=== PATIENT | female | born 1935 | race Caucasian/White ===

== ENCOUNTER 2017-01-20 21:35 | Inpatient (IN) | payer OTHER ==
[~2017-01-20] VITALS: Ht 157.5 cm; Wt 65.9 kg
--- NOTE | 2017-01-20 21:53 | EMERGENCY ROOM VISIT NOTE ---
History Report prepared by Tyra: Dilcia Miranda Under the Supervision of: Dr. Markel Lemus M.D. First contact with patient: 21:42 Stated Complaint: NSTEMI History of Present Illness The patient is a 81 year old female who presents to the Emergency Room with complaints of intermittent central chest pain starting last night. She had a episode of shooting chest pain this morning that radiated to her back. The patient denies having any nausea. She notes that she was dizzy and sweating during her episode this morning. The patient denies having any chest pain presently. She was transferred from [facility] and was given an Aspirin while there. The patient is not on any blood thinners. She has a history of osteoporosis anxiety, and GERD. Source of History: patient, transfer records, treating provider Onset: last night Position: chest Timing: intermittent Associated Symptoms: No nausea Note: Pt. notes being sweaty and dizzy. Review of Systems As above. All other systems reviewed were negative unless otherwise stated in history. At least 10 were reviewed Past Medical & Surgical Medical Problems: (1) Anxiety (2) Chest pain (3) GERD (gastroesophageal reflux disease) (4) Osteoporosis Old medical records were reviewed. Nurse's notes were reviewed and I agree with. Social History Marital Status: Housing Status: lives with significant other Current/Historical Medications Scheduled Bisacodyl (Dulcolax), 1 TAB PO UD Calcium Carbonate-Vitamin D W/ (Caltrate 600 Plus), 1 TAB PO BID Ibandronate Sodium (Boniva), 150 MG PO MONTHLY Levothyroxine Sodium (Levothyroxine Sodium), 1 TAB PO DAILY Methylcellulose (Laxative) (Fiber Therapy), 2 TABS PO PRN Multivitamins/Minerals (Mvi With Minerals), 1 TAB PO DAILY Omeprazole (Prilosec), 20 MG PO DAILY Oxybutynin Chloride (Oxybutynin Chloride Er), 1 TAB PO DAILY Ranitidine (Zantac), 150 MG PO DAILY Sertraline (Zoloft), 100 MG PO DAILY Sertraline (Zoloft), 25 MG PO DAILY Vitamin E (E-400), 400 UNITS PO DAILY Scheduled PRN Acetaminophen (Tylenol), 650 MG PO Q6 PRN for Headache or Pain Allergies Coded Allergies: Bacitracin (Verified Allergy, Intermediate, RED RASH, SWOLLEN AT SITE, 01/20) Neomycin (Verified Allergy, Intermediate, RED RASH, SWOLLEN AT SITE, ) Polymyxin B (Verified Allergy, Intermediate, RED RASH, SWOLLEN AT SITE, 01/20/17) Physical Exam Vital Signs Date Time Temp Pulse Resp B/P (MAP) Pulse Ox O2 Delivery O2 Flow Rate FiO2 01/20/17 23:37 53 18 99/59 98 Room Air 01/20/17 23:35 52 20 01/20/17 21:48 55 01/20/17 21:43 36.5 55 20 160/62 95 Room Air 01/20/17 21:43 98 Room Air 01/20/17 21:43 98 Room Air 01/20/17 21:43 98 Room Air 01/20/17 21:38 160/62 Physical Exam General: Well appearing older female in no acute distress, breathing comfortably on room air. Normal speech HEENT: Normal cephalic atraumatic. Pupils are equal round and reactive to light. Extraocular movements are intact. Oropharynx is pink with moist mucous membranes. No swelling of the mouth lips or tongue. Neck: Supple with a midline trachea. No meningeal signs or stiffness, no JVD or bruits. No Stridor. Chest: Clear to auscultation bilaterally. No wheezes or rhonchi. No increased work of breathing. Heart: regular rate and rhythm. Abdomen: Soft nontender, nondistended without rebound guarding or rigidity. Extremities: No cyanosis clubbing or edema. No calf tenderness or assymetry Spine/Back. Non tender to palpation. No CVA tenderness Skin: Good turgor without rashes. Neurologic exam: Cranial nerves two through 12 are intact. Motor and sensation are intact and symmetrical throughout. Medical Decision & Procedures ER Provider Diagnostic Interpretation: Radiology results as stated below per my review and radiologist interpretation: CHEST ONE VIEW PORTABLE FINDINGS: Lung volumes are normal. No pneumothorax or pleural effusion is present. No consolidation is identified. Mild cardiomegaly is noted. There is no evidence of pulmonary edema. IMPRESSION: No acute cardiopulmonary findings. Electronically signed by: Steven Coelho M.D. Laboratory Results 01/20/17 22:10 Red Blood Count 4.05, Mean Corpuscular Volume 92.6, Mean Corpuscular Hemoglobin 32.1, Mean Corpuscular Hemoglobin Concent 34.7, Mean Platelet Volume 9.6, Neutrophils (%) (Auto) 60.0, Lymphocytes (%) (Auto) 32.1, Monocytes (%) (Auto) 7.1, Eosinophils (%) (Auto) 0.0, Basophils (%) (Auto) 0.4, Neutrophils # (Auto) 5.06, Lymphocytes # (Auto) 2.71, Monocytes # (Auto) 0.60, Eosinophils # (Auto) 0.00, Basophils # (Auto) 0.03 01/20/17 22:10 Test 01/20/17 22:10 01/20/17 23:53 White Blood Count 8.43 K/uL (4.8-10.8) Red Blood Count 4.05 M/uL (4.2-5.4) Hemoglobin 13.0 g/dL (12.0-16.0) Hematocrit 37.5 % (37-47) Mean Corpuscular Volume 92.6 fL (80-100) Mean Corpuscular Hemoglobin 32.1 pg (25-34) Mean Corpuscular Hemoglobin Concent 34.7 g/dl (32-36) Platelet Count 235 K/uL (130-400) Mean Platelet Volume 9.6 fL (7.4-10.4) Neutrophils (%) (Auto) 60.0 % Lymphocytes (%) (Auto) 32.1 % Monocytes (%) (Auto) 7.1 % Eosinophils (%) (Auto) 0.0 % Basophils (%) (Auto) 0.4 % Neutrophils # (Auto) 5.06 K/uL (1.4-6.5) Lymphocytes # (Auto) 2.71 K/uL (1.2-3.4) Monocytes # (Auto) 0.60 K/uL (0.11-0.59) Eosinophils # (Auto) 0.00 K/uL (0-0.5) Basophils # (Auto) 0.03 K/uL (0-0.2) RDW Standard Deviation 45.2 fL (36.4-46.3) RDW Coefficient of Variation 13.3 % (11.5-14.5) Immature Granulocyte % (Auto) 0.4 % Immature Granulocyte # (Auto) 0.03 K/uL (0.00-0.02) Anion Gap 8.0 mmol/L (3-11) Est Creatinine Clear Calc Drug Dose 71.1 ml/min Estimated GFR () 101.0 Estimated GFR (Non- 87.2 BUN/Creatinine Ratio 29.2 (10-20) Calcium Level 7.1 mg/dl (8.5-10.1) Total Bilirubin 0.6 mg/dl (0.2-1) Direct Bilirubin mg/dl (0-0.2) Aspartate Amino Transf (AST/SGOT) 22 U/L (15-37) Alanine Aminotransferase (ALT/SGPT) 19 U/L (12-78) Alkaline Phosphatase 43 U/L (45-117) Total Protein 5.4 gm/dl (6.4-8.2) Albumin 2.9 gm/dl (3.4-5.0) Lipase 84 U/L (73-393) Chemistry Specimen Hemolysis Creatine Kinase MB Ratio (0-3.0) Laboratory studies as stated above per my review. ECG Indication: chest pain Rate (beats per minute): 52 Rhythm: sinus bradycardia Findings: T-wave inversion (Anterior), other (No ST segment elevation) Comparison ECG Date: 09/08/2002 Change: Normal sinus replaces SVT. T-wave inversion now present. ED Course 2142: Past medical records reviewed. The patient was evaluated in room B10, and a complete history and physical examination were performed. 0: The patient is resting comfortably and is asymptomatic. 2257: Discussed the patient's case with Dr. Prasad. The patient will be evaluated for further management. 2301: Upon reevaluation, the patient is resting. I discussed the results and treatment plan with the patient. She verbalized agreement of the treatment plan. The patient will be evaluated for further management. Medical Decision Differential diagnosis includes but is not limited to: acute coronary syndrome, [place], PE, and electrolyte metabolic abnormality. This patient comes in as described above. She was placed in room B 10. She was seen initially at [place] but transferred here for further cardiac workup and evaluation. She had 2 episodes of chest pain, one last night and one this morning. She has been asymptomatic since then she has no complaints. Her troponin is elevated at 1. Her EKG does show anterior T-wave inversions concerning for an LAD lesion potentially. She has no evidence suggest acute CHF. she had a CAT scan of her chest at the outside hospital showed no PE. Her potassium is mildly low but no other significant electrolyte or metabolic abnormalities. I do think she needs to be admitted for further cardiac treatment and evaluation. I have consulted , who saw her in the ER, and will admit her for these measures. The patient did receive aspirin prior to arrival. Medication Reconcilliation Current Medication List: was personally reviewed by me Blood Pressure Screening Patient's blood pressure: Elevated blood pressure The patient was admitted. Consults Time Called: [phone] Consulting Physician: Dr. Matias-[facility] [place] [facility] Returned Call: [phone] Discussed the patient's case. The patient will be evaluated for further management. Impression Primary Impression: Non-STEMI (non-ST elevated myocardial infarction) Additional Impressions: Elevated troponin level Chest pain, precordial Scribe Attestation The scribe's documentation has been prepared under my direction and personally reviewed by me in its entirety. I confirm that the note above accurately reflects all work, treatment, procedures, and medical decision making performed by me. Departure Information Dispostion Being Evaluated By Hospitalist Referrals No Doctor, Assigned (PCP) Problem Qualifiers
--- NOTE | 2017-01-20 22:04 | DIAGNOSTIC IMAGING REPORT ---
CHEST ONE VIEW PORTABLE CLINICAL HISTORY: Chest pain. COMPARISON STUDY: No previous studies for comparison. FINDINGS: Lung volumes are normal. No pneumothorax or pleural effusion is present. No consolidation is identified. Mild cardiomegaly is noted. There is no evidence of pulmonary edema. IMPRESSION: No acute cardiopulmonary findings. Electronically signed by: Steven Coelho M.D. 01/20/2017 10:03 PM Dictated Date/Time: 01/20/2017 10:02 PM
[2017-01-20 22:30] LABS: BASO % 0.4 %; BASO ABS # 0.03 K/uL (0-0.2); COMPLETE YES; HEMATOCRIT 37.5 % (37-47); IG% 0.4 %; LYMPH % 32.1 %; LYMPH ABS # 2.71 K/uL (1.2-3.4); MEAN CELL VOLUME 92.6 fL (80-100); MEAN CORPUSCULAR HEMOGLOBIN 32.1 pg (25-34); MEAN CORPUSCULAR HGB CONC 34.7 g/dl (32-36); MEAN PLATELET VOLUME 9.6 fL (7.4-10.4); MONO % 7.1 %; PLATELET COUNT 235 K/uL (130-400); RED BLOOD COUNT 4.05 M/uL (4.2-5.4); WHITE BLOOD COUNT 8.43 K/uL (4.8-10.8)
[2017-01-20] MEDS ORDERED: BISA-16 PO (22:31)
[2017-01-20] MEDS ORDERED: PRLSR20 PO (22:31)
[2017-01-20] MEDS ORDERED: VITACAP37 PO (22:31)
[2017-01-20] MEDS ORDERED: SERT25TA PO (22:31)
[2017-01-20] MEDS ORDERED: ZNTT/150 PO (22:31)
[2017-01-20] MEDS ORDERED: LEVO50TA6 PO (22:31)
[2017-01-20] MEDS ORDERED: MULT-513 PO (22:31)
[2017-01-20] MEDS ORDERED: OXYB5TAB PO (22:31)
[2017-01-20] MEDS ORDERED: METH1TAB66 PO (22:31)
[2017-01-20] MEDS ORDERED: ACET-1311 PO (22:31)
[2017-01-20] MEDS ORDERED: SERT-234 PO (22:31)
[2017-01-20] MEDS ORDERED: CALCTAB7 PO (22:31)
[2017-01-20] MEDS ORDERED: IBAN150T PO (22:31)
[2017-01-20 23:09] LABS: ALKALINE PHOSPHATASE 43 U/L (45-117); ALT/SGPT 19 U/L (12-78); AST/SGOT 22 U/L (15-37); BLOOD UREA NITROGEN 17 mg/dl (7-18); BUN/CREATININE RATIO 29.2 (10-20); CALCIUM 7.1 mg/dl (8.5-10.1); CARBON DIOXIDE 21 mmol/L (21-32); CHLORIDE 113 mmol/L (98-107); CREATININE 0.59 mg/dl (0.60-1.20); GLUCOSE 76 mg/dl (70-99); POTASSIUM 3.1 mmol/L (3.5-5.1); SODIUM 142 mmol/L (136-145)
[2017-01-21] VITALS (14 sets, daily range): BP systolic 119–167; BP diastolic 61–78; PULSE 50–62; TEMP 36.4–36.7; O2SAT 93–97; Ht 157.5 cm; Wt 65.9 kg
[2017-01-21] MEDS ORDERED: D5NSS + 20MEQ KCL 1,000 ML IV SCH
[2017-01-21] MEDS ORDERED: NITROGLYCERIN 0.4 MG SL PER TAB CHARGE SL PRN
[2017-01-21] MEDS ORDERED: POTASSIUM CHLORIDE 10 MEQ TABCR PO STA (00:42)
[2017-01-21 01:24] LABS: CKMB/CK RATIO 5.7 (0-3.0)
--- NOTE | 2017-01-21 02:06 | History and Physical ---
History & Physical Date & Time of Service: Jan 21, 2017 at 01:50 Chief Complaint: Nstemi Primary Care Physician: Elda Kaye D.O. History of Present Illness Source: patient, clinic records 81 year old female with history of hypothyroidism, and other medical problems noted below presenting with chest pain that started 1 day prior to admission. Follows with Dr. Pedraza for Primary Care. 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 She was doing fine until last night, while laying bed trying to fall asleep, when patient started to have substernal chest pain, "pressure", mild. She stood up, felt somewhat dizzy and took Zantac, which apparently relieved her symptoms. Today, patient woke up with no chest pain but around noon time, experienced dizziness followed by left sided chest discomfort and sweats. She then called 911, and was given 4 baby Aspirins.Patient does not remember being given Nitro. She was brought the [facility], found to have T wave inversions in V1- V6, inferior leads and Troponin was 1.05. D dimer was >[address] Angio was negative for PE. She was already chest pain free upon arriving to [facility]. Patient was transferred to [facility] per family's request. At [facility] ER, patient's BP was mildly elevated but still denied chest pain. EKG showed T wave inversions in V1-V6, leads 2 and 3. Troponin was elevated at 1.5 , as well as CKMB at 7.8. On my exam, patient was seen resting in bed, comfortable. She states chest pain has resolved, denies active dyspnea, dizziness, nausea. No other symptoms. Past Medical/Surgical History Medical Problems: (1) Anxiety Status: Chronic (2) GERD (gastroesophageal reflux disease) Status: Chronic (3) Osteoporosis Status: Chronic Family History denies family history of CAD Social History Smoking Status: Unknown if Ever Smoked Smokeless Tobacco Use: No Alcohol Use: none Drug Use: none Marital Status: Housing status: lives with significant other Multi-Drug Resistant Organisms History of MDRO: No Allergies Coded Allergies: Bacitracin (Verified Allergy, Intermediate, RED RASH, SWOLLEN AT SITE, 01/20) Neomycin (Verified Allergy, Intermediate, RED RASH, SWOLLEN AT SITE, ) Polymyxin B (Verified Allergy, Intermediate, RED RASH, SWOLLEN AT SITE, 01/20/17) Home Medications Scheduled Bisacodyl (Dulcolax), 1 TAB PO UD Calcium Carbonate-Vitamin D W/ (Caltrate 600 Plus), 1 TAB PO BID Ibandronate Sodium (Boniva), 150 MG PO MONTHLY Levothyroxine Sodium (Levothyroxine Sodium), 1 TAB PO DAILY Methylcellulose (Laxative) (Fiber Therapy), 2 TABS PO PRN Multivitamins/Minerals (Mvi With Minerals), 1 TAB PO DAILY Omeprazole (Prilosec), 20 MG PO DAILY Oxybutynin Chloride (Oxybutynin Chloride Er), 1 TAB PO DAILY Ranitidine (Zantac), 150 MG PO DAILY Sertraline (Zoloft), 100 MG PO DAILY Sertraline (Zoloft), 25 MG PO DAILY Vitamin E (E-400), 400 UNITS PO DAILY Scheduled PRN Acetaminophen (Tylenol), 650 MG PO Q6 PRN for Headache or Pain Review of Systems Constitutional- no fever; no weight loss Eyes- no acute visual changes ENT- no sinus drainage; no pharyngitis Pulmonary- no cough, no wheezing, no shortness of breath Cardiac-(+) as noted above GI- no nausea, no vomiting, no diarrhea, no melena, no hematochezia - no dysuria, no hematuria Musculoskeletal- no arthralgias, no myalgias Derm- no rashes, no new skin lesions, no changing skin lesions Hematologic- no unusual bruising, no unusual bleeding Lymphatics- no adenopathy Endocrine- no polyuria or polydipsia; no heat or cold intolerance Neuro- no headaches, no focal neurologic symptoms Psych- no anxiety, no depression Physical Exam Vital Signs Date Time Temp Pulse Resp B/P (MAP) Pulse Ox O2 Delivery O2 Flow Rate FiO2 01/21/17 00:36 54 18 104/52 96 Room Air 01/20/17 23:37 53 18 99/59 98 Room Air 01/20/17 23:35 52 20 01/20/17 21:48 55 01/20/17 21:43 36.5 55 20 160/62 95 Room Air 01/20/17 21:43 98 Room Air 01/20/17 21:43 98 Room Air 01/20/17 21:43 98 Room Air 01/20/17 21:38 160/62 General Appearance: WD/WN, no apparent distress Head: normocephalic, atraumatic Eyes: normal inspection, EOMI, sclerae normal ENT: normal ENT inspection, hearing grossly normal, pharynx normal Neck: supple, no adenopathy, thyroid normal, no JVD, trachea midline Respiratory/Chest: chest non-tender, lungs clear, normal breath sounds, no respiratory distress, no accessory muscle use Cardiovascular: regular rate, rhythm, no edema, no JVD, no murmur, normal peripheral pulses Abdomen/GI: normal bowel sounds, non tender, soft, no organomegaly Back: normal inspection, no CVA tenderness Extremities/Musculoskelatal: normal inspection, no calf tenderness, no pedal edema, normal range of motion, non-tender 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: 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, no motor/sensory deficits, alert, normal mood/affect, oriented x 3 Skin: normal color, warm/dry, no rash Lymphatic: no adenopathy Diagnostics Laboratory Results Results Past 24 Hours Test 01/20/17 22:10 01/20/17 23:53 Range/Units White Blood Count 8.43 4.8-10.8 K/uL Red Blood Count 4.05 4.2-5.4 M/uL Hemoglobin 13.0 12.0-16.0 g/dL Hematocrit 37.5 37-47 % Mean Corpuscular Volume 92.6 80-100 fL Mean Corpuscular Hemoglobin 32.1 25-34 pg Mean Corpuscular Hemoglobin Concent 34.7 32-36 g/dl Platelet Count 235 130-400 K/uL Mean Platelet Volume 9.6 7.4-10.4 fL Neutrophils (%) (Auto) 60.0 % Lymphocytes (%) (Auto) 32.1 % Monocytes (%) (Auto) 7.1 % Eosinophils (%) (Auto) 0.0 % Basophils (%) (Auto) 0.4 % Neutrophils # (Auto) 5.06 1.4-6.5 K/uL Lymphocytes # (Auto) 2.71 1.2-3.4 K/uL Monocytes # (Auto) 0.60 0.11-0.59 K/uL Eosinophils # (Auto) 0.00 0-0.5 K/uL Basophils # (Auto) 0.03 0-0.2 K/uL RDW Standard Deviation 45.2 36.4-46.3 fL RDW Coefficient of Variation 13.3 11.5-14.5 % Immature Granulocyte % (Auto) 0.4 % Immature Granulocyte # (Auto) 0.03 0.00-0.02 K/uL Sodium Level 142 136-145 mmol/L Potassium Level 3.1 3.5-5.1 mmol/L Chloride Level 113 98-107 mmol/L Carbon Dioxide Level 21 21-32 mmol/L Anion Gap 8.0 3-11 mmol/L Blood Urea Nitrogen 17 7-18 mg/dl Creatinine 0.59 0.60-1.20 mg/dl Est Creatinine Clear Calc Drug Dose 71.1 ml/min Estimated GFR () 101.0 Estimated GFR (Non- 87.2 BUN/Creatinine Ratio 29.2 10-20 Random Glucose 76 70-99 mg/dl Calcium Level 7.1 8.5-10.1 mg/dl Total Bilirubin 0.6 0.2-1 mg/dl Direct Bilirubin 0-0.2 mg/dl Aspartate Amino Transf (AST/SGOT) 22 15-37 U/L Alanine Aminotransferase (ALT/SGPT) 19 12-78 U/L Alkaline Phosphatase 43 45-117 U/L Total Creatine Kinase 136 26-192 U/L Creatine Kinase MB 7.8 0.5-3.6 ng/ml Creatine Kinase MB Ratio 5.7 0-3.0 Troponin I 1.510 0-0.045 ng/ml Total Protein 5.4 6.4-8.2 gm/dl Albumin 2.9 3.4-5.0 gm/dl Lipase 84 73-393 U/L Chemistry Specimen Hemolysis Diagnostic Radiology CHEST ONE VIEW PORTABLE CLINICAL HISTORY: Chest pain. COMPARISON STUDY: No previous studies for comparison. FINDINGS: Lung volumes are normal. No pneumothorax or pleural effusion is present. No consolidation is identified. Mild cardiomegaly is noted. There is no evidence of pulmonary edema. IMPRESSION: No acute cardiopulmonary findings. EKG per H&P Impression Assessment and Plan 81 year old female with history of hypothyroidism, and other medical problems noted below presenting with chest pain that started 1 day prior to admission. POSSIBLE NSTEMI - now chest pain free - follow cardiac markers echo - already received four Aspirin 81mg po earlier today c/o EMS - discussed with Dr. Basilio will start Heparin IV drip Lipitor 40mg po daily - hold off on Betablocker due to HR in the high 50s hold off Lisinopril and Nitrates in light of borderline BP - NPO post midnight for possible Cardiac Cath in AM HYPOKALEMIA - PO K ordered - monitor ELEVATED D DIMER - >1000 drawn at [facility] - CT angio at [place]: no PE - check Doppler US of the Lower Ext to r/o DVT - likely from ongoing NSTEMI GERD - continue Zantac HYPOTHYROIDISM - continue Levothyroxine DVT prophylaxis - heparin IV drip FULL CODE PER PATIENT DISPOSITION anticipate d/c home when medically stable independent, takes care of with dementia follows with Dr. Pedraza for PCP VTE Prophylaxis VTE Risk Assessment Done? Y/N: Yes Risk Level: Moderate Given or contraindicated: Unfractionated heparin SQ
[2017-01-21] MEDS ORDERED: HEPARIN 25,000 UNIT/500ML D5W 500 ML IV PRN (02:45)
[2017-01-21 03:31] LABS: BASO % 0.4 %; BASO ABS # 0.03 K/uL (0-0.2); COMPLETE YES; HEMATOCRIT 38.6 % (37-47); IG% 0.3 %; LYMPH % 34.6 %; LYMPH ABS # 2.62 K/uL (1.2-3.4); MEAN CELL VOLUME 93.5 fL (80-100); MEAN CORPUSCULAR HEMOGLOBIN 30.3 pg (25-34); MEAN CORPUSCULAR HGB CONC 32.4 g/dl (32-36); MEAN PLATELET VOLUME 9.3 fL (7.4-10.4); MONO % 9.5 %; NEUT % 55.2 %; PLATELET COUNT 220 K/uL (130-400); RED BLOOD COUNT 4.13 M/uL (4.2-5.4); WHITE BLOOD COUNT 7.57 K/uL (4.8-10.8)
[2017-01-21 03:47] LABS: PARTIAL THROMBOPLASTIN RATIO 1.1
[2017-01-21] MEDS: D5NSS + 20MEQ KCL 1,000 ML IV SCH ×2 (03:52→12:59)
[2017-01-21 04:11] LABS: CKMB/CK RATIO 5.2 (0-3.0); CREATININE 0.85 mg/dl (0.60-1.20); MAGNESIUM 2.5 mg/dl (1.8-2.4); POTASSIUM 3.8 mmol/L (3.5-5.1)
[2017-01-21 04:12] LABS: CALCIUM 8.5 mg/dl (8.5-10.1)
[2017-01-21] MEDS ORDERED: LEVOTHYROXINE 50 MCG TAB PO SCH (06:00)
[2017-01-21] MEDS: LEVOTHYROXINE 50 MCG TAB PO SCH (06:16)
[2017-01-21] MEDS: PANTOprazole SOD 40 MG TAB PO SCH (06:16)
--- NOTE | 2017-01-21 06:26 | DIAGNOSTIC IMAGING REPORT ---
VENOUS DOPPLER LW EXT BILAT HISTORY: Pain. Edema. r/o dv COMPARISON STUDY: None. FINDINGS: There is normal compressibility, flow, and augmentation within the bilateral lower extremity deep venous systems. IMPRESSION: No DVT within the right or left lower extremity. The above report was generated using voice recognition software. It may contain grammatical, syntax or spelling errors. Electronically signed by: Saeed Casper M.D. 01/21/2017 6:24 AM Dictated Date/Time: 01/21/2017 6:24 AM
[2017-01-21] MEDS: OXYBUTYNIN CHLORIDE 5 MG TABCR PO SCH (07:39)
[2017-01-21] MEDS: SERTRALINE HCL 50 MG TAB PO SCH (07:40)
[2017-01-21] MEDS: SERTRALINE HCL 100 MG TAB PO SCH (07:40)
[2017-01-21] MEDS: RANITIDINE HCL 150 MG TAB PO SCH (07:40)
[2017-01-21] MEDS: ATORVASTATIN 40 MG TAB PO SCH (07:41)
[2017-01-21] MEDS ORDERED: ATORVASTATIN 40 MG TAB PO SCH (09:00)
--- NOTE | 2017-01-21 10:26 | CARDIOLOGY CONSULTATION ---
DATE OF CONSULTATION: 01/21/2017 DATE OF CONSULTATION: 01/21/2017 CONSULTATION FOR: Brien langley. REASON FOR CONSULTATION: Non-STEMI. HISTORY OF PRESENT ILLNESS: The patient is a 81-year-old with no prior history of heart disease. She does have a history of GERD and anxiety. 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 Last evening while she was trying to fall asleep she developed substernal chest pressure and discomfort. She took a Zantac which apparently relieved her symptoms. She awoke again on the day of admission with feeling well but later on developed some dizziness along with left-sided chest discomfort and diaphoresis. She called 911 and was taken to [facility]. There she was noted to have a abnormal EKG and borderline elevation in troponins. A CT of the chest was negative for pulmonary emboli. By the time she reached [facility] she was chest pain free and has remained so since admission. Per the family's request, she was transferred to [facility] for further care. After admission to [facility] her troponins have remained elevated but not increased since admission here at 1.5. Her EKG shows a sinus rhythm but is concerning because there are deep symmetrical T-wave inversions across the anterior precordial leads suggesting ischemia. ALLERGIES: BACITRACIN, NEOMYCIN, AND POLYMYXIN. PAST MEDICAL HISTORY: She has no prior history of diabetes, strokes, hypertension or kidney disease. She has been treated for GERD and anxiety. She has no prior history of ischemic heart disease. FAMILY MEDICAL HISTORY: Noncontributory. SOCIAL HISTORY: She has never smoked. She is and lives with her who has advanced dementia. REVIEW OF SYSTEMS: A 10-point review of systems is negative except for the history of chief complaint. PHYSICAL EXAMINATION: GENERAL: She is alert and oriented in no acute distress. HEAD, EYES, EARS, NOSE, AND THROAT: She is normocephalic. Pupils are equal and reactive to light. Extraocular muscles are intact bilaterally. NECK: The neck veins are flat. Carotids have good upstrokes bilaterally without bruits. Thyroid is nonpalpable. RESPIRATORY: Breath sounds equal bilaterally and clear to auscultation. CARDIOVASCULAR: Heart has a regular rhythm. Normal S1, S2. No S3, S4. No cardiac rubs or murmurs. GASTROINTESTINAL: Abdomen is soft, nontender without organomegaly. EXTREMITIES: Free of edema, digit clubbing, or cyanosis. NEUROLOGIC: Grossly intact. SKIN: Warm to touch. LYMPH NODES: Negative to palpation. LABORATORY DATA: Hemoglobin is 13.0, troponin is 1.5, creatinine is 0.59. EKG reveals sinus rhythm with symmetrical T-wave inversions across the precordium suggesting ischemia. IMPRESSION: 1. Chest pain with borderline elevation in troponins and an abnormal EKG suspicious for non-ST segment elevation myocardial infarction. 2. Gastroesophageal reflux disease. RECOMMENDATIONS: The patient is currently stable. I have recommended that we proceed with a cardiac catheterization. I explained the risks, benefits and intent of that procedure to her including the potential for catheter based intervention such as balloon angioplasty or intracoronary stenting. The patient is willing to proceed and it will be performed later this morning.
[2017-01-21 10:31] LABS: PARTIAL THROMBOPLASTIN RATIO 3.5
[2017-01-21 10:56] LABS: CKMB/CK RATIO 4.4 (0-3.0)
[2017-01-21] MEDS ORDERED: FENTANYL CITRATE INJ 50 MCG/1 ML 2 ML VIAL ONE (11:58)
[2017-01-21] MEDS ORDERED: MIDAZOLAM HCL 1 MG/ML 2ML VIAL ONE (11:58)
--- NOTE | 2017-01-21 12:01 | ECHOCARDIOGRAM REPORT ---
*NOTICE TO RECEIVING [employer] This information is strictly Confidential and protected under [place] law. [place] law prohibits you from making any further disclosure of this information unless further disclosure is expressly permitted by the written consent of the person to whom it pertains or is authorized by law. A general authorization for the release of medical or other information is not sufficient for this purpose. Hospital accepts no responsibility if the information is made available to any other person, INCLUDING THE PATIENT. Interpretation Summary * Name: LEONID PURI Study Date: 01/21/2017 10:23 AM * Patient Location: .2T\S\S235\S\1 HR: 55 * : 1935 (M/d/yyyy) Gender: Female Height: 62 in * Age: 81 yrs Ethnicity: CA Weight: 155 lb * Ordering Physician: Jared Matias * Referring Physician: Self, Referred * Performed By: Julio Marc RCS * * Reason For Study: Chest pain * BSA: 1.7 m2 * -- Conclusions -- * Small pericardial effusion. A circumferential pericardial effusion is noted. There are no echocardiographic indications of cardiac tamponade. * Normal LV chamber size with mild concentric LVH. * Normal LV systolic function, EF 55-60%. * No segmental left ventricular wall motion abnormalities are noted. * Grade II diastolic dysfunction. * Mild aortic regurgitation. * Mild mitral regurgitation. * Mild left atrial enlargement. Procedure Details * Left Ventricle The left ventricle is normal in size. There is mild concentric left ventricular hypertrophy. Ejection Fraction = 65-70%. Left ventricular systolic function is normal. No segmental left ventricular wall motion abnormalities are noted. The left ventricular wall motion is normal. * Right Ventricle The right ventricular cavity size is normal (basal dimension <4.2 cm in right ventricular apical 4-chamber view). The right ventricular systolic function is normal as assessed by tricuspid annular plane systolic excursion (TAPSE) (normal >1.5 cm). * Atria The left atrium is mildly dilated. Right atrial size is normal. No ASD detected; PFO is not assessed. * Mitral Valve The mitral valve anatomy is normal. There is no mitral valve stenosis. There is mild mitral regurgitation. * Tricuspid Valve The tricuspid valve is normal in structure and function. * Aortic Valve The aortic valve is trileaflet. No hemodynamically significant valvular aortic stenosis. Mild aortic regurgitation. * Pulmonic Valve The pulmonary valve is not well seen, but the Doppler examination is normal without significant regurgitation or stenosis. * Great Vessels The aortic root is normal size. * Pericardium/Pleural Small pericardial effusion. A circumferential pericardial effusion is noted. There are no echocardiographic indications of cardiac tamponade. * Left Ventricular Diastolic Function Diastolic dysfunction, Grade II (pseudonormalization pattern). * * MMode 2D Measurements and Calculations * IVSd 1.1 cm * * LVIDd 4.7 cm * LVIDs 2.9 cm * LVPWd 0.90 cm * * IVS/LVPW 1.2 * FS 36.8 % * EDV(Teich) 100.3 ml * ESV(Teich) 33.4 ml * EF(Teich) 66.7 % * * EDV(cubed) 101.1 ml * ESV(cubed) 25.5 ml * EF(cubed) 74.8 % * * LV mass(C)d 157.8 grams * LV mass(C)dI 92.0 grams/m\S\2 * * SV(Teich) 66.9 ml * SI(Teich) 39.0 ml/m\S\2 * SV(cubed) 75.6 ml * SI(cubed) 44.1 ml/m\S\2 * * Ao root diam 3.2 cm * Ao root area 8.2 cm\S\2 * * LVOT diam 1.9 cm * LVOT area 2.8 cm\S\2 * * EDV(MOD-sp4) 73.5 ml * ESV(MOD-sp4) 19.6 ml * EF(MOD-sp4) 73.3 % * * EDV(MOD-sp2) 24.8 ml * ESV(MOD-sp2) 7.1 ml * EF(MOD-sp2) 71.5 % * * SV(MOD-sp4) 53.9 ml * SI(MOD-sp4) 31.4 ml/m\S\2 * * SV(MOD-sp2) 17.7 ml * SI(MOD-sp2) 10.3 ml/m\S\2 * * * Doppler Measurements and Calculations * MV E max maurice 108.4 cm/sec * MV A max maurice 75.5 cm/sec * * MV E/A 1.4 * * MV dec time 0.21 sec * * Ao V2 max 115.2 cm/sec * Ao max PG 5.3 mmHg * Ao max PG (full) 1.1 mmHg * SARA(V,A) 2.5 cm\S\2 * SARA(V,D) 2.5 cm\S\2 * * AI max maurice 313.2 cm/sec * AI max PG 39.2 mmHg * AI dec slope 152.2 cm/sec\S\2 * AI P1/2t 602.8 msec * * LV V1 max PG 4.2 mmHg * * LV V1 max 102.5 cm/sec * * TR max maurice 254.2 cm/sec * *
[2017-01-21] MEDS ORDERED: ACETAMINOPHEN 325 MG TAB PO PRN ×2 (12:30)
[2017-01-21] MEDS ORDERED: ATROPINE SULFATE 0.1 MG/ML 5ML SYR IV PRN (12:30)
[2017-01-21] MEDS ORDERED: ONDANSETRON INJ 2 MG/ML 2 ML VIAL IV PRN (12:30)
[2017-01-21] MEDS ORDERED: SODIUM CHLORIDE 0.9% 1000ML 250 ML IV PRN (12:30)
--- NOTE | 2017-01-21 12:36 | Cardiac Catheterization ---
Procedure Note Procedure Date Jan 21, 2017. Pre-Procedure Diagnosis Non STEMI AUC Score 9 Post-Procedure Diagnosis Normal Coronary Arteries Procedure(s) Performed Coronary Angiography Director Of Testing Dr. 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
[2017-01-21] MEDS ORDERED: NURSING VERBAL MED ORDER ONE (13:15)
[2017-01-21] MEDS ORDERED: AMLODIPINE BESYLATE 5 MG TAB PO ONE (14:40)
[2017-01-21] MEDS: SODIUM CHLORIDE 0.9% 1000ML 1,000 ML IV SCH (14:57)
--- NOTE | 2017-01-21 23:27 | Progress Note ---
Medicine Progress Note Date & Time of Visit: Jan 21, 2017 at 13:15. Subjective transferred from OSH last night for r/o ACS serial troponin was elevated but not rising no chest pain since arrival to hospital, traditionally CP at home was with exertion and under stressful situations and would resolve quickly with rest. No associated symptoms TWI were persistent on EKG Heparin drip overnight Cath today with clean coronaries. Objective Last 8 Hrs Date Time Temp Pulse Resp B/P (MAP) Pulse Ox O2 Delivery O2 Flow Rate FiO2 01/21/17 13:02 36.6 59 18 138/72 (94) 94 Room Air 01/21/17 12:47 36.6 57 18 143/72 (95) 94 Room Air 01/21/17 12:32 36.5 57 18 143/72 (95) 94 Room Air 01/21/17 12:30 50 16 163/87 (112) 95 Room Air 01/21/17 12:00 93 Room Air 01/21/17 10:57 36.6 52 20 148/66 (93) 96 01/21/17 08:00 93 Room Air 01/21/17 07:33 36.7 54 20 119/61 (80) 93 Physical Exam: GEN: WNWD, in no acute distress, alert and appropriate HEENT: NC/AT, PERRL, normal sclerae, MMM CARDIO: reg rate, S1/2 heard without m/g/r, no JVD, +anterior chest wall tenderness to palpation LUNGS: CTA bilaterally, no crackles, rales or wheezes, good diaphragmatic excursion ABD: soft, non-tender, non-distended, no rebound or guarding, +BS EXTREMITY: RP and DP palpable 2+ bilat, no LE swelling or edema, extremities are warm and well-perfused NEURO: CN 2-12 grossly intact MUSC: 5/5 strength throughout, no focal deficits SKIN: warm and dry Laboratory Results: 01/21/17 03:07 Red Blood Count 4.13, Mean Corpuscular Volume 93.5, Mean Corpuscular Hemoglobin 30.3, Mean Corpuscular Hemoglobin Concent 32.4, Mean Platelet Volume 9.3, Neutrophils (%) (Auto) 55.2, Lymphocytes (%) (Auto) 34.6, Monocytes (%) (Auto) 9.5, Eosinophils (%) (Auto) 0.0, Basophils (%) (Auto) 0.4, Neutrophils # (Auto) 4.18, Lymphocytes # (Auto) 2.62, Monocytes # (Auto) 0.72, Eosinophils # (Auto) 0.00, Basophils # (Auto) 0.03 01/21/17 03:07 Test 01/20/17 22:08 01/20/17 22:10 01/21/17 03:07 01/21/17 09:55 Bedside Troponin I 1.050 ng/ml (0-0.045) Total Bilirubin 0.6 mg/dl (0.2-1) Direct Bilirubin mg/dl (0-0.2) Aspartate Amino Transf (AST/SGOT) 22 U/L (15-37) Alanine Aminotransferase (ALT/SGPT) 19 U/L (12-78) Alkaline Phosphatase 43 U/L (45-117) Total Protein 5.4 gm/dl (6.4-8.2) Albumin 2.9 gm/dl (3.4-5.0) Lipase 84 U/L (73-393) Chemistry Specimen Hemolysis White Blood Count 7.57 K/uL (4.8-10.8) Red Blood Count 4.13 M/uL (4.2-5.4) Hemoglobin 12.5 g/dL (12.0-16.0) Hematocrit 38.6 % (37-47) Mean Corpuscular Volume 93.5 fL (80-100) Mean Corpuscular Hemoglobin 30.3 pg (25-34) Mean Corpuscular Hemoglobin Concent 32.4 g/dl (32-36) Platelet Count 220 K/uL (130-400) Mean Platelet Volume 9.3 fL (7.4-10.4) Neutrophils (%) (Auto) 55.2 % Lymphocytes (%) (Auto) 34.6 % Monocytes (%) (Auto) 9.5 % Eosinophils (%) (Auto) 0.0 % Basophils (%) (Auto) 0.4 % Neutrophils # (Auto) 4.18 K/uL (1.4-6.5) Lymphocytes # (Auto) 2.62 K/uL (1.2-3.4) Monocytes # (Auto) 0.72 K/uL (0.11-0.59) Eosinophils # (Auto) 0.00 K/uL (0-0.5) Basophils # (Auto) 0.03 K/uL (0-0.2) RDW Standard Deviation 45.2 fL (36.4-46.3) RDW Coefficient of Variation 13.2 % (11.5-14.5) Immature Granulocyte % (Auto) 0.3 % Immature Granulocyte # (Auto) 0.02 K/uL (0.00-0.02) Anion Gap 4.0 mmol/L (3-11) Est Creatinine Clear Calc Drug Dose 47.8 ml/min Estimated GFR () 75.5 Estimated GFR (Non- 65.2 BUN/Creatinine Ratio 21.0 (10-20) Calcium Level 8.5 mg/dl (8.5-10.1) Magnesium Level 2.5 mg/dl (1.8-2.4) Activated Partial Thromboplast Time 90.7 SECONDS (21.0-31.0) Partial Thromboplastin Ratio 3.5 Total Creatine Kinase 159 U/L (26-192) Creatine Kinase MB 7.0 ng/ml (0.5-3.6) Creatine Kinase MB Ratio 4.4 (0-3.0) Troponin I 1.070 ng/ml (0-0.045) Last 24 Hours Test 01/20/17 22:08 01/20/17 22:10 01/20/17 23:53 01/21/17 03:07 Bedside Troponin I 1.050 ng/ml White Blood Count 8.43 K/uL 7.57 K/uL Red Blood Count 4.05 M/uL 4.13 M/uL Hemoglobin 13.0 g/dL 12.5 g/dL Hematocrit 37.5 % 38.6 % Mean Corpuscular Volume 92.6 fL 93.5 fL Mean Corpuscular Hemoglobin 32.1 pg 30.3 pg Mean Corpuscular Hemoglobin Concent 34.7 g/dl 32.4 g/dl Platelet Count 235 K/uL 220 K/uL Mean Platelet Volume 9.6 fL 9.3 fL Neutrophils (%) (Auto) 60.0 % 55.2 % Lymphocytes (%) (Auto) 32.1 % 34.6 % Monocytes (%) (Auto) 7.1 % 9.5 % Eosinophils (%) (Auto) 0.0 % 0.0 % Basophils (%) (Auto) 0.4 % 0.4 % Neutrophils # (Auto) 5.06 K/uL 4.18 K/uL Lymphocytes # (Auto) 2.71 K/uL 2.62 K/uL Monocytes # (Auto) 0.60 K/uL 0.72 K/uL Eosinophils # (Auto) 0.00 K/uL 0.00 K/uL Basophils # (Auto) 0.03 K/uL 0.03 K/uL RDW Standard Deviation 45.2 fL 45.2 fL RDW Coefficient of Variation 13.3 % 13.2 % Immature Granulocyte % (Auto) 0.4 % 0.3 % Immature Granulocyte # (Auto) 0.03 K/uL 0.02 K/uL Sodium Level 142 mmol/L 139 mmol/L Potassium Level 3.1 mmol/L 3.8 mmol/L Chloride Level 113 mmol/L 108 mmol/L Carbon Dioxide Level 21 mmol/L 27 mmol/L Anion Gap 8.0 mmol/L 4.0 mmol/L Blood Urea Nitrogen 17 mg/dl 18 mg/dl Creatinine 0.59 mg/dl 0.85 mg/dl Est Creatinine Clear Calc Drug Dose 71.1 ml/min 47.8 ml/min Estimated GFR () 101.0 75.5 Estimated GFR (Non- 87.2 65.2 BUN/Creatinine Ratio 29.2 21.0 Random Glucose 76 mg/dl 91 mg/dl Calcium Level 7.1 mg/dl 8.5 mg/dl Total Bilirubin 0.6 mg/dl Direct Bilirubin mg/dl Aspartate Amino Transf (AST/SGOT) 22 U/L Alanine Aminotransferase (ALT/SGPT) 19 U/L Alkaline Phosphatase 43 U/L Total Creatine Kinase 136 U/L 148 U/L Creatine Kinase MB 7.8 ng/ml 7.7 ng/ml Creatine Kinase MB Ratio 5.7 5.2 Troponin I 1.510 ng/ml 1.590 ng/ml Total Protein 5.4 gm/dl Albumin 2.9 gm/dl Lipase 84 U/L Chemistry Specimen Hemolysis Activated Partial Thromboplast Time 27.5 SECONDS Partial Thromboplastin Ratio 1.1 Magnesium Level 2.5 mg/dl Test 01/21/17 09:55 Activated Partial Thromboplast Time 90.7 SECONDS Partial Thromboplastin Ratio 3.5 Total Creatine Kinase 159 U/L Creatine Kinase MB 7.0 ng/ml Creatine Kinase MB Ratio 4.4 Troponin I 1.070 ng/ml Assessment & Plan 81 yo F presenting with two episodes of chest pain 48 hours prior to arrival admitted as a transfer from [facility] for ACS rule out. Elevated troponin were present and she was placed on a heparin drip and sent for cardiac catheterization, which revealed no coronary artery disease. Her BP was notably high around admisison and is again high now. 1. Chest pain/elevated troponin-ACS was ruled out overnight and cardiac catheterization revealed no disease. Heparin drip was stopped. She was not on antihypertensives coming in and her BP post-procedure was in the 170s systolic. She was started on Norvasc and will be monitored overnight to ensure she is responding appropriately prior to discharge. 2. Hypertension-not on antihypertensives as outpatient as vitals trend has been consistently below goal BP. However, since admission, she has been in the 160s-170s systolic reliably. Started Norvasc 10mg daily and will follow. 3. Elevated D-dimer-CT PE at [facility] was negative and LE us was also negative for DVT overnight. 4. Hypothyroidism-cont Synthroid 5. 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 Cont sertraline. DVT prophylaxis-Lovenox Full Dispo-likely to home in am DO [facility] Current Inpatient Medications: Current Inpatient Medications Medications (Trade) Dose Ordered Sig/Fransico Route Start Time Stop Time Status Last Admin Dose Admin Acetaminophen (Tylenol Tab) 650 mg Q4H PRN PO 01/21/17 00:00 02/20/17 00:00 Nitroglycerin (Nitrostat Tab) 0.4 mg UD PRN SL 01/21/17 00:00 02/20/17 00:00 Oxybutynin Chloride (Ditropan-Xl Tab) 5 mg DAILY PO 01/21/17 09:00 02/20/17 08:59 01/21/17 07:39 5 MG Ranitidine HCl (zANTac TAB) 150 mg DAILY PO 01/21/17 09:00 02/20/17 08:59 01/21/17 07:40 150 MG Sertraline HCl (Zoloft Tab) 25 mg DAILY PO 01/21/17 09:00 02/20/17 08:59 01/21/17 07:40 25 MG Sertraline HCl (Zoloft Tab) 100 mg DAILY PO 01/21/17 09:00 02/20/17 08:59 01/21/17 07:40 100 MG Pantoprazole Sodium (Protonix Tab) 40 mg QAM PO 01/21/17 09:00 02/20/17 08:59 01/21/17 06:16 40 MG Heparin Sodium/ Dextrose 500 ml @ 18 mls/hr Q24H PRN IV 01/21/17 02:45 02/20/17 02:44 01/21/17 04:19 20 MLS/HR Potassium Chloride/Dextrose/ Sod Cl 1,000 ml @ 100 mls/hr Q10H IV 01/21/17 03:00 02/20/17 02:59 01/21/17 12:59 100 MLS/HR Levothyroxine Sodium (Synthroid Tab) 50 mcg DAILYBB PO 01/21/17 06:00 02/20/17 06:59 01/21/17 06:16 50 MCG Atorvastatin Calcium (Lipitor Tab) 40 mg QAM PO 01/21/17 09:00 02/20/17 08:59 01/21/17 07:41 40 MG Sodium Chloride 1,000 ml @ 75 mls/hr [id number] IV 01/21/17 12:30 02/20/17 12:29 UNV Acetaminophen (Tylenol Tab) 650 mg Q4H PRN PO 01/21/17 12:30 02/20/17 12:29 UNV Sodium Chloride 250 ml @ 999 mls/hr Q16M PRN IV 01/21/17 12:30 02/20/17 12:29 UNV Atropine Sulfate (Atropine Sulfate 0.1MG/Ml Inj) 0.6 mg PRN PRN IV 01/21/17 12:30 02/20/17 12:29 UNV Ondansetron HCl (Zofran Inj) 4 mg Q6H PRN IV 01/21/17 12:30 02/20/17 12:29 UNV
[2017-01-22 00:16] VITALS: BP 138/75; PULSE 53; TEMP 36.8; O2SAT 96
[2017-01-22] MEDS: SODIUM CHLORIDE 0.9% 1000ML 1,000 ML IV SCH (01:43)
--- NOTE | 2017-01-22 06:26 | Clinical Documentation Query ---
CLINICAL DOCUMENTATION QUERY 81 year old female who presents to the Emergency Room with complaints of intermittent central chest pain found to be negative for NSTEMI by cardiac catheterization In your clinical opinion is this patient being managed for: ( ) Myocardial Necrosis in setting of prolonged uncontrolled hypertension evidenced by +cardiac enzymes requiring diagnostic cardiac catheterization and telemetry monitoring treated with Norvasc ( x ) Not Agree ( ) Other explanation of clinical findings (Please Explain) ( ) Unable to determine (Please Define) ( ) Need to Discuss The medical record reflects the following clinical findings, treatment, and risk factors. Clinical Indicators: presents with BP's 160/62. Troponins 1.070, 1.590, 1.510, CKMB 7.8, 7.7, 7.0. Presenting ECG showed ST depressed in Anterior leads and T wave inversion in Anterior leads. Clean cardia cath. Treatment: Norvasc, Cardiac cath, telemetry, serial cardiac markers. Risk Factors: Age, newly diagnosed htn, Please clarify and document your clinical opinion in the progress notes and discharge summary. Terms such as "probable", "suspected", "likely", "questionable", "possible", or "still to be ruled out" are acceptable. IF IN AGREEMENT, YOU MUST DOCUMENT ABOVE DIAGNOSTIC STATEMENT IN DAILY PROGRESS NOTES AND DISCHARGE SUMMARY. This document is not part of the patient's record. Thank You, Ronnell Justice, RN [phone]
[2017-01-22] MEDS: LEVOTHYROXINE 50 MCG TAB PO SCH (06:44)
[2017-01-22] MEDS: PANTOprazole SOD 40 MG TAB PO SCH (07:12)
[2017-01-22 07:21] VITALS: BP 147/75; PULSE 60; TEMP 36.4; O2SAT 95
[2017-01-22 07:39] LABS: BASO % 0.4 %; BASO ABS # 0.03 K/uL (0-0.2); COMPLETE YES; EOS % 3.1 %; HEMATOCRIT 38.5 % (37-47); IG% 0.1 %; LYMPH ABS # 2.06 K/uL (1.2-3.4); MEAN CELL VOLUME 93.4 fL (80-100); MEAN CORPUSCULAR HEMOGLOBIN 31.6 pg (25-34); MEAN CORPUSCULAR HGB CONC 33.8 g/dl (32-36); MEAN PLATELET VOLUME 9.5 fL (7.4-10.4); MONO % 9.5 %; NEUT % 58.9 %; PLATELET COUNT 220 K/uL (130-400); RED BLOOD COUNT 4.12 M/uL (4.2-5.4); WHITE BLOOD COUNT 7.35 K/uL (4.8-10.8)
[2017-01-22 07:45] LABS: PROTHROMBIN TIME (PATIENT) 10.9 SECONDS (9.0-12.0)
[2017-01-22] MEDS: OXYBUTYNIN CHLORIDE 5 MG TABCR PO SCH (08:00)
[2017-01-22] MEDS ORDERED: AMLODIPINE BESYLATE 5 MG TAB PO SCH (08:00)
[2017-01-22 08:16] LABS: BUN/CREATININE RATIO 13.8 (10-20); CALCIUM 8.7 mg/dl (8.5-10.1); CREATININE 0.82 mg/dl (0.60-1.20); MAGNESIUM 2.4 mg/dl (1.8-2.4); POTASSIUM 3.9 mmol/L (3.5-5.1)
[2017-01-22] MEDS: RANITIDINE HCL 150 MG TAB PO SCH (08:21)
[2017-01-22] MEDS: ATORVASTATIN 40 MG TAB PO SCH (08:26)
[2017-01-22] MEDS: SERTRALINE HCL 100 MG TAB PO SCH (08:31)
[2017-01-22] MEDS: SERTRALINE HCL 50 MG TAB PO SCH (08:31)
[2017-01-22] MEDS ORDERED: ENOXAPARIN 40 MG/0.4 ML SYR SQ SCH (09:00)
[2017-01-22 10:42] VITALS: BP_SYST 119; BP_SYST 127; BP_SYST 98; BP_DIAS 61; BP_DIAS 68; BP_DIAS 77; PULSE 58; PULSE 59; PULSE 61; O2SAT 95
[2017-01-22 11:00] VITALS: O2SAT 93
--- NOTE | 2017-01-22 15:19 | Discharge Instructions ---
Discharge Instructions Date of Service Jan 22, 2017. Admission Reason for Admission: Chest Pain Discharge Discharge Diagnosis / Problem: Atypical chest pain Discharge Goals Goal(s): Prevent Disease Progression Activity Recommendations Activity Limitations: per Instructions/Follow-up section . Instructions / Follow-Up Instructions / Follow-Up Please continue all medications as instructed. You have a follow-up appointment with Dr. Kaye set up for Wed, 01/27 @ 10: 45am for follow-up from this hospitalization. Please bring all paperwork with you from discharge. It was a pleasure taking care of you! Call if you have any questions or problems. You can reach a [facility] hospitalist on duty at [facility] 24 hours a day by calling [phone]. Take care of yourself. Solange Underwood DO [facility] Current [facility] Diet Patient's current hospital diet: Regular Diet Discharge Diet Recommended Diet: Regular Diet Procedures Procedures Performed: Cardiac Catheterization TTE Pending Studies Studies pending at discharge: no Medical Emergencies . Who to Call and When: Medical Emergencies: If at any time you feel your situation is an emergency, please call 911 immediately. . Non-Emergent Contact Non-Emergency issues call your: Primary Care Provider . . "Provider Documentation" section prepared by Solange Underwood. . VTE Core Measure Inpt VTE Proph given/why not?: Other Anticoagulation (pt was on heparin drip until just after cath and refused Lovenox thereafter. )
[2017-01-22 15:27] VITALS: BP 98/61; PULSE 61; TEMP 36.4; O2SAT 93
[2017-01-22] MEDS ORDERED: OXYBUTYNIN CHLORIDE 5 MG TABCR PO SCH (22:00)
--- NOTE | 2017-01-23 23:04 | Discharge Summary ---
Discharge Summary Date of Service Jan 23, 2017. Discharge Summary Admission Date: Jan 20, 2017 at 23:09 Discharge Date: Jan 22, 2017 Discharge Disposition: Home Principal Diagnosis: Chest pain s/p cardiac cath with no coronary disease Elevated troponin HTN elevated D-dimer Hypothyroidism Anxiety/Depression Procedures: cardiac catheterization Vaccinations: None. Consultations: Cardio Pending Studies/Follow-Up: see instructions below. Medication Reconciliation Continued Medications: Acetaminophen (Tylenol) 325 Mg Tab 650 MG PO Q6 PRN for Headache or Pain, TAB Bisacodyl (Dulcolax) 5 Mg Tab 1 TAB PO UD for 1 Day, #2 TAB Calcium Carbonate-Vitamin D W/ (Caltrate 600 Plus) 1 Tab Tab 1 TAB PO BID, TAB Ibandronate Sodium (Boniva) 150 Mg Tab 150 MG PO MONTHLY, TAB Levothyroxine Sodium (Levothyroxine Sodium) 50 Mcg Tab 1 TAB PO DAILY for 90 Days, #90 TAB 3 Refills Methylcellulose (Laxative) (Fiber Therapy) 500 Mg Tab 2 TABS PO PRN Multivitamins/Minerals (Mvi With Minerals) Tab 1 TAB PO DAILY, TAB Omeprazole (Prilosec) 20 Mg Capcr 20 MG PO DAILY, CAP Oxybutynin Chloride (Oxybutynin Chloride Er) 5 Mg Tab 1 TAB PO DAILY for 90 Days Ranitidine (Zantac) 150 Mg Tab 150 MG PO DAILY, TAB Sertraline (Zoloft) 100 Mg Tab 100 MG PO DAILY, TAB TO EQUAL 125MG Sertraline (Zoloft) 25 Mg Tab 25 MG PO DAILY, TAB Vitamin E (E-400) 400 Unit Cap 400 UNITS PO DAILY Admission Information HPI (per Admitting provider): 81 year old female with history of hypothyroidism, and other medical problems noted below presenting with chest pain that started 1 day prior to admission. Follows with Dr. Pedraza for Primary Care. 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 She was doing fine until last night, while laying bed trying to fall asleep, when patient started to have substernal chest pain, "pressure", mild. She stood up, felt somewhat dizzy and took Zantac, which apparently relieved her symptoms. Today, patient woke up with no chest pain but around noon time, experienced dizziness followed by left sided chest discomfort and sweats. She then called 911, and was given 4 baby Aspirins.Patient does not remember being given Nitro. She was brought the [facility], found to have T wave inversions in V1- V6, inferior leads and Troponin was 1.05. D dimer was >[address] Angio was negative for PE. She was already chest pain free upon arriving to [facility]. Patient was transferred to [facility] per family's request. At [facility] ER, patient's BP was mildly elevated but still denied chest pain. EKG showed T wave inversions in V1-V6, leads 2 and 3. Troponin was elevated at 1.5 , as well as CKMB at 7.8. On my exam, patient was seen resting in bed, comfortable. She states chest pain has resolved, denies active dyspnea, dizziness, nausea. No other symptoms. Physical Exam (per Admitting): General Appearance: WD/WN, no apparent distress Head: normocephalic, atraumatic Eyes: normal inspection, EOMI, sclerae normal ENT: normal ENT inspection, hearing grossly normal, pharynx normal Neck: supple, no adenopathy, thyroid normal, no JVD, trachea midline Respiratory/Chest: chest non-tender, lungs clear, normal breath sounds, no respiratory distress, no accessory muscle use Cardiovascular: regular rate, rhythm, no edema, no JVD, no murmur, normal peripheral pulses Abdomen/GI: normal bowel sounds, non tender, soft, no organomegaly Back: normal inspection, no CVA tenderness Extremities/Musculoskelatal: normal inspection, no calf tenderness, no pedal edema, normal range of motion, non-tender 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: 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 Elevated troponin were present and she was placed on a heparin drip and sent for cardiac catheterization, which revealed no coronary artery disease. Her BP was notably high around admission and is again high now. 1. Chest pain/elevated troponin-ACS was ruled out overnight and cardiac catheterization revealed no disease. Heparin drip was stopped. She was not on antihypertensives coming in and her BP post-procedure was in the 170s systolic. She was started on Norvasc and will be monitored overnight to ensure she is responding appropriately prior to discharge. 2. Hypertension-not on antihypertensives as outpatient as vitals trend has been consistently below goal BP. However, since admission, she has been in the 160s-170s systolic reliably. Started Norvasc 10mg daily, however, she became hypotensive and lightheaded after 24 hours. All antihypertensives were stopped and she felt improved with PT evaluation that she passed prior to being discharged. 3. Elevated D-dimer-CT PE at [facility] was negative and LE us was also negative for DVT overnight. 4. Hypothyroidism-cont Synthroid 5. 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 Cont sertraline. On day of discharge she was afebrile and hemodynamically stable. She was mentating and ambulating at or around baseline. She passed PT evaluation. Physical exam was unremarkable. She was discharged in stable condition with close PCP follow-up. Total time spent on discharge = 60 minutes This includes examination of the patient, discharge planning, medication reconciliation, and communication with other providers. Discharge Instructions [address] [address] Discharge Medical Patient Name: Martha Koenig Unit Number: [id number] Date of : 1935 Patient Status: Discharged Inpatient Attending Doctor: Solange Underwood DO DI: Medical v4 Discharge Instructions Date of Service Jan 22, 2017. Admission Reason for Admission: Chest Pain Discharge Discharge Diagnosis / Problem: Atypical chest pain Discharge Goals Goal(s): Prevent Disease Progression Activity Recommendations Activity Limitations: per Instructions/Follow-up section . Instructions / Follow-Up Instructions / Follow-Up Please continue all medications as instructed. You have a follow-up appointment with Dr. Kaye set up for 01/27 @ 10: 45am for follow-up from this hospitalization. Please bring all paperwork with you from discharge. It was a pleasure taking care of you! Call if you have any questions or problems. You can reach a [facility] hospitalist on duty at [facility] 24 hours a day by calling [phone]. Take care of yourself. DO [facility] Current Hospital Diet Patient's current hospital diet: Regular Diet Discharge Diet Recommended Diet: Regular Diet Procedures Procedures Performed: Cardiac Catheterization TTE Pending Studies Studies pending at discharge: no Medical Emergencies . Who to Call and When: Medical Emergencies: If at any time you feel your situation is an emergency, please call 911 immediately. . Non-Emergent Contact Non-Emergency issues call your: Primary Care Provider . . "Provider Documentation" section prepared by Solange Underwood. . VTE Core Measure Inpt VTE Proph given/why not?: Other Anticoagulation (pt was on heparin drip until just after cath and refused Lovenox thereafter. ) Additional Copies To Elda Kaye D.O.
[2017-02-28] MEDS ORDERED: ASPI325T60 PO (13:25)
[2017-02-28] MEDS ORDERED: LPR25 PO (13:25)
[2017-02-28] MEDS ORDERED: TRAM-10 PO (13:28)
== END 2017-01-22 16:17 | disposition home or self-care (01) | DRG 287 ==
LOC: EDBD 21:35 → EDSEX 21:35 → C.EDB 21:38 → C.2T 23:09 → UNDOADMIN 23:09 → ENRESERV 23:23 → EDBEDREQ 01-21 14:58 → CANBEDREQ 01-21 15:01 → ENRESERV 01-21 16:54 → C.MS4W 01-21 19:00
PROVIDERS: ADMIT Internal Medicine; ATTEND Hospitalist
PROC: B211YZZ Fluoroscopy of Multiple Coronary Arteries using Other Contrast (ICD-10-PCS; principal; 2017-01-21 12:09)
DX: R07.89 Other chest pain (principal); R79.89 Other specified abnormal findings of blood chemistry; R79.1 Abnormal coagulation profile; E87.6 Hypokalemia; K21.9 Gastro-esophageal reflux disease without esophagitis; I10 Essential (primary) hypertension; E03.9 Hypothyroidism, unspecified; F41.9 Anxiety disorder, unspecified; F32.9 Major depressive disorder, single episode, unspecified; M81.0 Age-related osteoporosis without current pathological fracture; Z79.83 Long term (current) use of bisphosphonates; Z79.899 Other long term (current) drug therapy; Z88.1 Allergy status to other antibiotic agents

== ENCOUNTER 2017-02-23 09:27 | Inpatient (IN) | payer OTHER ==
[2017-02-23] VITALS (10 sets, daily range): BP systolic 122–172; BP diastolic 54–84; PULSE 78–84; TEMP 35.4–36.4; O2SAT 92–96; Ht 157.5 cm; Wt 72.4 kg
[~2017-02-23] VITALS: Ht 157.5 cm; Wt 72.4 kg
[~2017-02-23 09:27] MED LIST: ACET-1311 PO; BISA-16 PO; CALCTAB7 PO; IBAN150T PO; LEVO50TA6 PO; METH1TAB66 PO; MULT-513 PO; OXYB5TAB PO; PRLSR20 PO; SERT-234 PO; SERT25TA PO; VITACAP37 PO; ZNTT/150 PO
[2017-02-23] MEDS ORDERED: OMEG1CHW PO (09:49)
[2017-02-23] MEDS ORDERED: LACTATED RINGER'S 1000ML 1,000 ML IV SCH (10:03)
[2017-02-23] MEDS ORDERED: MoRPHine SULFATE 4 MG/ML 1 ML CARP\\VIAL IV PRN (10:15)
[2017-02-23] MEDS ORDERED: MoRPHine SULFATE 2 MG/ML CARP IV PRN (10:15)
--- NOTE | 2017-02-23 10:54 | DIAGNOSTIC IMAGING REPORT ---
R FEMUR 2 VIEWS ROUTINE CLINICAL HISTORY: 82 years-old Female presenting with fall. TECHNIQUE: Frontal and lateral views of the right femur were obtained. COMPARISON: None. FINDINGS: Transversely oriented fracture of the proximal to mid diaphysis of the right femur with over one half shaft width medial displacement of the distal fracture fragment and nearly 1 cm of foreshortening. No significant angulation. Right hip joint remains congruent. No femoral neck fracture. Knee joint congruent. Soft tissue swelling at the fracture site may relate to hematoma. IMPRESSION: Transversely oriented fracture of the proximal metadiaphysis of the right femur with over one half shaft width displacement and nearly 1 cm of foreshortening. Electronically signed by: Darryl Nixon M.D. 02/23/2017 10:52 AM Dictated Date/Time: 02/23/2017 10:51 AM
--- NOTE | 2017-02-23 10:55 | DIAGNOSTIC IMAGING REPORT ---
PELVIS 1 OR 2 VIEW ROUTINE CLINICAL HISTORY: 82 years-old Female presenting with RT FEMUR FRACTURE. TECHNIQUE: Single frontal view of the pelvis was obtained. COMPARISON: None. FINDINGS: Pubic symphysis and sacroiliac joints congruent. Bony pelvis intact. Hip joints congruent. Lower lumbar spine within normal limits. Arcuate lines intact. IMPRESSION: No acute osseous injury of the pelvis. Electronically signed by: Darryl Nixon M.D. 02/23/2017 10:53 AM Dictated Date/Time: 02/23/2017 10:52 AM
--- NOTE | 2017-02-23 10:57 | DIAGNOSTIC IMAGING REPORT ---
CHEST ONE VIEW PORTABLE CLINICAL HISTORY: Fall. COMPARISON STUDY: Chest radiograph January 20, 2017. FINDINGS: There is no pneumothorax or pleural effusion. There is no lobar consolidation. Several radiodensities project over the right upper quadrant/right lower chest as well as the right supraclavicular region. These measure up to 1.8 cm. There is no consolidation to suggest pneumonia and there is no evidence of pulmonary edema. Widening of the mediastinum is likely due to supine technique. There is borderline cardiomegaly. IMPRESSION: 1. No acute cardiopulmonary findings. 2. Mediastinal widening, likely due to supine technique. 3. Several radiodensities which project over the right upper quadrant/right lower chest and right supraclavicular region. These are indeterminate but likely on rather than within the patient. Electronically signed by: Steven Coelho M.D. 02/23/2017 10:56 AM Dictated Date/Time: 02/23/2017 10:51 AM
[2017-02-23 11:08] LABS: BASO % 0.2 %; BASO ABS # 0.02 K/uL (0-0.2); COMPLETE YES; HEMATOCRIT 37.7 % (37-47); IG% 0.2 %; MEAN CELL VOLUME 91.5 fL (80-100); MEAN CORPUSCULAR HEMOGLOBIN 31.1 pg (25-34); MEAN PLATELET VOLUME 9.1 fL (7.4-10.4); MONO % 4.5 %; NEUT % 84.1 %; PLATELET COUNT 206 K/uL (130-400); RED BLOOD COUNT 4.12 M/uL (4.2-5.4); WHITE BLOOD COUNT 9.99 K/uL (4.8-10.8)
[2017-02-23 11:14] LABS: PARTIAL THROMBOPLASTIN RATIO 0.9; PROTHROMBIN TIME (PATIENT) 11.2 SECONDS (9.0-12.0)
[2017-02-23 11:29] LABS: URINE APPEARANCE CLEAR (CLEAR); URINE BILIRUBIN NEG (NEG); URINE COLOR YELLOW; URINE NITRITE NEG (NEG); URINE SPECIFIC GRAVITY 1.018 (1.000-1.030); UROBILINOGEN NEG (NEG); ZZURINE CULT IF INDIC CATH NO
[2017-02-23 11:31] LABS: BUN/CREATININE RATIO 18.5 (10-20); CALCIUM 8.3 mg/dl (8.5-10.1); CREATININE 0.86 mg/dl (0.60-1.20); POTASSIUM 3.5 mmol/L (3.5-5.1)
[2017-02-23 11:34] LABS: MANUAL MICROSCOPIC REQUIRED? NO; REVIEW REQ? NO
[2017-02-23] MEDS ORDERED: BISACODYL 10 MG SUPP PR PRN ×2 (12:30→17:30)
[2017-02-23] MEDS ORDERED: HYDROmorphone INJ 0.5 MG/0.5 ML SYR IV PRN ×4 (12:30→17:30)
[2017-02-23] MEDS ORDERED: POLYETHYLENE (MIRALAX) 17 GM PACK PO PRN (12:30)
[2017-02-23] MEDS ORDERED: ACETAMINOPHEN 325 MG TAB PO PRN (12:30)
[2017-02-23] MEDS ORDERED: SOD PHOSPHATE/SOD BIPHOSPHATE ENEMA 132 ML BTL PR PRN (12:30)
[2017-02-23] MEDS ORDERED: NALOXONE HCL 0.4 MG/1 ML VIAL/CARP IV PRN ×3 (12:30→17:30)
[2017-02-23] MEDS ORDERED: MAGNESIUM HYDROXIDE SUSP 30 ML UDC PO PRN ×2 (12:30→17:30)
--- NOTE | 2017-02-23 13:19 | History and Physical ---
History & Physical Date Feb 23, 2017. Chief Complaint Right femur fx History of Present Illness The patient is a 82 year old female with complaints of right thigh pain. She fell approx 7:30am today after being knocked down or pulled by her dog. She was able to call for her her called 911 for help. She denies any preexisting thigh pain. She has less than 1 year h/o fosamax use. Previously ambulated independently but with sort of a shuffling gait as she describes. Past Medical/Surgical History Medical Problems: (1) Anxiety (2) Chest pain (3) Femur fracture (4) GERD (gastroesophageal reflux disease) (5) Osteoporosis Additional History Other: PSH: appendectomy, tonsillectomy FH: depression SH: lives in [place] with her and dog. Denies alcohol or tobacco use. ROS: no current chest pain or SOB, numbness or tingling. no other complaints. Allergies Coded Allergies: Bacitracin (Verified Allergy, Intermediate, RED RASH, SWOLLEN AT SITE, 03/02) Neomycin (Verified Allergy, Intermediate, RED RASH, SWOLLEN AT SITE, 02/23) Polymyxin B (Verified Allergy, Intermediate, RED RASH, SWOLLEN AT SITE, ) Home Medications Scheduled Bisacodyl (Dulcolax), 5 MG PO UD Calcium Carbonate-Vitamin D W/ (Caltrate 600 Plus), 1 TAB PO BID Ibandronate Sodium (Boniva), 150 MG PO MONTHLY Levothyroxine Sodium (Levothyroxine Sodium), 50 MCG PO DAILY Methylcellulose (Laxative) (Fiber Therapy), 2 TABS PO PRN Multivitamins/Minerals (Mvi With Minerals), 1 TAB PO DAILY [place]-3 Fatty Acids (Fish Oil Adult Gummies 113.5 mg), 1 DOSE PO DAILY Omeprazole (Prilosec), 20 MG PO DAILY Oxybutynin Chloride (Oxybutynin Chloride Er), 5 MG PO HS Ranitidine (Zantac), 150 MG PO DAILY Sertraline (Zoloft), 100 MG PO DAILY Sertraline (Zoloft), 25 MG PO DAILY Vitamin E (E-400), 400 UNITS PO DAILY Scheduled PRN Acetaminophen (Tylenol), 650 MG PO Q6 PRN for Headache or Pain Physical Examination Addiitonal Comments: Lungs clear to auscultation Heart: RRR Musculoskeletal: No tenderness of c spine. Painless neck ROM. No pain or tenderness of BUE or LLE. NVI Exam of right leg: she is in traction. able to DF/PF appropriately. brisk refill. NVI xray: shows displaced proximal femoral shaft fracture, right Diagnosis Right displaced femoral shaft fracture Plan of Treatment NPO. She has been NPO since last night except for 10 oz of water this am with her pills. Plan for surgery today with Dr. Nance, for IM nailing of right femur fx. Procedure explained including risks, benefits, alternatives to surgery. She wishes to proceed with surgery and consent obtained. Ancef pre-op. She is type and screened. She has been seen by the [facility] for admission as well.
[2017-02-23] MEDS ORDERED: IV FLUIDS COMPLETED PRN ×2 (13:30→14:00)
[2017-02-23] MEDS ORDERED: SODIUM PHOSPHATE 3 MMOL/1 ML INFUSION IV STA (14:19)
--- NOTE | 2017-02-23 14:19 | History and Physical ---
History & Physical Date & Time of Service: Feb 23, 2017 at 14:16 Chief Complaint: Femur Fracture Primary Care Physician: Elda Kaye D.O. History of Present Illness Source: patient, clinic records, hospital records This is an 82yo F with a PMH of osteoporosis, hypothyroidism and anxiety who presents with R leg pain s/p a mechanical fall that occurred this morning. Patient went outside to untangle her dog's leash when she slipped on the stairs and tripped on the leash. Reports falling onto her right side onto her thigh. Reports her R cheek hitting the ground but denies any bruising, LOC. Patient called for her inside the house and he called EMS. Only complaint currently is an 8/10 R thigh pain. Denies any R thigh pain previous to the fall. Denies any lightheadedness, dizziness, CP or SOB precipitating the fall. Ambulates without assistive devices at baseline. Denies any fever, chills, abd pain, nausea, vomiting, LE numbness/tingling. Of note, patient was recently admitted for a CP rule out Jan 20-. Was transferred from [facility] with EKG changes (T wave inversions in 2,3 V1-V6) and elevated troponin to 1.5. Was placed on heparin drip and sent for cardiac cath, which revealed no CAD. Patient was monitored overnight and then discharged home. Past Medical/Surgical History Medical Problems: (1) Anxiety Status: Chronic (2) Femur fracture Status: Chronic (3) GERD (gastroesophageal reflux disease) Status: Chronic (4) Osteoporosis Status: Chronic Family History Family history was reviewed; no changes noted. Social History Smoking Status: Never Smoker Drug Use: none Marital Status: Housing status: lives with significant other Multi-Drug Resistant Organisms History of MDRO: No Allergies Coded Allergies: Bacitracin (Verified Allergy, Intermediate, RED RASH, SWOLLEN AT SITE, 03/02) Neomycin (Verified Allergy, Intermediate, RED RASH, SWOLLEN AT SITE, 02/23) Polymyxin B (Verified Allergy, Intermediate, RED RASH, SWOLLEN AT SITE, ) Home Medications Scheduled Bisacodyl (Dulcolax), 5 MG PO UD Calcium Carbonate-Vitamin D W/ (Caltrate 600 Plus), 1 TAB PO BID Ibandronate Sodium (Boniva), 150 MG PO MONTHLY Levothyroxine Sodium (Levothyroxine Sodium), 50 MCG PO DAILY Methylcellulose (Laxative) (Fiber Therapy), 2 TABS PO PRN Multivitamins/Minerals (Mvi With Minerals), 1 TAB PO DAILY [place]-3 Fatty Acids (Fish Oil Adult Gummies 113.5 mg), 1 DOSE PO DAILY Omeprazole (Prilosec), 20 MG PO DAILY Oxybutynin Chloride (Oxybutynin Chloride Er), 5 MG PO HS Ranitidine (Zantac), 150 MG PO DAILY Sertraline (Zoloft), 100 MG PO DAILY Sertraline (Zoloft), 25 MG PO DAILY Vitamin E (E-400), 400 UNITS PO DAILY Scheduled PRN Acetaminophen (Tylenol), 650 MG PO Q6 PRN for Headache or Pain Review of Systems Constitutional- See HPI Eyes- no acute visual changes ENT- no sinus drainage; no pharyngitis Pulmonary- no cough, no wheezing, no shortness of breath Cardiac- See HPI GI- no nausea, no vomiting, no diarrhea, no melena, no hematochezia - no dysuria, no hematuria Musculoskeletal- See HPI Derm- no rashes, no new skin lesions, no changing skin lesions Hematologic- no unusual bruising, no unusual bleeding Lymphatics- no adenopathy Endocrine- no polyuria or polydipsia; no heat or cold intolerance Neuro- no headaches, no focal neurologic symptoms Psych- no anxiety, no depression Physical Exam Vital Signs Date Time Temp Pulse Resp B/P (MAP) Pulse Ox O2 Delivery O2 Flow Rate FiO2 02/23/17 13:12 72 20 166/89 97 Room Air 02/23/17 11:33 72 02/23/17 11:25 70 18 172/84 96 Room Air 02/23/17 11:00 96 Room Air 02/23/17 09:34 36.4 78 18 195/100 95 Room Air General Appearance: + mild distress Head: normocephalic, atraumatic Eyes: normal inspection, PERRL, sclerae normal ENT: normal ENT inspection (Dry mucous membranes ), hearing grossly normal Neck: supple, no adenopathy, thyroid normal, trachea midline Respiratory/Chest: chest non-tender, lungs clear, normal breath sounds, no respiratory distress, no accessory muscle use Cardiovascular: regular rate, rhythm, no murmur Abdomen/GI: normal bowel sounds, non tender, soft, no organomegaly Extremities/Musculoskelatal: no calf tenderness, normal capillary refill, no pedal edema, + pertinent finding (R lower extremity in traction with bracing in place. ) 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: no motor/sensory deficits, alert, normal mood/affect, oriented x 3 Skin: normal color, warm/dry, no rash Lymphatic: no adenopathy Diagnostics Laboratory Results Results Past 24 Hours Test 02/23/17 10:53 02/23/17 11:12 Range/Units White Blood Count 9.99 4.8-10.8 K/uL Red Blood Count 4.12 4.2-5.4 M/uL Hemoglobin 12.8 12.0-16.0 g/dL Hematocrit 37.7 37-47 % Mean Corpuscular Volume 91.5 80-100 fL Mean Corpuscular Hemoglobin 31.1 25-34 pg Mean Corpuscular Hemoglobin Concent 34.0 32-36 g/dl Platelet Count 206 130-400 K/uL Mean Platelet Volume 9.1 7.4-10.4 fL Neutrophils (%) (Auto) 84.1 % Lymphocytes (%) (Auto) 11.0 % Monocytes (%) (Auto) 4.5 % Eosinophils (%) (Auto) 0.0 % Basophils (%) (Auto) 0.2 % Neutrophils # (Auto) 8.40 1.4-6.5 K/uL Lymphocytes # (Auto) 1.10 1.2-3.4 K/uL Monocytes # (Auto) 0.45 0.11-0.59 K/uL Eosinophils # (Auto) 0.00 0-0.5 K/uL Basophils # (Auto) 0.02 0-0.2 K/uL RDW Standard Deviation 43.1 36.4-46.3 fL RDW Coefficient of Variation 12.9 11.5-14.5 % Immature Granulocyte % (Auto) 0.2 % Immature Granulocyte # (Auto) 0.02 0.00-0.02 K/uL Prothrombin Time 11.2 9.0-12.0 SECONDS Prothromb Time International Ratio 1.0 0.9-1.1 Activated Partial Thromboplast Time 24.2 21.0-31.0 SECONDS Partial Thromboplastin Ratio 0.9 Sodium Level 137 136-145 mmol/L Potassium Level 3.5 3.5-5.1 mmol/L Chloride Level 105 98-107 mmol/L Carbon Dioxide Level 23 21-32 mmol/L Anion Gap 9.0 3-11 mmol/L Blood Urea Nitrogen 16 7-18 mg/dl Creatinine 0.86 0.60-1.20 mg/dl Est Creatinine Clear Calc Drug Dose 48.6 ml/min Estimated GFR () 73.9 Estimated GFR (Non- 63.8 BUN/Creatinine Ratio 18.5 10-20 Random Glucose 112 70-99 mg/dl Calcium Level 8.3 8.5-10.1 mg/dl Urine Color YELLOW Urine Appearance CLEAR CLEAR Urine pH 7.0 4.5-7.5 Urine Specific Eva 1.018 1.000-1.030 Urine Protein NEG NEG Urine Glucose (UA) NEG NEG Urine Ketones NEG NEG Urine Occult Blood NEG NEG Urine Nitrite NEG NEG Urine Bilirubin NEG NEG Urine Urobilinogen NEG NEG Urine Leukocyte Esterase NEG NEG Diagnostic Radiology R Femur XR: IMPRESSION: Transversely oriented fracture of the proximal metadiaphysis of the right femur with over one half shaft width displacement and nearly 1 cm of foreshortening. Pelvis XR: IMPRESSION: No acute osseous injury of the pelvis. CXR: IMPRESSION: 1. No acute cardiopulmonary findings. 2. Mediastinal widening, likely due to supine technique. 3. Several radiodensities which project over the right upper quadrant/right lower chest and right supraclavicular region. These are indeterminate but likely on rather than within the patient. EKG SR with occasional PVCs. T wave inversion improved from previous EKG. Impression Assessment and Plan This is an 82yo F with a PMH of osteoporosis, hypothyroidism and anxiety who presents with R leg pain s/p a mechanical fall that occurred this morning. R femur fracture: -Femur XR with right displaced femoral shaft fracture -Plan for surgery today with Dr. Nance for IM nailing. -NPO, IVF and pre-op antibiotics initiated -VS stable. BP slightly elevated 2/2 pain Hypothyroidism: -Stable -Continue Levothyroxine Sertraline: -Stable -Continue sertraline Osteoporosis: -Continue Boniva monthly DVT Ppx: Per ortho Code status: FULL PCP: Milo Dispo: KIERRA consulted to help with discharge placement Attending Physician Addendum: This is an 82 year F seen and evaluated in the emergency room for admission after right displaced femoral shaft fracture secondary to traumatic fall from tripping. Patient denies lightheadedness shortness of breath or chest pain preceding the fall. Denies loss of consciousness afterwards. Is in discomfort but speaks softly and coherently without acute distress. Patient denies cardiovascular or neurological or diabetes history. On exam, lungs are relatively clear to auscultation but limited by patient;s positioning and splint of right leg. Heart rate is regular. Blood pressure high likely due to pain. Is awaiting for orthopedics to proceed to surgery. continue management for pain control and post-op. will need bowel regimen to avoid constipation or ileus secondary to narcotic pain medications. will need DVT prophylaxis after surgery. Level of Care Med/Surg Advanced Directives Existing Living Will: Yes Existing Power of Oral And Maxillofacial Pathologist: Yes Resuscitation Status FULL RESUSCITATION VTE Prophylaxis VTE Risk Assessment Done? Y/N: Yes Risk Level: Moderate Given or contraindicated: Other Anticoagulation (will need after surgery) Social Service Consult >80 yr.& Lives Alone (Lives with , who has dementia. )
[2017-02-23] MEDS ORDERED: CALCIUM GLUCONATE 10% 2,000 MG in SODIUM CHLORIDE 0.9% 50ML 50 ML IV STA (14:23)
[2017-02-23] MEDS ORDERED: MIDAZOLAM HCL 1 MG/ML 2ML VIAL ONE (14:57)
[2017-02-23] MEDS ORDERED: FENTANYL CITRATE INJ 50 MCG/1 ML 2 ML VIAL ONE (14:57)
[2017-02-23] MEDS ORDERED: CEFAZOLIN 1000MG/55 ML D5W 55 ML IV SCH (15:00)
--- NOTE | 2017-02-23 15:01 | EMERGENCY ROOM VISIT NOTE ---
History Report prepared by Tyra: Angeline Artis Under the Supervision of: Dr. Abhishek Morris D.O. First contact with patient: 09:27 Chief Complaint: LEG PAIN,LEG INJURY Stated Complaint: FEMUR FRACTURE History of Present Illness The patient is an 82 year old female who presents to the Emergency Room with complaints of persistent right leg pain that began prior to arrival. The patient states that she was outside today untangling her dog leash and states that she fell. She states that she fell and hit the right side of her face and her right leg. The patient states that her leg feels better with the splint in place. She denies any other complaints at this time. Source of History: patient Onset: prior to arrival Position: leg (right) Timing: other (persistent) Note: Associated Symptoms: fall Review of Systems See HPI for pertinent positives & negatives. A total of 10 systems reviewed and were otherwise negative. Past Medical & Surgical Medical Problems: (1) Anxiety (2) Femur fracture (3) GERD (gastroesophageal reflux disease) (4) Osteoporosis Family History Noncontributory secondary to age Social History Smoking Status: Unknown if Ever Smoked Drug Use: none Marital Status: Housing Status: lives with significant other Current/Historical Medications Scheduled Bisacodyl (Dulcolax), 5 MG PO UD Calcium Carbonate-Vitamin D W/ (Caltrate 600 Plus), 1 TAB PO BID Ibandronate Sodium (Boniva), 150 MG PO MONTHLY Levothyroxine Sodium (Levothyroxine Sodium), 50 MCG PO DAILY Methylcellulose (Laxative) (Fiber Therapy), 2 TABS PO PRN Multivitamins/Minerals (Mvi With Minerals), 1 TAB PO DAILY [place]-3 Fatty Acids (Fish Oil Adult Gummies 113.5 mg), 1 DOSE PO DAILY Omeprazole (Prilosec), 20 MG PO DAILY Oxybutynin Chloride (Oxybutynin Chloride Er), 5 MG PO HS Ranitidine (Zantac), 150 MG PO DAILY Sertraline (Zoloft), 100 MG PO DAILY Sertraline (Zoloft), 25 MG PO DAILY Vitamin E (E-400), 400 UNITS PO DAILY Scheduled PRN Acetaminophen (Tylenol), 650 MG PO Q6 PRN for Headache or Pain Allergies Coded Allergies: Bacitracin (Verified Allergy, Intermediate, RED RASH, SWOLLEN AT SITE, 03/02) Neomycin (Verified Allergy, Intermediate, RED RASH, SWOLLEN AT SITE, 02/23) Polymyxin B (Verified Allergy, Intermediate, RED RASH, SWOLLEN AT SITE, ) Physical Exam Vital Signs Date Time Temp Pulse Resp B/P (MAP) Pulse Ox O2 Delivery O2 Flow Rate FiO2 02/23/17 13:12 72 20 166/89 97 Room Air 02/23/17 11:33 72 02/23/17 11:25 70 18 172/84 96 Room Air 02/23/17 11:00 96 Room Air 02/23/17 09:34 36.4 78 18 195/100 95 Room Air Physical Exam CONSTITUTIONAL/VITAL SIGNS: Reviewed / noted above. GENERAL: Non-toxic in appearance. INTEGUMENTARY: Warm, dry, and [place]. HEAD: Normocephalic. EYES: without scleral icterus or trauma. ENT/OROPHARYNX: clear and moist. LYMPHADENOPATHY/NECK: Is supple without lymphadenopathy or meningismus. RESPIRATORY: Lungs clear and equal. CARDIOVASCULAR: Regular rate and rhythm. GI/ABDOMEN: Soft and nontender. No organomegaly or pulsatile mass. No rebound or guarding. Normal bowel sounds. EXTREMITIES: Swelling and discomfort in the mid to distal right femur. BACK: No CVA tenderness. NEUROLOGICAL: Intact without focal deficits. PSYCHIATRIC: normal affect. MUSCULOSKELETAL: Normally developed with good muscle tone. Medical Decision & Procedures ER Provider Diagnostic Interpretation: X ray results and stated below per my interpretation and radiology interpretation. R FEMUR 2 VIEWS ROUTINE CLINICAL HISTORY: 82 years-old Female presenting with fall. TECHNIQUE: Frontal and lateral views of the right femur were obtained. COMPARISON: None. FINDINGS: Transversely oriented fracture of the proximal to mid diaphysis of the right femur with over one half shaft width medial displacement of the distal fracture fragment and nearly 1 cm of foreshortening. No significant angulation. Right hip joint remains congruent. No femoral neck fracture. Knee joint congruent. Soft tissue swelling at the fracture site may relate to hematoma. IMPRESSION: Transversely oriented fracture of the proximal metadiaphysis of the right femur with over one half shaft width displacement and nearly 1 cm of foreshortening. Electronically signed by: Darryl Nixon M.D. 02/23/2017 10:52 AM Dictated Date/Time: 02/23/2017 10:51 AM CHEST ONE VIEW PORTABLE CLINICAL HISTORY: Fall. COMPARISON STUDY: Chest radiograph January 20, 2017. FINDINGS: There is no pneumothorax or pleural effusion. There is no lobar consolidation. Several radiodensities project over the right upper quadrant/right lower chest as well as the right supraclavicular region. These measure up to 1.8 cm. There is no consolidation to suggest pneumonia and there is no evidence of pulmonary edema. Widening of the mediastinum is likely due to supine technique. There is borderline cardiomegaly. IMPRESSION: 1. No acute cardiopulmonary findings. 2. Mediastinal widening, likely due to supine technique. 3. Several radiodensities which project over the right upper quadrant/right lower chest and right supraclavicular region. These are indeterminate but likely on rather than within the patient. Electronically signed by: Steven Coelho M.D. 02/23/2017 10:56 AM Dictated Date/Time: 02/23/2017 10:51 AM PELVIS 1 OR 2 VIEW ROUTINE CLINICAL HISTORY: 82 years-old Female presenting with RT FEMUR FRACTURE. TECHNIQUE: Single frontal view of the pelvis was obtained. COMPARISON: None. FINDINGS: Pubic symphysis and sacroiliac joints congruent. Bony pelvis intact. Hip joints congruent. Lower lumbar spine within normal limits. Arcuate lines intact. IMPRESSION: No acute osseous injury of the pelvis. Electronically signed by: Darryl Nixon M.D. 02/23/2017 10:53 AM Dictated Date/Time: 02/23/2017 10:52 AM Laboratory Results 02/23/17 10:53 Red Blood Count 4.12, Mean Corpuscular Volume 91.5, Mean Corpuscular Hemoglobin 31.1, Mean Corpuscular Hemoglobin Concent 34.0, Mean Platelet Volume 9.1, Neutrophils (%) (Auto) 84.1, Lymphocytes (%) (Auto) 11.0, Monocytes (%) (Auto) 4.5, Eosinophils (%) (Auto) 0.0, Basophils (%) (Auto) 0.2, Neutrophils # (Auto) 8.40, Lymphocytes # (Auto) 1.10, Monocytes # (Auto) 0.45, Eosinophils # (Auto) 0.00, Basophils # (Auto) 0.02 02/23/17 10:53 Test 02/23/17 10:53 02/23/17 11:12 White Blood Count 9.99 K/uL (4.8-10.8) Red Blood Count 4.12 M/uL (4.2-5.4) Hemoglobin 12.8 g/dL (12.0-16.0) Hematocrit 37.7 % (37-47) Mean Corpuscular Volume 91.5 fL (80-100) Mean Corpuscular Hemoglobin 31.1 pg (25-34) Mean Corpuscular Hemoglobin Concent 34.0 g/dl (32-36) Platelet Count 206 K/uL (130-400) Mean Platelet Volume 9.1 fL (7.4-10.4) Neutrophils (%) (Auto) 84.1 % Lymphocytes (%) (Auto) 11.0 % Monocytes (%) (Auto) 4.5 % Eosinophils (%) (Auto) 0.0 % Basophils (%) (Auto) 0.2 % Neutrophils # (Auto) 8.40 K/uL (1.4-6.5) Lymphocytes # (Auto) 1.10 K/uL (1.2-3.4) Monocytes # (Auto) 0.45 K/uL (0.11-0.59) Eosinophils # (Auto) 0.00 K/uL (0-0.5) Basophils # (Auto) 0.02 K/uL (0-0.2) RDW Standard Deviation 43.1 fL (36.4-46.3) RDW Coefficient of Variation 12.9 % (11.5-14.5) Immature Granulocyte % (Auto) 0.2 % Immature Granulocyte # (Auto) 0.02 K/uL (0.00-0.02) Prothrombin Time 11.2 SECONDS (9.0-12.0) Prothromb Time International Ratio 1.0 (0.9-1.1) Activated Partial Thromboplast Time 24.2 SECONDS (21.0-31.0) Partial Thromboplastin Ratio 0.9 Anion Gap 9.0 mmol/L (3-11) Est Creatinine Clear Calc Drug Dose 48.6 ml/min Estimated GFR () 73.9 Estimated GFR (Non- 63.8 BUN/Creatinine Ratio 18.5 (10-20) Calcium Level 8.3 mg/dl (8.5-10.1) Urine Color YELLOW Urine Appearance CLEAR (CLEAR) Urine pH 7.0 (4.5-7.5) Urine Specific [place] 1.018 (1.000-1.030) Urine Protein NEG (NEG) Urine Glucose (UA) NEG (NEG) Urine Ketones NEG (NEG) Urine Occult Blood NEG (NEG) Urine Nitrite NEG (NEG) Urine Bilirubin NEG (NEG) Urine Urobilinogen NEG (NEG) Urine Leukocyte Esterase NEG (NEG) Laboratory results as stated above per my review. Medications Administered Medications (Trade) Dose Ordered Sig/Fransico Route Start Time Stop Time Status Last Admin Dose Admin Lactated Ringer's 1,000 ml @ 150 mls/hr Q6H40M IV 02/23/17 10:03 03/25/17 10:02 02/23/17 10:54 150 MLS/HR Morphine Sulfate (MoRPHine SULFATE INJ) 2 mg Q60M PRN IV 02/23/17 10:15 03/09/17 10:14 02/23/17 12:40 2 MG Morphine Sulfate (MoRPHine SULFATE INJ) 4 mg Q60M PRN IV 02/23/17 10:15 03/09/17 10:14 02/23/17 11:15 4 MG ED Course 1001: Previous medical records were reviewed. The patient was evaluated in room B9. A complete history and physical examination was performed. 1003: Ordered Lactated Ringer's 1000 ml @ 150 ml/shr IV. 1015: Ordered Morphine Sulfate 4 mg IV, Morphine Sulfate 2 mg IV. 1107: I discussed the patients case with Brien Espana PA-C. She is going to evaluate the patient for further treatment. 1110: The patients case was discussed with Dr. Nance, Orthopedics. He is aware of the patient and her case. 1125: I reevaluated the patient and she is doing well. I discussed the exam findings with her and I discussed the treatment plan. She verbalized complete understanding and agreement. She is going to be evaluated for further treatment. Medical Decision Differentials include: Close head injury, intracranial bleed, facial trauma, cervical spine trauma, chest and thoracic trauma, abdominal and intra-abdominal trauma, spine neurologic trauma, and extremity trauma. This is an 82-year-old female who presents to the ED with a chief complaint of leg pain. The patient reports that she fell while attempting to walk her dog. She suffered a right femur fracture. This is based on exam and x-ray. Patient' s blood work was unremarkable. Chest x-ray did not show acute disease. EKG shows a sinus rhythm. I spoke with the hospitalist as well as the orthopedist Dr. Nance. The patient will be admitted for further inpatient evaluation and care. She was given IV morphine as needed for pain. Medication Reconcilliation Current Medication List: was personally reviewed by me Consults Time Called: 1048 Consulting Physician: Brien Espana PA-C Returned Call: 1101 I discussed the patients case with Brien Espana PA-C. She is going to evaluate the patient for further treatment. Additional Consults: Time Called: 1048 Consulted Physician: Dr. Nance, Orthopedics Returned Call: 1110 Additional Comments: The patients case was discussed with Dr. Nance, Orthopedics. He is aware of the patient and her case. Impression Primary Impression: Right femoral fracture Scribe Attestation The scribe's documentation has been prepared under my direction and personally reviewed by me in its entirety. I confirm that the note above accurately reflects all work, treatment, procedures, and medical decision making performed by me. Departure Information Dispostion Being Evaluated By Hospitalist Elda Barbosa D.O. (PCP)
[2017-02-23] MEDS ORDERED: BUPIVACAINE/EPINEPHRINE 0.5% MPF 1:200,000 30 ML VIAL ONE (15:02)
[2017-02-23] MEDS ORDERED: ONDANSETRON INJ 2 MG/ML 2 ML VIAL ONE (15:12)
[2017-02-23] MEDS ORDERED: BUPIVACAINE 0.5 % 5 MG/1 ML PF 10ML VIAL ONE (15:17)
[2017-02-23] MEDS ORDERED: ATROPINE SULFATE 0.1 MG/ML 5ML SYR IV PRN (15:45)
[2017-02-23] MEDS ORDERED: LABETALOL HCL IV 5 MG/ML 20ML IV PRN (15:45)
[2017-02-23] MEDS ORDERED: HYDROmorphone INJ 2 MG/ML SYR/VIAL IV PRN (15:45)
[2017-02-23] MEDS ORDERED: MEPERIDINE HCL 25 MG/ML CARP IV PRN (15:45)
[2017-02-23] MEDS ORDERED: ONDANSETRON INJ 2 MG/ML 2 ML VIAL IV PRN (15:45)
[2017-02-23] MEDS ORDERED: EpHEDrine SULFATE INJ 50 MG/ML AMP IV PRN (15:45)
[2017-02-23] MEDS ORDERED: FENTANYL CITRATE INJ 50 MCG/1 ML 2 ML VIAL IV PRN (15:45)
[2017-02-23] MEDS ORDERED: PHENYLEPHRINE 100MCG/ML 5ML SYR IV PRN (15:45)
[2017-02-23] MEDS ORDERED: FLUMAZENIL 0.1 MG/1 ML 10 ML VIAL IV PRN (15:45)
[2017-02-23] MEDS ORDERED: LIDOCAINE HCL 2% 2 ML VIAL (20MG/ML) ONE (15:57)
[2017-02-23] MEDS ORDERED: PROPOFOL IV EMULSION 10 MG/ML 20 ML VIAL IV ONE (15:57)
[2017-02-23] MEDS ORDERED: EpHEDrine SULFATE 50MG/5ML SYR ONE (15:57)
[2017-02-23] MEDS ORDERED: CEFAZOLIN SOD 1 GM VIAL ONE (16:00)
--- NOTE | 2017-02-23 17:29 | [facility] Post Operative Brief Note ---
Immediate Operative Summary Operative Date Feb 23, 2017. Pre-Operative Diagnosis Right displaced femoral shaft fracture Post-Operative Diagnosis Right displaced femoral shaft fracture Procedure(s) Performed Intramedullary nailing of right femur ftracture Surgeon Dr. Winston Nance Hoof And Shoe Inspector Surgeon(s) Marshal Hearn PA-C Estimated Blood Loss 100ML Findings displaced femur fracture Fluids (cc crystalloids) 1300 cc Specimens none per surgeon Anesthesia Spinal Complication(s) None Disposition Recovery Room / PACU
[2017-02-23] MEDS ORDERED: BISACODYL 5 MG TABEC PO PRN (17:30)
--- NOTE | 2017-02-23 17:38 | DIAGNOSTIC IMAGING REPORT ---
INTRAOPERATIVE STUDY OF THE RIGHT HIP CLINICAL HISTORY: RIGHT TROCH NAIL COMPARISON STUDY: Right femur 02/23/2017. FLUOROSCOPY TIME: 3 minutes and 14 seconds.. FINDINGS: 6 fluoroscopic spot images. There is an intramedullary gordy within the right femur with a femoral neck pin. The hardware appears intact. This traverses the right femoral fracture. The alignment is near-anatomic. IMPRESSION: Fluoroscopy provided for internal fixation of a right femur fracture Electronically signed by: Dmitry Sue M.D. 02/23/2017 5:36 PM Dictated Date/Time: 02/23/2017 5:35 PM
--- NOTE | 2017-02-23 17:56 | Anesthesiology Progress Note ---
Anesthesia Post Op Note Date & Time Feb 23, 2017 at 17:56 Vital Signs Pain Intensity: 0 Vital Signs Past 12 Hours Date Time Temp Pulse Resp B/P (MAP) Pulse Ox O2 Delivery O2 Flow Rate FiO2 02/23/17 17:45 83 16 130/57 97 Nasal Cannula 4 02/23/17 17:35 87 16 125/63 98 Nasal Cannula 4 02/23/17 17:29 36.2 89 16 123/63 93 Oxymask 10 02/23/17 13:12 72 20 166/89 97 Room Air 02/23/17 11:33 72 02/23/17 11:25 70 18 172/84 96 Room Air 02/23/17 11:00 96 Room Air 02/23/17 09:34 36.4 78 18 195/100 95 Room Air Notes Mental Status: alert / awake / arousable, participated in evaluation Pt Amnestic to Procedure: Yes Nausea / Vomiting: adequately controlled Pain: adequately controlled Airway Patency, RR, SpO2: stable & adequate BP & HR: stable & adequate Hydration State: stable & adequate Neuraxial Anesthesia: was administered, sensory block is resolving Anesthetic Complications: no major complications apparent
[2017-02-23] MEDS: D5W AND NSS 1,000 ML IV SCH (19:43)
[2017-02-23] MEDS ORDERED: PROMETHAZINE HCL INJ 12.5 MG in SODIUM CHLORIDE 0.9% 50ML 50 ML IV PRN (20:00)
[2017-02-23] MEDS: CALCIUM 600MG + VIT D 400 IU TAB PO SCH (21:00)
[2017-02-23] MEDS ORDERED: DOCUSATE SODIUM/SENNA 50/8.6MG TAB PO SCH (21:00)
[2017-02-23] MEDS: ASPIRIN/ALUM/MAGNES/CAL CARB 325 MG TAB PO SCH (21:00)
[2017-02-23] MEDS: DOCUSATE SODIUM/SENNA 50/8.6MG TAB PO SCH (22:16)
[2017-02-23] MEDS: OXYBUTYNIN CHLORIDE 5 MG TABCR PO SCH (22:16)
[2017-02-23] MEDS: CEFAZOLIN IV 1,000 MG in DEXTROSE 5% 50ML 50 ML IV SCH (23:17)
--- NOTE | 2017-02-23 23:52 | OPERATIVE REPORT ---
DATE OF OPERATION: 02/23/2017 SURGEON: Zen Nance MD EVENTS ASSISTANT: KARINA Crook. PREOPERATIVE DIAGNOSIS: Right displaced midshaft femur fracture. POSTOPERATIVE DIAGNOSIS: Same. PROCEDURE PERFORMED: Right long cephalomedullary nailing of a right midshaft femur fracture. COMPLICATIONS: None. ESTIMATED BLOOD LOSS: 100 mL. FLUID REPLACEMENT: 1300 mL crystalloid fluid replacement. ANESTHESIA: Spinal. DRAINS: None. SPECIMENS: None. OPERATIVE INDICATIONS: The patient is an 82-year-old fairly healthy female who got tripped up by her dog earlier today and stumbled and fell. She had no preexisting femur pain. She was on bisphosphonate treatment for osteoporosis. She was taking Fosamax and then converted to another agent a while back. She was brought to Emergency Room where x-rays revealed a midshaft femur fracture. We were consulted for treatment. The patient was medically optimized and indicated for surgery. Of note on x-ray, it looked like she did have some degree of stress reaction in the mid aspect of her femur despite no preoperative symptoms. There are no signs of pathological fracture. OPERATIVE IMPLANTS: Operative implants consisted of: 1. A right Synthes 10 mm x 320 mm right long trochanteric nail. 2. An 80 mm helical blade. 3. A 5 mm x 38 mm distal interlocking screw. OPERATIVE PROCEDURE: The patient taken to the operating room, identified and placed on the operating table in supine position. All contact areas were appropriately padded. IV antibiotics were provided by the anesthesia team. A spinal anesthetic was implemented by anesthesia team. The patient was then placed on the fracture table in the supine position. The right leg was placed in boot traction and the left leg was placed in a well leg yan. All contact areas were meticulously padded. I applied some longitudinal traction. X-ray was brought in. The proximal femoral side was markedly externally rotated. Therefore, we did rotate the distal segment just slightly and tried to align the fracture site anatomically. Once we got appropriate position, some final x-rays were obtained and then we proceeded with the surgery. The right hip and leg were then prepped and draped in the usual sterile fashion. A long curvilinear incision was made just proximal to the greater trochanter. Sharp dissection was carried out through the subcutaneous tissues, which was quite fit down to the level of the gluteal fascia. The gluteal fascia was incised longitudinally in line with skin incision. I then placed a guidewire through the tip of the trochanter and down the central aspect of the intramedullary canal. Due to the fact that the femur was rotated so externally, we took great care to make sure I got this right where it needed to be. Once this was verified, I overreamed this with a 17 mm reamer. The guidewire was removed. A ball tipped guidewire was placed down the femur. I then used the reduction tool to manipulate the proximal segment and passed the guidewire across the femoral shaft fracture. This went quite nicely and easily. I then began reaming, starting with a 9.5 mm reamer. Even with that, I got some chatter. Therefore, we elected to place a 10 mm nail. The only length 10 mm nail we have is a 320 mm nail. I did measure and her femur measured for about 340 mm nail. We elected to place a 320 mm nail and leave it little short in lieu of excessively reaming her femur. I reamed up to a size 11.5 mm increments. Once this was complete, I placed a 10 mm x 320 mm right long trochanteric nail over the guidewire. I removed the guidewire. We tapped this into position. It was quite tight. I then placed the lateral aiming arm. We made a stab incision and advanced to the lateral aspect of the femur. A guidewire was placed in the central aspect of the femoral head and neck, both in the AP plane. In the lateral plane, it was little bit on the posterior side but within the confines of the neck and near the central aspect of the head. I accepted this as her femoral neck was fairly small. This was measured and 80 mm helical blade was selected. I did not feel I need to get subcortical purchase due to the location of the fracture. I thought it was better to leave it little short than too long. The cortical step drill was used to breach the cortex and a triple reamer was used to ream the guidewire. An 80 mm helical blade was selected and tapped into ____ segment. The set screw was then tightened proximally. The lateral aiming arm was removed and some final x-rays were obtained. I then went to fixing this distally. Using the perfect quinault technique, I obtained perfect circles of the most distal interlocking screw. This was a dynamic hole. We did pound the nail down and took some of the traction off first to allow the fracture to compress. I then made a stab incision and placed the distal interlocking screw through the distal portion of the dynamic hole to try and maximize the length of fixation of the gordy as well as to allow it to dynamize. Once this was complete, some final x-rays were obtained. Attention was then drawn toward closing. The wound was irrigated with copious amounts of normal saline. I did inject locally with 30 mL of 0.5% Marcaine with epinephrine. The gluteal fascia was then closed with #1 Vicryl suture in a running fashion. The subcutaneous tissues of the proximal wound were closed with #1 Vicryl suture in a buried interrupted fashion. The subcutaneous tissues of all wounds were then closed with 2-0 Dexon suture in a buried interrupted fashion. Skin was closed with skin charles. Leg was then cleaned and dried and a sterile dressing of Xeroform, 4 x 4s, sterile ABD pad and foam tape was applied. The patient was then taken off the fracture table. She was transported to the transfer cart and taken out of the operating room to the recovery room in stable condition. The patient tolerated the procedure well with no complications. All needle and sponge counts were correct at the end of the operation. I attest to the content of the Intraoperative Record and any orders documented therein. Any exception s are noted below.
[2017-02-24] VITALS (8 sets, daily range): BP systolic 96–137; BP diastolic 60–71; PULSE 71–161; TEMP 36.3–37.1; O2SAT 94–98
[2017-02-24] MEDS: LEVOTHYROXINE 50 MCG TAB PO SCH (05:39)
[2017-02-24] MEDS: RANITIDINE HCL 150 MG TAB PO SCH (05:39)
[2017-02-24] MEDS: ACETAMINOPHEN 325 MG TAB PO PRN (07:29)
[2017-02-24] MEDS: CEFAZOLIN IV 1,000 MG in DEXTROSE 5% 50ML 50 ML IV SCH (07:32)
[2017-02-24 08:13] LABS: HEMATOCRIT 31.3 % (37-47); MEAN CELL VOLUME 91.5 fL (80-100); MEAN CORPUSCULAR HEMOGLOBIN 31.6 pg (25-34); MEAN CORPUSCULAR HGB CONC 34.5 g/dl (32-36); MEAN PLATELET VOLUME 9.1 fL (7.4-10.4); PLATELET COUNT 201 K/uL (130-400); RED BLOOD COUNT 3.42 M/uL (4.2-5.4); WHITE BLOOD COUNT 10.37 K/uL (4.8-10.8)
[2017-02-24 08:53] LABS: BUN/CREATININE RATIO 15.2 (10-20); CALCIUM 7.8 mg/dl (8.5-10.1); CREATININE 0.81 mg/dl (0.60-1.20); POTASSIUM 3.6 mmol/L (3.5-5.1)
[2017-02-24] MEDS: D5W AND NSS 1,000 ML IV SCH (09:20)
[2017-02-24] MEDS: SERTRALINE HCL 100 MG TAB PO SCH (09:21)
[2017-02-24] MEDS: SERTRALINE HCL 50 MG TAB PO SCH (09:21)
[2017-02-24] MEDS: TOCOPHERYL, DL-ALPHA 400 INTER.UNIT CAP PO SCH (09:22)
[2017-02-24] MEDS: CALCIUM 600MG + VIT D 400 IU TAB PO SCH ×2 (09:22→21:55)
[2017-02-24] MEDS: CEROVITE ADV FORMULA TAB PO SCH (09:23)
[2017-02-24] MEDS: ASPIRIN/ALUM/MAGNES/CAL CARB 325 MG TAB PO SCH ×2 (09:23→21:55)
--- NOTE | 2017-02-24 09:23 | Orthopedic Progress Note ---
Orthopedic Progress Note Date of Service Feb 24, 2017. Subjective Additional Notes: POD #1 from IM nailing for right femur fx. Pain is controlled at rest but still having pain with WB. Feels nauseated. No chest pain or SOB. Objective calves soft nontender, N/V intact, dressing C/D/I, A&O x3, toes mobile Date Time Temp Pulse Resp B/P (MAP) Pulse Ox O2 Delivery O2 Flow Rate FiO2 02/24/17 07:24 37.1 73 16 116/65 (82) 98 Room Air 02/24/17 04:00 36.8 82 16 121/64 (83) 96 Nasal Cannula 2.0 02/24/17 00:23 36.3 02/23/17 23:15 Nasal Cannula 2.0 Humidified Air 02/23/17 23:05 36.2 81 16 122/72 (89) 96 Room Air 02/23/17 21:20 36.4 84 16 124/74 (91) 96 Nasal Cannula 2.0 02/23/17 20:26 79 151/73 (99) 02/23/17 20:20 36.4 79 16 172/84 (113) 94 Nasal Cannula 2.0 02/23/17 19:20 36.2 84 16 165/54 (91) 95 Nasal Cannula 2.0 02/23/17 18:50 36.3 79 16 154/77 (102) 96 Nasal Cannula 2.0 02/23/17 18:45 92 Nasal Cannula 2.0 02/23/17 18:45 92 Nasal Cannula 2.0 02/23/17 18:30 36.3 02/23/17 18:15 35.4 78 18 154/77 (102) 92 Nasal Cannula 2.0 02/23/17 17:55 36.3 81 16 149/72 97 Nasal Cannula 4 02/23/17 17:45 83 16 130/57 97 Nasal Cannula 4 02/23/17 17:35 87 16 125/63 98 Nasal Cannula 4 02/23/17 17:29 36.2 89 16 123/63 93 Oxymask 10 02/23/17 13:12 72 20 166/89 97 Room Air 02/23/17 11:33 72 02/23/17 11:25 70 18 172/84 96 Room Air 02/23/17 11:00 96 Room Air 02/23/17 09:34 36.4 78 18 195/100 95 Room Air Laboratory Results 24 Hours: Test 02/23/17 10:53 02/24/17 07:45 White Blood Count 9.99 K/uL Red Blood Count 4.12 M/uL Hemoglobin 12.8 g/dL 10.8 g/dL Hematocrit 37.7 % 31.3 % Mean Corpuscular Volume 91.5 fL Mean Corpuscular Hemoglobin 31.1 pg Mean Corpuscular Hemoglobin Concent 34.0 g/dl Platelet Count 206 K/uL Mean Platelet Volume 9.1 fL Neutrophils (%) (Auto) 84.1 % Lymphocytes (%) (Auto) 11.0 % Monocytes (%) (Auto) 4.5 % Eosinophils (%) (Auto) 0.0 % Basophils (%) (Auto) 0.2 % Neutrophils # (Auto) 8.40 K/uL Lymphocytes # (Auto) 1.10 K/uL Monocytes # (Auto) 0.45 K/uL Eosinophils # (Auto) 0.00 K/uL Basophils # (Auto) 0.02 K/uL Prothromb Time International Ratio 1.0 Prothrombin Time 11.2 SECONDS Assessment & Plan Assessment: POD #1 from IM nail for right femur fx Discharge Planning Discharge Planning: fdc facility (vs rehab ) Pain Management: other (continue current pain management ) DVT Prophylaxis: TEDs, SCDs, ASA Therapy: Physical Therapy (wbat ), Occupational Therapy Discharge Planning Notes: She is concerned about her at home without her since he does have some dementia. She does have a son around whom she said could help. She can discuss this with social science teacher as well for suggestions. She was seen and examined by Dr. Nance today as well
--- NOTE | 2017-02-24 10:51 | Anesthesiology Progress Note ---
Anesthesia Post Op Note Date & Time Feb 24, 2017 at 10:50 Vital Signs Vital Signs Past 12 Hours Date Time Temp Pulse Resp B/P (MAP) Pulse Ox O2 Delivery O2 Flow Rate FiO2 02/24/17 07:24 37.1 73 16 116/65 (82) 98 Room Air 02/24/17 04:00 36.8 82 16 121/64 (83) 96 Nasal Cannula 2.0 02/24/17 00:23 36.3 02/23/17 23:15 Nasal Cannula 2.0 Humidified Air 02/23/17 23:05 36.2 81 16 122/72 (89) 96 Room Air Notes Mental Status: alert / awake / arousable, participated in evaluation Pt Amnestic to Procedure: Yes Nausea / Vomiting: adequately controlled Pain: adequately controlled Airway Patency, RR, SpO2: stable & adequate BP & HR: stable & adequate Hydration State: stable & adequate Neuraxial Anesthesia: was administered, sensory block resolved Anesthetic Complications: no major complications apparent
[2017-02-24] MEDS ORDERED: ADENOSINE IV SOLN 3 MG/ML 2 ML VIAL IV ONE (13:45)
[2017-02-24] MEDS ORDERED: ADENOSINE IV SOLN 3 MG/ML 2 ML VIAL ONE ×2 (13:57→17:48)
[2017-02-24] MEDS ORDERED: METOPROLOL TARTRATE 1 MG/ML VIAL IV PRN (14:30)
--- NOTE | 2017-02-24 14:38 | DIAGNOSTIC IMAGING REPORT ---
CHEST ONE VIEW PORTABLE CLINICAL HISTORY: Back pain. Supraventricular tachycardia. COMPARISON STUDY: 02/23/2017 FINDINGS: The heart remains mildly enlarged. There is tracheal deviation to the right, likely secondary to a thyroid goiter. There is no failure. There is no focal pulmonary consolidation. There are no pleural effusions.[ IMPRESSION: 1. Tracheal deviation to the right. This is consistent with a thoracic inlet mass, statistically thyroid goiter 2. Mild cardiomegaly 3. No acute findings. Electronically signed by: Tim Campbell M.D. 02/24/2017 2:37 PM Dictated Date/Time: 02/24/2017 2:36 PM
[2017-02-24 14:43] LABS: MAGNESIUM 2.1 mg/dl (1.8-2.4); POTASSIUM 3.6 mmol/L (3.5-5.1)
--- NOTE | 2017-02-24 15:15 | CARDIOLOGY CONSULTATION ---
DATE OF [facility]: 02[facility]/2017 [facility] CHIEF COMPLAINT CONSULTATION: SVT. HISTORY OF PRESENT ILLNESS: This is an 82-year-old female who had a mechanical fall sustaining a fracture of her right femur. She was convalescing up on the orthopedic floor. She admits that she has a history of anxiety. She has a at home who is battling dementia as well as a dog. They told her that she would have to go to rehab for 3 weeks and this increased her anxiety level, and she became very concerned. She developed a tachycardia. She was given 6 mg of intravenous adenosine to break the tachycardia and she returned to normal sinus rhythm. According to the patient and after review of the records, she has no prior history of heart disease. No prior history of myocardial infarction, congestive heart failure or cardiac arrhythmias. She is resting comfortably and has no complaints at present. ALLERGIES: BACITRACIN, NEOMYCIN, AND POLYMYXIN. PAST MEDICAL HISTORY: She has no prior history of heart disease, strokes, diabetes, hypertension, or kidney disease. She has been treated for anxiety and GERD. She also has a history of osteoporosis. FAMILY MEDICAL HISTORY: Noncontributory. SOCIAL HISTORY: She is a never smoker. She is and lives with her who has advanced dementia. REVIEW OF SYSTEMS: A 10-point review of systems is otherwise negative. PHYSICAL EXAMINATION: GENERAL: She is alert and oriented. VITAL SIGNS: Blood pressure is 110/70, pulse is regular at 70 beats per minute. She is afebrile. HEENT: She has normocephalic. Pupils are equal and reactive to light. Extraocular muscles are intact bilaterally. NECK: The neck veins are flat. Carotids have good upstrokes bilaterally without bruits. Thyroid is nonpalpable. RESPIRATORY: Breath sounds equal bilaterally and clear to auscultation. CARDIOVASCULAR: Heart has a regular rhythm. Normal S1, S2. No S3, S4. No cardiac rubs or murmurs. GASTROINTESTINAL: Abdomen is soft, nontender without organomegaly. EXTREMITIES: Free of edema, digit clubbing, or cyanosis. NEUROLOGIC: Grossly intact. SKIN: Warm to touch. LYMPH NODES: Negative to palpation. IMPRESSION: 1. Paroxysmal supraventricular tachycardia. 2. Her recent fracture of the right femur. 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 It is interesting that she has no prior history. She was appropriately given adenosine and now is back in sinus rhythm. I would recommend that we place her on a low dose of beta mynor to prevent reoccurrence of this arrhythmia. I would also recommend a TSH level to be sure that she does not have hyperthyroidism, which is unlikely. To complete the workup, she should have an echocardiogram to evaluate for valvular heart disease or cardiomyopathy. We will follow along with you during her hospital stay. YOEL
--- NOTE | 2017-02-24 15:18 | Progress Note ---
Medicine Progress Note Date & Time of Visit: Feb 24, 2017 at 15:17. (Pamela Nance ., P.A.-C.) Subjective Patient seen and examined today. Nurse is at bedside with patient. Patient states that she felt fine earlier today but started to feel lightheaded, nauseous and weak 10 minutes ago. Endorsed a squeezing feeling in her midback, between her shoulder blades. A stat EKG revealed SVT at a rate of 160. HR did not decrease with vasovagal maneuver so a PCU nurse was called to administer adenosine at bedside. HR decreased from 160 to 100, and then slowly decreased to 80s. Patient was then relocated to ICU for close monitoring. When reexamined 30 minutes later, patient states that she felt much better and was no longer experiencing any lightheadedness, nausea or CP. Was able transfer to the commode with assistance. States that R leg pain is under control. Revealed that her main concern right now if what will happen to her ( whom she lives with) if she goes to rehab. 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 (Pamela Nance ., P.A.-C.) Objective Last 8 Hrs Date Time Temp Pulse Resp B/P (MAP) Pulse Ox O2 Delivery O2 Flow Rate FiO2 02/24/17 13:31 36.8 161 24 96/60 (72) 95 Room Air 02/24/17 13:14 36.4 24 103/68 (80) 95 Room Air 02/24/17 11:07 36.5 76 20 114/65 (81) 96 Room Air 02/24/17 07:24 37.1 73 16 116/65 (82) 98 Room Air Physical Exam: General Appearance: + mild distress Head: normocephalic, atraumatic Eyes: normal inspection, PERRL, sclerae and conjunctiva normal ENT: normal ENT inspection, hearing grossly normal Neck: supple, no adenopathy, thyroid normal, trachea midline Respiratory/Chest: chest non-tender, lungs clear, normal breath sounds, no respiratory distress, no accessory muscle use Cardiovascular: regular rate, rhythm, no murmur Abdomen/GI: normal bowel sounds, non tender, soft, no organomegaly Extremities/Musculoskelatal: no calf tenderness, normal capillary refill, no pedal edema, + pertinent finding (R thigh with dressing in place. Clean, dry intact. Ice in place) 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: no motor/sensory deficits, alert, normal mood/affect, oriented x 3 Skin: normal color, warm/dry, no rash Lymphatic: no adenopathy Laboratory Results: Last 24 Hours Test 02/24/17 07:45 02/24/17 13:57 02/24/17 15:08 White Blood Count 10.37 K/uL Red Blood Count 3.42 M/uL Hemoglobin 10.8 g/dL Hematocrit 31.3 % Mean Corpuscular Volume 91.5 fL Mean Corpuscular Hemoglobin 31.6 pg Mean Corpuscular Hemoglobin Concent 34.5 g/dl RDW Standard Deviation 43.2 fL RDW Coefficient of Variation 12.9 % Platelet Count 201 K/uL Mean Platelet Volume 9.1 fL Sodium Level 135 mmol/L Potassium Level 3.6 mmol/L 3.6 mmol/L Chloride Level 103 mmol/L Carbon Dioxide Level 22 mmol/L Anion Gap 10.0 mmol/L Blood Urea Nitrogen 12 mg/dl Creatinine 0.81 mg/dl Est Creatinine Clear Calc Drug Dose 51.6 ml/min Estimated GFR () 79.5 Estimated GFR (Non- 68.6 BUN/Creatinine Ratio 15.2 Random Glucose 115 mg/dl Calcium Level 7.8 mg/dl Magnesium Level 2.1 mg/dl Troponin I 0.021 ng/ml Date/Time Source Procedure Growth Status 02/23/17 20:30 Nasal MRSA DNA Surveillance Screen - Final Specimen Negative for MRSA by DNA Probe Complete (Pamela Nance ., P.A.-C.) Assessment & Plan This is an 82yo F with a PMH of osteoporosis, hypothyroidism and anxiety who is POD#1 s/p IM nailing for R midshaft femur fracture. S/p IM nailing for R midshaft femur fracture: -POD#1, surgery performed by Dr. Nance -Per ortho for pain control, wound care, anticoagulation and activities -Monitor H&H, continue incentive spirometry, PT/OT when appropriate Paroxysmal SVT: resolved -HR in 160s this afternoon -Likely precipitated by anxiety, no h/o arrhythmias -Did not respond to vasovagal maneuvers -Given 6mg of adenosine and HR decreased to 100. Now 70 bpm -Added IV Lopressor PRN for HR >120 -Initial troponin negative. Continue trending -Per cardio consult: -Recommends low dose beta mynor -TSH level to r/o hyperthyroidism -Echo to evaluate for valvular heart disease or cardiomyopathy Hypothyroidism: -TSH pending -Continue Levothyroxine Sertraline: -Stable -Continue sertraline Osteoporosis: -Continue Boniva monthly DVT Ppx: Per ortho Code status: FULL PCP: Milo Dispo: SW consulted to help with discharge placement Consultants: Cardio, ortho Current Inpatient Medications: Current Inpatient Medications Medications (Trade) Dose Ordered Sig/Fransico Route Start Time Stop Time Status Last Admin Dose Admin Hydromorphone HCl (Dilaudid Inj) 0.25 mg Q20M PRN IV 02/23/17 12:30 03/09/17 12:29 Hydromorphone HCl (Dilaudid Inj) 0.5 mg Q20M PRN IV 02/23/17 12:30 03/09/17 12:29 Naloxone HCl (Narcan Inj) 0.1 mg PRN PRN IV 02/23/17 12:30 03/25/17 12:29 Polyethylene (Miralax Powder Packet) 17 gm DAILY PRN PO 02/23/17 12:30 03/25/17 12:29 Sodium Biphosphate/ Sodium Phosphate (Fleet Enema) 132 ml PRN PRN AL 02/23/17 12:30 Miscellaneous (Iv Fluids Completed) 1 ea PRN PRN N/A 02/23/17 13:30 02/23/18 13:29 Calcium/Vitamin D (Caltrate Plus Tab) 1 tab BID PO 02/23/17 21:00 03/25/17 20:59 02/24/17 09:22 1 TAB Levothyroxine Sodium (Synthroid Tab) 50 mcg DAILYBB PO 02/24/17 06:00 03/26/17 05:59 02/24/17 05:39 50 MCG Ranitidine HCl (zANTac TAB) 150 mg DAILY PO 02/24/17 09:00 03/26/17 08:59 02/24/17 05:39 150 MG Sertraline HCl (Zoloft Tab) 25 mg DAILY PO 02/24/17 09:00 03/26/17 08:59 02/24/17 09:21 25 MG Sertraline HCl (Zoloft Tab) 100 mg DAILY PO 02/24/17 09:00 03/26/17 08:59 02/24/17 09:21 100 MG [id number]-Wygzdckiyf Acetate (Vitamin E Cap) 400 interunit DAILY PO 02/24/17 09:00 03/26/17 08:59 02/24/17 09:22 400 INTERUNIT Dextrose/Sodium Chloride 1,000 ml @ 75 mls/hr [id number] IV 02/23/17 19:30 03/25/17 19:29 02/24/17 09:20 75 MLS/HR Aspirin/Aluminum/ Magnesium/Ca Carb (Ascriptin Tab) 325 mg BID PO 02/23/17 21:00 03/25/17 20:59 02/24/17 09:23 325 MG Hydromorphone HCl (Dilaudid Inj) 0.25 mg Q20M PRN IV 02/23/17 17:30 03/09/17 17:29 Hydromorphone HCl (Dilaudid Inj) 0.5 mg Q20M PRN IV 02/23/17 17:30 03/09/17 17:29 Naloxone HCl (Narcan Inj) 0.4 mg Q1M PRN IV 02/23/17 17:30 03/25/17 17:29 Senna/Docusate Sodium (Senokot S Tab) 2 tab HS PO 02/23/17 21:00 03/25/17 20:59 02/23/17 22:16 2 TAB Polyethylene (Miralax Powder Packet) 17 gm Q6 PO 02/25/17 06:00 03/27/17 05:59 Magnesium Hydroxide (Milk Of Magnesia Susp) 30 ml DAILY PRN PO 02/23/17 17:30 03/25/17 17:29 Bisacodyl (Dulcolax Supp) 10 mg DAILY PRN AL 02/23/17 17:30 03/25/17 17:29 Acetaminophen (Tylenol Tab) 650 mg Q6 PRN PO 02/23/17 17:30 03/25/17 17:29 02/24/17 07:29 650 MG Bisacodyl (Dulcolax Tab) 5 mg DAILY PRN PO 02/23/17 17:30 03/25/17 17:29 Multivitamins/ Minerals (Multivitamin W/ Minerals Tab) 1 tab DAILY PO 02/24/17 09:00 03/26/17 08:59 02/24/17 09:23 1 TAB Oxybutynin Chloride (Ditropan-Xl Tab) 5 mg HS PO 02/23/17 21:00 03/25/17 20:59 02/23/17 22:16 5 MG Promethazine HCl 12.5 mg/Sodium Chloride 50.5 ml @ 204 mls/hr Q6H PRN IV 02/23/17 20:00 03/25/17 19:59 Metoprolol Tartrate (Lopressor Iv) 2.5 mg Q6H PRN IV 02/24/17 14:30 03/26/17 14:29 (Pamela Nance ., P.A.-C.) Attending Addendum Pt was seen and examined. Agreed with Pamela BRACNH exam, assessment and plan. Pt said that after she found out that she would need to go to rehab for the right femur fracture, she said that she started to think about her that will be home alone while she is in rehab. she said that she started to feel anxious. Nurse paged because her heart rate was in the 160. 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 Start lab done that was normal for TSH, Mg and K. Pt was transferred to telemetry to monitor. Cardiology consulted. Nurse called again around 1740 that she again went to SVT and she was asymptomatic. Adenosine was given again and SVT broke. Started on low dose PO metoprolol and prn IV Lopressor for HR above 120. Continue monitor in tele. Echo pending. Please refer to Pamela BRANCH documentation for other problems. Mami Santacruz MD (Mami Santacruz M.D.)
[2017-02-24] MEDS: METOPROLOL TARTRATE 25 MG TAB PO SCH (21:49)
[2017-02-24] MEDS: OXYBUTYNIN CHLORIDE 5 MG TABCR PO SCH (21:55)
[2017-02-24] MEDS: DOCUSATE SODIUM/SENNA 50/8.6MG TAB PO SCH (21:55)
[2017-02-25] VITALS (7 sets, daily range): BP systolic 95–145; BP diastolic 54–75; PULSE 55–67; TEMP 36.5–37.2; O2SAT 92–97
[2017-02-25] MEDS ORDERED: NURSING VERBAL MED ORDER ONE (05:00)
[2017-02-25] MEDS: POLYETHYLENE (MIRALAX) 17 GM PACK PO SCH ×3 (06:00→18:19)
[2017-02-25] MEDS: RANITIDINE HCL 150 MG TAB PO SCH (07:07)
[2017-02-25] MEDS: LEVOTHYROXINE 50 MCG TAB PO SCH (07:07)
--- NOTE | 2017-02-25 08:00 | Orthopedic Progress Note ---
Orthopedic Progress Note Date of Service Feb 25, 2017. Subjective Additional Notes: POD #2 from IM nailing of right femur fx. She was transferred to the PCU for SVT yesterday. She describes it as an anxiety attack with jaw pain and chest pain. She's being followed by cardiology service now as well. Feeling much better now though. Some leg pain with WB Objective calves soft nontender, N/V intact, dressing C/D/I, A&O x3, toes mobile Date Time Temp Pulse Resp B/P (MAP) Pulse Ox O2 Delivery O2 Flow Rate FiO2 02/25/17 06:53 37.1 67 18 145/72 (96) 92 Room Air 02/25/17 04:24 36.9 62 20 120/70 (87) 96 02/25/17 04:00 Room Air Humidified Air 02/25/17 00:40 37.2 65 20 131/72 (91) 93 02/25/17 00:00 Room Air Humidified Air 02/24/17 20:00 Room Air Humidified Air 02/24/17 18:53 36.6 71 18 130/71 (90) 94 Room Air 02/24/17 16:00 Room Air Humidified Air 02/24/17 16:00 36.9 83 20 137/70 (92) 96 Room Air 02/24/17 14:15 36.8 161 24 95 02/24/17 13:31 36.8 161 24 96/60 (72) 95 Room Air 02/24/17 13:14 36.4 24 103/68 (80) 95 Room Air 02/24/17 11:07 36.5 76 20 114/65 (81) 96 Room Air Assessment & Plan Assessment: POD #2 from IM nail for right femur fx Discharge Planning [facility] Pain Management: other (continue current pain management ) DVT Prophylaxis: TEDs, SCDs, ASA Therapy: Physical Therapy (wbat ), Occupational Therapy Discharge Planning Notes:
[2017-02-25] MEDS: TOCOPHERYL, DL-ALPHA 400 INTER.UNIT CAP PO SCH (08:55)
[2017-02-25] MEDS: METOPROLOL TARTRATE 25 MG TAB PO SCH ×2 (08:55→20:06)
[2017-02-25] MEDS: CALCIUM 600MG + VIT D 400 IU TAB PO SCH ×3 (08:55→20:09)
[2017-02-25] MEDS: ASPIRIN/ALUM/MAGNES/CAL CARB 325 MG TAB PO SCH ×2 (08:55→20:07)
[2017-02-25 08:58] LABS: HEMATOCRIT 30.1 % (37-47); MEAN CELL VOLUME 91.5 fL (80-100); MEAN CORPUSCULAR HEMOGLOBIN 31.3 pg (25-34); MEAN CORPUSCULAR HGB CONC 34.2 g/dl (32-36); MEAN PLATELET VOLUME 9.6 fL (7.4-10.4); PLATELET COUNT 190 K/uL (130-400); RED BLOOD COUNT 3.29 M/uL (4.2-5.4); WHITE BLOOD COUNT 8.72 K/uL (4.8-10.8)
[2017-02-25] MEDS: ACETAMINOPHEN 325 MG TAB PO PRN (09:02)
[2017-02-25 09:17] LABS: CALCIUM 8.1 mg/dl (8.5-10.1); CREATININE 0.62 mg/dl (0.60-1.20); POTASSIUM 3.7 mmol/L (3.5-5.1)
[2017-02-25] MEDS: CEROVITE ADV FORMULA TAB PO SCH (09:46)
[2017-02-25] MEDS: SERTRALINE HCL 100 MG TAB PO SCH (09:47)
[2017-02-25] MEDS: SERTRALINE HCL 50 MG TAB PO SCH (09:49)
[2017-02-25] MEDS ORDERED: METOPROLOL TARTRATE 25 MG TAB PO STA (10:44)
--- NOTE | 2017-02-25 11:01 | CARDIOLOGY PROGRESS NOTE ---
DATE: 02/25/2017 FOLLOWUP VISIT DATE: 02/25/2017 SUBJECTIVE: The patient is an 82-year-old female who had a mechanical fall and sustained a fracture to her right femur. While convalescing up on the orthopedic floor, she developed a SVT that required adenosine to convert her to sinus rhythm. She was transferred to the telemetry unit and later in the day she had 1 more episode of the tachycardia, again treated with adenosine. Following that last episode she has remained in normal sinus rhythm. It should be noted that the patient states that she has anxiety and I think what is happening is that she is describing her arrhythmia. I think it suggests that she has had these problems for a while. She has no other complaints today. OBJECTIVE: VITAL SIGNS: Blood pressure 140/70, pulse is regular at 67. GENERAL: She is afebrile. HEAD, EYES, EARS, NOSE, AND THROAT: She is normocephalic. Pupils are equal and reactive to light. Extraocular muscles are intact bilaterally. NECK: The neck veins are flat. Carotids have good upstrokes bilaterally without bruits. Thyroid is nonpalpable. RESPIRATORY: Breath sounds equal bilaterally and clear to auscultation. CARDIOVASCULAR: Heart has a regular rhythm. Normal S1, S2. No S3, S4. No cardiac rubs or murmurs. GASTROINTESTINAL: Abdomen is soft, nontender without organomegaly. EXTREMITIES: Free of edema. NEUROLOGIC: Grossly intact. SKIN: Warm to touch. LYMPH NODES: Negative to palpation. LABORATORY DATA: Hemoglobin is 10.3. Potassium is 3.7, creatinine is 0.62. Troponin is 0.049. IMPRESSION: 1. Paroxysmal supraventricular tachycardia. 2. Right femur fracture. RECOMMENDATIONS: I will increase the patient's metoprolol to 25 mg b.i.d. As I mentioned above, I suspect that her arrhythmias have been present for a long time as she seems to describe them as anxiety related. If she fails the metoprolol, then we may have to have the EP service to see her in consultation.
--- NOTE | 2017-02-25 16:00 | ECHOCARDIOGRAM REPORT ---
*NOTICE TO RECEIVING CONSTITUTION PARTY AGENCY This information is strictly Confidential and protected under [place] law. [place] law prohibits you from making any further disclosure of this information unless further disclosure is expressly permitted by the written consent of the person to whom it pertains or is authorized by law. A general authorization for the release of medical or other information is not sufficient for this purpose. Hospital accepts no responsibility if the information is made available to any other person, INCLUDING THE PATIENT. Interpretation Summary * Name: LEONID PURI Study Date: 02/25/2017 01:34 PM BP: 118/71 mmHg * Patient Location: C.2T\S\S233\S\1 HR: 60 * : 1935 (M/d/yyyy) Gender: Female Height: 62 in * Age: 82 yrs Ethnicity: [place] Weight: 155 lb * Ordering Physician: Duy Richmond * Referring Physician: Self, Referred * Performed By: Aleena Pimentel RCS * * Reason For Study: POST CATH * BSA: 1.7 m2 * -- Conclusions -- * The left ventricle is normal in size. * Left ventricular systolic function is normal. * Ejection Fraction = 50-55%. * The right ventricular systolic function is normal. * The left atrial size is normal. * Right atrial size is normal. * Small pericardial effusion. Procedure Details * A complete two-dimensional transthoracic echocardiogram was performed (2D, M-mode, Doppler and color flow Doppler). Left Ventricle * The left ventricle is normal in size. * There is normal left ventricular wall thickness. * Left ventricular systolic function is normal. * Ejection Fraction = 50-55%. * The left ventricular wall motion is normal. Right Ventricle * The right ventricle is normal size. * The right ventricular systolic function is normal. Atria * The left atrial size is normal. * Right atrial size is normal. * The interatrial septum is intact with no evidence for an atrial septal defect. Mitral Valve * The mitral valve anatomy is normal. * Significant mitral regurgitation is absent. Tricuspid Valve * The tricuspid valve anatomy is normal. * Significant tricuspid regurgitation is absent. Aortic Valve * The aortic valve is tricuspid. The leaflet thickness if normal. There is no aortic stenosis, and no significant insufficiency. * The aortic valve opens well. Pulmonic Valve * The pulmonic valve is not well visualized. * There is no significant pulmonary regurgitation. Great Vessels * The aortic root and proximal ascending aorta are normal sized. Pericardium/Pleural * Small pericardial effusion. MMode 2D Measurements and Calculations IVSd 0.92 cm IVSs 1.3 cm LVIDd 4.8 cm LVIDs 3.0 cm LVPWd 0.99 cm LVPWs 1.2 cm IVS/LVPW 0.93 FS 38.6 % EDV(Teich) 109.7 ml ESV(Teich) 34.3 ml EF(Teich) 68.8 % EDV(cubed) 113.5 ml ESV(cubed) 26.3 ml EF(cubed) 76.8 % % IVS thick 42.2 % % LVPW thick 19.5 % LV mass(C)d 161.4 grams LV mass(C)dI 94.1 grams/m\S\2 LV mass(C)s 113.8 grams LV mass(C)sI 66.3 grams/m\S\2 SV(Teich) 75.5 ml SI(Teich) 44.0 ml/m\S\2 SV(cubed) 87.2 ml SI(cubed) 50.9 ml/m\S\2 Ao root diam 3.2 cm Ao root area 8.0 cm\S\2 LA dimension 3.2 cm LA/Ao 0.99 LVOT diam 2.0 cm LVOT area 3.0 cm\S\2 LVAd ap4 31.4 cm\S\2 LVLd ap4 7.5 cm EDV(MOD-sp4) 108.6 ml EDV(sp4-el) 111.2 ml LVAs ap4 22.6 cm\S\2 LVLs ap4 6.2 cm ESV(MOD-sp4) 65.7 ml ESV(sp4-el) 69.4 ml EF(MOD-sp4) 39.5 % EF(sp4-el) 37.5 % LVAd ap2 27.7 cm\S\2 LVLd ap2 6.7 cm EDV(MOD-sp2) 93.6 ml EDV(sp2-el) 96.5 ml LVAs ap2 19.9 cm\S\2 LVLs ap2 5.8 cm ESV(MOD-sp2) 56.0 ml ESV(sp2-el) 58.3 ml EF(MOD-sp2) 40.2 % EF(sp2-el) 39.6 % LVLd %diff -11.83 % EDV(MOD-bp) 104.1 ml LVLs %diff -8.02 % ESV(MOD-bp) 63.9 ml EF(MOD-bp) 38.6 % SV(MOD-sp4) 42.9 ml SI(MOD-sp4) 25.0 ml/m\S\2 SV(MOD-sp2) 37.6 ml SI(MOD-sp2) 21.9 ml/m\S\2 SV(MOD-bp) 40.2 ml SI(MOD-bp) 23.4 ml/m\S\2 SV(sp4-el) 41.8 ml SI(sp4-el) 24.3 ml/m\S\2 SV(sp2-el) 38.2 ml SI(sp2-el) 22.3 ml/m\S\2 Doppler Measurements and Calculations MV E max maurice 82.0 cm/sec MV A max maurice 108.9 cm/sec MV E/A 0.75 MV P1/2t max maurice 90.6 cm/sec MV P1/2t 99.9 msec MVA(P1/2t) 2.2 cm\S\2 MV dec slope 265.5 cm/sec\S\2 MV dec time 0.19 sec Ao V2 max 114.2 cm/sec Ao max PG 5.2 mmHg Ao max PG (full) 1.5 mmHg SARA(V,A) 2.5 cm\S\2 SARA(V,D) 2.5 cm\S\2 AI max maurice 415.2 cm/sec AI max PG 69.0 mmHg AI dec slope 147.0 cm/sec\S\2 AI P1/2t 827.2 msec LV V1 max PG 3.7 mmHg LV V1 max 96.0 cm/sec PA V2 max 82.8 cm/sec PA max PG 2.7 mmHg PI max maurice 101.8 cm/sec PI max PG 4.1 mmHg PI dec slope 80.7 cm/sec\S\2 PI P1/2t 369.5 msec TR max maurice 272.6 cm/sec
--- NOTE | 2017-02-25 19:35 | Progress Note ---
Medicine Progress Note Date & Time of Visit: Feb 25, 2017 at 09:23. Subjective Pt was seen and examined Lying in bed with no distress Pt said that she feels fine she had 2 episodes of SVT yesterday denies any chest pain, palpitation, dizziness and sob Objective Last 8 Hrs Date Time Temp Pulse Resp B/P (MAP) Pulse Ox O2 Delivery O2 Flow Rate FiO2 02/25/17 16:00 Room Air 02/25/17 15:38 36.8 58 18 95/57 (70) 97 02/25/17 12:00 Room Air Physical Exam: General- No acute distress Head- atraumatic Eyes- PERRL, EOMI ENT- oropharynx clear Neck- supple, no JVD Lungs- clear to auscultation Heart- regular rhythm Abdomen- normal bowel sounds, soft Extremities-no calf tenderness Neuro- alert, oriented x 3, PERRL, EOMI Skin- warm & dry Laboratory Results: Last 24 Hours Test 02/24/17 19:51 02/25/17 05:23 02/25/17 05:32 02/25/17 12:49 Troponin I 0.095 ng/ml 0.049 ng/ml 0.029 ng/ml White Blood Count 8.72 K/uL Red Blood Count 3.29 M/uL Hemoglobin 10.3 g/dL Hematocrit 30.1 % Mean Corpuscular Volume 91.5 fL Mean Corpuscular Hemoglobin 31.3 pg Mean Corpuscular Hemoglobin Concent 34.2 g/dl RDW Standard Deviation 43.3 fL RDW Coefficient of Variation 13.0 % Platelet Count 190 K/uL Mean Platelet Volume 9.6 fL Sodium Level 139 mmol/L Potassium Level 3.7 mmol/L Chloride Level 107 mmol/L Carbon Dioxide Level 26 mmol/L Anion Gap 5.0 mmol/L Blood Urea Nitrogen 9 mg/dl Creatinine 0.62 mg/dl Est Creatinine Clear Calc Drug Dose 67.4 ml/min Estimated GFR () 98.7 Estimated GFR (Non- 85.2 BUN/Creatinine Ratio 15.0 Random Glucose 98 mg/dl Calcium Level 8.1 mg/dl Assessment & Plan R midshaft femur fracture: POD#2 Intramedullary nailing of right femur fracture performed by Dr. Goyo Keenan pain control Monitor H&H Incentive spirometry PT/OT Paroxysmal SVT Had 2 episodes of SVT yesterady Broke with 6mg of adenosine No arrhythmia noted on tele monitor Mild elevated troponin Continue metoprolol cardiology on board Echo showed * the left ventricle is normal in size. * Left ventricular systolic function is normal. * Ejection Fraction = 50-55%. * The right ventricular systolic function is normal. * The left atrial size is normal. * Right atrial size is normal. * Small pericardial effusion. Hypothyroidism: -TSH wnl -Continue Levothyroxine Sertraline: -Stable -Continue sertraline Osteoporosis: -Continue Boniva monthly DVT Ppx Per ortho Code status: FULL Disposition Continue monitor in telemetry Will discharge to rehab when medically stable Consultants: Cardio Ortho Current Inpatient Medications: Current Inpatient Medications Medications (Trade) Dose Ordered Sig/Fransico Route Start Time Stop Time Status Last Admin Dose Admin Hydromorphone HCl (Dilaudid Inj) 0.25 mg Q20M PRN IV 02/23/17 12:30 03/09/17 12:29 Hydromorphone HCl (Dilaudid Inj) 0.5 mg Q20M PRN IV 02/23/17 12:30 03/09/17 12:29 Naloxone HCl (Narcan Inj) 0.1 mg PRN PRN IV 02/23/17 12:30 03/25/17 12:29 Polyethylene (Miralax Powder Packet) 17 gm DAILY PRN PO 02/23/17 12:30 03/25/17 12:29 Sodium Biphosphate/ Sodium Phosphate (Fleet Enema) 132 ml PRN PRN MO 02/23/17 12:30 Miscellaneous (Iv Fluids Completed) 1 ea PRN PRN N/A 02/23/17 13:30 02/23/18 13:29 Calcium/Vitamin D (Caltrate Plus Tab) 1 tab BID PO 02/23/17 21:00 03/25/17 20:59 02/25/17 08:55 1 TAB Levothyroxine Sodium (Synthroid Tab) 50 mcg DAILYBB PO 02/24/17 06:00 03/26/17 05:59 02/25/17 07:07 50 MCG Ranitidine HCl (zANTac TAB) 150 mg DAILY PO 02/24/17 09:00 03/26/17 08:59 02/25/17 07:07 150 MG Sertraline HCl (Zoloft Tab) 25 mg DAILY PO 02/24/17 09:00 03/26/17 08:59 02/25/17 09:49 25 MG Sertraline HCl (Zoloft Tab) 100 mg DAILY PO 02/24/17 09:00 03/26/17 08:59 02/25/17 09:47 100 MG jf-Ojpoa-Ahbqqlvjaj Acetate (Vitamin E Cap) 400 interunit DAILY PO 02/24/17 09:00 03/26/17 08:59 02/25/17 08:55 400 INTERUNIT Aspirin/Aluminum/ Magnesium/Ca Carb (Ascriptin Tab) 325 mg BID PO 02/23/17 21:00 03/25/17 20:59 02/25/17 08:55 325 MG Hydromorphone HCl (Dilaudid Inj) 0.25 mg Q20M PRN IV 02/23/17 17:30 03/09/17 17:29 Hydromorphone HCl (Dilaudid Inj) 0.5 mg Q20M PRN IV 02/23/17 17:30 03/09/17 17:29 Naloxone HCl (Narcan Inj) 0.4 mg Q1M PRN IV 02/23/17 17:30 03/25/17 17:29 Senna/Docusate Sodium (Senokot S Tab) 2 tab HS PO 02/23/17 21:00 03/25/17 20:59 02/23/17 22:16 2 TAB Polyethylene (Miralax Powder Packet) 17 gm Q6 PO 02/25/17 06:00 03/27/17 05:59 02/25/17 18:19 17 GM Magnesium Hydroxide (Milk Of Magnesia Susp) 30 ml DAILY PRN PO 02/23/17 17:30 03/25/17 17:29 Bisacodyl (Dulcolax Supp) 10 mg DAILY PRN MO 02/23/17 17:30 03/25/17 17:29 Acetaminophen (Tylenol Tab) 650 mg Q6 PRN PO 02/23/17 17:30 03/25/17 17:29 02/25/17 09:02 650 MG Bisacodyl (Dulcolax Tab) 5 mg DAILY PRN PO 02/23/17 17:30 03/25/17 17:29 Multivitamins/ Minerals (Multivitamin W/ Minerals Tab) 1 tab DAILY PO 02/24/17 09:00 03/26/17 08:59 02/25/17 09:46 1 TAB Oxybutynin Chloride (Ditropan-Xl Tab) 5 mg HS PO 02/23/17 21:00 03/25/17 20:59 02/23/17 22:16 5 MG Promethazine HCl 12.5 mg/Sodium Chloride 50.5 ml @ 204 mls/hr Q6H PRN IV 02/23/17 20:00 03/25/17 19:59 Metoprolol Tartrate (Lopressor Iv) 2.5 mg Q6H PRN IV 02/24/17 14:30 03/26/17 14:29 Metoprolol Tartrate (Lopressor Tab) 25 mg BID PO 02/25/17 21:00 03/26/17 20:59
[2017-02-25] MEDS: DOCUSATE SODIUM/SENNA 50/8.6MG TAB PO SCH (20:06)
[2017-02-25] MEDS: OXYBUTYNIN CHLORIDE 5 MG TABCR PO SCH (20:06)
[2017-02-26] VITALS (7 sets, daily range): BP systolic 110–146; BP diastolic 55–77; PULSE 56–62; TEMP 36.4–36.8; O2SAT 93–98
[2017-02-26] MEDS: POLYETHYLENE (MIRALAX) 17 GM PACK PO SCH ×4 (06:04→18:17)
[2017-02-26] MEDS: LEVOTHYROXINE 50 MCG TAB PO SCH (06:04)
[2017-02-26 06:17] LABS: HEMATOCRIT 27.5 % (37-47); MEAN CELL VOLUME 91.1 fL (80-100); MEAN CORPUSCULAR HEMOGLOBIN 32.1 pg (25-34); MEAN CORPUSCULAR HGB CONC 35.3 g/dl (32-36); MEAN PLATELET VOLUME 9.4 fL (7.4-10.4); PLATELET COUNT 184 K/uL (130-400); RED BLOOD COUNT 3.02 M/uL (4.2-5.4); WHITE BLOOD COUNT 8.89 K/uL (4.8-10.8)
[2017-02-26 06:49] LABS: BUN/CREATININE RATIO 23.4 (10-20); CALCIUM 7.8 mg/dl (8.5-10.1); CREATININE 0.59 mg/dl (0.60-1.20); POTASSIUM 3.7 mmol/L (3.5-5.1)
[2017-02-26] MEDS: RANITIDINE HCL 150 MG TAB PO SCH (07:30)
[2017-02-26] MEDS: SERTRALINE HCL 100 MG TAB PO SCH (08:46)
[2017-02-26] MEDS: CEROVITE ADV FORMULA TAB PO SCH (08:46)
[2017-02-26] MEDS: METOPROLOL TARTRATE 25 MG TAB PO SCH ×2 (08:46→21:04)
[2017-02-26] MEDS: SERTRALINE HCL 50 MG TAB PO SCH (08:46)
[2017-02-26] MEDS: CALCIUM 600MG + VIT D 400 IU TAB PO SCH ×2 (08:47→21:04)
[2017-02-26] MEDS: TOCOPHERYL, DL-ALPHA 400 INTER.UNIT CAP PO SCH (08:47)
[2017-02-26] MEDS: ASPIRIN/ALUM/MAGNES/CAL CARB 325 MG TAB PO SCH ×2 (08:47→21:03)
[2017-02-26] MEDS: ACETAMINOPHEN 325 MG TAB PO PRN (09:45)
--- NOTE | 2017-02-26 12:30 | CARDIOLOGY PROGRESS NOTE ---
DATE: 02/26/2017 FOLLOW-UP VISIT DATE: 02/26/2017 SUBJECTIVE: The patient is an 82-year-old female who sustained a mechanical fall with a fracture to her right femur. After admission, she has had supraventricular tachycardia on 2 occasions requiring adenosine. She was moved to the telemetry unit and started on metoprolol. In the past 24 hours she has not had any additional arrhythmias. She has no new complaints today. OBJECTIVE: GENERAL: She is alert and oriented. VITAL SIGNS: Blood pressure is 110/60, pulse is regular at 56 beats per minute. She is in a sinus mechanism. HEAD, EYES, EARS, NOSE, AND THROAT: She is normocephalic. Pupils are equal and reactive to light. Extraocular muscles are intact bilaterally. NECK: The neck veins are flat. Carotids have good upstrokes bilaterally without bruits. Thyroid is nonpalpable. RESPIRATORY: Breath sounds equal bilaterally and clear to auscultation. CARDIOVASCULAR: Heart has a regular rhythm. Normal S1, S2. No S3, S4. No cardiac rubs or murmurs. GASTROINTESTINAL: Abdomen is soft, nontender without organomegaly. EXTREMITIES: Free of edema, digit clubbing, or cyanosis. NEUROLOGIC: Grossly intact. SKIN: Warm to touch. LYMPH NODES: Negative to palpation. LABORATORY DATA: Hemoglobin is 9.7, potassium is 3.7. She has had type 2 elevation in her troponins. IMPRESSION: 1. 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 2. Traumatic fracture of the right femur. RECOMMENDATIONS: I would continue the metoprolol at this point and if it controls her arrhythmias then that would be great. If, however, she continues to have recurrent arrhythmias, now or in the future then consideration can be given for electrophysiology evaluation.
--- NOTE | 2017-02-26 16:16 | PROGRESS NOTE ---
DATE: 02/26/2017 CHIEF COMPLAINT: Status post IM nail of the right femur, postop day #3. PROGRESS: Martha was seen and examined at bedside today. She was sitting up in a chair. She has been ambulating with physical therapy and doing well. She has very little pain in her right leg and no other complaints. She is looking forward to discharge. PHYSICAL EXAMINATION: RIGHT HIP: The dressing has been changed. Her leg lengths are essentially equal. She has active dorsiflexion and plantarflexion of her right ankle. Sensation is intact throughout. IMPRESSION: Status post intramedullary nail of the right femur, postop day #3. PLAN: At this point, she is doing very well. Will continue TEDs, SCDs and aspirin for DVT prophylaxis. Will continue with physical therapy. She is orthopedically stable for discharge when medically ready and Dr. Nance will follow up with her in the office about 2 weeks from her day of surgery for staple removal.
--- NOTE | 2017-02-26 17:44 | Progress Note ---
Medicine Progress Note Date & Time of Visit: Feb 26, 2017 at 17:31. Subjective Pt was seen and examined Lying in bed with no distress Pt said that she feels fine She walked with PT today denies any chest pain, palpitation, dizziness and SOB Objective Last 8 Hrs Date Time Temp Pulse Resp B/P (MAP) Pulse Ox O2 Delivery O2 Flow Rate FiO2 02/26/17 16:00 Room Air 02/26/17 15:59 36.8 59 18 122/74 (90) 96 02/26/17 12:00 Room Air 02/26/17 11:12 36.7 56 17 110/62 (78) 93 Room Air Physical Exam: General- No acute distress Head- atraumatic Eyes- PERRL, EOMI ENT- oropharynx clear Neck- supple, no JVD Lungs- clear to auscultation Heart- regular rhythm Abdomen- normal bowel sounds, soft Extremities-no calf tenderness Neuro- alert, oriented x 3, PERRL, EOMI Skin- warm & dry Laboratory Results: Last 24 Hours Test 02/26/17 05:20 White Blood Count 8.89 K/uL Red Blood Count 3.02 M/uL Hemoglobin 9.7 g/dL Hematocrit 27.5 % Mean Corpuscular Volume 91.1 fL Mean Corpuscular Hemoglobin 32.1 pg Mean Corpuscular Hemoglobin Concent 35.3 g/dl RDW Standard Deviation 43.6 fL RDW Coefficient of Variation 13.1 % Platelet Count 184 K/uL Mean Platelet Volume 9.4 fL Sodium Level 137 mmol/L Potassium Level 3.7 mmol/L Chloride Level 106 mmol/L Carbon Dioxide Level 24 mmol/L Anion Gap 7.0 mmol/L Blood Urea Nitrogen 14 mg/dl Creatinine 0.59 mg/dl Est Creatinine Clear Calc Drug Dose 70.9 ml/min Estimated GFR () 100.3 Estimated GFR (Non- 86.6 BUN/Creatinine Ratio 23.4 Random Glucose 89 mg/dl Calcium Level 7.8 mg/dl Assessment & Plan R midshaft femur fracture: POD#3 Intramedullary nailing of right femur fracture performed by Dr. Goyo Keenan pain control Monitor H&H Incentive spirometry PT/OT Paroxysmal SVT Had 2 episodes of SVT yesterady Broke with 6mg of adenosine No arrhythmia noted on tele monitor Mild elevated troponin On metoprolol tolerated well No further episode of SVT cardiology on board case discussed with cardiology, recommended to continue metoprolol Stable Echo showed * the left ventricle is normal in size. * Left ventricular systolic function is normal. * Ejection Fraction = 50-55%. * The right ventricular systolic function is normal. * The left atrial size is normal. * Right atrial size is normal. * Small pericardial effusion. Hypothyroidism: -TSH wnl -Continue Levothyroxine Sertraline: -Stable -Continue sertraline Osteoporosis: -Continue Boniva monthly DVT Ppx On asa Per ortho Code status: FULL CODE Disposition Transfer to medical/ortho Will discharge to rehab when stable by ortho Consultants: Cardio Ortho Current Inpatient Medications: Current Inpatient Medications Medications (Trade) Dose Ordered Sig/Fransico Route Start Time Stop Time Status Last Admin Dose Admin Hydromorphone HCl (Dilaudid Inj) 0.25 mg Q20M PRN IV 02/23/17 12:30 03/09/17 12:29 Hydromorphone HCl (Dilaudid Inj) 0.5 mg Q20M PRN IV 02/23/17 12:30 03/09/17 12:29 Naloxone HCl (Narcan Inj) 0.1 mg PRN PRN IV 02/23/17 12:30 03/25/17 12:29 Polyethylene (Miralax Powder Packet) 17 gm DAILY PRN PO 02/23/17 12:30 03/25/17 12:29 Sodium Biphosphate/ Sodium Phosphate (Fleet Enema) 132 ml PRN PRN NM 02/23/17 12:30 Miscellaneous (Iv Fluids Completed) 1 ea PRN PRN N/A 02/23/17 13:30 02/23/18 13:29 Calcium/Vitamin D (Caltrate Plus Tab) 1 tab BID PO 02/23/17 21:00 03/25/17 20:59 02/26/17 08:47 1 TAB Levothyroxine Sodium (Synthroid Tab) 50 mcg DAILYBB PO 02/24/17 06:00 03/26/17 05:59 02/26/17 06:04 50 MCG Ranitidine HCl (zANTac TAB) 150 mg DAILY PO 02/24/17 09:00 03/26/17 08:59 02/26/17 07:30 150 MG Sertraline HCl (Zoloft Tab) 25 mg DAILY PO 02/24/17 09:00 03/26/17 08:59 02/26/17 08:46 25 MG Sertraline HCl (Zoloft Tab) 100 mg DAILY PO 02/24/17 09:00 03/26/17 08:59 02/26/17 08:46 100 MG da-Tpoqs-Biqhiimigx Acetate (Vitamin E Cap) 400 interunit DAILY PO 02/24/17 09:00 03/26/17 08:59 02/26/17 08:47 400 INTERUNIT Aspirin/Aluminum/ Magnesium/Ca Carb (Ascriptin Tab) 325 mg BID PO 02/23/17 21:00 03/25/17 20:59 02/26/17 08:47 325 MG Hydromorphone HCl (Dilaudid Inj) 0.25 mg Q20M PRN IV 02/23/17 17:30 03/09/17 17:29 Hydromorphone HCl (Dilaudid Inj) 0.5 mg Q20M PRN IV 02/23/17 17:30 03/09/17 17:29 Naloxone HCl (Narcan Inj) 0.4 mg Q1M PRN IV 02/23/17 17:30 03/25/17 17:29 Senna/Docusate Sodium (Senokot S Tab) 2 tab HS PO 02/23/17 21:00 03/25/17 20:59 02/25/17 20:06 2 TAB Polyethylene (Miralax Powder Packet) 17 gm Q6 PO 02/25/17 06:00 03/27/17 05:59 02/26/17 11:48 17 GM Magnesium Hydroxide (Milk Of Magnesia Susp) 30 ml DAILY PRN PO 02/23/17 17:30 03/25/17 17:29 Bisacodyl (Dulcolax Supp) 10 mg DAILY PRN NM 02/23/17 17:30 03/25/17 17:29 Acetaminophen (Tylenol Tab) 650 mg Q6 PRN PO 02/23/17 17:30 03/25/17 17:29 02/26/17 09:45 650 MG Bisacodyl (Dulcolax Tab) 5 mg DAILY PRN PO 02/23/17 17:30 03/25/17 17:29 Multivitamins/ Minerals (Multivitamin W/ Minerals Tab) 1 tab DAILY PO 02/24/17 09:00 03/26/17 08:59 02/26/17 08:46 1 TAB Oxybutynin Chloride (Ditropan-Xl Tab) 5 mg HS PO 02/23/17 21:00 03/25/17 20:59 02/25/17 20:06 5 MG Promethazine HCl 12.5 mg/Sodium Chloride 50.5 ml @ 204 mls/hr Q6H PRN IV 02/23/17 20:00 03/25/17 19:59 Metoprolol Tartrate (Lopressor Iv) 2.5 mg Q6H PRN IV 02/24/17 14:30 03/26/17 14:29 Metoprolol Tartrate (Lopressor Tab) 25 mg BID PO 02/25/17 21:00 03/26/17 20:59 02/26/17 08:46 25 MG
[2017-02-26] MEDS: DOCUSATE SODIUM/SENNA 50/8.6MG TAB PO SCH (21:04)
[2017-02-26] MEDS: OXYBUTYNIN CHLORIDE 5 MG TABCR PO SCH (21:04)
[2017-02-27] MEDS: POLYETHYLENE (MIRALAX) 17 GM PACK PO SCH ×2 (00:06→06:06)
[2017-02-27] MEDS: LEVOTHYROXINE 50 MCG TAB PO SCH (06:06)
[2017-02-27] MEDS ORDERED: NURSING VERBAL MED ORDER ONE (06:30)
[2017-02-27 07:00] VITALS: BP 124/74; PULSE 56; TEMP 36.5; O2SAT 97
[2017-02-27] MEDS: RANITIDINE HCL 150 MG TAB PO SCH ×2 (08:02→19:22)
[2017-02-27] MEDS: CALCIUM 600MG + VIT D 400 IU TAB PO SCH ×2 (09:16→20:30)
[2017-02-27] MEDS: ASPIRIN/ALUM/MAGNES/CAL CARB 325 MG TAB PO SCH ×2 (09:16→20:30)
[2017-02-27] MEDS: CEROVITE ADV FORMULA TAB PO SCH (09:16)
[2017-02-27] MEDS: METOPROLOL TARTRATE 25 MG TAB PO SCH ×2 (09:16→20:30)
[2017-02-27] MEDS: TOCOPHERYL, DL-ALPHA 400 INTER.UNIT CAP PO SCH (09:16)
[2017-02-27] MEDS: SERTRALINE HCL 100 MG TAB PO SCH (09:17)
[2017-02-27] MEDS: SERTRALINE HCL 50 MG TAB PO SCH (09:17)
--- NOTE | 2017-02-27 12:53 | Progress Note ---
Medicine Progress Note Date & Time of Visit: Feb 27, 2017 at 12:49. Subjective Pt was seen and examined Lying in bed with no distress Pt sitting in chair with no distress denies any pain Pt said that she feels fine denies any chest pain, palpitation, dizziness and sob Objective Last 8 Hrs Date Time Temp Pulse Resp B/P (MAP) Pulse Ox O2 Delivery O2 Flow Rate FiO2 02/27/17 08:10 Room Air 02/27/17 07:00 36.5 56 16 124/74 (91) 97 Room Air Physical Exam: General- No acute distress Head- atraumatic Eyes- PERRL, EOMI ENT- oropharynx clear Neck- supple, no JVD Lungs- clear to auscultation Heart- regular rhythm Abdomen- normal bowel sounds, soft Extremities-no calf tenderness Neuro- alert, oriented x 3, PERRL, EOMI Skin- warm & dry Assessment & Plan R midshaft femur fracture: POD#4 Intramedullary nailing of right femur fracture performed by Dr. Nance Continue pain control hgb stable Incentive spirometry PT/OT waiting for placement to rehab Paroxysmal SVT Had 2 episodes of SVT yesterady Broke with 6mg of adenosine No arrhythmia noted on tele monitor Mild elevated troponin On metoprolol tolerated well No further episode of SVT cardiology on board case discussed with cardiology, recommended to continue metoprolol Stable Echo showed * the left ventricle is normal in size. * Left ventricular systolic function is normal. * Ejection Fraction = 50-55%. * The right ventricular systolic function is normal. * The left atrial size is normal. * Right atrial size is normal. * Small pericardial effusion. Hypothyroidism: -TSH wnl -Continue Levothyroxine Sertraline: -Stable -Continue sertraline Osteoporosis: -Continue Boniva monthly DVT Ppx On asa Per ortho Code status: FULL CODE Disposition Medically stable to discharge to rehab Waiting for placement to rehab Consultants: Cardio Ortho Procedures: Intramedullary nailing of right femur fracture Current Inpatient Medications: Current Inpatient Medications Medications (Trade) Dose Ordered Sig/Fransico Route Start Time Stop Time Status Last Admin Dose Admin Hydromorphone HCl (Dilaudid Inj) 0.25 mg Q20M PRN IV 02/23/17 12:30 03/09/17 12:29 Hydromorphone HCl (Dilaudid Inj) 0.5 mg Q20M PRN IV 02/23/17 12:30 03/09/17 12:29 Naloxone HCl (Narcan Inj) 0.1 mg PRN PRN IV 02/23/17 12:30 03/25/17 12:29 Polyethylene (Miralax Powder Packet) 17 gm DAILY PRN PO 02/23/17 12:30 03/25/17 12:29 Sodium Biphosphate/ Sodium Phosphate (Fleet Enema) 132 ml PRN PRN [place] 02/23/17 12:30 Miscellaneous (Iv Fluids Completed) 1 ea PRN PRN N/A 02/23/17 13:30 02/23/18 13:29 Calcium/Vitamin D (Caltrate Plus Tab) 1 tab BID PO 02/23/17 21:00 03/25/17 20:59 02/27/17 09:16 1 TAB Levothyroxine Sodium (Synthroid Tab) 50 mcg DAILYBB PO 02/24/17 06:00 03/26/17 05:59 02/27/17 06:06 50 MCG Ranitidine HCl (zANTac TAB) 150 mg DAILY PO 02/24/17 09:00 03/26/17 08:59 02/27/17 08:02 150 MG Sertraline HCl (Zoloft Tab) 25 mg DAILY PO 02/24/17 09:00 03/26/17 08:59 02/27/17 09:17 25 MG Sertraline HCl (Zoloft Tab) 100 mg DAILY PO 02/24/17 09:00 03/26/17 08:59 02/27/17 09:17 100 MG yk-Pnvkc-Dvwphbnhyf Acetate (Vitamin E Cap) 400 interunit DAILY PO 02/24/17 09:00 03/26/17 08:59 02/27/17 09:16 400 INTERUNIT Aspirin/Aluminum/ Magnesium/Ca Carb (Ascriptin Tab) 325 mg BID PO 02/23/17 21:00 03/25/17 20:59 02/27/17 09:16 325 MG Hydromorphone HCl (Dilaudid Inj) 0.25 mg Q20M PRN IV 02/23/17 17:30 03/09/17 17:29 Hydromorphone HCl (Dilaudid Inj) 0.5 mg Q20M PRN IV 02/23/17 17:30 03/09/17 17:29 Naloxone HCl (Narcan Inj) 0.4 mg Q1M PRN IV 02/23/17 17:30 03/25/17 17:29 Senna/Docusate Sodium (Senokot S Tab) 2 tab HS PO 02/23/17 21:00 03/25/17 20:59 02/26/17 21:04 2 TAB Magnesium Hydroxide (Milk Of Magnesia Susp) 30 ml DAILY PRN PO 02/23/17 17:30 03/25/17 17:29 Bisacodyl (Dulcolax Supp) 10 mg DAILY PRN [place] 02/23/17 17:30 03/25/17 17:29 Acetaminophen (Tylenol Tab) 650 mg Q6 PRN PO 02/23/17 17:30 03/25/17 17:29 02/26/17 09:45 650 MG Bisacodyl (Dulcolax Tab) 5 mg DAILY PRN PO 02/23/17 17:30 03/25/17 17:29 Multivitamins/ Minerals (Multivitamin W/ Minerals Tab) 1 tab DAILY PO 02/24/17 09:00 03/26/17 08:59 02/27/17 09:16 1 TAB Oxybutynin Chloride (Ditropan-Xl Tab) 5 mg HS PO 02/23/17 21:00 03/25/17 20:59 02/26/17 21:04 5 MG Metoprolol Tartrate (Lopressor Iv) 2.5 mg Q6H PRN IV 02/24/17 14:30 03/26/17 14:29 Metoprolol Tartrate (Lopressor Tab) 25 mg BID PO 02/25/17 21:00 03/26/17 20:59 02/27/17 09:16 25 MG
[2017-02-27 15:11] VITALS: BP 112/65; PULSE 59; TEMP 36.4; O2SAT 95
[2017-02-27 20:29] VITALS: BP 122/72; PULSE 62
[2017-02-27] MEDS: OXYBUTYNIN CHLORIDE 5 MG TABCR PO SCH (20:30)
[2017-02-27] MEDS: DOCUSATE SODIUM/SENNA 50/8.6MG TAB PO SCH (20:31)
[2017-02-27 23:10] VITALS: BP 143/68; PULSE 60; TEMP 36.3; O2SAT 97
[2017-02-28] MEDS: LEVOTHYROXINE 50 MCG TAB PO SCH (05:32)
[2017-02-28 07:11] VITALS: BP 124/72; PULSE 58; TEMP 36.5; O2SAT 98
[2017-02-28 08:00] VITALS: BP 120/72; PULSE 60; TEMP 36.6; O2SAT 98
[2017-02-28] MEDS: SERTRALINE HCL 50 MG TAB PO SCH (08:01)
[2017-02-28] MEDS: SERTRALINE HCL 100 MG TAB PO SCH (08:01)
[2017-02-28] MEDS: METOPROLOL TARTRATE 25 MG TAB PO SCH (08:02)
[2017-02-28] MEDS: CALCIUM 600MG + VIT D 400 IU TAB PO SCH (08:02)
[2017-02-28] MEDS: CEROVITE ADV FORMULA TAB PO SCH (08:02)
[2017-02-28] MEDS: TOCOPHERYL, DL-ALPHA 400 INTER.UNIT CAP PO SCH (08:02)
[2017-02-28] MEDS: RANITIDINE HCL 150 MG TAB PO SCH (08:02)
[2017-02-28] MEDS: ASPIRIN/ALUM/MAGNES/CAL CARB 325 MG TAB PO SCH (08:03)
[2017-02-28 12:00] VITALS: BP 120/72; PULSE 62; TEMP 36.5; O2SAT 98
--- NOTE | 2017-02-28 13:19 | Progress Note ---
Medicine Progress Note Date & Time of Visit: Feb 28, 2017 at 10:08. Subjective Pt was seen and examined Sitting in chair with no distress Pt said that she feels fine she said that she walked with PT today and did good denies any chest pain, palpitation, dizziness and sob Objective Last 8 Hrs Date Time Temp Pulse Resp B/P (MAP) Pulse Ox O2 Delivery O2 Flow Rate FiO2 02/28/17 12:00 36.5 62 18 120/72 (88) 98 Room Air 2.0 02/28/17 08:00 36.6 60 16 120/72 (88) 98 Room Air 2.0 02/28/17 08:00 98 Room Air 02/28/17 07:11 36.5 58 18 124/72 (89) 98 Room Air Physical Exam: General- No acute distress Head- atraumatic Eyes- PERRL, EOMI ENT- oropharynx clear Neck- supple, no JVD Lungs- clear to auscultation Heart- regular rhythm Abdomen- normal bowel sounds, soft Extremities-no calf tenderness Neuro- alert, oriented x 3, PERRL, EOMI Skin- warm & dry Assessment & Plan R midshaft femur fracture: POD#5 Intramedullary nailing of right femur fracture performed by Dr. Nance Continue pain control hgb stable Incentive spirometry Has been participated in PT/OT Will transfer to [facility] to rehab Follow up with Ortho in 2 weeks Paroxysmal SVT Had 2 episodes of SVT yesterady Broke with 6mg of adenosine No arrhythmia noted on tele monitor Mild elevated troponin On metoprolol tolerated well No further episode of SVT cardiology on board case discussed with cardiology, recommended to continue metoprolol Tolerated metoprolol 25 mg BID If she develops any recurrent arrhythmias in the future, will consider evaluation for electrophysiology Stable Echo showed * the left ventricle is normal in size. * Left ventricular systolic function is normal. * Ejection Fraction = 50-55%. * The right ventricular systolic function is normal. * The left atrial size is normal. * Right atrial size is normal. * Small pericardial effusion. Hypothyroidism: -TSH wnl -Continue Levothyroxine Anxiety -Stable -Continue sertraline Osteoporosis: -Continue Boniva monthly DVT Ppx On asa Per ortho Code status: FULL CODE Disposition Will transfer to [facility] for rehab Consultants: Cardio Ortho Procedures: Intramedullary nailing of right femur fracture Current Inpatient Medications: Current Inpatient Medications Medications (Trade) Dose Ordered Sig/Fransico Route Start Time Stop Time Status Last Admin Dose Admin Hydromorphone HCl (Dilaudid Inj) 0.25 mg Q20M PRN IV 02/23/17 12:30 03/09/17 12:29 Hydromorphone HCl (Dilaudid Inj) 0.5 mg Q20M PRN IV 02/23/17 12:30 03/09/17 12:29 Naloxone HCl (Narcan Inj) 0.1 mg PRN PRN IV 02/23/17 12:30 03/25/17 12:29 Polyethylene (Miralax Powder Packet) 17 gm DAILY PRN PO 02/23/17 12:30 03/25/17 12:29 Sodium Biphosphate/ Sodium Phosphate (Fleet Enema) 132 ml PRN PRN [place] 02/23/17 12:30 Miscellaneous (Iv Fluids Completed) 1 ea PRN PRN N/A 02/23/17 13:30 02/23/18 13:29 Calcium/Vitamin D (Caltrate Plus Tab) 1 tab BID PO 02/23/17 21:00 03/25/17 20:59 02/28/17 08:02 1 TAB Levothyroxine Sodium (Synthroid Tab) 50 mcg DAILYBB PO 02/24/17 06:00 03/26/17 05:59 02/28/17 05:32 50 MCG Sertraline HCl (Zoloft Tab) 25 mg DAILY PO 02/24/17 09:00 03/26/17 08:59 02/28/17 08:01 25 MG Sertraline HCl (Zoloft Tab) 100 mg DAILY PO 02/24/17 09:00 03/26/17 08:59 02/28/17 08:01 100 MG ki-Xwgql-Hbjtwbqxxo Acetate (Vitamin E Cap) 400 interunit DAILY PO 02/24/17 09:00 03/26/17 08:59 02/28/17 08:02 400 INTERUNIT Aspirin/Aluminum/ Magnesium/Ca Carb (Ascriptin Tab) 325 mg BID PO 02/23/17 21:00 03/25/17 20:59 02/28/17 08:03 325 MG Naloxone HCl (Narcan Inj) 0.4 mg Q1M PRN IV 02/23/17 17:30 03/25/17 17:29 Senna/Docusate Sodium (Senokot S Tab) 2 tab HS PO 02/23/17 21:00 03/25/17 20:59 02/26/17 21:04 2 TAB Magnesium Hydroxide (Milk Of Magnesia Susp) 30 ml DAILY PRN PO 02/23/17 17:30 03/25/17 17:29 Bisacodyl (Dulcolax Supp) 10 mg DAILY PRN [place] 02/23/17 17:30 03/25/17 17:29 Acetaminophen (Tylenol Tab) 650 mg Q6 PRN PO 02/23/17 17:30 03/25/17 17:29 02/26/17 09:45 650 MG Bisacodyl (Dulcolax Tab) 5 mg DAILY PRN PO 02/23/17 17:30 03/25/17 17:29 Multivitamins/ Minerals (Multivitamin W/ Minerals Tab) 1 tab DAILY PO 02/24/17 09:00 03/26/17 08:59 02/28/17 08:02 1 TAB Oxybutynin Chloride (Ditropan-Xl Tab) 5 mg HS PO 02/23/17 21:00 03/25/17 20:59 02/27/17 20:30 5 MG Metoprolol Tartrate (Lopressor Iv) 2.5 mg Q6H PRN IV 02/24/17 14:30 03/26/17 14:29 Metoprolol Tartrate (Lopressor Tab) 25 mg BID PO 02/25/17 21:00 03/26/17 20:59 02/28/17 08:02 25 MG Ranitidine HCl (zANTac TAB) 150 mg BID PO 02/27/17 21:00 03/26/17 08:59 02/28/17 08:02 150 MG
[2017-02-28] MEDS ORDERED: ASPI325T60 PO (13:25)
[2017-02-28] MEDS ORDERED: LPR25 PO (13:25)
[2017-02-28] MEDS ORDERED: TRAM-10 PO (13:28)
--- NOTE | 2017-02-28 13:40 | Discharge Instructions ---
Discharge Instructions Date of Service Feb 28, 2017. Admission Reason for Admission: R Femur Fracture Discharge Discharge Diagnosis / Problem: R midshaft femur fracture, Parosyxmal SVT, HTN, Hypothyroidism Discharge Goals Goal(s): Decrease discomfort, Improve function, Improve disease control Activity Recommendations Activity Limitations: resume your previous activity (as tolerated) . Instructions / Follow-Up Instructions / Follow-Up Follow up with your primary care provider once discharge from rehab Follow up with Orthopedic Dr. Nance in the office about 2 weeks from her day of surgery (02/23/17) for staple removal. Follow up with cardiology if you develop recurrent arrhythmia Continue PT/OT Fall precaution Continue Aspirin for DVT prophylaxis for now. You physician will instruct you when to stop the aspirin Current Hospital Diet Patient's current hospital diet: Regular Diet Discharge Diet Recommended Diet: AHA Diet (Heart Healthy) Procedures Procedures Performed: Intramedullary nailing of right femur ftracture Pending Studies Studies pending at discharge: no Medical Emergencies . Who to Call and When: Medical Emergencies: If at any time you feel your situation is an emergency, please call 911 immediately. . Non-Emergent Contact Non-Emergency issues call your: Primary Care Provider Call Non-Emergent contact if: you have a fever, your pain is not controlled, wound has increased drainage, wound has increased redness, wound has increased pain, you have any medication questions . . "Provider Documentation" section prepared by Mami Santacruz. . VTE Core Measure Inpt VTE Proph given/why not?: Other Anticoagulation (will need after surgery) [place] Drug Monitoring Program Search Results: no issues identified (no matching found)
[2017-02-28 13:50] VITALS: BP 120/72; PULSE 62; TEMP 36.5; O2SAT 98
--- NOTE | 2017-02-28 13:50 | Discharge Summary ---
Discharge Summary Date of Service Feb 28, 2017. Discharge Summary Admission Date: Feb 23, 2017 at 13:07 Discharge Date: Feb 28, 2017 Discharge Disposition: Rehab Principal Diagnosis: R midshaft femur fracture Secondary Diagnoses/Problems: Paroxysmal SVT Anxiety Hypothyroidism Osteoporosis: Procedures: Intramedullary nailing of right femur fracture CHEST ONE VIEW PORTABLE CLINICAL HISTORY: Back pain. Supraventricular tachycardia. COMPARISON STUDY: 02/23/2017 FINDINGS: The heart remains mildly enlarged. There is tracheal deviation to the right, likely secondary to a thyroid goiter. There is no failure. There is no focal pulmonary consolidation. There are no pleural effusions.[ IMPRESSION: 1. Tracheal deviation to the right. This is consistent with a thoracic inlet mass, statistically thyroid goiter 2. Mild cardiomegaly 3. No acute findings. Electronically signed by: Tim Campbell M.D. 02/24/2017 2:37 PM Dictated Date/Time: 02/24/2017 2:36 PM [~ rep ct add3]] INTRAOPERATIVE STUDY OF THE RIGHT HIP CLINICAL HISTORY: RIGHT TROCH NAIL COMPARISON STUDY: Right femur 02/23/2017. FLUOROSCOPY TIME: 3 minutes and 14 seconds.. FINDINGS: 6 fluoroscopic spot images. There is an intramedullary gordy within the right femur with a femoral neck pin. The hardware appears intact. This traverses the right femoral fracture. The alignment is near-anatomic. IMPRESSION: Fluoroscopy provided for internal fixation of a right femur fracture Electronically signed by: Dmitry Sue M.D. 02/23/2017 5:36 PM Dictated Date/Time: 02/23/2017 5:35 PM Interpretation Summary * Name: LEONID PURI Study Date: 02/25/2017 01:34 PM BP: 118/71 mmHg * Patient Location: 2\\S\\S233\\[id number]\\1 HR: 60 * : 1935 (M/d/yyyy) Gender: Female Height: 62 in * Age: 82 yrs Ethnicity: [place] Weight: 155 lb * Ordering Physician: Duy Richmond * Referring Physician: Self, Referred * Performed By: Aleena Pimentel RCS * * Reason For Study: POST CATH * BSA: 1.7 m2 * -- Conclusions -- * The left ventricle is normal in size. * Left ventricular systolic function is normal. * Ejection Fraction = 50-55%. * The right ventricular systolic function is normal. * The left atrial size is normal. * Right atrial size is normal. * Small pericardial effusion. Procedure Details * A complete two-dimensional transthoracic echocardiogram was performed (2D, M- mode, Doppler and color flow Doppler). Left Ventricle * The left ventricle is normal in size. * There is normal left ventricular wall thickness. * Left ventricular systolic function is normal. * Ejection Fraction = 50-55%. * The left ventricular wall motion is normal. Right Ventricle * The right ventricle is normal size. * The right ventricular systolic function is normal. Atria * The left atrial size is normal. * Right atrial size is normal. * The interatrial septum is intact with no evidence for an atrial septal defect. Mitral Valve * The mitral valve anatomy is normal. * Significant mitral regurgitation is absent. Tricuspid Valve * The tricuspid valve anatomy is normal. * Significant tricuspid regurgitation is absent. Aortic Valve * The aortic valve is tricuspid. The leaflet thickness if normal. There is no aortic stenosis, and no significant insufficiency. * The aortic valve opens well. Pulmonic Valve * The pulmonic valve is not well visualized. * There is no significant pulmonary regurgitation. Great Vessels * The aortic root and proximal ascending aorta are normal sized. Pericardium/Pleural * Small pericardial effusion. Consultations: Cardio Ortho Medication Reconciliation New Medications: Tramadol (Ultram) 50 Mg Tab 50 MG PO Q12 for Pain for 3 Days, #6 TAB for moderate to severe pain Aspirin Buffered ([place] Carb-Mag (Tri-Buffered Aspirin) 1 Tab Tab 325 MG PO BID for 7 Days, TAB Metoprolol Tartrate (Lopressor) 25 Mg Tab 25 MG PO BID for 30 Days, #60 TAB Continued Medications: Acetaminophen (Tylenol) 325 Mg Tab 650 MG PO Q6 PRN for Headache or Pain, TAB Bisacodyl (Dulcolax) 5 Mg Tab 5 MG PO UD Calcium Carbonate-Vitamin D W/ (Caltrate 600 Plus) 1 Tab Tab 1 TAB PO BID, TAB Ibandronate Sodium (Boniva) 150 Mg Tab 150 MG PO MONTHLY, TAB Levothyroxine Sodium (Levothyroxine Sodium) 50 Mcg Tab 50 MCG PO DAILY Methylcellulose (Laxative) (Fiber Therapy) 500 Mg Tab 2 TABS PO PRN Multivitamins/Minerals (Mvi With Minerals) Tab 1 TAB PO DAILY, TAB [place]-3 Fatty Acids (Fish Oil Adult Gummies 113.5 mg) 1 Chw Chw 1 DOSE PO DAILY Omeprazole (Prilosec) 20 Mg Capcr 20 MG PO DAILY, CAP Oxybutynin Chloride (Oxybutynin Chloride Er) 5 Mg Tab 5 MG PO HS Ranitidine (Zantac) 150 Mg Tab 150 MG PO DAILY, TAB Sertraline (Zoloft) 100 Mg Tab 100 MG PO DAILY, TAB TO EQUAL 125MG Sertraline (Zoloft) 25 Mg Tab 25 MG PO DAILY, TAB Vitamin E (E-400) 400 Unit Cap 400 UNITS PO DAILY Admission Information HPI (per Admitting provider): This is an 82yo F with a PMH of osteoporosis, hypothyroidism and anxiety who presents with R leg pain s/p a mechanical fall that occurred this morning. Patient went outside to untangle her dog's leash when she slipped on the stairs and tripped on the leash. Reports falling onto her right side onto her thigh. Reports her R cheek hitting the ground but denies any bruising, LOC. Patient called for her inside the house and he called EMS. Only complaint currently is an 8/10 R thigh pain. Denies any R thigh pain previous to the fall. Denies any lightheadedness, dizziness, CP or SOB precipitating the fall. Ambulates without assistive devices at baseline. Denies any fever, chills, abd pain, nausea, vomiting, LE numbness/tingling. Of note, patient was recently admitted for a CP rule out Jan 20-. Was transferred from [facility] with EKG changes (T wave inversions in 2,3 V1-V6) and elevated troponin to 1.5. Was placed on heparin drip and sent for cardiac cath, which revealed no CAD. Patient was monitored overnight and then discharged home. Physical Exam (per Admitting): General Appearance: + mild distress Head: normocephalic, atraumatic Eyes: normal inspection, PERRL, sclerae normal ENT: normal ENT inspection (Dry mucous membranes ), hearing grossly normal Neck: supple, no adenopathy, thyroid normal, trachea midline Respiratory/Chest: chest non-tender, lungs clear, normal breath sounds, no respiratory distress, no accessory muscle use Cardiovascular: regular rate, rhythm, no murmur Abdomen/GI: normal bowel sounds, non tender, soft, no organomegaly Extremities/Musculoskelatal: no calf tenderness, normal capillary refill, no pedal edema, + pertinent finding (R lower extremity in traction with bracing in place. ) 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: no motor/sensory deficits, alert, normal mood/affect, oriented x 3 Skin: normal color, warm/dry, no rash Lymphatic: no adenopathy Hospital Course R midshaft femur fracture: POD#5 Intramedullary nailing of right femur fracture performed by Dr. Nance Continue pain control hgb stable Incentive spirometry Has been participated in PT/OT Will transfer to [facility] to rehab Follow up with Ortho in 2 weeks Paroxysmal SVT Had 2 episodes of SVT yesterady Broke with 6mg of adenosine No arrhythmia noted on tele monitor Mild elevated troponin On metoprolol tolerated well No further episode of SVT cardiology on board case discussed with cardiology, recommended to continue metoprolol Tolerated metoprolol 25 mg BID If she develops any recurrent arrhythmias in the future, will consider evaluation for electrophysiology Stable Echo showed * the left ventricle is normal in size. * Left ventricular systolic function is normal. * Ejection Fraction = 50-55%. * The right ventricular systolic function is normal. * The left atrial size is normal. * Right atrial size is normal. * Small pericardial effusion. Hypothyroidism: -TSH wnl -Continue Levothyroxine Anxiety -Stable -Continue sertraline Osteoporosis: -Continue Boniva monthly DVT Ppx On asa Per ortho Code status: FULL CODE Disposition Will transfer to [facility] for rehab Total time spent on discharge = 35 minutes This includes examination of the patient, discharge planning, medication reconciliation, and communication with other providers. Discharge Instructions Discharge Instructions Date of Service Feb 28, 2017. Admission Reason for Admission: R Femur Fracture Discharge Discharge Diagnosis / Problem: R midshaft femur fracture, Parosyxmal SVT, HTN, Hypothyroidism Discharge Goals Goal(s): Decrease discomfort, Improve function, Improve disease control Activity Recommendations Activity Limitations: resume your previous activity (as tolerated) . Instructions / Follow-Up Instructions / Follow-Up Follow up with your primary care provider once discharge from rehab Follow up with Orthopedic Dr. Nance in the office about 2 weeks from her day of surgery (02/23/17) for staple removal. Follow up with cardiology if you develop recurrent arrhythmia Continue PT/OT Fall precaution Continue Aspirin for DVT prophylaxis for now. You physician will instruct you when to stop the aspirin Current Hospital Diet Patient's current hospital diet: Regular Diet Discharge Diet Recommended Diet: AHA Diet (Heart Healthy) Procedures Procedures Performed: Intramedullary nailing of right femur ftracture Pending Studies Studies pending at discharge: no Medical Emergencies . Who to Call and When: Medical Emergencies: If at any time you feel your situation is an emergency, please call 911 immediately. . Non-Emergent Contact Non-Emergency issues call your: Primary Care Provider Call Non-Emergent contact if: you have a fever, your pain is not controlled, wound has increased drainage, wound has increased redness, wound has increased pain, you have any medication questions . . "Provider Documentation" section prepared by Mami Santacruz. . VTE Core Measure Inpt VTE Proph given/why not?: Other Anticoagulation (will need after surgery) [place] Drug Monitoring Program Search Results: no issues identified (no matching found) Additional Copies To Elda Kaye D.O.
== END 2017-02-28 14:13 | DRG 481 ==
LOC: EDBD 09:27 → C.EDB 09:28 → C.MSN 13:07 → ENRESERV 17:52 → C.MSICU 02-24 14:26 → ENRESERV 02-24 17:34 → C.2T 02-24 18:43 → C.MSN 02-26 17:46 → ENRESERV 02-26 18:24
PROVIDERS: ADMIT Hospitalist; ATTEND Internal Medicine
PROC: 0QS806Z Reposition Right Femoral Shaft with Intramedullary Internal Fixation Device, Open Approach (ICD-10-PCS; principal; 2017-02-23 14:45)
DX: S72.301A Unspecified fracture of shaft of right femur, initial encounter for closed fracture (principal); I47.1 Supraventricular tachycardia; K21.9 Gastro-esophageal reflux disease without esophagitis; M81.0 Age-related osteoporosis without current pathological fracture; F41.9 Anxiety disorder, unspecified; E03.9 Hypothyroidism, unspecified; Z79.899 Other long term (current) drug therapy; W54.1XXA Struck by dog, initial encounter

== ENCOUNTER → 2017-03-15 | Outpatient (CLI) | payer OTHER ==
[~2017-03-15] MED LIST changes: +ASPI-205 PO; +ASPI325T60 PO; +LEVO75TA PO; +LPR25 PO; +METO25TA56 PO; +OMEG1CHW PO
--- NOTE | 2017-03-15 17:24 | DIAGNOSTIC IMAGING REPORT ---
RIGHT LOWER EXTREMITY VENOUS DOPPLER CLINICAL HISTORY: Right leg edema and swelling. Status post right femoral open reduction internal fixation. COMPARISON STUDY: Bilateral lower extremity venous Doppler January 21, 2017. TECHNIQUE: Sonography of the deep venous system of the right lower extremity was performed. Compression and augmentation were evaluated. FINDINGS: The right common femoral, superficial femoral and popliteal veins were compressible. Augmentation was normal. Flow was shown within the deep calf vessels. Note was made of a 5.5 x 2.1 x 1.8 cm complex suspected fluid collection of the distal right thigh. This contained no color flow. This is located adjacent to the distal right femur. IMPRESSION: 1. No evidence of deep venous thrombus within the right lower extremity. 2. Complex 5.5 x 2.1 x 1.8 cm distal right thigh suspected fluid collection. This may reflect a complex knee joint effusion or resolving intramuscular hematoma. An abscess could appear similar although is considered less likely. Electronically signed by: Steven Coelho M.D. 03/15/2017 5:23 PM Dictated Date/Time: 03/15/2017 5:19 PM
== END | disposition home or self-care (01) ==
LOC: C.ULTR 16:13
PROVIDERS: ATTEND Family Medicine
DX: R60.0 Localized edema (principal); Z96.7 Presence of other bone and tendon implants; Z87.81 Personal history of (healed) traumatic fracture; S72.8X1D Other fracture of right femur, subsequent encounter for closed fracture with routine healing; X58.XXXD Exposure to other specified factors, subsequent encounter

== ENCOUNTER 2017-06-07 06:38 | Emergency (ER) | payer OTHER ==
[~2017-06-07] VITALS: Ht 152.4 cm; Wt 67.0 kg
[~2017-06-07 06:38] MED LIST changes: -ASPI-205 PO; -ASPI325T60 PO; -LEVO50TA6 PO; -LPR25 PO; +[UNRECOGNIZED DRUG - CODE] PO
[2017-06-07 06:47] VITALS: TEMP 36.4; Ht 152.4 cm; Wt 67.0 kg
[2017-06-07] MEDS ORDERED: ACETAMINOPHEN 500 MG TAB PO STA (07:01)
[2017-06-07 07:04] VITALS: O2SAT 94
[2017-06-07] MEDS ORDERED: DOCU1TAB6 PO (07:19)
[2017-06-07] MEDS ORDERED: ASPI325T45 PO (07:19)
--- NOTE | 2017-06-07 07:30 | EMERGENCY ROOM VISIT NOTE ---
History Report prepared by Tyra: Milagros Harry Under the Supervision of: Dr. Yoel Cain M.D. 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 The patient presents to the ED by EMS from the [place]. She was trying to get out of bed this morning when her feet got caught in the blankets and she fell. She bumped her head. She reports headache, stinging in the left knee, and left middle finger pain. She has been constipated. She has not been feeling sick recently. Pt denies LOC, visual changes, neck pain, chest pain, breathing difficulties, nausea, vomiting, abdominal pain, back pain, numbness, weakness, active bleeding, or other complaints. 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 Review of Systems See HPI for pertinent positives and negatives. A total of ten systems were reviewed and were otherwise negative. Past Medical & Surgical Medical Problems: (1) Anxiety (2) Elevated troponin (3) Femur fracture (4) GERD (gastroesophageal reflux disease) (5) Hypertension (6) Osteoporosis Family History Patient reports no known family medical history. Social History Smoking Status: Never Smoker Drug Use: none Housing Status: assisted living Occupation Status: retired Current/Historical Medications Scheduled Aspirin (Aspirin), 652 MG PO BID Calcium Carbonate-Vitamin D W/ (Caltrate 600 Plus), 1 TAB PO DAILY Docusate Sodium (Docusate Sodium), 100 MG PO DAILY Ibandronate Sodium (Boniva), 150 MG PO MONTHLY Levothyroxine Sodium (Synthroid), 75 MCG PO DAILY Methylcellulose (Laxative) (Fiber Therapy), 2 TABS PO PRN Metoprolol Tartrate (Lopressor) (Lopressor), 25 MG PO BID Multivitamins/Minerals (Mvi With Minerals), 1 TAB PO DAILY [place]-3 Fatty Acids (Fish Oil Adult Gummies 113.5 mg), 2 DOSE PO DAILY Omeprazole (Prilosec), 20 MG PO DAILY Oxybutynin Chloride (Oxybutynin Chloride Er), 5 MG PO HS Sertraline (Zoloft), 100 MG PO DAILY Sertraline (Zoloft), 25 MG PO DAILY Vitamin E (E-400), 400 UNITS PO DAILY Scheduled PRN Acetaminophen (Tylenol), 650 MG PO Q6 PRN for Headache or Pain Allergies Coded Allergies: Bacitracin (Verified Allergy, Intermediate, RED RASH, SWOLLEN AT SITE, ) Neomycin (Verified Allergy, Intermediate, RED RASH, SWOLLEN AT SITE, ) Polymyxin B (Verified Allergy, Intermediate, RED RASH, SWOLLEN AT SITE, ) Physical Exam Vital Signs Date Time Temp Pulse Resp B/P (MAP) Pulse Ox O2 Delivery O2 Flow Rate FiO2 06/07/17 09:25 55 18 130/77 95 06/07/17 07:30 61 18 149/72 95 Room Air 06/07/17 07:04 94 Room Air 06/07/17 06:47 52 06/07/17 06:47 36.4 54 15 167/66 94 Room Air Physical Exam GENERAL: Awake, alert, well-appearing, in no distress HENT: Contusion to the left islam. Oropharynx unremarkable. EYES: Normal conjunctiva. Sclera non-icteric. NECK: Supple. No nuchal rigidity. FROM. No JVD. RESPIRATORY: Clear to auscultation. CARDIAC: Regular rate, normal rhythm. Extremities warm and well perfused. Pulses equal. ABDOMEN: Soft, non-distended. No tenderness to palpation. No rebound or guarding. No masses. RECTAL: Deferred. MUSCULOSKELETAL: Chest examination reveals no tenderness. The back is symmetrical on inspection without obvious abnormality. There is no CVA tenderness to palpation. No joint edema. Abrasion on the left 3rd finger. LOWER EXTREMITIES: Calves are equal size bilaterally and non-tender. No edema. No discoloration. Abrasion to the left knee. NEURO: Normal sensorium. No sensory or motor deficits noted. SKIN: No rash or jaundice noted. Medical Decision & Procedures ER Provider Diagnostic Interpretation: Radiology results as stated below per my review and radiologist interpretation: CT OF THE HEAD WITHOUT CONTRAST CLINICAL HISTORY: EVALUATE CHI/CONCUSSION COMPARISON STUDY: No previous studies for comparison. CT DOSE: 537.48 mGy.cm TECHNIQUE: Helical axial images of the head were obtained without IV contrast. Automated exposure control was utilized for the study. A dose lowering technique was utilized adhering to the principles of ALARA. FINDINGS: No acute intracranial hemorrhage, midline shift or mass effect is present. Brain volume is unremarkable for age. Basilar cisterns are patent. There are no extra axial collections. Moderate white matter hypodensity suggests small vessel disease. There are no findings to suggest acute dural sinus thrombosis or acute territorial infarct. There is a small left temporal scalp contusion. There is no calvarial fracture. Visualized portions of the sinuses and mastoid air cells are clear. IMPRESSION: 1. No acute intracranial findings. 2. Small left temporal scalp contusion. No calvarial fracture. Electronically signed by: Steven Coelho M.D. 06/07/2017 7:29 AM Dictated Date/Time: 06/07/2017 7:26 AM Laboratory Results Test 06/07/17 07:13 Urine Color YELLOW Urine Appearance CLEAR (CLEAR) Urine pH 8.5 (4.5-7.5) Urine Specific [place] 1.010 (1.000-1.030) Urine Protein NEG (NEG) Urine Glucose (UA) NEG (NEG) Urine Ketones NEG (NEG) Urine Occult Blood NEG (NEG) Urine Nitrite NEG (NEG) Urine Bilirubin NEG (NEG) Urine Urobilinogen NEG (NEG) Urine Leukocyte Esterase TRACE (NEG) Urine WBC (Auto) 1-5 /hpf (0-5) Urine RBC (Auto) 0-4 /hpf (0-4) Urine Hyaline Casts (Auto) 0 /lpf (0-5) Urine Epithelial Cells (Auto) 10-20 /lpf (0-5) Urine Bacteria (Auto) NEG (NEG) Laboratory results reviewed by me Medications Administered Medications (Trade) Dose Ordered Sig/Fransico Route Start Time Stop Time Status Last Admin Dose Admin Acetaminophen (Tylenol Tab) 1,000 mg NOW STAT PO 06/07/17 07:01 06/07/17 07:02 DC 06/07/17 07:11 1,000 MG Magnesium Citrate (Citrate Of Magnesia Soln) 296 ml NOW STAT PO 06/07/17 07:50 06/07/17 07:51 DC 06/07/17 08:46 296 ML ED Course 0657: The patient was evaluated in room A12B. A complete history and physical exam was performed. 0701: Acetaminophen 1000 mg PO. 0750: Magnesium Citrate 296 ml PO. 0751: I reevaluated the patient. Discussed results and discharge instructions: She verbalized understanding and agreement. The patient is ready for discharge. Medical Decision Prior records/ancillary studies reviewed. Triage Nursing notes reviewed and agree them. The patient's history was concerning for traumatic head injury Differential diagnosis: Etiologies such as contusion, fracture, subdural hematoma, concussion, epidural hematoma, intraparenchymal hemorrhage, as well as other traumatic pathologies were entertained. Physical examination findings: As above. ER treatment provided: P.o. Tylenol On reassessment the patient felt better. Diagnostics interpreted by me: The labs revealed an unremarkable urinalysis Imaging studies: CT scan as above It appears the patient has a mild closed head injury without imaging abnormalities. She also notes some mild constipation. Magnesium citrate was recommended. Close follow-up with her primary was also recommended.I gave my usual and customary discussion regarding this issue. By the evaluation outlined above emergent etiologies such as fracture, subdural hematoma, epidural hematoma, intraparenchymal hemorrhage, as well as others were deemed relatively unlikely. The patient was informed about the findings as listed above. All questions were answered and she was pleased with the treatment. Return instructions were outlined and the patient was discharged in stable condition. Referral: The patient was referred back to her primary care physician for follow-up in 2 to 3 days for a recheck of the current condition. Head Trauma GCS Score: 15 Medication Reconcilliation Current Medication List: was personally reviewed by me Blood Pressure Screening Patient's blood pressure: Elevated blood pressure Blood pressure disposition: Referred to PCP Impression Primary Impression: Closed head injury Additional Impressions: Contusion of multiple sites Constipation Scribe Attestation The scribe's documentation has been prepared under my direction and personally reviewed by me in its entirety. I confirm that the note above accurately reflects all work, treatment, procedures, and medical decision making performed by me. Departure Information Dispostion Home / Self-Care Referrals Elda Kaye D.O. (PCP) Patient Instructions My [facility] Additional Instructions Continue current medications. Tylenol: Take 1000 mg every 6 hours as needed for pain. Do not take more than 3000 mg in a 24 hour period. Magnesium citrate, 1/2 bottle for constipation. If you don't have a good bowel movement in 8 hrs then drink the other half. This is available over-the- counter. Rest and drink plenty of fluids. It is recommended to use a stool softener such as Colace, 100mg twice daily while taking this medication to avoid constipation. Increase fiber in your diet. Return to the ER for worsening headache, passing out, abdominal pain, vomiting, fevers, bloody stools, or as needed. Follow-up with your primary care physician in 2 to 3 days for a recheck of your current condition. Problem Qualifiers
[2017-06-07] MEDS ORDERED: MAGNESIUM CITRATE 296 ML/BTL PO STA (07:50)
[2017-06-07 09:25] VITALS: BP 130/77; PULSE 55; O2SAT 95
== END 2017-06-07 09:26 | disposition home or self-care (01) ==
LOC: EDBD 06:38 → C.EDA 06:40
DX: S00.83XA Contusion of other part of head, initial encounter (principal); K59.00 Constipation, unspecified; S60.413A Abrasion of left middle finger, initial encounter; M25.562 Pain in left knee; K21.9 Gastro-esophageal reflux disease without esophagitis; I10 Essential (primary) hypertension; M81.0 Age-related osteoporosis without current pathological fracture; F41.9 Anxiety disorder, unspecified; Z79.82 Long term (current) use of aspirin; Z79.899 Other long term (current) drug therapy; W06.XXXA Fall from bed, initial encounter; Z87.828 Personal history of other (healed) physical injury and trauma

== ENCOUNTER → 2017-09-24 | Outpatient (CLI) | payer OTHER ==
[~2017-09-24] MED LIST changes: +ASPECOTC PO; -BISA-16 PO; +DOCU1TAB6 PO; -ZNTT/150 PO; -[UNRECOGNIZED DRUG - CODE] PO
--- NOTE | 2017-09-27 07:44 | MAMMOGRAPHY REPORT ---
BILATERAL DIGITAL SCREENING MAMMOGRAM TOMOSYNTHESIS WITH CAD: 09/24/2017 CLINICAL HISTORY: Routine screening. Patient has no complaints. TECHNIQUE: Breast tomosynthesis in addition to standard 2D mammography was performed. Current study was also evaluated with a Computer Aided Detection (CAD) system. COMPARISON: Comparison is made to exams dated: 03/15/2015 mammogram, 03/14/2014 mammogram, 3 mammogram, 03/08/2012 mammogram, 03/01/2012 mammogram, and 02/27/2011 mammogram - [facility]. BREAST COMPOSITION: The tissue of both breasts is heterogeneously dense, which may obscure small mas ses. FINDINGS: No suspicious masses, calcifications, or areas of architectural distortion are noted in ei ther breast. There has been no significant interval change compared to prior exams. Scattered bilater al benign-appearing calcifications are not significantly changed. IMPRESSION: ACR BI-RADS CATEGORY 2: BENIGN There is no mammographic evidence of malignancy. A 1 year screening mammogram is recommended. The pa tient will receive written notification of the results. Approximately 10% of breast cancers are not detected with mammography. A negative mammographic report should not delay biopsy if a clinically suggestive mass is present. Barbara Motley M.D. ah/:09/24/2017 16:42:50 Gang Miner: Ailyn HODGSON)(Filomena), [facility] letter sent: Normal 1/2 BI-RADS Code: ACR BI-RADS Category 2: Benign
== END | disposition home or self-care (01) ==
LOC: C.MAMM 14:22
PROVIDERS: ATTEND Internal Medicine Critical Care Medicine
DX: Z12.31 Encounter for screening mammogram for malignant neoplasm of breast (principal)

== ENCOUNTER 2021-03-28 06:25 | Inpatient (IN) ==
--- NOTE | 2021-03-28 07:12 | Emergency Department Note ---
Impression & Plan Fall, Closed pelvic fracture, Acute pain of right hip ED Provider Note NAME: LEONID PURI AGE: 86 SEX: F : 1935 ARRIVES VIA: Ambulance INFORMANT: Patient, Nurse ED PROVIDER(S): Dedrick Romero DO CHIEF COMPLAINT: Fall HPI: Patient is an 86-year-old female who presents to the ER following a mechanical fall while trying to put her shirt on. She lost her balance and fell onto her right side. She not passed out. She complains of right hip knee and ankle pain. She denies any headache or neck pain. No chest pain or belly pain. No nausea, vomiting, or diarrhea. She denies any blood thinners. No weakness or numbness in her arms or legs. No other exacerbating or remitting factors. ROS: See above HPI for pertinent positives & negatives. A total of 10 systems reviewed and were otherwise negative. PAST MEDICAL HISTORY:See Below PAST SURGICAL HISTORY:See Below FAMILY HISTORY:See Below SOCIAL HISTORY:See Below HOME MEDICATIONS:See Below ALLERGIES:See Below VITALS:See Below PHYSICAL EXAMINATION: GENERAL: alert, well appearing, well nourished, no distress, non-toxic HEAD: normal cephalic, atraumatic EYE EXAM: normal conjunctiva, PERRL and EOM's grossly intact OROPHARYNX: no exudate, no erythema, lips, buccal mucosa, and tongue normal and mucous membranes are moist NECK: supple, no nuchal rigidity, no adenopathy, non-tender CHEST: stable to compression anteriorly and posteriorly LUNGS: clear to auscultation. Normal chest wall mechanics HEART: no murmurs, S1 normal and S2 normal ABDOMEN: abdomen soft, non-tender, normo-active bowel sounds, no masses, no rebound or guarding. PELVIS: stable to compression anteriorly and posteriorly BACK: Back is symmetrical on inspection and there is no deformity, no midline tenderness, no CVA tenderness. UPPER EXTREMITIES: full active and passive range of motion of all joints without tenderness to palpation LOWER EXTREMITIES: Full range of motion of left lower extremity without any pain on palpation. DPs are 2 out of 4 bilaterally. Tenderness over the right hip and with movement of the right leg. No tenderness at the mid or distal femur. Tenderness over the right knee which is faint on the right lateral aspect. No bruising. No tenderness throughout the proximal mid tib-fib. Tenderness over the medial lateral malleolus on the right. NEURO EXAM: Normal sensorium, cranial nerves II-XII grossly intact, normal speech, no gross weakness of arms, no gross weakness of legs. GCS: 15. MEDICAL DECISION MAKING: Patient is an 86-year-old female who fell while trying to put on her shirt onto her right side. No loss consciousness. IV was status post obtained. Labs show mild leukocytosis 1.5 thousand. No significant anemia. BMP along with LFTs bilirubin was unremarkable. X-rays of the right ankle femur knee and pelvis show right superior pelvic ring fracture which consistent with her presentation and pain. CT head was negative. Patient was updated bedside. She was ordered morphine discussed with hospitalist admitted for further work-up. Triage Nursing notes reviewed. Limited review of prior medical records performed Vital Signs: reviewed and remarkable for HTN Differential diagnosis: Differential diagnoses include major intracranial, cervical, spinal, thoracic, abdominal, pelvic and neurologic injury. Fracture, contusion, sprain, strain, laceration, abrasions included as well. ER treatment provided: See below Diagnostics interpreted by me: ECG: Sinus rhythm rate 79 Left axis Poor baseline QTC 438 Cardiac Monitoring: An order was placed for continuous cardiac monitoring. The monitor shows a rate of 82 with sinus rhythm. Laboratory studies: As stated above and show below. Imaging studies: X-rays and CTs as described above. Please see listed below for further details. Consultation(s): Discussed with Dr. Aris Rodriguez for further evaluation Procedures: none Critical Care: None Past Med/Surg History Medical History (Updated 03/28/21 @ 13:06 by Dedrick Romero DO) Acute upper respiratory infection hx Anxiety Candidiasis of skin and nail Cardiac arrhythmia unspecified per records received from [facility] Dysphagia Fall on same level from slipping Femur fracture Gait abnormality Gastroenteritis GERD (gastroesophageal reflux disease) Hip pain, left Hyperlipemia Hypertension Hypothyroidism Knee pain, left Orthostatic hypotension Osteoporosis Paroxysmal tachycardia Restless leg syndrome Vertigo Visual disturbance Visual hallucinations Surgical History Hx of right cataract extraction Family History Other Family history non-contributory Social History Smoking Status: Never smoker Preferred Language: Indonesian Acid Adjuster Required: No Current Living Situation: Personal Care Facility Current Living Situation Comment: [facility] current occupational status: retired Feels Safe at Home: Yes Allergies Allergies Allergy/AdvReac Type Severity Reaction Status Date / Time bacitracin Allergy Rash Verified 03/28/21 07:37 [From Neosporin ([id number])] neomycin Allergy Rash Verified 03/28/21 07:37 [From Neosporin ([id number])] pollen extracts Allergy Unknown Verified 03/28/21 07:37 polymyxin B Allergy Rash Verified 03/28/21 07:37 [From Neosporin ([id number])] Home Meds Home Medications Medication Instructions Recorded Confirmed bisacodyl 5 mg tablet,delayed 10 mg PO DAILY PRN 03/26/18 03/28/21 release (Dulcolax (bisacodyl)) docusate sodium 100 mg capsule 100 mg PO DAILY 03/26/18 03/28/21 (Colace) levothyroxine 75 mcg tablet 75 mcg PO QAM 03/26/18 03/28/21 (Synthroid) sertraline 100 mg tablet (Zoloft) 100 mg PO QAM 03/26/18 03/28/21 hydrocortisone 1 % topical cream 1 applic TOPICAL BID PRN 02/23/19 03/28/21 methyl salicylate 30 %-menthol 10 1 applic TOPICAL QID PRN 02/23/19 03/28/21 % topical cream (Icy Hot) metoprolol tartrate 50 mg tablet 25 mg PO BID 03/15/19 03/28/21 ibandronate 150 mg tablet (Boniva) 150 mg PO DIRECTED 05/01/19 03/28/21 omeprazole 20 mg capsule,delayed 20 mg PO QAM 05/01/19 03/28/21 release sertraline 25 mg tablet (Zoloft) 25 mg PO QAM 05/01/19 03/28/21 rivastigmine tartrate 3 mg capsule 3 mg PO BID 07/09/19 03/28/21 acetaminophen 500 mg tablet 500 mg PO Q6H PRN 03/28/21 03/28/21 vitamin E (dl, acetate) 180 mg 180 mg PO DAILY 03/28/21 03/28/21 (400 unit) capsule Results & Data (ED) Vital Signs Vital Signs - 24 hr 03/28/21 06:32 03/28/21 09:15 03/28/21 09:18 Temperature 36.6 C Temperature Source Oral Pulse Rate 64 68 Pulse Rate [Right Finger] 70 Pulse Rhythm Regular Pulse Rhythm [Right Finger] Pulse Strength Normal Pulse Strength [Right Finger] Respiratory Rate 16 20 18 Respiratory Effort / Characteristics Non-Labored Spontaneous Non-Labored Respiratory Depth Normal Normal Respiratory Pattern Regular Blood Pressure 186/63 H Blood Pressure [Left Arm] 186/63 H 178/81 H Blood Pressure Mean 104 Blood Pressure Mean [Left Arm] 104 113 Blood Pressure Position Semi-fowlers Blood Pressure Position [Left Arm] Semi-fowlers Pulse Oximetry 92 92 92 Oxygen Delivery Method Room Air Room Air Room Air Oxygen Flow Rate Sepsis Recent Fever Within 48 Hours No Sepsis New/Unexplained Change in Mental Status No Sepsis Action Taken by Nursing No Action Required 03/28/21 11:00 Temperature Temperature Source Pulse Rate Pulse Rate [Right Finger] 67 Pulse Rhythm Pulse Rhythm [Right Finger] Regular Pulse Strength Pulse Strength [Right Finger] Normal Respiratory Rate 18 Respiratory Effort / Characteristics Non-Labored Respiratory Depth Normal Respiratory Pattern Regular Blood Pressure Blood Pressure [Left Arm] 169/85 H Blood Pressure Mean Blood Pressure Mean [Left Arm] 113 Blood Pressure Position Blood Pressure Position [Left Arm] Lying Pulse Oximetry 92 Oxygen Delivery Method Nasal Cannula Oxygen Flow Rate 3 Sepsis Recent Fever Within 48 Hours Sepsis New/Unexplained Change in Mental Status Sepsis Action Taken by Nursing Laboratory Data Result diagrams: 03/28/21 09:14 03/28/21 09:14 Lab Results 03/28/21 03/28/21 03/28/21 Range/Units 08:55 08:55 09:14 WBC 11.54 H (4.8-10.8) K/uL RBC 4.34 (4.2-5.4) M/uL Hgb 14.3 (12.0-16.0) g/dL Hct 41.8 (37-47) % MCV 96.3 (80-100) fL MCH 32.9 (25-34) pg MCHC 34.2 (32-36) g/dL RDW Std Deviation 44.6 (36.4-46.3) fL RDW Coeff of Molly 12.7 (11.5-14.5) % Plt Count 228 (130-400) K/uL MPV 9.2 (7.4-10.4) fL Immature Gran % (Auto) 0.5 % Neut % (Auto) 79.5 % Lymph % (Auto) 13.1 % [place] % (Auto) 6.5 % Eos % (Auto) 0.3 % Baso % (Auto) 0.1 % Neut # (Auto) 9.18 H (1.4-6.5) K/uL Lymph # (Auto) 1.51 (1.2-3.4) K/uL [place] # (Auto) 0.75 H (0.11-0.59) K/uL Eos # (Auto) 0.03 (0-0.5) K/uL Baso # (Auto) 0.01 (0-0.2) K/uL Immature Gran # (Auto) 0.06 H (0.00-0.02) K/uL Sodium (136-145) mmol/L Potassium (3.5-5.1) mmol/L Chloride (98-107) mmol/L Carbon Dioxide (21-32) mmol/L Anion Gap (3-11) BUN (7-18) mg/dl Creatinine (0.6-1.2) mg/dl Est Cr Clr Drug Dosing Est GFR ( Amer) ml/min Est GFR (Non-Af Amer) ml/min BUN/Creatinine Ratio (10-20) Glucose (70-99) mg/dl Calcium (8.5-10.1) mg/dl Total Bilirubin (0.2-1) mg/dl AST (15-37) U/L ALT (12-78) U/L Alkaline Phosphatase (45-117) U/L Total Protein (6.4-8.2) gm/dl Albumin (3.4-5.0) gm/dl Globulin (2.5-4.0) gm/dl Albumin/Globulin Ratio (0.9-2) COVID-19 Eval Order Covid19 at [facility] SARS-CoV-2 (PCR) NEGATIVE (Negative) 03/28/21 Range/Units 09:14 WBC (4.8-10.8) K/uL RBC (4.2-5.4) M/uL Hgb (12.0-16.0) g/dL Hct (37-47) % MCV (80-100) fL MCH (25-34) pg MCHC (32-36) g/dL RDW Std Deviation (36.4-46.3) fL RDW Coeff of Molly (11.5-14.5) % Plt Count (130-400) K/uL MPV (7.4-10.4) fL Immature Gran % (Auto) % Neut % (Auto) % Lymph % (Auto) % [place] % (Auto) % Eos % (Auto) % Baso % (Auto) % Neut # (Auto) (1.4-6.5) K/uL Lymph # (Auto) (1.2-3.4) K/uL [place] # (Auto) (0.11-0.59) K/uL Eos # (Auto) (0-0.5) K/uL Baso # (Auto) (0-0.2) K/uL Immature Gran # (Auto) (0.00-0.02) K/uL Sodium 139 (136-145) mmol/L Potassium 3.9 (3.5-5.1) mmol/L Chloride 106 (98-107) mmol/L Carbon Dioxide 24 (21-32) mmol/L Anion Gap 9.0 (3-11) BUN 15 (7-18) mg/dl Creatinine 0.80 (0.6-1.2) mg/dl Est Cr Clr Drug Dosing Not Reportable Est GFR ( Amer) 78.5 ml/min Est GFR (Non-Af Amer) 67.7 ml/min BUN/Creatinine Ratio 18.3 (10-20) Glucose 85 (70-99) mg/dl Calcium 9.2 (8.5-10.1) mg/dl Total Bilirubin 0.9 (0.2-1) mg/dl AST 20 (15-37) U/L ALT 20 (12-78) U/L Alkaline Phosphatase 71 (45-117) U/L Total Protein 7.9 (6.4-8.2) gm/dl Albumin 4.1 (3.4-5.0) gm/dl Globulin 3.8 (2.5-4.0) gm/dl Albumin/Globulin Ratio 1.1 (0.9-2) COVID-19 Eval Order SARS-CoV-2 (PCR) (Negative) Administered Medications Morphine Sulfate (Morphine Sulfate 2 Mg/Ml Carp) 2 mg IV Q1H PRN PRN Reason: Moderate Pain (Rating 3,4,5,6) Stop: 04/11/21 08:37 Last Admin: 03/28/21 09:26 Dose: 2 mg Documented by: [id number] Discontinued Medications Acetaminophen (Acetaminophen 500 Mg Tab) 1,000 mg PO NOW STA Stop: 03/28/21 10:44 Last Admin: 03/28/21 11:27 Dose: 1,000 mg Documented by: [id number] Imaging Data Radiologist's Impression: Ankle X-Ray 03/28/21 07:08 XR ankle RT min 3V routine CLINICAL HISTORY: r ankle pain. Status post fall COMPARISON STUDY: 03/26/2018 TECHNIQUE: 3 right ankle views FINDINGS: Bones: There is no evidence for an acute fracture or dislocation. There is no lytic or blastic lesion. Joints: The joint spaces are maintained. The bones are in anatomic alignment. Soft tissues: There is no focal soft tissue abnormality. There is no radiopaque foreign body. IMPRESSION: No acute osseous pathology. ACT 112: Negative or not required by law. Electronically signed by: Milo Javed M.D. 03/28/2021 8:19 AM Femur X-Ray 03/28/21 07:08 XR femur RT 2V routine HISTORY: 86 years-old Female r fem pain acute pain of the right femur status post fall COMPARISON: Right knee and pelvic radiographs of same day, left femur r adiographs 12/05/2018, CT abdomen and pelvis 03/26/2018 TECHNIQUE: 2 views of the right femur FINDINGS: Intertrochanteric nail with medullary gordy of the right femur exceeds a healed chronic mid diaphyseal fracture which demonstrates cortical thickening. The hardware appears intact. No acute periprosthetic fracture. There is at least m ild osteoarthritis of the knee and hip. Acute to subacute appearing nondisplaced fracture of the right superior pubic ramus is new from 03/26/2018. IMPRESSION: 1. Acute to subacute appearing nondisplaced fracture of the right superior pubic ramus is new from 03/26/2018. 2. ORIF changes of the right femur without evidence of hardware complication. ACT 112: Negative or not required by law. The above report was generated using voice recognition software. It may contain grammatical, syntax or spelling errors. Electronically signed by: Bo Montesinos M.D. 03/28/2021 8:[address] 03/28/21 07:08 CT SCAN OF THE BRAIN WITHOUT IV CONTRAST CLINICAL HISTORY: Fall. COMPARISON STUDY: CT of the brain dated 02/23/2019. TECHNIQUE: Unenhanced axial CT scan of the brain is performed from the vertex to the skull base. A dose lowering technique was utilized adhering to the principles of ALARA. CT DOSE: 537.48 mGy.cm FINDINGS: Brain parenchyma: There are age-related involutional changes noting moderate to advanced subcortical and periventricular microangiopathic change. There is no hemorrhage, mass effect, or evidence of acute territorial ischemia by CT criteria. Carrillo-white matter differentiation is preserved. No extra-axial fluid collection is seen. Ventricles, sulci, cisterns: Prominent secondary to involutional change. Intracranial vasculature: There is atherosclerotic calcification of the cavernous carotid arteries. Calvarium: The skeletal structures are osteopenic. No depressed calvarial fracture is identified. Sinuses and mastoids: The visualized paranasal sinuses are clear. The mastoid air cells are well pneumatized. Orbits: The bony orbits are grossly intact. There are bilateral ocular lens implants. IMPRESSION: There is no hemorrhage, mass effect, or evidence of acute territorial ischemia by CT criteria. ACT 112: Negative or not required by law. Electronically signed by: Troy Odonnell M.D. 03/28/2021 8:12 AM Knee X-Ray 03/28/21 07:08 RIGHT KNEE 2 VIEWS CLINICAL HISTORY: Fall with right knee pain. FINDINGS: AP and crosstable lateral views the right knee are compared to study dated 02/23/2019. The skeletal structures are osteopenic. No fracture is seen. There is mild to moderate tricompartmental degenerative joint space narrowing. No joint effusion is identified. An intramedullary nail is partially visualized in the femoral shaft. The overlying soft tissues are normal as imaged. IMPRESSION: No acute bony abnormality is identified. Electronically signed by: Troy Odonnell M.D. 03/28/2021 8:13 AM Pelvis X-Ray 03/28/21 07:08 XR pelvis 1-2V routine CLINICAL HISTORY: r hip pain. COMPARISON STUDY: 03/26/2018 TECHNIQUE: [A single AP radiograph was obtained. FINDINGS: Compared with previous examination of 2 days ago, there is no interval change. There is no evidence for an acute fracture. There is again an intramedullary gordy within the right femoral shaft with a nail through the femoral neck transfixing an old femoral shaft fracture. Heterotopic bone formation is seen adjacent to the right hip joint. There is mild narrowing of joint spaces bilaterally. No significant secondary degenerative changes are present. The SI joints are intact bilaterally. The remaining visualized bones of the pelvis are intact. No focal soft tissue abnormalities identified. IMPRESSION: No acute abnormality. No interval change. The patient is again status post internal fixation on the right with heterotopic bone formation present. ACT 112: Negative or not required by law. Electronically signed by: Milo Javed M.D. 03/28/2021 8:07 AM Chest X-Ray 03/28/21 10:29 SINGLE VIEW CHEST CLINICAL HISTORY: Fall. Hypoxia FINDINGS: An AP, portable, upright chest radiograph is compared to study dated 07/09/2019 and correlated with chest CT dated 02/23/2019. The heart is enlarged noting atherosclerotic calcification of the thoracic aorta. The pulmonary vasculature is noncongested. Chronic interstitial thickening is similar to previous. There is mild chronic elevation of the right hemidiaphragm and bibasilar atelectasis. The lungs and pleural spaces are otherwise clear. No pneumothorax is seen. The skeletal structures are osteopenic. The bony thorax is grossly intact. IMPRESSION: Cardiomegaly with no acute cardiopulmonary abnormality. ACT 112: Negative or not required by law. Electronically signed by: Troy Odonnell M.D. 03/28/2021 11:[address] 03/28/21 10:42 CT cervical spine wo con CLINICAL HISTORY: Fall, neck pain COMPARISON STUDY: No previous studies for comparison. CT DOSE: 269.70 mGy.cm TECHNIQUE: Standard CT of the Cervical Spine was performed without IV contrast. A dose lowering technique was utilized adhering to the principles of ALARA. FINDINGS: Bones: Bones are osteopenic. Is no acute fracture. There is minimal degenerative anterolisthesis of C4 on C5 and C5 on C6. The heights of the vertebral bodies are maintained. The remaining cervical vertebral bodies are in anatomic alignment. The odontoid is intact. Extensive degenerative changes are seen at the atlantoaxial articulation. Disc spaces:There is moderate to marked disc space narrowing with endplate cirrhosis and osteophyte formation from C5 through T1. Apophyseal joints:Marked degenerative apophyseal joint disease is present bila terally. Soft tissues:The prevertebral soft tissues are within normal limits. IMPRESSION: Osteopenia with no acute abnormality. Marked degenerative disc and degenerative joint disease. ACT 112: Negative or not required by law. Electronically signed by: Milo Javed M.D. 03/28/2021 11:45 AM Shoulder X-Ray 03/28/21 10:49 RIGHT SHOULDER 3 VIEWS CLINICAL HISTORY: Fall with right shoulder injury. FINDINGS: 3 views of the right shoulder are correlated with radiographs of the right humerus dated 02/23/2019. The skeletal structures are osteopenic. There is no radiographic evidence of fracture or dislocation. Productive degenerative change is seen at the acromioclavicular joint. The glenohumeral articulation is preserved. The overlying soft tissues are normal as visualized. Atelectasis is noted at the right lung base. IMPRESSION: No acute bony abnormality is identified. Electronically signed by: Troy Odonnell M.D. 03/28/2021 11:01 AM Discharge Plan Visit Data Chief Complaint: Fall Stated Complaint: Fall ED Provider: Dedrick Romero Discharge Problem: Fall, Closed pelvic fracture, Acute pain of right hip Forms Stand Alone Forms: [facility] Prescriptions Prescriptions: No Action sertraline [Zoloft] 100 mg Tablet 100 mg PO QAM RF: 0 levothyroxine [Synthroid] 75 mcg Tablet 75 mcg PO QAM RF: 0 docusate sodium [Colace] 100 mg Capsule 100 mg PO DAILY RF: 0 bisacodyl [Dulcolax (bisacodyl)] 5 mg Tablet,Delayed Release (Dr/Ec) 10 mg PO DAILY PRN (Reason: Constipation) RF: 0 hydrocortisone 1 % Cream 1 applic TOPICAL BID PRN (Reason: Itching) RF: 0 Icy Hot 30-10 % Cream 1 applic TOPICAL QID PRN (Reason: Pain) RF: 0 metoprolol tartrate 50 mg Tablet 25 mg PO BID RF: 0 sertraline [Zoloft] 25 mg Tablet 25 mg PO QAM RF: 0 omeprazole 20 mg Capsule,Delayed Release(Dr/Ec) 20 mg PO QAM RF: 0 ibandronate [Boniva] 150 mg Tablet 150 mg PO DIRECTED RF: 0 rivastigmine tartrate 3 mg Capsule 3 mg PO BID RF: 0 acetaminophen [Tylenol Ex Str Rapid Release] 500 mg Tablet 500 mg PO Q6H PRN (Reason: Pain) RF: 0 vitamin E (dl, acetate) 180 mg (400 unit) capsule 180 mg PO DAILY RF: 0 Referrals Referrals: COTY, [Primary Care Provider] - Discharge Problem: Fall Qualifiers: Encounter type: initial encounter Qualified Code(s): W19.XXXA - Unspecified fall, initial encounter Closed pelvic fracture Qualifiers: Encounter type: initial encounter Pelvic bone location: unspecified part of pelvis Fracture alignment: nondisplaced Qualified Code(s): S32.9XXA - Fracture of unspecified parts of lumbosacral spine and pelvis, initial encounter for closed fracture
--- NOTE | 2021-03-28 08:09 | XRay Report ---
XR pelvis 1-2V routine CLINICAL HISTORY: r hip pain. COMPARISON STUDY: 03/26/2018 TECHNIQUE: [A single AP radiograph was obtained. FINDINGS: Compared with previous examination of 2 days ago, there is no interval change. There is no evidence for an acute fracture. There is again an intramedullary gordy within the right fem oral shaft with a nail through the femoral neck transfixing an old femoral shaft fracture. Heterotopi c bone formation is seen adjacent to the right hip joint. There is mild narrowing of joint spaces rosa aterally. No significant secondary degenerative changes are present. The SI joints are intact bilater ally. The remaining visualized bones of the pelvis are intact. No focal soft tissue abnormalities melo ntified. IMPRESSION: No acute abnormality. No interval change. The patient is again status post internal fixat ion on the right with heterotopic bone formation present. ACT 112: Negative or not required by law. Electronically signed by: Milo Javed M.D. 03/28/2021 8:07 AM
--- NOTE | 2021-03-28 08:14 | CT Scan Report ---
CT SCAN OF THE BRAIN WITHOUT IV CONTRAST CLINICAL HISTORY: Fall. COMPARISON STUDY: CT of the brain dated 02/23/2019. TECHNIQUE: Unenhanced axial CT scan of the brain is performed from the vertex to the skull base. A do se lowering technique was utilized adhering to the principles of ALARA. CT DOSE: 537.48 mGy.cm FINDINGS: Brain parenchyma: There are age-related involutional changes noting moderate to advanced subcortical and periventricular microangiopathic change. There is no hemorrhage, mass effect, or evidence of acu te territorial ischemia by CT criteria. Carrillo-white matter differentiation is preserved. No extra-axia l fluid collection is seen. Ventricles, sulci, cisterns: Prominent secondary to involutional change. Intracranial vasculature: There is atherosclerotic calcification of the cavernous carotid arteries. Calvarium: The skeletal structures are osteopenic. No depressed calvarial fracture is identified. Sinuses and mastoids: The visualized paranasal sinuses are clear. The mastoid air cells are well pneu matized. Orbits: The bony orbits are grossly intact. There are bilateral ocular lens implants. IMPRESSION: There is no hemorrhage, mass effect, or evidence of acute territorial ischemia by CT sonia mayorga. ACT 112: Negative or not required by law. Electronically signed by: Troy Odonnell M.D. 03/28/2021 8:12 AM
--- NOTE | 2021-03-28 08:15 | XRay Report ---
RIGHT KNEE 2 VIEWS CLINICAL HISTORY: Fall with right knee pain. FINDINGS: AP and crosstable lateral views the right knee are compared to study dated 02/23/2019. The skeletal structures are osteopenic. No fracture is seen. There is mild to moderate tricompartmental d egenerative joint space narrowing. No joint effusion is identified. An intramedullary nail is partial ly visualized in the femoral shaft. The overlying soft tissues are normal as imaged. IMPRESSION: No acute bony abnormality is identified. Electronically signed by: Troy Odonnell M.D. 03/28/2021 8:13 AM
--- NOTE | 2021-03-28 08:20 | XRay Report ---
XR ankle RT min 3V routine CLINICAL HISTORY: r ankle pain. Status post fall COMPARISON STUDY: 03/26/2018 TECHNIQUE: 3 right ankle views FINDINGS: Bones: There is no evidence for an acute fracture or dislocation. There is no lytic or blastic lesion . Joints: The joint spaces are maintained. The bones are in anatomic alignment. Soft tissues: There is no focal soft tissue abnormality. There is no radiopaque foreign body. IMPRESSION: No acute osseous pathology. ACT 112: Negative or not required by law. Electronically signed by: Milo Javed M.D. 03/28/2021 8:19 AM
--- NOTE | 2021-03-28 08:32 | XRay Report ---
XR femur RT 2V routine HISTORY: 86 years-old Female r fem pain acute pain of the right femur status post fall COMPARISON: Right knee and pelvic radiographs of same day, left femur radiographs 12/05/2018, CT abdom en and pelvis 03/26/2018 TECHNIQUE: 2 views of the right femur FINDINGS: Intertrochanteric nail with medullary gordy of the right femur exceeds a healed chronic mid diaphyseal fracture which demonstrates cortical thickening. The hardware appears intact. No acute periprosthetic fracture. There is at least mild osteoarthritis of the knee and hip. Acute to subacute appearing non displaced fracture of the right superior pubic ramus is new from 03/26/2018. IMPRESSION: 1. Acute to subacute appearing nondisplaced fracture of the right superior pubic ramus is new from . 2. ORIF changes of the right femur without evidence of hardware complication. ACT 112: Negative or not required by law. The above report was generated using voice recognition software. It may contain grammatical, syntax o r spelling errors. Electronically signed by: Bo Montesinos M.D. 03/28/2021 8:31 AM
[2021-03-28] MEDS ORDERED: MoRPHine SULFATE 4 MG/ML 1 ML CARP\\VIAL IV PRN (08:38)
[2021-03-28] MEDS ORDERED: MoRPHine SULFATE 2 MG/ML CARP IV PRN (08:38)
[2021-03-28 09:25] LABS: Basophils # (auto) 0.01 K/uL (0-0.2); Basophils % (auto) 0.1 %; Eosinophils # (auto) 0.03 K/uL (0-0.5); Eosinophils % (auto) 0.3 %; Hematocrit (blood only) 41.8 % (37-47); Hemoglobin 14.3 g/dL (12.0-16.0); Immature Granulocytes # (auto) 0.06 K/uL (0.00-0.02); Immature Granulocytes % (auto) 0.5 %; Lymphocytes # (auto) 1.51 K/uL (1.2-3.4); Lymphocytes % (auto) 13.1 %; Mean Corpuscular Hemoglobin 32.9 pg (25-34); Mean Corpuscular Hgb Conc 34.2 g/dL (32-36); Mean Corpuscular Volume 96.3 fL (80-100); Mean Platelet Volume 9.2 fL (7.4-10.4); Monocytes # (auto) 0.75 K/uL (0.11-0.59); Monocytes % (auto) 6.5 %; Neutrophils # (auto) 9.18 K/uL (1.4-6.5); Neutrophils % (auto) 79.5 %; Platelet Count 228 K/uL (130-400); RDW Coefficient of Variation 12.7 % (11.5-14.5); RDW Standard Deviation 44.6 fL (36.4-46.3); Red Blood Count 4.34 M/uL (4.2-5.4); White Blood Count 11.54 K/uL (4.8-10.8)
[2021-03-28 09:42] LABS: Alanine Aminotransferase 20 U/L (12-78); Albumin Level 4.1 gm/dl (3.4-5.0); Aspartate Aminotransferase 20 U/L (15-37); BUN Creatinine Ratio 18.3 (10-20); Blood Urea Nitrogen 15 mg/dl (7-18); Calcium 9.2 mg/dl (8.5-10.1); Carbon Dioxide 24 mmol/L (21-32); Chloride 106 mmol/L (98-107); Est GFR (African American) 78.5 ml/min; Est GFR (Non-African American) 67.7 ml/min; Glucose 85 mg/dl (70-99); Potassium 3.9 mmol/L (3.5-5.1); Sodium 139 mmol/L (136-145)
[2021-03-28 09:45] LABS: Albumin Globulin Ratio 1.1 (0.9-2); Alkaline Phosphatase 71 U/L (45-117); Bilirubin,Total 0.9 mg/dl (0.2-1); Globulin 3.8 gm/dl (2.5-4.0); Total Protein 7.9 gm/dl (6.4-8.2)
--- NOTE | 2021-03-28 10:34 | History & Physical Report ---
Date of Service March 28, 2021 Assessment & Plan (1) Fall: Plan: Appears to be mechanical PT/OT (2) Closed pelvic fracture: Plan: Pain control with acetaminophen 1g PO TID, oxycodone 5-10mg PO q4h PRN PT/OT evals WBAT (3) Hypertension: Plan: Continue metoprolol tartrate 25mg PO BID with hold parameters (4) Anxiety: Plan: Continue sertraline 125mg PO daily (5) Osteoporosis: Plan: Vitamin D levels in AM Continue her usual ibandronate on discharge (6) Hypothyroidism: Plan: TSH last done in 2019 WNL, repeat with AM labs Continue levothyroxine 75 mcg PO daily (7) GERD (gastroesophageal reflux disease): Plan: Switch omeprazole to pantoprazole per hospital formulary Plan: VTE Prophylaxis - Lovenox 40mg SQ daily Diet - regular Disposition - admit to med/surg Admission and Anticipated Discharge Date Admission Date: March 28, 2021 History of Present Illness Chief Complaint: Fall Primary Care Provider: JASONDutch Martha Koenig is an 86 year old female from the [facility] who presents to the ER with following a fall. Fall occurred earlier today while losing her balance when she tried putting on a shirt. She is having right hip, knee and ankle pain following the fall. Fall unwitnessed but she denies any chest pain, shortness of breath or dizziness prior to falling. She takes Boniva for osteoporosis. Discussed care with her Grandauoswaldoter over the phone Jihan Sarah ([phone]) who is her acting power of assistant district attorney since her son . Confirmed patient is for full code. In the ER imaging of palvis, shoulder, spine, head, right knee/ankle/femur showed acute to subacute non displaced fracture of superior pubic ramus. Allergies Allergy/AdvReac Type Severity Reaction Status Date / Time bacitracin Allergy Rash Verified 03/28/21 07:37 [From Neosporin ([id number])] neomycin Allergy Rash Verified 03/28/21 07:37 [From Neosporin ([id number])] pollen extracts Allergy Unknown Verified 03/28/21 07:37 polymyxin B Allergy Rash Verified 03/28/21 07:37 [From Neosporin ([id number])] Home Medications Medication Instructions Recorded Confirmed Type bisacodyl 5 mg tablet,delayed 10 mg PO DAILY PRN 11/10/18 11/12/21 History release (Dulcolax (bisacodyl)) docusate sodium 100 mg capsule 100 mg PO DAILY 03/26/18 03/28/21 History (Colace) levothyroxine 75 mcg tablet 75 mcg PO QAM 03/26/18 03/28/21 History (Synthroid) sertraline 100 mg tablet (Zoloft) 100 mg PO QAM 03/26/18 03/28/21 History hydrocortisone 1 % topical cream 1 applic TOPICAL BID PRN 02/23/19 03/28/21 History methyl salicylate 30 %-menthol 10 1 applic TOPICAL QID PRN 02/23/19 03/28/21 History % topical cream (Icy Hot) metoprolol tartrate 50 mg tablet 25 mg PO BID 03/15/19 03/28/21 History ibandronate 150 mg tablet (Boniva) 150 mg PO DIRECTED 05/01/19 03/28/21 Histo ry omeprazole 20 mg capsule,delayed 20 mg PO QAM 05/01/19 03/28/21 History release sertraline 25 mg tablet (Zoloft) 25 mg PO QAM 05/01/19 03/28/21 History rivastigmine tartrate 3 mg capsule 3 mg PO BID 07/09/19 03/28/21 History acetaminophen 500 mg tablet 500 mg PO Q6H PRN 03/28/21 03/28/21 History vitamin E (dl, acetate) 180 mg 180 mg PO DAILY 03/28/21 03/28/21 History (400 unit) capsule Past Med/Surg History Medical History (Updated 03/31/21 @ 15:31 by Vida Guzman PA-C) Acute upper respiratory infection hx Anxiety Candidiasis of skin and nail Cardiac arrhythmia unspecified per records received from [facility] Dysphagia Fall on same level from slipping Femur fracture Gait abnormality Gastroenteritis GERD (gastroesophageal reflux disease) Hip pain, left Hyperlipemia Hypertension Hypothyroidism Knee pain, left Orthostatic hypotension Osteoporosis Paroxysmal tachycardia Restless leg syndrome Vertigo Visual disturbance Visual hallucinations Surgical History Hx of right cataract extraction Family History Other Family history non-contributory Social History (Reviewed 07/09/19 @ 18:39 by Tomas Torres Smoking Status: Never smoker Hx Alcohol Use: No Hx Substance Use: No Preferred Language: Bermudian Communication Ability: Effective Neighborhood Coordinator Required: No Beliefs That Will Affect Care: None marital status: / Current Living Situation: Skilled Nursing Current Living Situation Comment: [facility] current occupational status: retired Other Information That Helps Us Care for You: No Feels Safe at Home: Yes Assistive Devices: Walker Review of Systems Review of Systems: All systems reviewed & are unremarkable except as noted in HPI & below Physical Exam Constitutional: WD/WN, vitals as above Eyes: + anicteric sclerae; normal pupil size Respiratory: normal respiratory effort, lungs clear to auscultation Cardiovascular: RRR, no murmur, no edema Gastrointestinal (Abdomen): normal bowel sounds, soft, nontender, no hepatosplenomegaly Musculoskeletal: Ecchymosis over anterior right shoulder. Unable to abduct shoulder past 90 degrees. No groin pain on int/ext rotation of hip. Skin: no rashes, warm and dry Neurologic: moves all extremities and awake; not confused Psychiatric: Orientation: alert, oriented to person and oriented to place; + not oriented to time Results & Data Results & Data (MN) Vital Signs (Past 12 Hours) Vital Signs Temp Pulse Pulse Resp BP BP Pulse Ox 03/28/21 09:18 70 18 178/81 H 92 03/28/21 09:15 68 20 92 03/28/21 06:32 36.6 C 64 16 186/63 H 186/63 H 92 Laboratory Results Abnormal lab results 03/28/21 Range/Units 09:14 WBC 11.54 H (4.8-10.8) K/uL Neut # (Auto) 9.18 H (1.4-6.5) K/uL [place] # (Auto) 0.75 H (0.11-0.59) K/uL Immature Gran # (Auto) 0.06 H (0.00-0.02) K/uL Diagnostic Findings CT SCAN OF THE BRAIN WITHOUT IV CONTRAST CLINICAL HISTORY: Fall. COMPARISON STUDY: CT of the brain dated 02/23/2019. TECHNIQUE: Unenhanced axial CT scan of the brain is performed from the vertex to the skull base. A dose lowering technique was utilized adhering to the principles of ALARA. CT DOSE: 537.48 mGy.cm FINDINGS: Brain parenchyma: There are age-related involutional changes noting moderate to advanced subcortical and periventricular microangiopathic change. There is no hemorrhage, mass effect, or evidence of acute territorial ischemia by CT criteria. Carrillo-white matter differentiation is preserved. No extra-axial fluid collection is seen. Ventricles, sulci, cisterns: Prominent secondary to involutional change. Intracranial vasculature: There is atherosclerotic calcification of the cavernous carotid arteries. Calvarium: The skeletal structures are osteopenic. No depressed calvarial fracture is identified. Sinuses and mastoids: The visualized paranasal sinuses are clear. The mastoid air cells are well pneumatized. Orbits: The bony orbits are grossly intact. There are bilateral ocular lens implants. IMPRESSION: There is no hemorrhage, mass effect, or evidence of acute territorial ischemia by CT criteria. XR pelvis 1-2V routine CLINICAL HISTORY: r hip pain. COMPARISON STUDY: 03/26/2018 TECHNIQUE: [A single AP radiograph was obtained. FINDINGS: Compared with previous examination of 2 days ago, there is no interval change. There is no evidence for an acute fracture. There is again an intramedullary gordy within the right femoral shaft with a nail through the femoral neck transfixing an old femoral shaft fracture. Heterotopic bone formation is seen adjacent to the right hip joint. There is mild narrowing of joint spaces bilaterally. No significant secondary degenerative changes are present. The SI joints are intact bilaterally. The remaining visualized bones of the pelvis are intact. No focal soft tissue abnormalities identified. IMPRESSION: No acute abnormality. No interval change. The patient is again status post internal fixation on the right with heterotopic bone formation present. XR femur RT 2V routine HISTORY: 86 years-old Female r fem pain acute pain of the right femur status post fall COMPARISON: Right knee and pelvic radiographs of same day, left femur radiographs 12/05/2018, CT abdomen and pelvis 03/26/2018 TECHNIQUE: 2 views of the right femur FINDINGS: Intertrochanteric nail with medullary gordy of the right femur exceeds a healed chronic mid diaphyseal fracture which demonstrates cortical thickening. The hardware appears intact. No acute periprosthetic fracture. There is at least mild osteoarthritis of the knee and hip. Acute to subacute appearing nondisplaced fracture of the right superior pubic ramus is new from 03/26/2018. IMPRESSION: 1. Acute to subacute appearing nondisplaced fracture of the right superior pubic ramus is new from 03/26/2018. 2. ORIF changes of the right femur without evidence of hardware complication. RIGHT KNEE 2 VIEWS CLINICAL HISTORY: Fall with right knee pain. FINDINGS: AP and crosstable lateral views the right knee are compared to study dated 02/23/2019. The skeletal structures are osteopenic. No fracture is seen. There is mild to moderate tricompartmental degenerative joint space narrowing. No joint effusion is identified. An intramedullary nail is partially visualized in the femoral shaft. The overlying soft tissues are normal as imaged. IMPRESSION: No acute bony abnormality is identified. XR ankle RT min 3V routine CLINICAL HISTORY: r ankle pain. Status post fall COMPARISON STUDY: 03/26/2018 TECHNIQUE: 3 right ankle views FINDINGS: Bones: There is no evidence for an acute fracture or dislocation. There is no lytic or blastic lesion. Joints: The joint spaces are maintained. The bones are in anatomic alignment. Soft tissues: There is no focal soft tissue abnormality. There is no radiopaque foreign body. IMPRESSION: No acute osseous pathology. Medications Administered ER Medications Given: Morphine 2mg IV ECG Indication: other (Fall) Rate (beats per minute): 79 Rhythm: normal sinus Findings: + other (T wave flattening in lateral leads) Comparison ECG Date: from (Jul 09, 2019) Change: no significant change Code Status & VTE Plan Code Status Full VTE Prophylaxis Plan VTE Prophylaxis will be ordered: Yes PG Care Time/CCT Total # of Minutes Spent Total Time Spent with Patient: Total time spent is greater than 50% in coordination of care (as documented) at patient's floor/unit and/or counseling patient: Coding Level of Care Code 78331 Initial Inpt Care Lvl 2 Diagnoses Fall W19.XXXA Encounter type: initial encounter Closed pelvic fracture S32.9XXA Encounter type: initial encounter Fracture alignment: nondisplaced Pelvic bone location: unspecified part of pelvis Hypertension I10 Anxiety F41.9 Osteoporosis M81.0 Hypothyroidism E03.9 GERD (gastroesophageal reflux disease) K21.9 (1) Closed pelvic fracture Encounter type: initial encounter Fracture alignment: nondisplaced Pelvic bone location: unspecified part of pelvis Qualified Code(s): S32.9XXA - Fracture of unspecified parts of lumbosacral spine and pelvis, initial encounter for closed fracture (2) Fall Encounter type: initial encounter Qualified Code(s): W19.XXXA - Unspecified fall, initial encounter
[2021-03-28] MEDS ORDERED: ACETAMINOPHEN 500 MG TAB PO STA (10:43)
--- NOTE | 2021-03-28 11:03 | XRay Report ---
RIGHT SHOULDER 3 VIEWS CLINICAL HISTORY: Fall with right shoulder injury. FINDINGS: 3 views of the right shoulder are correlated with radiographs of the right humerus dated . The skeletal structures are osteopenic. There is no radiographic evidence of fracture or di slocation. Productive degenerative change is seen at the acromioclavicular joint. The glenohumeral ar ticulation is preserved. The overlying soft tissues are normal as visualized. Atelectasis is noted at the right lung base. IMPRESSION: No acute bony abnormality is identified. Electronically signed by: Troy Odonnell M.D. 03/28/2021 11:01 AM
--- NOTE | 2021-03-28 11:04 | XRay Report ---
SINGLE VIEW CHEST CLINICAL HISTORY: Fall. Hypoxia FINDINGS: An AP, portable, upright chest radiograph is compared to study dated 07/09/2019 and correlat ed with chest CT dated 02/23/2019. The heart is enlarged noting atherosclerotic calcification of the thoracic aorta. The pulmonary vasculature is noncongested. Chronic interstitial thickening is similar to previous. There is mild chronic elevation of the right hemidiaphragm and bibasilar atelectasis. T he lungs and pleural spaces are otherwise clear. No pneumothorax is seen. The skeletal structures are osteopenic. The bony thorax is grossly intact. IMPRESSION: Cardiomegaly with no acute cardiopulmonary abnormality. ACT 112: Negative or not required by law. Electronically signed by: Troy Odonnell M.D. 03/28/2021 11:02 AM
--- NOTE | 2021-03-28 11:46 | CT Scan Report ---
CT cervical spine wo con CLINICAL HISTORY: Fall, neck pain COMPARISON STUDY: No previous studies for comparison. CT DOSE: 269.70 mGy.cm TECHNIQUE: Standard CT of the Cervical Spine was performed without IV contrast. A dose lowering te chnique was utilized adhering to the principles of ALARA. FINDINGS: Bones: Bones are osteopenic. Is no acute fracture. There is minimal degenerative anterolisthesis of C 4 on C5 and C5 on C6. The heights of the vertebral bodies are maintained. The remaining cervical vert ebral bodies are in anatomic alignment. The odontoid is intact. Extensive degenerative changes are se en at the atlantoaxial articulation. Disc spaces:There is moderate to marked disc space narrowing with endplate cirrhosis and osteophyte f ormation from C5 through T1. Apophyseal joints:Marked degenerative apophyseal joint disease is present bilaterally. Soft tissues:The prevertebral soft tissues are within normal limits. IMPRESSION: Osteopenia with no acute abnormality. Marked degenerative disc and degenerative joint dis ease. ACT 112: Negative or not required by law. Electronically signed by: Milo Javed M.D. 03/28/2021 11:45 AM
--- NOTE | 2021-03-28 13:48 | Electrocardiogram Report ---
Test Reason : Blood Pressure : / mmHG Vent. Rate : 079 BPM Atrial Rate : 079 BPM P-R Int : 160 ms QRS Dur : 080 ms QT Int : 382 ms P-R-T Axes : 043 -27 061 degrees QTc Int : 438 ms Normal sinus rhythm Nonspecific ST and T wave abnormality Abnormal ECG When compared with ECG of 09-JUL-2019 18:34, Nonspecific T wave abnormality no longer evident in Inferior leads T wave inversion no longer evident in Anterior leads Nonspecific T wave abnormality now evident in Lateral leads Confirmed by Tacho Silverio ([id number]) on 03/28/2021 1:48:08 PM Referred By: COTY Confirmed By:Tacho Silverio
[2021-03-28] MEDS ORDERED: POLYETHYLENE (MIRALAX) 17 GM PACK PO PRN (20:41)
[2021-03-28] MEDS ORDERED: oxyCODONE HCL IR 5 MG TAB (IMMEDIATE RELEASE) PO PRN (20:41)
[2021-03-28] MEDS ORDERED: ALUMINUM/MAGNESIUM SUSP 30 ML UDC PO PRN (20:41)
[2021-03-28] MEDS: METOPROLOL TARTRATE 25 MG TAB PO SCH (22:26)
[2021-03-28] MEDS: ACETAMINOPHEN 500 MG TAB PO SCH (22:26)
[2021-03-28] MEDS: RIVASTIGMINE TARTRATE 1.5 MG CAP PO SCH (22:27)
[2021-03-29] MEDS: LEVOTHYROXINE SODIUM 75 MCG TABLET PO SCH (05:41)
[2021-03-29 08:13] LABS: BUN Creatinine Ratio 21.9 (10-20); Calcium 8.4 mg/dl (8.5-10.1); Creatinine Clr Calc Pharmacy 58.8 ml/min; Est GFR (African American) 95.5 ml/min; Est GFR (Non-African American) 82.4 ml/min; Potassium 3.8 mmol/L (3.5-5.1)
[2021-03-29] MEDS: ACETAMINOPHEN 500 MG TAB PO SCH ×3 (09:11→20:42)
[2021-03-29] MEDS: ENOXAPARIN INJ 40 MG/0.4 ML SYR SQ SCH (09:11)
[2021-03-29] MEDS: DOCUSATE SODIUM 100 MG CAP PO SCH (09:11)
[2021-03-29] MEDS: RIVASTIGMINE TARTRATE 1.5 MG CAP PO SCH ×2 (09:12→20:42)
[2021-03-29] MEDS: METOPROLOL TARTRATE 25 MG TAB PO SCH ×2 (09:12→20:42)
[2021-03-29] MEDS: SERTRALINE HCL 50 MG TABLET PO SCH (09:12)
[2021-03-29] MEDS: SERTRALINE HCL 100 MG TABLET PO SCH (09:12)
[2021-03-29] MEDS: PANTOprazole 40 MG TAB PO SCH (09:12)
--- NOTE | 2021-03-29 13:21 | Hospitalist Progress Note ---
Date of Service March 29, 2021 Assessment & Plan (1) Fall: Plan: Appears to be mechanical PT/OT (2) Closed pelvic fracture: Plan: CT shows right superior pubic ramus fracture Non surgical indication Pain control PT/OT evals WBAT (3) Hypertension: Plan: Continue metoprolol tartrate 25mg PO BID with hold parameters (4) Anxiety: Plan: Continue sertraline 125mg PO daily (5) Osteoporosis: Plan: Vitamin D levels in AM Continue her usual ibandronate on discharge (6) Hypothyroidism: Plan: TSH last done in 2019 WNL, repeat with AM labs Continue levothyroxine 75 mcg PO daily (7) GERD (gastroesophageal reflux disease): Plan: Switch omeprazole to pantoprazole per hospital formulary Plan: VTE Prophylaxis - Lovenox 40mg SQ daily Diet - regular Disposition - admit to med/surg Admission and Anticipated Discharge Date Admission Date: March 28, 2021 Subjective Patient seen and examined this morning, says her butt hurts Review of Systems Review of Systems: All systems reviewed are negative, apart from the ones contained in the history. Physical Exam Physical Exam: The patient is awake, alert and oriented 3, well developed and well nourished, normocephalic and atraumatic, lying in bed and in no acute distress. HEENT--PERRL, EOMI, mucous membranes and oropharynx mildly dry Neck--supple. No JVD. No bruits. Thyroid normal, trachea midline, no adenopathy. Heart--normal S1 and S2. No murmurs, rubs or gallops. Lungs--clear bilaterally, no respiratory distress, no accessory muscle use. Abdomen--normal bowel sounds and soft. Mild epigastric and left sided abdominal pain Extremities--no cyanosis or clubbing. No edema. Dermatologic--normal skin turgor, normal color, no abnormal lymph nodes, no rash. Neurologic--cranial nerves II through XII grossly intact. Rheumatologic--normal range of motion. Psychiatric--normal affect. Results & Data Results & Data ([facility]) Vital Signs (Past 12 Hours) Vital Signs Temp Pulse Resp BP Pulse Ox 03/29/21 08:27 97.9 F 66 16 179/76 H 96 Laboratory Results Laboratory Results - last 24 hr 03/29/21 03/29/21 07:10 07:10 Sodium 138 Potassium 3.8 Chloride 107 Carbon Dioxide 22 Anion Gap 9.0 BUN 14 Creatinine 0.63 Est Cr Clr Drug Dosing 58.8 Est GFR ( Amer) 95.5 Est GFR (Non-Af Amer) 82.4 BUN/Creatinine Ratio 21.9 H Glucose 92 Calcium 8.4 L 25-OH Vitamin D Total Pending Diagnostic Findings Ankle X-Ray 03/28/21 07:08 XR ankle RT min 3V routine CLINICAL HISTORY: r ankle pain. Status post fall COMPARISON STUDY: 03/26/2018 TECHNIQUE: 3 right ankle views FINDINGS: Bones: There is no evidence for an acute fracture or dislocation. There is no lytic or blastic lesion. Joints: The joint spaces are maintained. The bones are in anatomic alignment. Soft tissues: There is no focal soft tissue abnormality. There is no radiopaque foreign body. IMPRESSION: No acute osseous pathology. ACT 112: Negative or not required by law. Electronically signed by: Milo Javed M.D. 03/28/2021 8:19 AM Femur X-Ray 03/28/21 07:08 XR femur RT 2V routine HISTORY: 86 years-old Female r fem pain acute pain of the right femur status post fall COMPARISON: Right knee and pelvic radiographs of same day, left femur radiographs 12/05/2018, CT abdomen and pelvis 03/26/2018 TECHNIQUE: 2 views of the right femur FINDINGS: Intertrochanteric nail with medullary gordy of the right femur exceeds a healed chronic mid diaphyseal fracture which demonstrates cortical thickening. The hardware appears intact. No acute periprosthetic fracture. There is at least mild osteoarthritis of the knee and hip. Acute to subacute appearing nondisplaced fracture of the right superior pubic ramus is new from 03/26/2018. IMPRESSION: 1. Acute to subacute appearing nondisplaced fracture of the right superior pubic ramus is new from 03/26/2018. 2. ORIF changes of the right femur without evidence of hardware complication. ACT 112: Negative or not required by law. The above report was generated using voice recognition software. It may contain grammatical, syntax or spelling errors. Electronically signed by: Bo Montesinos M.D. 03/28/2021 8:[address] 03/28/21 07:08 CT SCAN OF THE BRAIN WITHOUT IV CONTRAST CLINICAL HISTORY: Fall. COMPARISON STUDY: CT of the brain dated 02/23/2019. TECHNIQUE: Unenhanced axial CT scan of the brain is performed from the vertex to the skull base. A dose lowering technique was utilized adhering to the principles of ALARA. CT DOSE: 537.48 mGy.cm FINDINGS: Brain parenchyma: There are age-related involutional changes noting moderate to advanced subcortical and periventricular microangiopathic change. There is no hemorrhage, mass effect, or evidence of acute territorial ischemia by CT criteria. Carrillo-white matter differentiation is preserved. No extra-axial fluid collection is seen. Ventricles, sulci, cisterns: Prominent secondary to involutional change. Intracranial vasculature: There is atherosclerotic calcification of the cavernous carotid arteries. Calvarium: The skeletal structures are osteopenic. No depressed calvarial frac ture is identified. Sinuses and mastoids: The visualized paranasal sinuses are clear. The mastoid air cells are well pneumatized. Orbits: The bony orbits are grossly intact. There are bilateral ocular lens implants. IMPRESSION: There is no hemorrhage, mass effect, or evidence of acute territorial ischemia by CT criteria. ACT 112: Negative or not required by law. Electronically signed by: Troy Odonnell M.D. 03/28/2021 8:12 AM Knee X-Ray 03/28/21 07:08 RIGHT KNEE 2 VIEWS CLINICAL HISTORY: Fall with right knee pain. FINDINGS: AP and crosstable lateral views the right knee are compared to study dated 02/23/2019. The skeletal structures are osteopenic. No fracture is seen. There is mild to moderate tricompartmental degenerative joint space narrowing. No joint effusion is identified. An intramedullary nail is partially visualized in the femoral shaft. The overlying soft tissues are normal as imaged. IMPRESSION: No acute bony abnormality is identified. Electronically signed by: Troy Odonnell M.D. 03/28/2021 8:13 AM Pelvis X-Ray 03/28/21 07:08 XR pelvis 1-2V routine CLINICAL HISTORY: r hip pain. COMPARISON STUDY: 03/26/2018 TECHNIQUE: [A single AP radiograph was obtained. FINDINGS: Compared with previous examination of 2 days ago, there is no interval change. There is no evidence for an acute fracture. There is again an intramedullary gordy within the right femoral shaft with a nail through the femoral neck transfixing an old femoral shaft fracture. Heterotopic bone formation is seen adjacent to the right hip joint. There is mild narrowing of joint spaces bilaterally. No significant secondary degenerative changes are present. The SI joints are intact bilaterally. The remaining visualized bones of the pelvis are intact. No focal soft tissue abnormalities identified. IMPRESSION: No acute abnormality. No interval change. The patient is again status post internal fixation on the right with heterotopic bone formation present. ACT 112: Negative or not required by law. Electronically signed by: Milo Javed M.D. 03/28/2021 8:07 AM Chest X-Ray 03/28/21 10:29 SINGLE VIEW CHEST CLINICAL HISTORY: Fall. Hypoxia FINDINGS: An AP, portable, upright chest radiograph is compared to study dated 07/09/2019 and correlated with chest CT dated 02/23/2019. The heart is enlarged noting atherosclerotic calcification of the thoracic aorta. The pulmonary vasculature is noncongested. Chronic interstitial thickening is similar to previous. There is mild chronic elevation of the right hemidiaphragm and bibasilar atelectasis. The lungs and pleural spaces are otherwise clear. No pneumothorax is seen. The skeletal structures are osteopenic. The bony thorax is grossly intact. IMPRESSION: Cardiomegaly with no acute cardiopulmonary abnormality. ACT 112: Negative or not required by law. Electronically signed by: Troy Odonnell M.D. 03/28/2021 11:[address] 03/28/21 10:42 CT cervical spine wo con CLINICAL HISTORY: Fall, neck pain COMPARISON STUDY: No previous studies for comparison. CT DOSE: 269.70 mGy.cm TECHNIQUE: Standard CT of the Cervical Spine was performed without IV contrast. A dose lowering technique was utilized adhering to the principles of ALARA. FINDINGS: Bones: Bones are osteopenic. Is no acute fracture. There is minimal degenerative anterolisthesis of C4 on C5 and C5 on C6. The heights of the vertebral bodies are maintained. The remaining cervical vertebral bodies are in anatomic alignment. The odontoid is intact. Extensive degenerative changes are seen at the atlantoaxial articulation. Disc spaces:There is moderate to marked disc space narrowing with endplate cirrhosis and osteophyte formation from C5 through T1. Apophyseal joints:Marked degenerative apophyseal joint disease is present bilaterally. Soft tissues:The prevertebral soft tissues are within normal limits. IMPRESSION: Osteopenia with no acute abnormality. Marked degenerative disc and degenerative joint disease. ACT 112: Negative or not required by law. Electronically signed by: Milo Javed M.D. 03/28/2021 11:45 AM Shoulder X-Ray 03/28/21 10:49 RIGHT SHOULDER 3 VIEWS CLINICAL HISTORY: Fall with right shoulder injury. FINDINGS: 3 views of the right shoulder are correlated with radiographs of the right humerus dated 02/23/2019. The skeletal structures are osteopenic. There is no radiographic evidence of fracture or dislocation. Productive degenerative change is seen at the acromioclavicular joint. The glenohumeral articulation is preserved. The overlying soft tissues are normal as visualized. Atelectasis is noted at the right lung base. IMPRESSION: No acute bony abnormality is identified. Electronically signed by: Troy Odonnell M.D. 03/28/2021 11:01 AM PG Care Time/CCT Total # of Minutes Spent Total Time Spent with Patient: Total time spent is greater than 50% in coordination of care (as documented) at patient's floor/unit and/or counseling patient: Coding Level of Care Code 54656 Subseq Hosp Care Lvl 2 Diagnoses Fall W19.XXXA Encounter type: initial encounter Closed pelvic fracture S32.9XXA Encounter type: initial encounter Fracture alignment: nondisplaced Pelvic bone location: unspecified part of pelvis Hypertension I10 Anxiety F41.9 Osteoporosis M81.0 Hypothyroidism E03.9 GERD (gastroesophageal reflux disease) K21.9 (1) Fall Encounter type: initial encounter Qualified Code(s): W19.XXXA - Unspecified fall, initial encounter (2) Closed pelvic fracture Encounter type: initial encounter Fracture alignment: nondisplaced Pelvic bone location: unspecified part of pelvis Qualified Code(s): S32.9XXA - Fracture of unspecified parts of lumbosacral spine and pelvis, initial encounter for closed fracture
[2021-03-29 16:04] LABS: Appearance Urine Cloudy (Clear); Bacteria Urine Automated 2+ (Negative); Blood Urine Negative (Negative); Color Urine Dark Yellow; Epithelial Cell Urine Auto >30 /lpf (0-5); Glucose Urine UA Negative (Negative); Ketones Urine 1+ (Negative); Leukocyte Esterase Urine 2+ (Negative); Nitrite Urine Negative (Negative); Protein Urine Trace (Negative); RBC Urine Automated 0-4 /hpf (0-4); Urobilinogen Urine Negative (Negative); WBC Urine Automated >30 /hpf (0-5); pH Urine 5.5 (4.5-7.5)
[2021-03-29 16:14] LABS: Bilirubin Urine 1+ (Negative)
[2021-03-30] MEDS: LEVOTHYROXINE SODIUM 75 MCG TABLET PO SCH (05:46)
[2021-03-30] MEDS: cefTRIAXone SODIUM 1,000 MG in DEXTROSE 5% 50 ML IV SCH (08:17)
[2021-03-30] MEDS: SERTRALINE HCL 100 MG TABLET PO SCH (08:17)
[2021-03-30] MEDS: SERTRALINE HCL 50 MG TABLET PO SCH (08:18)
[2021-03-30] MEDS: RIVASTIGMINE TARTRATE 1.5 MG CAP PO SCH ×2 (08:18→20:47)
[2021-03-30] MEDS: PANTOprazole 40 MG TAB PO SCH (08:18)
[2021-03-30] MEDS: ENOXAPARIN INJ 40 MG/0.4 ML SYR SQ SCH (08:19)
[2021-03-30] MEDS: ACETAMINOPHEN 500 MG TAB PO SCH (08:19)
[2021-03-30] MEDS: METOPROLOL TARTRATE 25 MG TAB PO SCH ×2 (08:19→20:46)
[2021-03-30] MEDS: DOCUSATE SODIUM 100 MG CAP PO SCH (08:19)
--- NOTE | 2021-03-30 12:43 | Hospitalist Progress Note ---
Date of Service March 30, 2021 Assessment & Plan (1) Fall: Plan: Mechanical fall PT/OT patient may benefit from a few days of physical rehab (2) Closed pelvic fracture: Plan: Patient sustained a no displaced left superior pubic ramus fracture No indication for surgery Will await PT eval patient may benefit from physical rehab (3) UTI (urinary tract infection): Plan: urinalysis shows evidence of UTI Urine cultures pending continue empiric IV ceftriaxone (4) Hypertension: Plan: Continue metoprolol tartrate 25mg PO BID with hold parameters (5) Anxiety: Plan: Continue sertraline 125mg PO daily (6) Osteoporosis: Plan: Vitamin D levels in AM Continue her usual ibandronate on discharge (7) Hypothyroidism: Plan: TSH last done in 2019 WNL, repeat with AM labs Continue levothyroxine 75 mcg PO daily (8) GERD (gastroesophageal reflux disease): Plan: Switch omeprazole to pantoprazole per hospital formulary Plan: VTE Prophylaxis - Lovenox 40mg SQ daily Diet - regular Disposition - admit to med/surg Admission and Anticipated Discharge Date Admission Date: March 28, 2021 Discharge to SNF for rehab or home with home PT. Await PT eval Subjective Patient seen and examined this morning, no new complaints Review of Systems Review of Systems: All systems reviewed are negative, apart from the ones contained in the history. Physical Exam Physical Exam: The patient is awake, alert and oriented 3, well developed and well nourished, normocephalic and atraumatic, lying in bed and in no acute distress. HEENT--PERRL, EOMI, mucous membranes and oropharynx mildly dry Neck--supple. No JVD. No bruits. Thyroid normal, trachea midline, no adenopathy. Heart--normal S1 and S2. No murmurs, rubs or gallops. Lungs--clear bilaterally, no respiratory distress, no accessory muscle use. Abdomen--normal bowel sounds and soft. Mild epigastric and left sided abdominal pain Extremities--no cyanosis or clubbing. No edema. Dermatologic--normal skin turgor, normal color, no abnormal lymph nodes, no rash. Neurologic--cranial nerves II through XII grossly intact. Rheumatologic--normal range of motion. Psychiatric--normal affect. Results & Data Results & Data ([facility]) Vital Signs (Past 12 Hours) Vital Signs Temp Pulse Resp BP Pulse Ox 03/30/21 07:35 97.7 F 63 18 168/84 H 93 Laboratory Results Laboratory Results - last 24 hr 03/29/21 03/29/21 03/30/21 15:50 17:10 07:04 TSH 1.570 Urine Color Dark Yellow Urine Appearance Cloudy A Urine pH 5.5 Ur Specific [place] 1.030 Urine Protein Trace H Urine Glucose (UA) Negative Urine Ketones 1+ H Urine Blood Negative Urine Nitrite Negative Urine Bilirubin 1+ H Urine Urobilinogen Negative Ur Leukocyte Esterase 2+ H Urine WBC (Auto) >30 H Urine RBC (Auto) 0-4 U Hyaline Cast (Auto) 1-5 U Epithel Cells (Auto) >30 H Urine Bacteria (Auto) 2+ H Nasal Screen MRSA (PCR) Negative PG Care Time/CCT Total # of Minutes Spent Total Time Spent with Patient: Total time spent is greater than 50% in coordination of care (as documented) at patient's floor/unit and/or counseling patient: Coding Level of Care Code 97314 Subseq Hosp Care Lvl 2 Diagnoses Fall W19.XXXA Encounter type: initial encounter Closed pelvic fracture S32.9XXA Encounter type: initial encounter Fracture alignment: nondisplaced Pelvic bone location: unspecified part of pelvis Hypertension I10 Anxiety F41.9 Osteoporosis M81.0 Hypothyroidism E03.9 GERD (gastroesophageal reflux disease) K21.9 UTI (urinary tract infection) N39.0 (1) Fall Encounter type: initial encounter Qualified Code(s): W19.XXXA - Unspecified fall, initial encounter (2) Closed pelvic fracture Encounter type: initial encounter Fracture alignment: nondisplaced Pelvic bone location: unspecified part of pelvis Qualified Code(s): S32.9XXA - Fracture of unspecified parts of lumbosacral spine and pelvis, initial encounter for closed fracture
[2021-03-30] MEDS: ACETAMINOPHEN 325 MG TAB PO PRN (20:47)
[2021-03-31] MEDS: LEVOTHYROXINE SODIUM 75 MCG TABLET PO SCH (05:58)
[2021-03-31] MEDS: METOPROLOL TARTRATE 25 MG TAB PO SCH ×2 (09:43→20:41)
[2021-03-31] MEDS: DOCUSATE SODIUM 100 MG CAP PO SCH (09:43)
[2021-03-31] MEDS: PANTOprazole 40 MG TAB PO SCH (09:44)
[2021-03-31] MEDS: RIVASTIGMINE TARTRATE 1.5 MG CAP PO SCH ×2 (09:44→20:41)
[2021-03-31] MEDS: SERTRALINE HCL 100 MG TABLET PO SCH (09:45)
[2021-03-31] MEDS: SERTRALINE HCL 50 MG TABLET PO SCH (09:46)
[2021-03-31] MEDS: ENOXAPARIN INJ 40 MG/0.4 ML SYR SQ SCH (09:46)
[2021-03-31] MEDS: cefTRIAXone SODIUM 1,000 MG in DEXTROSE 5% 50 ML IV SCH (09:47)
[2021-03-31 10:02] LABS: Basophils # (auto) 0.02 K/uL (0-0.2); Basophils % (auto) 0.3 %; Hemoglobin 12.6 g/dL (12.0-16.0); Immature Granulocytes # (auto) 0.02 K/uL (0.00-0.02); Immature Granulocytes % (auto) 0.3 %; Lymphocytes # (auto) 1.38 K/uL (1.2-3.4); Lymphocytes % (auto) 20.7 %; Mean Corpuscular Hemoglobin 32.6 pg (25-34); Mean Corpuscular Volume 95.6 fL (80-100); Mean Platelet Volume 9.3 fL (7.4-10.4); Monocytes # (auto) 0.74 K/uL (0.11-0.59); Monocytes % (auto) 11.1 %; Neutrophils # (auto) 4.12 K/uL (1.4-6.5); Neutrophils % (auto) 61.6 %; Platelet Count 205 K/uL (130-400); RDW Coefficient of Variation 12.7 % (11.5-14.5); RDW Standard Deviation 44.3 fL (36.4-46.3); Red Blood Count 3.87 M/uL (4.2-5.4); White Blood Count 6.68 K/uL (4.8-10.8)
[2021-03-31 10:19] LABS: Mean Corpuscular Hgb Conc 34.1 g/dL (32-36)
[2021-03-31 10:31] LABS: BUN Creatinine Ratio 17.7 (10-20); Calcium 8.8 mg/dl (8.5-10.1); Creatinine Clr Calc Pharmacy 49.4 ml/min; Est GFR (African American) 84.8 ml/min; Est GFR (Non-African American) 73.2 ml/min
[2021-03-31] MEDS ORDERED: traMADol HCL 50 MG TABLET PO PRN (14:58)
--- NOTE | 2021-03-31 14:59 | Hospitalist Progress Note ---
Date of Service March 31, 2021 Assessment & Plan (1) Fall: Plan: * PT/OT on board - continue * Pain control * CM on board for d/c planning - ?rehab v back to assisted living facility with therapy services (2) Closed pelvic fracture: Plan: * Patient sustained a nondisplaced right superior pubic ramus fracture * No indication for surgery * PT recommending SNF unless the [facility] feel they are able to provide SNF level therapy, then she can be d/c'd back there * Pain control ordered with OxyIR, however, this was held yesterday d/t some confusion. Will d/c and change to Tramadol. * Case management on board for d/c planning (3) UTI (urinary tract infection): Plan: * urinalysis shows evidence of UTI 2+ leukocyte esterase and >20-30 wbc * Urine cultures pending * Empiric IV ceftriaxone started 03/30 (today day #2) (4) Hypertension: Plan: * Continue metoprolol tartrate 25mg PO BID with hold parameters * BP with good control (5) Anxiety: Plan: * Continue sertraline 125mg PO daily (6) Osteoporosis: Plan: * Vitamin D level low (12.4) * Continue her monthly ibandronate on discharge (7) Hypothyroidism: Plan: * TSH done this admission and WNL at 1.570 * Continue levothyroxine 75 mcg PO daily (8) GERD (gastroesophageal reflux disease): Plan: * Switch omeprazole to pantoprazole per hospital formulary (9) Vitamin D deficiency: Plan: * Initiate Vitamin D supplementation Plan: VTE Prophylaxis - Lovenox 40mg SQ daily Diet - regular Disposition - rehab v return to assisted living w/ home health services, case management working on this. medically stable for d/c Admission and Anticipated Discharge Date Admission Date: March 28, 2021 Supervising Physician Co-Signing Physician Notes Attending Attestation: Chart reviewed in detail, care plan d/w Vida COLLINS. I agree w/ the carmona components of her documentation. UTI - suspected; empiric rocephin; follow final culture. Pain 2nd to pelvic fracture - agree w/ tramadol in teagan of oxycodone. Dispo planning. Aris Correa MD Subjective Mrs. Koenig was seen on rounds this morning. Pt is resting comfortably in bedside chair, offers no new complaints/questions/concerns. She remains hospitalized after suffering a mechanical GLF resulting in a nondisplaced R pelvic rami fracture. Deemed nonsurgical. Pt hospitalized for pain control and therapy. PT recommending SNF upon d/c unless assisted living ([facility]) feel that they can provide this level of therapy, if so, she can be discharged safely back to as sisted living facility. Per note, pt's pain medications (specifically the OxyIR) were held yesterday d/t some confusion. Also a UA performed 03/29 was concerning for UTI and she was started on empiric Rocephin. Presently, pt reports pain with ambulating. Denies cp, dyspnea, n/v/d, f/c, headache, or gu symptoms. Review of Systems Review of Systems: CONSTITUTIONAL: Denies weight loss/gain, fever and chills, fatigue, malaise, generalized weakness. HEENT: Denies changes in vision and hearing. RESPIRATORY: Denies SOB, cough, wheezing. CV: Denies palpitations, CP, lower extremity edema, orthopnea, PND. GI: Denies abdominal pain, nausea, vomiting and diarrhea. : Denies dysuria and urinary frequency, urgency, hesitancy. MUSCULOSKELETAL: +pain with ambulation in her pelvis SKIN: Denies rash and pruritus. NEUROLOGICAL: Denies headache, syncope, focal weakness, numbness, tingling. PSYCHIATRIC: Denies recent changes in mood. Denies anxiety and depression. Physical Exam Physical Exam: GENERAL: pleasant 86 yo elderly WF. Well-developed, well-nourished. NAD. LUNGS: Clear to auscultation bilaterally. No accessory muscle use. No W/R/R. CARDIOVASCULAR: Regular rate and rhythm. No M/G/R. No JVD. ABDOMEN: Soft, non-tender and non-distended. No palpable masses. Bowel sounds normoactive x 4 quad. EXTREMITIES: No edema. Non-tender. Peripheral pulses +2/4. NEUROLOGIC: A&O x3. M/S: tenderness to palpation of R anterior pelvis PSYCHIATRIC: Cooperative. Appropriate mood and affect. SKIN: Warm, dry, intact. No rashes or lesions. Results & Data Results & Data ([facility]) Vital Signs (Past 12 Hours) Vital Signs Temp Pulse Resp BP BP Pulse Ox 03/31/21 14:40 36.4 C L 64 14 137/78 91 11/15/21 09:40 64 143/76 H 03/31/21 07:25 36.4 C L 62 14 175/79 H 93 Laboratory Results 03/31/21 09:48 03/31/21 10:53 Na 136, Cl 107, CO2 23, BUN 13, Creat 0.75, Glucose 124 PG Care Time/CCT Total # of Minutes Spent Total Time Spent with Patient: Total time spent is greater than 50% in coordination of care (as documented) at patient's floor/unit and/or counseling patient: Coding Level of Care Code 32868 Subseq Hosp Care Lvl 2 Diagnoses Fall W19.XXXA Encounter type: initial encounter Closed pelvic fracture S32.9XXA Encounter type: initial encounter Fracture alignment: nondisplaced Pelvic bone location: unspecified part of pelvis UTI (urinary tract infection) N39.0 Hypertension I10 Anxiety F41.9 Osteoporosis M81.0 Hypothyroidism E03.9 GERD (gastroesophageal reflux disease) K21.9 Vitamin D deficiency E55.9 (1) Closed pelvic fracture Encounter type: initial encounter Fracture alignment: nondisplaced Pelvic bone location: unspecified part of pelvis Qualified Code(s): S32.9XXA - Fracture of unspecified parts of lumbosacral spine and pelvis, initial encounter for closed fracture (2) Fall Encounter type: initial encounter Qualified Code(s): W19.XXXA - Unspecified fall, initial encounter
[2021-03-31] MEDS: CALCIUM 600MG + VIT D 400 IU TAB PO SCH (20:43)
[2021-04-01] MEDS: LEVOTHYROXINE SODIUM 75 MCG TABLET PO SCH (05:36)
[2021-04-01] MEDS: cefTRIAXone SODIUM 1,000 MG in DEXTROSE 5% 50 ML IV SCH (08:41)
[2021-04-01] MEDS: METOPROLOL TARTRATE 25 MG TAB PO SCH ×2 (08:41→20:29)
[2021-04-01] MEDS: SERTRALINE HCL 50 MG TABLET PO SCH (08:42)
[2021-04-01] MEDS: DOCUSATE SODIUM 100 MG CAP PO SCH (08:42)
[2021-04-01] MEDS: SERTRALINE HCL 100 MG TABLET PO SCH (08:42)
[2021-04-01] MEDS: PANTOprazole 40 MG TAB PO SCH (08:42)
[2021-04-01] MEDS: RIVASTIGMINE TARTRATE 1.5 MG CAP PO SCH ×2 (08:43→20:30)
[2021-04-01] MEDS: ENOXAPARIN INJ 40 MG/0.4 ML SYR SQ SCH (08:43)
[2021-04-01] MEDS: CALCIUM 600MG + VIT D 400 IU TAB PO SCH ×2 (08:44→20:29)
--- NOTE | 2021-04-01 14:47 | Hospitalist Progress Note ---
Date of Service April 01, 2021 Assessment & Plan (1) Fall: Plan: * PT/OT on board - continue * CM on board for d/c planning - SNF (2) Closed pelvic fracture: Plan: * Patient sustained a nondisplaced right superior pubic ramus fracture * No indication for surgery * PT recommending SNF, [facility] wants her to go to SNF prior to returning to [facility] * Pain control ordered with Tramadol * Case management on board for d/c planning (3) UTI (urinary tract infection): Plan: * urinalysis shows evidence of UTI 2+ leukocyte esterase and >20-30 wbc * Urine culture three types of organisms present, likely contamination * Empiric IV ceftriaxone started 03/30 (today day #3) * Will d/c abx as she has received 72 hours which is sufficient for uncomplica amanda UTI (4) Hypertension: Plan: * Continue metoprolol tartrate 25mg PO BID with hold parameters * BP with good control (5) Anxiety: Plan: * Continue sertraline 125mg PO daily (6) Osteoporosis: Plan: * Vitamin D level low (12.4) * Continue her monthly ibandronate on discharge (7) Hypothyroidism: Plan: * TSH done this admission and WNL at 1.570 * Continue levothyroxine 75 mcg PO daily (8) GERD (gastroesophageal reflux disease): Plan: * Switch omeprazole to pantoprazole per hospital formulary (9) Vitamin D deficiency: Plan: * Initiate Vitamin D supplementation Plan: VTE Prophylaxis - Lovenox 40mg SQ daily Diet - regular Disposition - SNF for acute rehab, case management working on this (referrals sent). medically stable for d/c Admission and Anticipated Discharge Date Admission Date: March 28, 2021 Supervising Physician Co-Signing Physician Notes Attending Attestation: Chart reviewed in detail, care plan d/w Vida COLLINS. I agree w/ the carmona components of her documentation. UTI - urine culture w/ contaminants; did get 3 days of rocephin - to be d/c today. Pain 2nd to pelvic fracture - cont pain meds prn. Consider scheduled tylenol. Vit D def - needs replacement - recommend ergocalciferol weekly x 8 weeks. Dispo planning. Aris Correa MD Subjective Mrs. Koenig was seen on rounds this morning. Pt is resting comfortably in bedside chair, offers no new complaints/questions/concerns. She remains hospitalized after suffering a mechanical GLF resulting in a nondisplaced R pelvic rami fracture. Deemed nonsurgical. Pt hospitalized for pain control and therapy. PT recommending SNF. [facility] ([facility] wants her to do SNF prior to returning. Presently, pt reports pain with ambulating. Tramadol ordered for pain. Denies cp, dyspnea, n/v/d, f/c, headache, or gu symptoms. No issues reported by RN. Review of Systems Review of Systems: CONSTITUTIONAL: Denies weight loss/gain, fever and chills, fatigue, malaise, generalized weakness. HEENT: Denies changes in vision and hearing. RESPIRATORY: Denies SOB, cough, wheezing. CV: Denies palpitations, CP, lower extremity edema, orthopnea, PND. GI: Denies abdominal pain, nausea, vomiting and diarrhea. : Denies dysuria and urinary frequency, urgency, hesitancy. MUSCULOSKELETAL: +pain with ambulation in her pelvis SKIN: Denies rash and pruritus. NEUROLOGICAL: Denies headache, syncope, focal weakness, numbness, tingling. PSYCHIATRIC: Denies recent changes in mood. Denies anxiety and depression. Physical Exam Physical Exam: GENERAL: pleasant 86 yo elderly WF. Well-developed, well-nourished. NAD. LUNGS: Clear to auscultation bilaterally. No accessory muscle use. No W/R/R. CARDIOVASCULAR: Regular rate and rhythm. No M/G/R. No JVD. ABDOMEN: Soft, non-tender and non-distended. No palpable masses. Bowel sounds normoactive x 4 quad. EXTREMITIES: No edema. Non-tender. Peripheral pulses +2/4. NEUROLOGIC: A&O x3. M/S: tenderness to palpation of R anterior pelvis PSYCHIATRIC: Cooperative. Appropriate mood and affect. SKIN: Warm, dry, intact. No rashes or lesions. Results & Data Results & Data ([facility]) Vital Signs (Past 12 Hours) Vital Signs Temp Pulse Resp BP BP Pulse Ox 04/01/21 12:37 115/71 04/01/21 07:40 36.4 C L 61 16 184/81 H 174/79 H 92 Laboratory Results No labs PG Care Time/CCT Total # of Minutes Spent Total Time Spent with Patient: Total time spent is greater than 50% in coordination of care (as documented) at patient's floor/unit and/or counseling patient: Coding Level of Care Code 63960 Subseq Hosp Care Lvl 2 Diagnoses Fall W19.XXXA Encounter type: initial encounter Closed pelvic fracture S32.9XXA Encounter type: initial encounter Fracture alignment: nondisplaced Pelvic bone location: unspecified part of pelvis UTI (urinary tract infection) N39.0 Hypertension I10 Anxiety F41.9 Osteoporosis M81.0 Hypothyroidism E03.9 GERD (gastroesophageal reflux disease) K21.9 Vitamin D deficiency E55.9 (1) Closed pelvic fracture Encounter type: initial encounter Fracture alignment: nondisplaced Pelvic bone location: unspecified part of pelvis Qualified Code(s): S32.9XXA - Fracture of unspecified parts of lumbosacral spine and pelvis, initial encounter for closed fracture (2) Fall Encounter type: initial encounter Qualified Code(s): W19.XXXA - Unspecified fall, initial encounter
[2021-04-01] MEDS: ACETAMINOPHEN 325 MG TAB PO PRN (20:29)
[2021-04-02] MEDS: LEVOTHYROXINE SODIUM 75 MCG TABLET PO SCH (05:58)
--- NOTE | 2021-04-02 07:55 | Hospitalist Progress Note ---
Date of Service April 02, 2021 Assessment & Plan (1) Fall: Plan: * PT/OT on board - continue * CM on board for d/c planning - SNF (2) Closed pelvic fracture: Plan: Likely age related osteoporotic right superior pubic ramus fracture in setting of ground level fall * Patient sustained a nondisplaced right superior pubic ramus fracture * No indication for surgery * PT recommending SNF, [facility] wants her to go to SNF prior to returning to [facility] * Pain control ordered with Tramadol * Case management on board for d/c planning (3) UTI (urinary tract infection): Plan: * urinalysis shows evidence of UTI 2+ leukocyte esterase and >20-30 wbc * Urine culture three types of organisms present, likely contamination * Empiric IV ceftriaxone started 03/30 (today day #3) * Will d/c abx as she has received 72 hours which is sufficient for uncomplicated UTI (4) Hypertension: Plan: * Continue metoprolol tartrate 25mg PO BID with hold parameters * BP elevated in AM prior to med administration but improves after (5) Anxiety: Plan: * Continue sertraline 125mg PO daily (6) Osteoporosis: Plan: * Vitamin D level low (12.4) * Continue her monthly ibandronate on discharge (7) Hypothyroidism: Plan: * TSH done this admission and WNL at 1.570 * Continue levothyroxine 75 mcg PO daily (8) GERD (gastroesophageal reflux disease): Plan: * Switch omeprazole to pantoprazole per hospital formulary (9) Vitamin D deficiency: Plan: * Initiate Vitamin D supplementation Plan: VTE Prophylaxis - Lovenox 40mg SQ daily Diet - regular Disposition - SNF for acute rehab, case management working on this (referrals sent). medically stable for d/c Admission and Anticipated Discharge Date Admission Date: March 28, 2021 Supervising Physician Co-Signing Physician Notes Attending Attestation: Chart reviewed in detail, care plan d/w Vida COLLISN. I agree w/ the carmona components of her documentation. UTI - urine culture w/ contaminants; did get 3 days of rocephin - abx d/c. Pain 2nd to pelvic fracture - cont pain meds prn. Needs SNF placement which may take considerable time given recent bed shortages at all facilities. Aris Correa MD Subjective Mrs. Koenig was seen on rounds this morning. Pt is resting comfortably in bed, denies complaints/questions/concerns. She remains hospitalized after suffering a mechanical GLF resulting in a nondisplaced R pelvic rami fracture. Deemed nonsurgical. Pt hospitalized for pain control and therapy. PT recommending SNF. [facility] ([facility]) wants her to do SNF prior to returning. Presently, pt reports pain with ambulating. Tramadol ordered for pain. Denies cp, dyspnea, n/v/d, f/c, headache, or gu symptoms. No issues reported by RN. Review of Systems Review of Systems: CONSTITUTIONAL: Denies weight loss/gain, fever and chills, fatigue, malaise, generalized weakness. HEENT: Denies changes in vision and hearing. RESPIRATORY: Denies SOB, cough, wheezing. CV: Denies palpitations, CP, lower extremity edema, orthopnea, PND. GI: Denies abdominal pain, nausea, vomiting and diarrhea. : Denies dysuria and urinary frequency, urgency, hesitancy. MUSCULOSKELETAL: Denies pelvic pain at rest or with ambulation. SKIN: Denies rash and pruritus. NEUROLOGICAL: Denies headache, syncope, focal weakness, numbness, tingling. PSYCHIATRIC: Denies recent changes in mood. Denies anxiety and depression. Physical Exam Physical Exam: GENERAL: pleasant 86 yo elderly WF. WD/WN. A&Ox3. NAD. LUNGS: Clear to auscultation bilaterally. No accessory muscle use. No W/R/R. CARDIOVASCULAR: Regular rate and rhythm. No M/G/R. No JVD. ABDOMEN: Soft, non-tender and non-distended. No palpable masses. Bowel sounds normoactive x 4 quad. EXTREMITIES: No edema. Non-tender. Peripheral pulses +2/4. M/S: No tenderness to palpation. Able to move extremities w/o difficulty. PSYCHIATRIC: Cooperative. Appropriate mood and affect. SKIN: Warm, dry, intact. No rashes or lesions. Results & Data Results & Data ([facility]) Vital Signs (Past 12 Hours) Vital Signs Temp Pulse Resp BP BP Pulse Ox 04/02/21 07:15 36.5 C 58 L 16 180/80 H 91 04/01/21 23:09 36.8 C 65 17 182/79 H 93 04/01/21 20:28 62 131/76 Laboratory Results No labs today PG Care Time/CCT Total # of Minutes Spent Total Time Spent with Patient: Total time spent is greater than 50% in coordination of care (as documented) at patient's floor/unit and/or counseling patient: Coding Level of Care Code 07267 Subseq Hosp Care Lvl 2 Medical Decision Making Moderate Complexity Diagnoses Fall W19.XXXA Encounter type: initial encounter Closed pelvic fracture S32.9XXA Encounter type: initial encounter Fracture alignment: nondisplaced Pelvic bone location: unspecified part of pelvis UTI (urinary tract infection) N39.0 Hypertension I10 Anxiety F41.9 Osteoporosis M81.0 Hypothyroidism E03.9 GERD (gastroesophageal reflux disease) K21.9 Vitamin D deficiency E55.9 (1) Closed pelvic fracture Encounter type: initial encounter Fracture alignment: nondisplaced Pelvic bone location: unspecified part of pelvis Qualified Code(s): S32.9XXA - Fracture of unspecified parts of lumbosacral spine and pelvis, initial encounter for closed fracture (2) Fall Encounter type: initial encounter Qualified Code(s): W19.XXXA - Unspecified fall, initial encounter
[2021-04-02] MEDS: RIVASTIGMINE TARTRATE 1.5 MG CAP PO SCH ×2 (09:44→20:22)
[2021-04-02] MEDS: PANTOprazole 40 MG TAB PO SCH (09:44)
[2021-04-02] MEDS: METOPROLOL TARTRATE 25 MG TAB PO SCH ×2 (09:44→20:22)
[2021-04-02] MEDS: SERTRALINE HCL 50 MG TABLET PO SCH (09:45)
[2021-04-02] MEDS: DOCUSATE SODIUM 100 MG CAP PO SCH (09:45)
[2021-04-02] MEDS: SERTRALINE HCL 100 MG TABLET PO SCH (09:45)
[2021-04-02] MEDS: CALCIUM 600MG + VIT D 400 IU TAB PO SCH ×2 (09:46→20:23)
[2021-04-02] MEDS: ENOXAPARIN INJ 40 MG/0.4 ML SYR SQ SCH (09:51)
[2021-04-03] MEDS: LEVOTHYROXINE SODIUM 75 MCG TABLET PO SCH (06:11)
[2021-04-03] MEDS: SERTRALINE HCL 100 MG TABLET PO SCH (07:08)
[2021-04-03] MEDS: CALCIUM 600MG + VIT D 400 IU TAB PO SCH ×2 (07:08→21:15)
[2021-04-03] MEDS: PANTOprazole 40 MG TAB PO SCH (07:09)
[2021-04-03] MEDS: RIVASTIGMINE TARTRATE 1.5 MG CAP PO SCH ×2 (07:09→21:15)
[2021-04-03] MEDS: ENOXAPARIN INJ 40 MG/0.4 ML SYR SQ SCH (07:09)
[2021-04-03] MEDS: METOPROLOL TARTRATE 25 MG TAB PO SCH ×2 (07:09→21:15)
[2021-04-03] MEDS: DOCUSATE SODIUM 100 MG CAP PO SCH (07:10)
[2021-04-03] MEDS: SERTRALINE HCL 50 MG TABLET PO SCH (07:43)
--- NOTE | 2021-04-03 15:07 | Hospitalist Progress Note ---
Date of Service April 03, 2021 Assessment & Plan (1) Fall: Plan: * PT/OT on board - continue * CM on board for d/c planning - SNF (2) Closed pelvic fracture: Plan: Likely age related osteoporotic right superior pubic ramus fracture in setting of ground level fall * Patient sustained a nondisplaced right superior pubic ramus fracture * No indication for surgery * PT recommending SNF, [facility] wants her to go to SNF prior to returning to [facility] * Pain control ordered with Tramadol * Case management on board for d/c planning (3) UTI (urinary tract infection): Plan: * Resolved s/p treatment with Rocephin x 72 hours (4) Hypertension: Plan: * Continue metoprolol tartrate 25mg PO BID with hold parameters * BP elevated in AM prior to med administration but improves after (5) Anxiety: Plan: * Continue sertraline 125mg PO daily (6) Osteoporosis: Plan: * Vitamin D level low (12.4) * Continue her monthly ibandronate on discharge (7) Hypothyroidism: Plan: * TSH done this admission and WNL at 1.570 * Continue levothyroxine 75 mcg PO daily (8) GERD (gastroesophageal reflux disease): Plan: * Switch omeprazole to pantoprazole per hospital formulary (9) Vitamin D deficiency: Plan: * Initiate Vitamin D supplementation Plan: VTE Prophylaxis - Lovenox 40mg SQ daily Diet - regular Disposition - SNF for acute rehab, case management working on this (referrals sent, no returned calls as of yet). medically stable for d/c Admission and Anticipated Discharge Date Admission Date: March 28, 2021 Supervising Physician Co-Signing Physician Notes Attending Attestation: Chart reviewed in detail, care plan d/w Vida COLLINS. I agree w/ the carmona components of her documentation. Pain 2nd to pelvic fracture - cont pain meds prn. Needs SNF placement which may take considerable time given recent bed shortages at all facilities. Vitals remain stable. Aris Correa MD Subjective Mrs. Koenig was seen on rounds this morning. Pt is resting comfortably in bed, denies complaints/questions/concerns. She remains hospitalized after suffering a mechanical GLF resulting in a nondisplaced R pelvic ramus fracture. Deemed nonsurgical. Pt hospitalized for pain control and therapy. PT recommending SNF. [facility] ([facility] wants her to do SNF prior to returning. Presently, pt reports pain with ambulating. Tramadol ordered for pain. Pt c/o her "butt hurts" and pain with moving her right leg. Denies cp, dyspnea, n/v/d, f/c, headache, or gu symptoms. No issues reported by RN. Review of Systems Review of Systems: CONSTITUTIONAL: Denies weight loss/gain, fever and chills, fatigue, malaise, generalized weakness. HEENT: Denies changes in vision and hearing. RESPIRATORY: Denies SOB, cough, wheezing. CV: Denies palpitations, CP, lower extremity edema, orthopnea, PND. GI: Denies abdominal pain, nausea, vomiting and diarrhea. : Denies dysuria and urinary frequency, urgency, hesitancy. MUSCULOSKELETAL: + pain in buttocks with movement of R leg. SKIN: Denies rash and pruritus. NEUROLOGICAL: Denies headache, syncope, focal weakness, numbness, tingling. PSYCHIATRIC: Denies recent changes in mood. Denies anxiety and depression. Physical Exam Physical Exam: GENERAL: 86 yo elderly WF. Pleasant and cooperative. WD/WN. NAD. LUNGS: Clear to auscultation bilaterally. No accessory muscle use. No W/R/R. CARDIOVASCULAR: Regular rate and rhythm. No M/G/R. No JVD. ABDOMEN: Soft, non-tender and non-distended. No palpable masses. Bowel sounds normoactive x 4 quad. EXTREMITIES: No edema. Non-tender. Peripheral pulses +2/4. PSYCHIATRIC: Cooperative. Appropriate mood and affect. SKIN: Warm, dry, intact. No rashes or lesions. Results & Data Results & Data ([facility]) Vital Signs (Past 12 Hours) Vital Signs Temp Pulse Pulse Resp BP Pulse Ox 04/03/21 14:51 36.8 C 67 16 110/67 93 04/03/21 07:03 36.5 C 65 16 169/80 H 96 PG Care Time/CCT Total # of Minutes Spent Total Time Spent with Patient: Total time spent is greater than 50% in coordination of care (as documented) at patient's floor/unit and/or counseling patient: Coding Level of Care Code 95615 Subseq Hosp Care Lvl 2 Diagnoses Fall W19.XXXA Encounter type: initial encounter Closed pelvic fracture S32.9XXA Encounter type: initial encounter Fracture alignment: nondisplaced Pelvic bone location: unspecified part of pelvis UTI (urinary tract infection) N39.0 Hypertension I10 Anxiety F41.9 Osteoporosis M81.0 Hypothyroidism E03.9 GERD (gastroesophageal reflux disease) K21.9 Vitamin D deficiency E55.9 (1) Closed pelvic fracture Encounter type: initial encounter Fracture alignment: nondisplaced Pelvic bone location: unspecified part of pelvis Qualified Code(s): S32.9XXA - Fracture of unspecified parts of lumbosacral spine and pelvis, initial encounter for closed fracture (2) Fall Encounter type: initial encounter Qualified Code(s): W19.XXXA - Unspecified fall, initial encounter
[2021-04-04] MEDS: LEVOTHYROXINE SODIUM 75 MCG TABLET PO SCH (05:55)
[2021-04-04] MEDS: RIVASTIGMINE TARTRATE 1.5 MG CAP PO SCH ×2 (08:46→20:37)
[2021-04-04] MEDS: SERTRALINE HCL 50 MG TABLET PO SCH (08:46)
[2021-04-04] MEDS: CALCIUM 600MG + VIT D 400 IU TAB PO SCH ×2 (08:47→20:34)
[2021-04-04] MEDS: DOCUSATE SODIUM 100 MG CAP PO SCH (08:47)
[2021-04-04] MEDS: PANTOprazole 40 MG TAB PO SCH (08:47)
[2021-04-04] MEDS: METOPROLOL TARTRATE 25 MG TAB PO SCH ×2 (08:47→20:34)
[2021-04-04] MEDS: ENOXAPARIN INJ 40 MG/0.4 ML SYR SQ SCH (08:47)
[2021-04-04] MEDS: SERTRALINE HCL 100 MG TABLET PO SCH (08:47)
--- NOTE | 2021-04-04 10:47 | Hospitalist Progress Note ---
Date of Service April 04, 2021 Assessment & Plan (1) Fall: Plan: * PT/OT on board - continue * CM on board for d/c planning - SNF (2) Closed pelvic fracture: Plan: Likely age related osteoporotic right superior pubic ramus fracture in setting of ground level fall * Patient sustained a nondisplaced right superior pubic ramus fracture * No indication for surgery * PT recommending SNF, [facility] wants her to go to SNF prior to returning to [facility] * Pain control ordered with Tramadol * Case management on board for d/c planning (3) Hypertension: Plan: * Continue metoprolol tartrate 25mg PO BID with hold parameters * BP elevated in AM prior to med administration but improves after (4) Anxiety: Plan: * Continue sertraline 125mg PO daily (5) Osteoporosis: Plan: * Vitamin D level low (12.4) * Continue her monthly ibandronate on discharge (6) Hypothyroidism: Plan: * TSH done this admission and WNL at 1.570 * Continue levothyroxine 75 mcg PO daily (7) GERD (gastroesophageal reflux disease): Plan: * Switch omeprazole to pantoprazole per hospital formulary (8) Vitamin D deficiency: Plan: * Initiate Vitamin D supplementation Plan: VTE Prophylaxis - Lovenox 40mg SQ daily Diet - regular Disposition - SNF for acute rehab, case management working on this (? [facility] in [place]). medically stable for d/c Admission and Anticipated Discharge Date Admission Date: March 28, 2021 Supervising Physician Co-Signing Physician Notes Attending Attestation: Chart reviewed in detail, care plan d/w Vida COLLINS. I agree w/ the carmona components of her documentation. Pelvic fracture stable. Needs SNF placement for rehab prior to returning to prior level of living at [facility]. Aris Correa MD Subjective Mrs. Koenig was seen on rounds this morning. Pt is resting comfortably in bed, denies complaints/questions/concerns. She remains hospitalized after suffering a mechanical GLF resulting in a nondisplaced R pelvic ramus fracture. Deemed nonsurgical. Pt hospitalized for pain control and therapy. PT recommending SNF. [facility] ([facility]) wants her to do SNF prior to returning. Pt denies pain in her buttocks as compared to yesterday. Denies cp, dyspnea, n/v/d, f/c, headache, or gu symptoms. No issues reported by RN. Review of Systems Review of Systems: CONSTITUTIONAL: Denies weight loss/gain, fever and chills, fatigue, malaise, generalized weakness. HEENT: Denies changes in vision and hearing. RESPIRATORY: Denies SOB, cough, wheezing. CV: Denies palpitations, CP, lower extremity edema, orthopnea, PND. GI: Denies abdominal pain, nausea, vomiting and diarrhea. : Denies dysuria and urinary frequency, urgency, hesitancy. MUSCULOSKELETAL: no pain with movement/denies pain in buttocks today. SKIN: Denies rash and pruritus. NEUROLOGICAL: Denies headache, syncope, focal weakness, numbness, tingling. PSYCHIATRIC: Denies recent changes in mood. Denies anxiety and depression. Physical Exam Physical Exam: GENERAL: 86 yo elderly WF. Pleasant and cooperative. WD/WN. NAD. LUNGS: Clear to auscultation bilaterally. No accessory muscle use. No W/R/R. CARDIOVASCULAR: Regular rate and rhythm. No M/G/R. No JVD. ABDOMEN: Soft, NT/ND. No palpable masses. Bowel sounds normoactive x 4 quad. EXTREMITIES: No edema. Non-tender. Peripheral pulses +2/4. PSYCHIATRIC: Appropriate mood and affect. SKIN: Warm, dry, intact. No rashes or lesions. Results & Data Results & Data ([facility]) Vital Signs (Past 12 Hours) Vital Signs Temp Pulse Pulse Resp BP BP Pulse Ox 04/04/21 08:30 36.6 C 62 15 144/82 H 95 04/03/21 23:17 58 L 167/76 H PG Care Time/CCT Total # of Minutes Spent Total Time Spent with Patient: Total time spent is greater than 50% in coordination of care (as documented) at patient's floor/unit and/or counseling patient: Coding Level of Care Code 75493 Subseq Hosp Care Lvl 1 Diagnoses Fall W19.XXXA Encounter type: initial encounter Closed pelvic fracture S32.9XXA Encounter type: initial encounter Fracture alignment: nondisplaced Pelvic bone location: unspecified part of pelvis Hypertension I10 Anxiety F41.9 Osteoporosis M81.0 Hypothyroidism E03.9 GERD (gastroesophageal reflux disease) K21.9 Vitamin D deficiency E55.9 (1) Closed pelvic fracture Encounter type: initial encounter Fracture alignment: nondisplaced Pelvic bone location: unspecified part of pelvis Qualified Code(s): S32.9XXA - Fracture of unspecified parts of lumbosacral spine and pelvis, initial encounter for closed fracture (2) Fall Encounter type: initial encounter Qualified Code(s): W19.XXXA - Unspecified fall, initial encounter
[2021-04-05] MEDS: LEVOTHYROXINE SODIUM 75 MCG TABLET PO SCH (05:58)
[2021-04-05 07:02] LABS: Creatinine Clr Calc Pharmacy 48.7 ml/min; Est GFR (African American) 83.5 ml/min
[2021-04-05] MEDS: RIVASTIGMINE TARTRATE 1.5 MG CAP PO SCH ×2 (07:50→21:38)
[2021-04-05] MEDS: CALCIUM 600MG + VIT D 400 IU TAB PO SCH ×2 (07:50→21:37)
[2021-04-05] MEDS: ENOXAPARIN INJ 40 MG/0.4 ML SYR SQ SCH (07:51)
[2021-04-05] MEDS: PANTOprazole 40 MG TAB PO SCH (07:51)
[2021-04-05] MEDS: DOCUSATE SODIUM 100 MG CAP PO SCH (07:51)
[2021-04-05] MEDS: SERTRALINE HCL 50 MG TABLET PO SCH (07:51)
[2021-04-05] MEDS: SERTRALINE HCL 100 MG TABLET PO SCH (07:51)
[2021-04-05] MEDS: METOPROLOL TARTRATE 25 MG TAB PO SCH ×2 (07:51→21:38)
--- NOTE | 2021-04-05 14:19 | Hospitalist Progress Note ---
Date of Service April 05, 2021 Assessment & Plan (1) Fall: Plan: * PT/OT on board - continue * CM on board for d/c planning - SNF (2) Closed pelvic fracture: Plan: Likely age related osteoporotic right superior pubic ramus fracture in setting of ground level fall * Patient sustained a nondisplaced right superior pubic ramus fracture * No indication for surgery * PT recommending SNF, [facility] wants her to go to SNF prior to returning to [facility] * Pain control ordered with Tramadol * Case management on board for d/c planning (3) Hypertension: Plan: * Continue metoprolol tartrate 25mg PO BID with hold parameters * BP elevated in AM prior to med administration but improves after (4) Anxiety: Plan: * Continue sertraline 125mg PO daily (5) Osteoporosis: Plan: * Vitamin D level low (12.4) * Continue her monthly ibandronate on discharge (6) Hypothyroidism: Plan: * TSH done this admission and WNL at 1.570 * Continue levothyroxine 75 mcg PO daily (7) GERD (gastroesophageal reflux disease): Plan: * Switch omeprazole to pantoprazole per hospital formulary (8) Vitamin D deficiency: Plan: * Initiate Vitamin D supplementation Plan: VTE Prophylaxis - Lovenox 40mg SQ daily Diet - regular Disposition - SNF for acute rehab, case management working on this (? [facility] in [place]). medically stable for d/c Admission and Anticipated Discharge Date Admission Date: March 28, 2021 Supervising Physician Co-Signing Physician Notes Attending Attestation: Chart reviewed in detail, care plan d/w Vida COLLINS. I agree w/ the carmona components of her documentation. Awaiting SNF placement. Aris Correa MD Subjective Mrs. Koenig was seen on rounds this morning. Pt is resting comfortably in bedside chair. She remains hospitalized after suffering a mechanical GLF resulting in a nondisplaced R pelvic ramus fracture. Deemed nonsurgical. Pt hospitalized for pain control and therapy. PT recommending SNF, no available beds anywhere as of yet. Pt says she sometimes gets pain in her groin with movement of right leg, but denies pain at rest. Denies cp, dyspnea, n/v/d, f/c, headache, or gu symptoms. Review of Systems Review of Systems: CONSTITUTIONAL: Denies weight loss/gain, fever and chills, fatigue, malaise, generalized weakness. HEENT: Denies changes in vision and hearing. RESPIRATORY: Denies SOB, cough, wheezing. CV: Denies palpitations, CP, lower extremity edema, orthopnea, PND. GI: Denies abdominal pain, nausea, vomiting and diarrhea. : Denies dysuria and urinary frequency, urgency, hesitancy. MUSCULOSKELETAL: groin pain with movement of R leg/denies pain in buttocks today. SKIN: Denies rash and pruritus. NEUROLOGICAL: Denies headache, syncope, focal weakness, numbness, tingling. PSYCHIATRIC: Denies recent changes in mood. Denies anxiety and depression. Physical Exam Physical Exam: GENERAL: 86 yo elderly WF. Pleasant and cooperative. WD/WN. NAD. LUNGS: Clear to auscultation bilaterally. No accessory muscle use. No W/R/R. CARDIOVASCULAR: Regular rate and rhythm. No M/G/R. No JVD. ABDOMEN: Soft, NT/ND. No palpable masses. Bowel sounds normoactive x 4 quad. EXTREMITIES: No edema. Non-tender. Peripheral pulses +2/4. PSYCHIATRIC: Appropriate mood and affect. SKIN: Warm, dry, intact. No rashes or lesions. Results & Data Results & Data ([facility]) Vital Signs (Past 12 Hours) Vital Signs Temp Pulse Resp BP BP Pulse Ox 04/05/21 08:05 36.7 C 64 14 149/82 H 94 04/05/21 07:53 62 149/72 H Laboratory Results no labs PG Care Time/CCT Total # of Minutes Spent Total Time Spent with Patient: Total time spent is greater than 50% in coordination of care (as documented) at patient's floor/unit and/or counseling patient: Coding Level of Care Code 27888 Subseq Hosp Care Lvl 1 Diagnoses Fall W19.XXXA Encounter type: initial encounter Closed pelvic fracture S32.9XXA Encounter type: initial encounter Fracture alignment: nondisplaced Pelvic bone location: unspecified part of pelvis Hypertension I10 Anxiety F41.9 Osteoporosis M81.0 Hypothyroidism E03.9 GERD (gastroesophageal reflux disease) K21.9 Vitamin D deficiency E55.9 (1) Closed pelvic fracture Encounter type: initial encounter Fracture alignment: nondisplaced Pelvic bone location: unspecified part of pelvis Qualified Code(s): S32.9XXA - Fracture of unspecified parts of lumbosacral spine and pelvis, initial encounter for closed fracture (2) Fall Encounter type: initial encounter Qualified Code(s): W19.XXXA - Unspecified fall, initial encounter
[2021-04-06] MEDS: LEVOTHYROXINE SODIUM 75 MCG TABLET PO SCH (05:33)
[2021-04-06] MEDS: SERTRALINE HCL 100 MG TABLET PO SCH (09:02)
[2021-04-06] MEDS: PANTOprazole 40 MG TAB PO SCH (09:02)
[2021-04-06] MEDS: DOCUSATE SODIUM 100 MG CAP PO SCH (09:02)
[2021-04-06] MEDS: ENOXAPARIN INJ 40 MG/0.4 ML SYR SQ SCH (09:02)
[2021-04-06] MEDS: METOPROLOL TARTRATE 25 MG TAB PO SCH ×2 (09:02→21:05)
[2021-04-06] MEDS: CALCIUM 600MG + VIT D 400 IU TAB PO SCH ×2 (09:02→21:04)
[2021-04-06] MEDS: RIVASTIGMINE TARTRATE 1.5 MG CAP PO SCH ×2 (09:02→21:04)
[2021-04-06] MEDS: SERTRALINE HCL 50 MG TABLET PO SCH (09:03)
--- NOTE | 2021-04-06 12:56 | Hospitalist Progress Note ---
Date of Service April 06, 2021 Assessment & Plan (1) Fall: Plan: * PT/OT on board - continue * CM on board for d/c planning - SNF (2) Closed pelvic fracture: Plan: Likely age related osteoporotic right superior pubic ramus fracture in setting of ground level fall * Patient sustained a nondisplaced right superior pubic ramus fracture * No indication for surgery * PT recommending SNF, [facility] wants her to go to SNF prior to returning to [facility] * Pain control ordered with Tramadol * Case management on board for d/c planning (3) Hypertension: Plan: * Continue metoprolol tartrate 25mg PO BID with hold parameters * BP elevated in AM prior to med administration but improves after (4) Anxiety: Plan: * Continue sertraline 125mg PO daily (5) Osteoporosis: Plan: * Vitamin D level low (12.4) * Continue her monthly ibandronate on discharge (6) Hypothyroidism: Plan: * TSH done this admission and WNL at 1.57 * Continue levothyroxine 75 mcg PO daily (7) GERD (gastroesophageal reflux disease): Plan: * Switch omeprazole to pantoprazole per hospital formulary (8) Vitamin D deficiency: Plan: * Initiate Vitamin D supplementation Plan: VTE Prophylaxis - Lovenox 40mg SQ daily Diet - regular Disposition - SNF for acute rehab, case management working on this (? [facility] in [place]). medically stable for d/c Admission and Anticipated Discharge Date Admission Date: March 28, 2021 Supervising Physician Co-Signing Physician Notes Attending Attestation: Chart reviewed in detail, care plan d/w Vida COLLINS. I agree w/ the carmona components of her documentation. Awaiting SNF placement. Vitamin D deficiency -- plan 8 weeks of once weekly ergocalciferol 83955 units. Order first dose for tomorrow AM. Level was 12 this admission. Vitals remain stable. Aris Correa MD Subjective Mrs. Koenig was seen on rounds this morning. Pt is resting comfortably in bed, eating breakfast. She remains hospitalized after suffering a mechanical GLF resulting in a nondisplaced R pelvic ramus fracture. Deemed nonsurgical. Pt hospitalized for pain control and therapy. PT recommending SNF, no available beds anywhere as of yet. No pain in her groin/pelvis at rest, sometimes noted with certain movement. Denies cp, dyspnea, n/v/d, f/c, headache, or gu symptoms. Review of Systems Review of Systems: CONSTITUTIONAL: Denies weight loss/gain, fever and chills, fatigue, malaise, generalized weakness. HEENT: Denies changes in vision and hearing. RESPIRATORY: Denies SOB, cough, wheezing. CV: Denies palpitations, CP, lower extremity edema, orthopnea, PND. GI: Denies abdominal pain, nausea, vomiting and diarrhea. : Denies dysuria and urinary frequency, urgency, hesitancy. MUSCULOSKELETAL: groin pain with movement of R leg/denies pain in buttocks today. SKIN: Denies rash and pruritus. NEUROLOGICAL: Denies headache, syncope, focal weakness, numbness, tingling. PSYCHIATRIC: Denies recent changes in mood. Denies anxiety and depression. Physical Exam Physical Exam: GENERAL: 86 yo elderly WF. Pleasant and cooperative. WD/WN. NAD. LUNGS: Clear to auscultation bilaterally. No accessory muscle use. No W/R/R. CARDIOVASCULAR: Regular rate and rhythm. No M/G/R. No JVD. ABDOMEN: Soft, NT/ND. No palpable masses. Bowel sounds normoactive x 4 quad. EXTREMITIES: No edema. Non-tender. Peripheral pulses +2/4. PSYCHIATRIC: Appropriate mood and affect. SKIN: Warm, dry, intact. No rashes or lesions. Results & Data Results & Data ([facility]) Vital Signs (Past 12 Hours) Vital Signs Temp Pulse Resp BP BP Pulse Ox 04/06/21 09:00 64 157/82 H 04/06/21 07:40 36.5 C 63 16 150/77 H 92 PG Care Time/CCT Total # of Minutes Spent Total Time Spent with Patient: Total time spent is greater than 50% in coordination of care (as documented) at patient's floor/unit and/or counseling patient: Coding Level of Care Code 53029 Subseq Hosp Care Lvl 1 Diagnoses Fall W19.XXXA Encounter type: initial encounter Closed pelvic fracture S32.9XXA Encounter type: initial encounter Fracture alignment: nondisplaced Pelvic bone location: unspecified part of pelvis Hypertension I10 Anxiety F41.9 Osteoporosis M81.0 Hypothyroidism E03.9 GERD (gastroesophageal reflux disease) K21.9 Vitamin D deficiency E55.9 (1) Closed pelvic fracture Encounter type: initial encounter Fracture alignment: nondisplaced Pelvic bone location: unspecified part of pelvis Qualified Code(s): S32.9XXA - Fracture of unspecified parts of lumbosacral spine and pelvis, initial encounter for closed fracture (2) Fall Encounter type: initial encounter Qualified Code(s): W19.XXXA - Unspecified fall, initial encounter
[2021-04-07] MEDS: LEVOTHYROXINE SODIUM 75 MCG TABLET PO SCH (05:30)
[2021-04-07] MEDS: SERTRALINE HCL 100 MG TABLET PO SCH (09:15)
[2021-04-07] MEDS: SERTRALINE HCL 50 MG TABLET PO SCH (09:15)
[2021-04-07] MEDS: METOPROLOL TARTRATE 25 MG TAB PO SCH ×2 (09:15→21:09)
[2021-04-07] MEDS: PANTOprazole 40 MG TAB PO SCH (09:16)
[2021-04-07] MEDS: DOCUSATE SODIUM 100 MG CAP PO SCH (09:16)
[2021-04-07] MEDS: CALCIUM 600MG + VIT D 400 IU TAB PO SCH ×2 (09:16→21:09)
[2021-04-07] MEDS: RIVASTIGMINE TARTRATE 1.5 MG CAP PO SCH ×2 (09:16→21:09)
[2021-04-07] MEDS: ENOXAPARIN INJ 40 MG/0.4 ML SYR SQ SCH (09:17)
[2021-04-07] MEDS ORDERED: ERGOCALCIFEROL 50,000 UNITS 1250 MCG CAP PO ONE (11:30)
--- NOTE | 2021-04-07 17:02 | Hospitalist Progress Note ---
Date of Service April 07, 2021 Assessment & Plan (1) Fall: Plan: Fall resulting in closed pelvic fracture PT/OT on board Patient resides at the [facility]. PT recommending longterm facility Case management on board, awaiting placement (2) Closed pelvic fracture: Plan: Nondisplaced right superior pubic ramus fracture No indication for surgery Pain adequately controlled. Tramadol on board as needed but patient has not been utilizing this (3) Hypertension: Plan: Continue metoprolol tartrate 25mg PO BID with hold parameters (BP: 124/75) (4) Anxiety: Plan: Continue sertraline 125mg PO daily (5) Osteoporosis: Plan: * Vitamin D level low (12.4) * Continue her monthly ibandronate on discharge (6) Hypothyroidism: Plan: * TSH done this admission and WNL at 1.57 * Continue levothyroxine 75 mcg PO daily (7) GERD (gastroesophageal reflux disease): Plan: * Switch omeprazole to pantoprazole per hospital formulary (8) Vitamin D deficiency: Plan: * Initiate Vitamin D supplementation Plan: VTE Prophylaxis - Lovenox 40mg SQ daily Diet - regular Disposition - SNF for acute rehab, case management working on this (? [facility] in [place]). medically stable for d/c Admission and Anticipated Discharge Date Admission Date: March 28, 2021 Subjective Patient seen on daily rounds today. Vocalizes no significant complaints or concerns. Pain is adequately controlled. Tolerating pain medication without ill effects. Denies fevers, chills, chest pain, shortness of breath, abdominal pain, nausea or vomiting. Review of Systems Review of Systems: All systems reviewed and are unremarkable except as noted in HPI and below Denies fevers, chills, headache, nasal congestion, sore throat, cough, chest pain, shortness of breath, palpitations, orthopnea, PND, abdominal pain, nausea, vomiting, diarrhea, constipation, dysuria, hematuria, frequency, back pain, joint pain or swelling, easy bruising or bleeding, skin lesions or rashes. Physical Exam Physical Exam: General: Resting comfortably in her hospital bed. NAD. HEENT: Head is AT/NC buccal mucosa is moist and pink Neck: No JVD. Negative hepatojugular reflex Cardiac: Distant heart sounds Lungs: CTA without W/R/R Abdomen: Normoactive X4. Soft and nontender in all quadrants. Extremities: No peripheral clubbing cyanosis or edema Neuro: A&O X4 cranial nerves II through XII are grossly intact no focal neuro deficits Skin: No obvious skin lesions or rashes Psych: Appropriate affect pleasant and cooperative Results & Data Results & Data ([facility]) Vital Signs (Past 12 Hours) Vital Signs Temp Pulse Resp BP Pulse Ox 04/07/21 15:41 36.5 C 64 18 124/75 94 04/07/21 07:40 37.1 C 61 16 145/77 H 92 Laboratory Results No lab data PG Care Time/CCT Total # of Minutes Spent Total Time Spent with Patient: Total time spent is greater than 50% in coordination of care (as documented) at patient's floor/unit and/or counseling patient: Coding Level of Care Code 81843 Subseq Hosp Care Lvl 1 Diagnoses Fall W19.XXXA Encounter type: initial encounter Closed pelvic fracture S32.9XXA Encounter type: initial encounter Fracture alignment: nondisplaced Pelvic bone location: unspecified part of pelvis Hypertension I10 Anxiety F41.9 Osteoporosis M81.0 Hypothyroidism E03.9 GERD (gastroesophageal reflux disease) K21.9 Vitamin D deficiency E55.9 (1) Fall Encounter type: initial encounter Qualified Code(s): W19.XXXA - Unspecified fall, initial encounter (2) Closed pelvic fracture Encounter type: initial encounter Fracture alignment: nondisplaced Pelvic bone location: unspecified part of pelvis Qualified Code(s): S32.9XXA - Fracture of unspecified parts of lumbosacral spine and pelvis, initial encounter for closed fracture
[2021-04-08] MEDS: LEVOTHYROXINE SODIUM 75 MCG TABLET PO SCH (05:18)
[2021-04-08 08:02] LABS: Creatinine Clr Calc Pharmacy 52.9 ml/min; Est GFR (African American) 92.2 ml/min; Est GFR (Non-African American) 79.6 ml/min
[2021-04-08] MEDS: METOPROLOL TARTRATE 25 MG TAB PO SCH ×2 (08:26→19:58)
[2021-04-08] MEDS: ENOXAPARIN INJ 40 MG/0.4 ML SYR SQ SCH (08:27)
[2021-04-08] MEDS: SERTRALINE HCL 50 MG TABLET PO SCH (08:27)
[2021-04-08] MEDS: RIVASTIGMINE TARTRATE 1.5 MG CAP PO SCH ×2 (08:27→19:58)
[2021-04-08] MEDS: CALCIUM 600MG + VIT D 400 IU TAB PO SCH ×2 (08:27→19:58)
[2021-04-08] MEDS: DOCUSATE SODIUM 100 MG CAP PO SCH (08:27)
[2021-04-08] MEDS: PANTOprazole 40 MG TAB PO SCH (08:27)
[2021-04-08] MEDS: SERTRALINE HCL 100 MG TABLET PO SCH (08:28)
--- NOTE | 2021-04-08 16:44 | Hospitalist Progress Note ---
Date of Service April 08, 2021 Assessment & Plan (1) Fall: Plan: Fall resulting in closed pelvic fracture PT/OT on board Patient resides at the [facility]. PT recommending longterm facility Case management on board, awaiting placement (2) Closed pelvic fracture: Plan: Nondisplaced right superior pubic ramus fracture No indication for surgery Pain adequately controlled. Tramadol on board as needed but patient has not been utilizing this (3) Hypertension: Plan: Continue metoprolol tartrate 25mg PO BID with hold parameters (BP: 124/75) (4) Anxiety: Plan: Continue sertraline 125mg PO daily (5) Osteoporosis: Plan: * Vitamin D level low (12.4) * Continue her monthly ibandronate on discharge (6) Hypothyroidism: Plan: * TSH done this admission and WNL at 1.57 * Continue levothyroxine 75 mcg PO daily (7) GERD (gastroesophageal reflux disease): Plan: * Switch omeprazole to pantoprazole per hospital formulary (8) Vitamin D deficiency: Plan: * Initiate Vitamin D supplementation Plan: VTE Prophylaxis - Lovenox 40mg SQ daily Diet - regular Disposition - SNF for acute rehab, case management working on this medically stable for d/c Admission and Anticipated Discharge Date Admission Date: March 28, 2021 Subjective Patient seen on daily rounds today. Very withdrawn with today's exam. Nursing reports that she "wants to be left alone and left to sleep". Not cooperative with my exam today. Opens her eyes to look at me and when she realizes I am still at the bedside, quickly closes her eyes and pretends to sleep. Review of Systems Review of Systems: Unobtainable Physical Exam Physical Exam: Limited exam today due to lack of cooperation General: Resting comfortably in her hospital bed. Very withdrawn. Not cooperative with today's exam. Opens her eyes briefly and quickly closes them in pretends to sleep when she realizes I am still at the bedside. HEENT: Head is AT/NC buccal mucosa is moist and pink Neck: No JVD. Negative hepatojugular reflex Cardiac: RRR but distant heart sounds Lungs: CTA without W/R/R Abdomen: Normoactive X4. Soft and nontender in all quadrants. Extremities: No peripheral clubbing cyanosis or edema Neuro: Exam very limited as outlined above Skin: No obvious skin lesions or rashes Psych: Appropriate affect pleasant and cooperative Results & Data Results & Data ([facility]) Vital Signs (Past 12 Hours) Vital Signs Temp Pulse Resp BP BP Pulse Ox 04/08/21 15:41 36.7 C 62 18 117/72 93 04/08/21 07:14 36.5 C 56 L 20 163/73 H 92 Laboratory Results 03/31/21 09:48 04/08/21 06:58 PG Care Time/CCT Total # of Minutes Spent Total Time Spent with Patient: Total time spent is greater than 50% in coordination of care (as documented) at patient's floor/unit and/or counseling patient: Coding Level of Care Code 61712 Subseq Hosp Care Lvl 1 Diagnoses Fall W19.XXXA Encounter type: initial encounter Closed pelvic fracture S32.9XXA Encounter type: initial encounter Fracture alignment: nondisplaced Pelvic bone location: unspecified part of pelvis Hypertension I10 Anxiety F41.9 Osteoporosis M81.0 Hypothyroidism E03.9 GERD (gastroesophageal reflux disease) K21.9 Vitamin D deficiency E55.9 (1) Fall Encounter type: initial encounter Qualified Code(s): W19.XXXA - Unspecified fall, initial encounter (2) Closed pelvic fracture Encounter type: initial encounter Fracture alignment: nondisplaced Pelvic bone location: unspecified part of pelvis Qualified Code(s): S32.9XXA - Fracture of unspecified parts of lumbosacral spine and pelvis, initial encounter for closed fracture
[2021-04-09] MEDS: LEVOTHYROXINE SODIUM 75 MCG TABLET PO SCH (05:40)
[2021-04-09] MEDS: RIVASTIGMINE TARTRATE 1.5 MG CAP PO SCH (09:10)
[2021-04-09] MEDS: METOPROLOL TARTRATE 25 MG TAB PO SCH (09:10)
[2021-04-09] MEDS: PANTOprazole 40 MG TAB PO SCH (09:11)
[2021-04-09] MEDS: DOCUSATE SODIUM 100 MG CAP PO SCH (09:11)
[2021-04-09] MEDS: SERTRALINE HCL 100 MG TABLET PO SCH (09:11)
[2021-04-09] MEDS: ENOXAPARIN INJ 40 MG/0.4 ML SYR SQ SCH (09:11)
[2021-04-09] MEDS: CALCIUM 600MG + VIT D 400 IU TAB PO SCH (09:11)
[2021-04-09] MEDS: SERTRALINE HCL 50 MG TABLET PO SCH (09:40)
--- NOTE | 2021-04-09 16:01 | Discharge Summary ---
Date of Service April 09, 2021 Admission HPI Per Admitting Provider Martha Koenig is an 86 year old female from the [place] who presents to the ER with following a fall. Fall occurred earlier today while losing her balance when she tried putting on a shirt. She is having right hip, knee and ankle pain following the fall. Fall unwitnessed but she denies any chest pain, shortness of breath or dizziness prior to falling. She takes Boniva for osteoporosis. Discussed care with her Grandaughter over the phone Umbertomary Sarah ([phone]) who is her acting power of consumer attorney since her son . Confirmed patient is for full code. In the ER imaging of pelvis, shoulder, spine, head, right knee/ankle/femur showed acute to subacute non displaced fracture of superior pubic ramus. Principal Diagnosis 1. Ground-level fall 2. Closed pelvic fracture Discharge Exam General: Resting comfortably in her bedside chair. NAD. HEENT: Head is AT/NC buccal mucosa is moist and pink Neck: No JVD. Negative hepatojugular reflex Cardiac: RRR without M/G/R Lungs: CTA without W/R/R Abdomen: Normoactive X4. Soft and nontender in all quadrants. Extremities: No peripheral clubbing cyanosis or edema Neuro: A&O X4 cranial nerves II through XII are grossly intact no focal neuro deficits Skin: No obvious skin lesions or rashes Psych: Appropriate affect pleasant and cooperative Discharge Data Allergies Allergy/AdvReac Type Severity Reaction Status Date / Time bacitracin Allergy Rash Verified 03/28/21 07:37 [From Neosporin ([id number])] neomycin Allergy Rash Verified 03/28/21 07:37 [From Neosporin ([id number])] pollen extracts Allergy Unknown Verified 03/28/21 07:37 polymyxin B Allergy Rash Verified 03/28/21 07:37 [From Neosporin ([id number])] Consultations 03/28/21 08:53 ED Decision to Admit Stat Ordered Studies xray of the right ankle IMPRESSION: No acute osseous pathology. xray of the right femur: IMPRESSION: 1. Acute to subacute appearing nondisplaced fracture of the right superior pubic ramus is new from 03/26/2018. 2. ORIF changes of the right femur without evidence of hardware complication. xray of the right knee: IMPRESSION: No acute bony abnormality is identified. xray of the pelvis: IMPRESSION: No acute abnormality. No interval change. The patient is again status post internal fixation on the right with heterotopic bone formation present. CXR: IMPRESSION: Cardiomegaly with no acute cardiopulmonary abnormality. xray of the right shoulder: IMPRESSION: No acute bony abnormality is identified. 03/28/21 07:08 CT head/brain wo con Stat IMPRESSION: There is no hemorrhage, mass effect, or evidence of acute territorial ischemia by CT criteria. 03/28/21 10:42 CT cervical spine wo con Stat IMPRESSION: Osteopenia with no acute abnormality. Marked degenerative disc and degenerative joint disease. Hospital Course (1) Fall: Fall resulting in closed pelvic fracture PT/OT on board Patient resides at the [facility]. PT recommending custodial facility (2) Closed pelvic fracture: Nondisplaced right superior pubic ramus fracture No indication for surgery Pain adequately controlled. Tramadol on board as needed but patient has not been utilizing this Patient transferring from the bed to the chair using pivoting steps Should follow-up with orthopedics as will likely need follow-up imaging to ensure healing. This could be ordered by the house physician as well. (3) Hypertension: Continue metoprolol tartrate 25mg PO BID with hold parameters (BP: 124/75) (4) Anxiety: Continue sertraline 125mg PO daily (5) Osteoporosis: * Vitamin D level low (12.4) * Continue her monthly ibandronate along with calcium plus D (6) Hypothyroidism: * TSH done this admission and WNL at 1.57 * Continue levothyroxine 75 mcg PO daily (7) GERD (gastroesophageal reflux disease): * Switch omeprazole to pantoprazole per hospital formulary (8) Vitamin D deficiency: * Initiated Vitamin D supplementation VTE Prophylaxis - Lovenox 40mg SQ daily while in house. Encourage continued PT/OT with ambulation upon discharge Discharge to SNF for continued inpatient rehabilitation. Patient currently medically hemodynamically stable for discharge. Total Time Total Time Spent Total Time Spent (In Minutes): 45 Discharge Plan Discharge Items Patient Disposition: Transfer Intermediate Fac Reason For Visit: PELVIS FRACTURE,FALL Discharge Diagnosis: 1. pelvic fracture 2. Vitamin D Deficiency Activity: Resume your previous activity Activity Comment: with PT/OT Non-emergency contact: Primary Care Provider and Specialist Call non-emergency contact if: you have any medication questions Follow-up/Referrals: COTY, [Primary Care Provider] - Diet: Heart Healthy Add Attending Provider Instructions: - you were hospitalized with a closed pelvic fracture following a ground level fall - this is nonsurgical - use Tramadol as needed for pain - refer to Orthopedics as will likely need follow up xrays to ensure adequate healing - started on Calcium +D along with additional Vitamin D supplementation while in house for low vitamin D level - be sure to remain active to prevent the risk of blood clots. - Typically resides at the [facility]. D/C to [facility] for rehab until safe to return back to - follow up with house Physician within 24-48 hours Pending Studies at Discharge: No Stand-Alone Forms: My [facility] Skilled Items Patient informed of condition?: Yes DNR: No Discharge Level of Care: Skilled Communicable Disease: No Discharge Prognosis: Stable Lines: None Urinary Catheter: No Medications and DC Order Prescriptions: New tramadol 50 mg Tablet 50 mg PO Q4H PRN (Reason: pain) Qty: 30 RF: 0 Caltrate 600-D Plus Minerals 600 mg calcium- 800 unit-50 mg Tablet 1 tab PO BID Qty: 60 RF: 0 cholecalciferol (vitamin D3) [Vitamin D3] 25 mcg (1,000 unit) capsule 1,000 unit PO DAILY Qty: 30 RF: 0 Continued sertraline [Zoloft] 100 mg Tablet 100 mg PO QAM RF: 0 levothyroxine [Synthroid] 75 mcg Tablet 75 mcg PO QAM RF: 0 docusate sodium [Colace] 100 mg Capsule 100 mg PO DAILY RF: 0 bisacodyl [Dulcolax (bisacodyl)] 5 mg Tablet,Delayed Release (Dr/Ec) 10 mg PO DAILY PRN (Reason: Constipation) RF: 0 hydrocortisone 1 % Cream 1 applic TOPICAL BID PRN (Reason: Itching) RF: 0 Icy Hot 30-10 % Cream 1 applic TOPICAL QID PRN (Reason: Pain) RF: 0 metoprolol tartrate 50 mg Tablet 25 mg PO BID RF: 0 sertraline [Zoloft] 25 mg Tablet 25 mg PO QAM RF: 0 omeprazole 20 mg Capsule,Delayed Release(Dr/Ec) 20 mg PO QAM RF: 0 ibandronate [Boniva] 150 mg Tablet 150 mg PO DIRECTED RF: 0 rivastigmine tartrate 3 mg Capsule 3 mg PO BID RF: 0 acetaminophen 500 mg Tablet 500 mg PO Q6H PRN (Reason: Pain) RF: 0 vitamin E (dl, acetate) 180 mg (400 unit) capsule 180 mg PO DAILY RF: 0 Discharge Orders: Discharge Order (Routine); Ordered 04/09/21 Ordered By: Padma Rodriguez Admission Data Admit Date/Time: 03/28/21 12:24 Attending Provider: Juan Carlos Davis Admit Provider: Aris Rodriguez Primary Care Provider: Jessica ANSARI Providers: [facility] ; Lise Somers at [facility] ; Juan Carlos Davis Other Interventions: Discharge Summary Assessment (RN) Last Done: 04/09/21 13:31 Supervising Physician Co-Signing Physician Notes I supervised Padma Rodriguez PA-C on the care of this patient. I interviewed and examined the patient independently of her. The plan is as written in her note except for any following changes/exceptions: None Doing well today. No pain. Mildly confused. Coding Level of Care Code D/C DAY MANAGEMENT >30 MINS Diagnoses Fall W19.XXXA Encounter type: initial encounter Closed pelvic fracture S32.9XXA Encounter type: initial encounter Fracture alignment: nondisplaced Pelvic bone location: unspecified part of pelvis Hypertension I10 Anxiety F41.9 Osteoporosis M81.0 Hypothyroidism E03.9 GERD (gastroesophageal reflux disease) K21.9 Vitamin D deficiency E55.9
== END 2021-04-09 15:08 | DRG 543 ==
LOC: ED 06:25 → EDINP 12:24 → SUATTDRO 12:24 → 3N 19:59

== ENCOUNTER 2021-05-13 10:14 | Observation (INO) ==
[2021-05-13] MEDS ORDERED: OPTIRAY 320 125ml IV ONE (10:27)
--- NOTE | 2021-05-13 10:33 | History & Physical Report ---
Date of Service May 13, 2021 Assessment & Plan (1) Stroke-like symptoms: Plan: Stroke-Like symptoms (Aphasia, Weakness, Facial Droop), Stroke alert eval NIHSS 4 on arrival, 1+ facial palsy, 1+ left arm drift, 1+ left leg drift, 1+ right leg drift No leukocytosis - 9:15am last known well. EMS called just before 10am, staff found her with aphasia, R sided facial droop, and listing gait. BSG normal, aphasic at EMS assessment and globally weak with facial droop. CTA/CT-H naf, EKG nsr, vitals wnl. - NIHSS score 12 on ER provider assessment, with sudden spontaneous improvement to 4 --> 3 in ER. - [facility] [place] [facility] Harris.. No lysis, metabolic workup for genearlized component, ASA. Cath urine. Hemoglobin 11.5 Creatinine baseline less than 1, on admission is at 0.70 Troponin negative Received aspirin 324 mg chewable on arrival - Head/neck CTA: No evidence of hemorrhage, mass-effect, or acute territorial ischemia. Unremarkable CT angio of the brain/neck - CThead: No acute intracerebral pathology, cerebral cortical atrophy and extensive remote small vessel disease appreciated Lipid panel pending, as long as LDL not critically low start atorvastatin 40 mg daily Blood pressure 177/82 on admission permissive hypertension, TX if greater than 220/120 resume metoprolol home dose tomorrow (2) Alkaline phosphatase elevation: Plan: Alk phos Intermittent elevation in past on admission. No transaminitis. No history of cholecystectomy - ?elevation in setting of recent closed fxr Trend, consider hepatobiliary ultrasound if not improving Recent admission for mechanical fall with closed pelvic fracture No indication for surgery admission PT/OT consulted (3) Hypertension: Plan: Hypertension Home metoprolol tartrate 25 mg p.o. twice daily resume tomorrow (4) Anxiety: Plan: Anxiety Continue home sertraline 125 mg p.o. daily (5) Hypothyroidism: Plan: Hypothyroidism Continue home Synthroid 75 mcg p.o. daily TSH pending (6) GERD (gastroesophageal reflux disease): Plan: GERD Continue PPI, converted omeprazole to formulary pantoprazole while inpatient Protonix 20 mg p.o. every morning (7) Vitamin D deficiency: Plan: Vitamin D deficiency Continue vitamin D 1000 units p.o. daily (8) Cognitive changes: Plan: Cognitive Continue rivastigmine tartrate 3 mg p.o. twice daily Plan: VTE prophylaxis: As above Diet: NPO pending dysphagia screen Disposition: Tele CODE STATUS: DNR/DNI History of Present Illness Chief Complaint: Stroke Alert Primary Care Provider: COTY Thomas is an 86-year-old female with a past medical history of osteoporosis, UTI, hypothyroidism, anxiety, GERD, hypertension, and closed pelvic fracture recently discharged from [facility] 04/08/2021 following a closed pel guera fracture. She is an [place] resident. She presents as a stroke alert to [facility] ED 9:15am last known well EMS called just before 10am, staff found her with aphasia, R sided facial droop, and listing gait BSG normal, aphasic at EMS assessment and globally weak with facial droo CTA/CT-H naf, EKG nsr, vitals wnl. NIHSS score 12 on ER provider assessment, with sudden spontaneous improvement to 4 --> 3 following IV [facility] [place]. Harris.. No lysis, metabolic workup for genearlized component, ASA. Cath urine. Last remembers breakfast. Patient reports she remembers eating breakfast and feeling well, and does not remember what happened between that time and arriving in the ER. She reports she is never had a stroke before, does not think she has had family problems with a stroke. She reports she feels globally weak, thinks a little bit better than when she first arrived. She notes she has more difficulty moving her right hip due to a past femur fracture. Overall feels continued global weakness"I feel weak like a wet puppy dog." Denies difficulty speaking at time of assessment. Denies vision change/hearing change at time of assessment although notes that she is dependent on her hearing aids which she has with her. Endorses a mild headache. Denies lightheadedness, dizziness, chest pain, chest pressure, nausea, vomiting, diarrhea. She reports she knows she has to pee, but does not feel like she has to pee yet and does not want to be cath at this time. Denies history of lipid medications Medical History: Reviewed Medications: Reviewed Surgical History: Reviewed Allergies: Reviewed Social History: [place] resident. Denies alcohol, tobacco, recreational drug use. Code Status: DNR/DNI, confirmed with pt. Surrogate: Granddaughter Rhoda Roman. Allergies Allergy/AdvReac Type Severity Reaction Status Date / Time bacitracin Allergy Rash Verified 05/13/21 11:46 [From Neosporin ([id number])] neomycin Allergy Rash Verified 05/13/21 11:46 [From Neosporin ([id number])] pollen extracts Allergy Unknown Verified 05/13/21 11:46 polymyxin B Allergy Rash Verified 05/13/21 11:46 [From Neosporin ([id number])] Past Med/Surg History Medical History Acute upper respiratory infection hx Anxiety Candidiasis of skin and nail Cardiac arrhythmia unspecified per records received from [facility] [place] Dysphagia Fall on same level from slipping Femur fracture Gait abnormality Gastroenteritis GERD (gastroesophageal reflux disease) Hip pain, left Hyperlipemia Hypertension Hypothyroidism Knee pain, left Orthostatic hypotension Osteoporosis Paroxysmal tachycardia Restless leg syndrome Vertigo Visual disturbance Visual hallucinations Surgical History Hx of right cataract extraction Family History Other Family history non-contributory Social History Smoking Status: Never smoker Hx Alcohol Use: No Hx Substance Use: No Preferred Language: Latvian Communication Ability: Effective Caption Writer Required: No Beliefs That Will Affect Care: None marital status: / Current Living Situation: Detention Current Living Situation Comment: [facility] current occupational status: retired Feels Safe at Home: Yes Assistive Devices: Walker Review of Systems Review of Systems: All systems reviewed & are unremarkable except as noted in HPI & below Physical Exam Physical Exam: General: A&Ox3. NAD. Cooperative. HEENT: Atraumatic, normocephalic. Pulm: CTAB A&P. -wheezes, -rales, -rhonchi. Symmetrical chest rise. No increase work of breathing. No respiratory distress. Cardiac: RRR, -mrg. Radial pulses intact and symmetrical. Abdominal: Nontender, nondistended, soft. BS present. CRANIAL NERVES: II: Pupils equal and reactive, no relative afferent pupillary defect, no VF cuts III, IV, : EOM intact, no gaze preference or deviation, no nystagmus. V: normal sensation in V1, V2, and V3 segments bilaterally VII: no asymmetry, no nasolabial fold flattening VIII: normal hearing to speech IX, X: normal palatal elevation, no uvular deviation XI: 5/5 head turn and 5/5 shoulder shrug bilaterally XII: midline tongue protrusion MOTOR: RUE: 4+/5 Shoulder internal rotation, external rotation, flexion, extension, abduction, adduction 4+/5 Elbow flexion/extension, wrist flexion/extension 5/5 farm equipment engine mechanic strength, finger flexion/extension, interosseus LUE: 5/5 Shoulder internal rotation, external rotation, flexion, extension, abduction, adduction 5/5 Elbow flexion/extension, wrist flexion/extension 5/5 farm equipment engine mechanic strength, finger flexion/extension, interosseus RLE: 4/5 ankle dorsiflexion/plantar flexion, weak sustained antigravity flexion at the hip. LLE: 5/5 to hip flexion/extension, knee flexion/extension, ankle dorsi flexion/plantarflexion REFLEXES: 2/4 patellar. no clonus SENSORY: Normal to touch in upper and lower extremities without deficit or asymmetry COORD: Normal finger to nose PG Care Time/CCT Total # of Minutes Spent Total Time Spent with Patient: Total time spent is greater than 50% in coordination of care (as documented) at patient's floor/unit and/or counseling patient: Coding Level of Care Code 61508 Initial Inpt Care Lvl 3 Diagnoses Stroke-like symptoms R29.90 Alkaline phosphatase elevation R74.8 Hypertension I10 Anxiety F41.9 Hypothyroidism E03.9 GERD (gastroesophageal reflux disease) K21.9 Vitamin D deficiency E55.9 Cognitive changes R41.89
--- NOTE | 2021-05-13 10:35 | CT Scan Report ---
CT head/brain wo con CLINICAL HISTORY: Stroke Like Symptoms . Right-sided weakness and slurred speech COMPARISON STUDY: No previous studies for comparison. CT DOSE: TECHNIQUE: Standard CT of the Brain was performed without IV contrast. A dose lowering technique was utilized adhering to the principles of ALARA. FINDINGS: Extraaxial space: There is no evidence for subdural hematoma. There are no extra-axial fluid collecti ons. Ventricles and cisterns: The ventricles are mildly to moderately dilated bilaterally. There is no ev idence for midline shift or mass effect. Parenchyma: There is no subarachnoid or intraparenchymal hemorrhage. There is no evidence for an acu te infarct or cerebral edema. There is mild cerebral cortical atrophy and decreased attenuation in th e periventricular white matter representing remote small vessel disease. There are no gross mass lesi ons. Osseous structures: There is no evidence for an acute fracture. The visualized paranasal sinuses are clear. The mastoid air cells are clear bilaterally. Soft tissues: There is no evidence for focal soft tissue swelling. IMPRESSION: No acute intracerebral pathology. Cerebral cortical atrophy and extensive remote small ve ssel disease. ACT 112: Negative or not required by law. Electronically signed by: Milo Javed M.D. 05/13/2021 10:34 AM
[2021-05-13 10:40] LABS: Basophils # (auto) 0.01 K/uL (0-0.2); Basophils % (auto) 0.2 %; Eosinophils # (auto) 0.08 K/uL (0-0.5); Eosinophils % (auto) 1.3 %; Hematocrit (blood only) 35.8 % (37-47); Hemoglobin 11.5 g/dL (12.0-16.0); Immature Granulocytes # (auto) 0.03 K/uL (0.00-0.02); Immature Granulocytes % (auto) 0.5 %; Lymphocytes # (auto) 1.86 K/uL (1.2-3.4); Lymphocytes % (auto) 29.4 %; Mean Corpuscular Hemoglobin 31.4 pg (25-34); Mean Corpuscular Hgb Conc 32.1 g/dL (32-36); Mean Corpuscular Volume 97.8 fL (80-100); Mean Platelet Volume 8.7 fL (7.4-10.4); Monocytes # (auto) 0.48 K/uL (0.11-0.59); Monocytes % (auto) 7.6 %; Neutrophils # (auto) 3.87 K/uL (1.4-6.5); Platelet Count 252 K/uL (130-400); RDW Standard Deviation 46.3 fL (36.4-46.3); Red Blood Count 3.66 M/uL (4.2-5.4); White Blood Count 6.33 K/uL (4.8-10.8)
--- NOTE | 2021-05-13 10:42 | CT Scan Report ---
CT ANGIOGRAM OF THE BRAIN; CT ANGIOGRAM OF THE NECK CLINICAL HISTORY: Strokelike symptoms. COMPARISON STUDY: Unenhanced CT of the brain performed concurrently on 05/13/2021. TECHNIQUE: Following the IV administration of 121 of Optiray 320, CT angiogram of the head and neck w as performed from the aortic arch to the vertex. Images are reviewed in the axial, sagittal, and pedro luis nal planes. 3-D MIPS images are created and assessed. IV contrast was administered without complicati on. All measurements were calculated based on NASCET criteria. A dose lowering technique was utilize d adhering to the principles of ALARA. CT DOSE: 1042.93 mGy.cm FINDINGS: Brain parenchyma: There is age-related involutional change noting moderate to advanced subcortical an d periventricular microangiopathic disease. There is no evidence of hemorrhage, mass effect, or acute territorial ischemia noting angiographic phase technique. There is no evidence of enhancing mass les ion on the angiogram phase images. The ventricles, sulci, and cisterns are prominent secondary to inv olutional change. Carrillo-white matter differentiation is preserved. No extra-axial fluid collection is seen. Thoracic aorta: There is atherosclerotic calcification of the thoracic aorta. Visualized portions of the thoracic aorta are normal in caliber. The aortic arch demonstrates standard 3-vessel anatomy. Right carotid arterial system: The right common carotid artery is widely patent, as are the right int ernal and external carotid arteries. Left carotid arterial system: The left common carotid artery is widely patent, as are the left internet marketing specialist al and external carotid arteries. Vertebral arteries: The vertebral arteries are widely patent bilaterally noting left-sided dominance. Subclavian arteries: Widely patent bilaterally. Intracranial vasculature: There is atherosclerotic calcification of the cavernous carotid arteries. T here is origin of the left posterior cerebral artery. The internal carotid arteries are patent at the skull base, as are the anterior and middle cerebral arteries bilaterally. The vertebrobasilar system and posterior cerebral arteries are widely patent. The left vertebral artery is dominant. Ther e is no aneurysm, high-grade stenosis, or focal vessel cut off seen throughout the intracranial circu lation. Jugular veins: Patent bilaterally. Dural sinuses: Patent. Lung apices: Partially visualized upper lobe lung parenchyma appears clear. Soft tissues: The visualized pharyngeal soft tissues are normal in appearance noting angiographic pha se technique. The oropharyngeal airway appears widely patent. The thyroid gland is atrophic and heter ogeneous. The salivary glands are normal in appearance. No cervical lymphadenopathy is seen. Skeletal structures: The skeletal structures are osteopenic. The calvarium appears intact. The cervic al spine is maintained noting multilevel spondylosis. No lytic or blastic lesion is seen. Orbits: The bony orbits are intact. Orbital contents are normal as visualized noting bilateral ocular lens implants. Sinuses and mastoids: The paranasal sinuses are clear. The mastoid air cells are well pneumatized. IMPRESSION: 1. There is no evidence of hemorrhage, mass effect, or acute territorial ischemia noting angiographic phase technique. 2. Unremarkable CT angiogram of the brain. 3. Unremarkable CT angiogram of the neck. ACT 112: Negative or not required by law. Electronically signed by: Troy Odonnell M.D. 05/13/2021 10:40 AM
[2021-05-13 10:50] LABS: INR 1.1 (0.9-1.1); Prothrombin Time 11.3 Seconds (9.0-12.0)
[2021-05-13 11:02] LABS: Alanine Aminotransferase 20 (12-78); Albumin Level 2.7 gm/dl (3.4-5.0); Aspartate Aminotransferase 11 U/L (15-37); BUN Creatinine Ratio 23.7 (10-20); Blood Urea Nitrogen 16 mg/dl (7-18); Calcium 8.2 mg/dl (8.5-10.1); Carbon Dioxide 26 mmol/L (21-32); Chloride 106 mmol/L (98-107); Est GFR (African American) 92.2 ml/min; Est GFR (Non-African American) 79.6 ml/min; Glucose 110 mg/dl (70-99); Magnesium 2.6 mg/dl (1.8-2.4); Potassium 4.1 mmol/L (3.5-5.1); Sodium 137 mmol/L (136-145)
--- NOTE | 2021-05-13 11:02 | XRay Report ---
SINGLE VIEW CHEST CLINICAL HISTORY: Strokelike symptoms. FINDINGS: An AP, portable, upright chest radiograph is compared to study dated 03/28/2021 and correla amanda with chest CT dated 02/23/2019. The heart is enlarged noting atherosclerotic calcification of the thoracic aorta. There is pulmonary vascular congestion. Atelectasis is noted in the lung bases. No l arge pleural effusion or pneumothorax is seen. The skeletal structures are osteopenic. The bony thora x is grossly intact. IMPRESSION: 1. Cardiomegaly with pulmonary vascular congestion. 2. No airspace consolidation or large pleural effusion is identified. ACT 112: Negative or not required by law. Electronically signed by: Troy Odonnell M.D. 05/13/2021 11:01 AM
[2021-05-13 11:07] LABS: Albumin Globulin Ratio 0.9 (0.9-2); Alkaline Phosphatase 202 U/L (45-117); Bilirubin,Total 0.4 mg/dl (0.2-1); Globulin 3.1 gm/dl (2.5-4.0); Total Protein 5.8 gm/dl (6.4-8.2); Troponin I < 0.015 ng/ml (0-0.045)
[2021-05-13] MEDS ORDERED: SODIUM CHLORIDE 0.9% 1000ML 1,000 ML IV STA (11:22)
[2021-05-13] MEDS ORDERED: ASPIRIN CHEW 324 MG PO STA (11:22)
[2021-05-13] MEDS ORDERED: ACETAMINOPHEN 1000 MG/100 ML IV IV ONE (11:54)
--- NOTE | 2021-05-13 11:56 | Emergency Department Note ---
Impression & Plan Stroke-like symptoms, Expressive aphasia, Generalized weakness ED Provider Note INFORMANT: Patient and EMS ED PROVIDER(S): Yoel Cain MD CHIEF COMPLAINT: Strokelike symptoms PLAN: Disposition: Admitted Condition: Good Outpatient prescription management: none Referral: None MEDICAL DECISION MAKING: Patient presented because strokelike symptoms. Stroke alert was initiated. She was taken emergently to CT imaging. Head CT was negative. CT angiogram of the head and neck was performed and was negative. The patient was assessed in initial NIH stroke scale was at least 12. She dramatically improved within 10 to 15 minutes of presentation to an NIH stroke scale of 3. [place] telestroke was consulted. I discussed the case with Dr. Harris. She recommended stroke admission for MRI, metabolic work-up, aspirin, and the usual diagnostic/therapies. Urinalysis still pending.Patient was given aspirin. She was hydrated. [facility] Patient was evaluated in the ER admitted for further management. Triage Nursing notes reviewed and agree them. Vital Signs: reviewed and remarkable for no significant abnormalities Differential diagnosis: CVA, TIA infection, dehydration, metabolic abnormality, hypo/hyperglycemia, electrolyte disturbance, anemia, hypoxia, cardiac sources, intracerebral event, toxicologic, neurologic, as well as other pathologies. Diagnostics interpreted by me: ECG: Twelve-lead ECG reveals normal sinus rhythm 69 bpm. Left axis deviation. Low-voltage QRS. Inferior Q waves. Poor R wave progression anteriorly. No PVCs or PACs. Cardiac Monitoring: Cardiac monitoring ordered by me: The patient was placed on continuous cardiac monitoring and observed. It revealed a normal sinus rhythm at 60 beats per minute without ectopy or evidence of dysrhythmia. Imaging studies: CT angiograms of the head and neck as well as dry CT of the head were performed. Chronic changes noted. No acute findings. HPI: The patient is a 86 year old female who presents to the Emergency Room with complaints of strokelike symptoms. This started approximately 915 this morning and is improving. The patient also notes the following associated symptoms, weakness. Patient was reportedly last seen well at around 9:15 AM. Shortly t hereafter she was noted to have expressive aphasia, right-sided facial droop and weakness. EMS was summoned. Vital signs and blood sugar were normal. Medical command was contacted. Stroke alert was initiated. The patient has been given no medication for relieving factors. Patient does note a mild headache but cannot quantify. Pt denies LOC, fevers, chills, diaphoresis, visual changes, neck pain, chest pain, breathing difficulties, nausea, vomiting, abdominal pain, back pain, melena, hematochezia, urinary symptoms, numbness, rash, or other complaints. ROS: See above HPI for pertinent positives & negatives. A total of 10 systems reviewed and were otherwise negative. PAST MEDICAL HISTORY:See Below , UTI, hypertension PAST SURGICAL HISTORY:See Below, FAMILY HISTORY:See Below SOCIAL HISTORY:See Below, resides at personal nursing home HOME MEDICATIONS:See Below ALLERGIES:See Below VITALS:See Below PHYSICAL EXAMINATION: GENERAL: Awake, alert, anxious-appearing, in no distress HENT: Normocephalic, atraumatic. Oropharynx unremarkable. EYES: Normal conjunctiva. Sclera non-icteric. PERRLA. EOMI. NECK: Inspection normal. Non-tender. Supple. No nuchal rigidity. FROM. No masses. RESPIRATORY: Clear to auscultation. No wheezes. No rales. Normal respiratory effort. CARDIAC: Normal rate. Normal rhythm. No murmurs. No rubs. Extremities warm and well perfused. Pulses equal. No JVD. GI: Soft, non-distended. No tenderness to palpation. No rebound or guarding. No masses. RECTAL: Deferred. MUSCULOSKELETAL: Atraumatic. Chest examination reveals no tenderness. The back is symmetrical on inspection without obvious abnormality. There is no CVA tenderness to palpation. No joint edema. LOWER EXTREMITIES: Calves are equal size bilaterally and non-tender. No edema. No discoloration. NEURO: Normal sensorium. The patient present. There is some right facial droop present. Left arm drift. No right arm drift. Generalized weakness in the lower extremities. Cranial nerves II through XII intact otherwise. SKIN: No rash or jaundice noted. Yoel Cain MD Past Med/Surg History Medical History Acute upper respiratory infection hx Anxiety Candidiasis of skin and nail Cardiac arrhythmia unspecified per records received from [facility] Fall on same level from slipping Femur fracture Gait abnormality Gastroenteritis GERD (gastroesophageal reflux disease) Hip pain, left Hyperlipemia Hypertension Hypothyroidism Knee pain, left Orthostatic hypotension Osteoporosis Paroxysmal tachycardia Restless leg syndrome Vertigo Visual disturbance Visual hallucinations Surgical History Hx of right cataract extraction Family History Other Family history non-contributory Social History Smoking Status: Never smoker Hx Alcohol Use: No Hx Substance Use: No Preferred Language: Arabic Communication Ability: Effective 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 Beliefs That Will Affect Care: None marital status: / Current Living Situation: Residential Current Living Situation Comment: [facility] current occupational status: retired Feels Safe at Home: Yes Assistive Devices: Walker Allergies Allergies Allergy/AdvReac Type Severity Reaction Status Date / Time bacitracin Allergy Rash Verified 05/13/21 11:46 [From Neosporin ([id number])] neomycin Allergy Rash Verified 05/13/21 11:46 [From Neosporin ([id number])] pollen extracts Allergy Unknown Verified 05/13/21 11:46 polymyxin B Allergy Rash Verified 05/13/21 11:46 [From Neosporin ([id number])] Home Meds Home Medications Medication Instructions Recorded Confirmed acetaminophen 325 mg tablet 650 mg PO Q4 PRN 05/13/21 05/13/21 (Tylenol) calcium carbonate 600 mg-vitamin 1 tab PO DAILY 05/13/21 05/13/21 D3 10 mcg (400 unit) tablet (Calcium 600 + D(3)) cholecalciferol (vitamin D3) 25 0 mcg PO DAILY 05/13/21 05/13/21 mcg (1,000 unit) tablet (Vitamin D3) docusate sodium 100 mg capsule 100 mg PO BID 05/13/21 05/13/21 (Colace) ibandronate 150 mg tablet 150 mg PO MO 05/13/21 05/13/21 levothyroxine 75 mcg tablet 75 mcg PO DAILY 05/13/21 05/13/21 methyl salicylate-menthol topical 1 applic TOPICAL QID PRN 05/13/21 05/13/21 cream metoprolol tartrate 25 mg tablet 25 mg PO BID 05/13/21 05/13/21 omeprazole 20 mg capsule,delayed 20 mg PO DAILY 05/13/21 05/13/21 release quetiapine 25 mg tablet 25 mg PO DAILY 05/13/21 05/13/21 rivastigmine tartrate 3 mg capsule 3 mg PO BID 05/13/21 05/13/21 sertraline 100 mg tablet 100 mg PO DAILY 05/13/21 05/13/21 sertraline 25 mg tablet 25 mg PO DAILY 05/13/21 05/13/21 tramadol 50 mg tablet 50 mg PO Q4 PRN 05/13/21 05/13/21 vitamin E 400 unit tablet 400 mg PO DAILY 05/13/21 05/13/21 Results & Data (ED) Vital Signs Vital Signs - 24 hr 05/13/21 10:15 Temperature 36.8 C Temperature Source Temporal Artery Scan Pulse Rate 64 Pulse Rhythm Regular Pulse Strength Normal Respiratory Rate 20 Respiratory Effort / Characteristics Non-Labored Spontaneous Respiratory Depth Normal Respiratory Pattern Regular Blood Pressure 177/82 H Blood Pressure Mean 113 Pulse Oximetry 96 Oxygen Delivery Method Room Air Sepsis Recent Fever Within 48 Hours No Sepsis New/Unexplained Change in Mental Status N/A Sepsis Action Taken by Nursing No Action Required Laboratory Data Result diagrams: 05/13/21 10:14 05/13/21 10:14 Lab Results 05/13/21 05/13/21 05/13/21 Range/Units 10:14 10:14 10:14 WBC 6.33 (4.8-10.8) K/uL RBC 3.66 L (4.2-5.4) M/uL Hgb 11.5 L (12.0-16.0) g/dL Hct 35.8 L (37-47) % MCV 97.8 (80-100) fL MCH 31.4 (25-34) pg MCHC 32.1 (32-36) g/dL RDW Std Deviation 46.3 (36.4-46.3) fL RDW Coeff of Molly 13.0 (11.5-14.5) % Plt Count 252 (130-400) K/uL MPV 8.7 (7.4-10.4) fL Immature Gran % (Auto) 0.5 % Neut % (Auto) 61.0 % Lymph % (Auto) 29.4 % [place] % (Auto) 7.6 % Eos % (Auto) 1.3 % Baso % (Auto) 0.2 % Neut # (Auto) 3.87 (1.4-6.5) K/uL Lymph # (Auto) 1.86 (1.2-3.4) K/uL [place] # (Auto) 0.48 (0.11-0.59) K/uL Eos # (Auto) 0.08 (0-0.5) K/uL Baso # (Auto) 0.01 (0-0.2) K/uL Immature Gran # (Auto) 0.03 H (0.00-0.02) K/uL PT 11.3 (9.0-12.0) Seconds INR 1.1 (0.9-1.1) APTT 26.0 (21.0-31.0) Seconds PTT Ratio 1.0 Sodium 137 (136-145) mmol/L Potassium 4.1 (3.5-5.1) mmol/L Chloride 106 (98-107) mmol/L Carbon Dioxide 26 (21-32) mmol/L Anion Gap 5.0 (3-11) BUN 16 (7-18) mg/dl Creatinine 0.70 (0.6-1.2) mg/dl Est Cr Clr Drug Dosing Not Reportable Est GFR ( Amer) 92.2 ml/min Est GFR (Non-Af Amer) 79.6 ml/min BUN/Creatinine Ratio 23.7 H (10-20) Glucose 110 H (70-99) mg/dl Calcium 8.2 L (8.5-10.1) mg/dl Magnesium 2.6 H (1.8-2.4) mg/dl Total Bilirubin 0.4 (0.2-1) mg/dl AST 11 L (15-37) U/L ALT 20 (12-78) Alkaline Phosphatase 202 H D (45-117) U/L Troponin I < 0.015 (0-0.045) ng/ml Total Protein 5.8 L (6.4-8.2) gm/dl Albumin 2.7 L (3.4-5.0) gm/dl Globulin 3.1 (2.5-4.0) gm/dl Albumin/Globulin Ratio 0.9 (0.9-2) SARS-CoV-2, RNA, NAAT (NEGATIVE) Blood Type Antibody Screen 05/13/21 05/13/21 Range/Units 10:26 11:29 WBC (4.8-10.8) K/uL RBC (4.2-5.4) M/uL Hgb (12.0-16.0) g/dL Hct (37-47) % MCV (80-100) fL MCH (25-34) pg MCHC (32-36) g/dL RDW Std Deviation (36.4-46.3) fL RDW Coeff of Molly (11.5-14.5) % Plt Count (130-400) K/uL MPV (7.4-10.4) fL Immature Gran % (Auto) % Neut % (Auto) % Lymph % (Auto) % [place] % (Auto) % Eos % (Auto) % Baso % (Auto) % Neut # (Auto) (1.4-6.5) K/uL Lymph # (Auto) (1.2-3.4) K/uL [place] # (Auto) (0.11-0.59) K/uL Eos # (Auto) (0-0.5) K/uL Baso # (Auto) (0-0.2) K/uL Immature Gran # (Auto) (0.00-0.02) K/uL PT (9.0-12.0) Seconds INR (0.9-1.1) APTT (21.0-31.0) Seconds PTT Ratio Sodium (136-145) mmol/L Potassium (3.5-5.1) mmol/L Chloride (98-107) mmol/L Carbon Dioxide (21-32) mmol/L Anion Gap (3-11) BUN (7-18) mg/dl Creatinine (0.6-1.2) mg/dl Est Cr Clr Drug Dosing Est GFR ( Amer) ml/min Est GFR (Non-Af Amer) ml/min BUN/Creatinine Ratio (10-20) Glucose (70-99) mg/dl Calcium (8.5-10.1) mg/dl Magnesium (1.8-2.4) mg/dl Total Bilirubin (0.2-1) mg/dl AST (15-37) U/L ALT (12-78) Alkaline Phosphatase (45-117) U/L Troponin I (0-0.045) ng/ml Total Protein (6.4-8.2) gm/dl Albumin (3.4-5.0) gm/dl Globulin (2.5-4.0) gm/dl Albumin/Globulin Ratio (0.9-2) SARS-CoV-2, RNA, NAAT NEGATIVE (NEGATIVE) Blood Type A Negative Antibody Screen NEGATIVE Administered Medications Sodium Chloride (Nss 1000ml) 1,000 mls @ 125 mls/hr IV .Q8H STA Stop: 05/13/21 19:21 Last Admin: 05/13/21 11:56 Dose: 125 mls/hr Documented by: [id number] Discontinued Medications Acetaminophen (Acetaminophen 1000 Mg/100 Ml Iv) 1,000 mg IV ONE ONE Stop: 05/13/21 11:55 Last Admin: 05/13/21 12:05 Dose: 1,000 mg Documented by: [id number] Aspirin (Aspirin Chew 324 Mg) 324 mg PO NOW STA Stop: 05/13/21 11:23 Last Admin: 05/13/21 11:56 Dose: 324 mg Documented by: [id number] Ioversol (Optiray 320 125ml) 121 ml IV ONCE ONE Stop: 05/13/21 10:28 Last Admin: 05/13/21 10:28 Dose: 121 ml Documented by: [id number] Imaging Data Radiologist's Impression: Chest X-Ray 05/13/21 10:14 SINGLE VIEW CHEST CLINICAL HISTORY: Strokelike symptoms. FINDINGS: An AP, portable, upright chest radiograph is compared to study dated 03/28/2021 and correlated with chest CT dated 02/23/2019. The heart is enlarged noting atherosclerotic calcification of the thoracic aorta. There is pulmonary vascular congestion. Atelectasis is noted in the lung bases. No large pleural effusion or pneumothorax is seen. The skeletal structures are osteopenic. The bony thorax is grossly intact. IMPRESSION: 1. Cardiomegaly with pulmonary vascular congestion. 2. No airspace consolidation or large pleural effusion is identified. ACT 112: Negative or not required by law. Electronically signed by: Troy Odonnell M.D. 05/13/2021 11:[address] 05/13/21 10:14 CT head/brain wo con CLINICAL HISTORY: Stroke Like Symptoms . Right-sided weakness and slurred speech COMPARISON STUDY: No previous studies for comparison. CT DOSE: TECHNIQUE: Standard CT of the Brain was performed without IV contrast. A dose lowering technique was utilized adhering to the principles of ALARA. FINDINGS: Extraaxial space: There is no evidence for subdural hematoma. There are no extra -axial fluid collections. Ventricles and cisterns: The ventricles are mildly to moderately dilated bilaterally. There is no evidence for midline shift or mass effect. Parenchyma: There is no subarachnoid or intraparenchymal hemorrhage. There is n o evidence for an acute infarct or cerebral edema. There is mild cerebral cortical atrophy and decreased attenuation in the periventricular white matter representing remote small vessel disease. There are no gross mass lesions. Osseous structures: There is no evidence for an acute fracture. The visualized paranasal sinuses are clear. The mastoid air cells are clear bilaterally. Soft tissues: There is no evidence for focal soft tissue swelling. IMPRESSION: No acute intracerebral pathology. 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 ACT 112: Negative or not required by law. Electronically signed by: Milo Javed M.D. 05/13/2021 10:34 AM Head CTA 05/13/21 10:14 CT ANGIOGRAM OF THE BRAIN; CT ANGIOGRAM OF THE NECK CLINICAL HISTORY: Strokelike symptoms. COMPARISON STUDY: Unenhanced CT of the brain performed concurrently on 05/13/2021. TECHNIQUE: Following the IV administration of 121 of Optiray 320, CT angiogram of the head and neck was performed from the aortic arch to the vertex. Images are reviewed in the axial, sagittal, and coronal planes. 3-D MIPS images are created and assessed. IV contrast was administered without complication. All measurements were calculated based on NASCET criteria. A dose lowering raul hnique was utilized adhering to the principles of ALARA. CT DOSE: 1042.93 mGy.cm FINDINGS: Brain parenchyma: There is age-related involutional change noting moderate to advanced subcortical and periventricular microangiopathic disease. There is no evidence of hemorrhage, mass effect, or acute territorial ischemia noting angiographic phase technique. There is no evidence of enhancing mass lesion on the angiogram phase images. The ventricles, sulci, and cisterns are prominent secondary to involutional change. Carrillo-white matter differentiation is preserved. No extra-axial fluid collection is seen. Thoracic aorta: There is atherosclerotic calcification of the thoracic aorta. Visualized portions of the thoracic aorta are normal in caliber. The aortic arch demonstrates standard 3-vessel anatomy. Right carotid arterial system: The right common carotid artery is widely patent, as are the right internal and external carotid arteries. Left carotid arterial system: The left common carotid artery is widely patent, as are the left internal and external carotid arteries. Vertebral arteries: The vertebral arteries are widely patent bilaterally noting left-sided dominance. Subclavian arteries: Widely patent bilaterally. Intracranial vasculature: There is atherosclerotic calcification of the cavernous carotid arteries. There is origin of the left posterior cerebral artery. The internal carotid arteries are patent at the skull base, as are the anterior and middle cerebral arteries bilaterally. The vertebrobasilar system and posterior cerebral arteries are widely patent. The left vertebral artery is dominant. There is no aneurysm, high-grade stenosis, or focal vessel cut off seen throughout the intracranial circulation. Jugular veins: Patent bilaterally. Dural sinuses: Patent. Lung apices: Partially visualized upper lobe lung parenchyma appears clear. Soft tissues: The visualized pharyngeal soft tissues are normal in appearance noting angiographic phase technique. The oropharyngeal airway appears widely patent. The thyroid gland is atrophic and heterogeneous. The salivary glands are normal in appearance. No cervical lymphadenopathy is seen. Skeletal structures: The skeletal structures are osteopenic. The calvarium appears intact. The cervical spine is maintained noting multilevel spondylosis. No lytic or blastic lesion is seen. Orbits: The bony orbits are intact. Orbital contents are normal as visualized noting bilateral ocular lens implants. Sinuses and mastoids: The paranasal sinuses are clear. The mastoid air cells are well pneumatized. IMPRESSION: 1. There is no evidence of hemorrhage, mass effect, or acute territorial ischemia noting angiographic phase technique. 2. Unremarkable CT angiogram of the brain. 3. Unremarkable CT angiogram of the neck. ACT 112: Negative or not required by law. Electronically signed by: Troy Odonnell M.D. 05/13/2021 10:40 AM Neck CTA 05/13/21 10:14 CT ANGIOGRAM OF THE BRAIN; CT ANGIOGRAM OF THE NECK CLINICAL HISTORY: Strokelike symptoms. COMPARISON STUDY: Unenhanced CT of the brain performed concurrently on 05/13/2021. TECHNIQUE: Following the IV administration of 121 of Optiray 320, CT angiogram of the head and neck was performed from the aortic arch to the vertex. Images are reviewed in the axial, sagittal, and coronal planes. 3-D MIPS images are created and assessed. IV contrast was administered without complication. All measurements were calculated based on NASCET criteria. A dose lowering technique was utilized adhering to the principles of ALARA. CT DOSE: 1042.93 mGy.cm FINDINGS: Brain parenchyma: There is age-related involutional change noting moderate to advanced subcortical and periventricular microangiopathic disease. There is no evidence of hemorrhage, mass effect, or acute territorial ischemia noting angiographic phase technique. There is no evidence of enhancing mass lesion on the angiogram phase images. The ventricles, sulci, and cisterns are prominent secondary to involutional change. Carrillo-white matter differentiation is preserved. No extra-axial fluid collection is seen. Thoracic aorta: There is atherosclerotic calcification of the thoracic aorta. Visualized portions of the thoracic aorta are normal in caliber. The aortic arch demonstrates standard 3-vessel anatomy. Right carotid arterial system: The right common carotid artery is widely patent, as are the right internal and external carotid arteries. Left carotid arterial system: The left common carotid artery is widely patent, as are the left internal and external carotid arteries. Vertebral arteries: The vertebral arteries are widely patent bilaterally noting left-sided dominance. Subclavian arteries: Widely patent bilaterally. Intracranial vasculature: There is atherosclerotic calcification of the cavernous carotid arteries. There is origin of the left posterior cerebral artery. The internal carotid arteries are patent at the skull base, as are the a nterior and middle cerebral arteries bilaterally. The vertebrobasilar system and posterior cerebral arteries are widely patent. The left vertebral artery is dominant. There is no aneurysm, high-grade stenosis, or focal vessel cut off seen throughout the intracranial circulation. Jugular veins: Patent bilaterally. Dural sinuses: Patent. Lung apices: Partially visualized upper lobe lung parenchyma appears clear. Soft tissues: The visualized pharyngeal soft tissues are normal in appearance noting angiographic phase technique. The oropharyngeal airway appears widely patent. The thyroid gland is atrophic and heterogeneous. The salivary glands are normal in appearance. No cervical lymphadenopathy is seen. Skeletal structures: The skeletal structures are osteopenic. The calvarium appears intact. The cervical spine is maintained noting multilevel spondylosis. No lytic or blastic lesion is seen. Orbits: The bony orbits are intact. Orbital contents are normal as visualized noting bilateral ocular lens implants. Sinuses and mastoids: The paranasal sinuses are clear. The mastoid air cells are well pneumatized. IMPRESSION: 1. There is no evidence of hemorrhage, mass effect, or acute territorial ischemia noting angiographic phase technique. 2. Unremarkable CT angiogram of the brain. 3. Unremarkable CT angiogram of the neck. ACT 112: Negative or not required by law. Electronically signed by: Troy Odonnell M.D. 05/13/2021 10:40 AM Discharge Plan Visit Data Chief Complaint: Stroke Alert ED Provider: Yoel Cain ED Midlevel Provider: Juan Cohen Discharge Problem: Stroke-like symptoms, Expressive aphasia, Generalized weakness Discharge Instructions Interventions: ED Discharge Assessment Last Done: 05/13/21 14:14
[2021-05-13] MEDS ORDERED: PHARMACIST DISCHARGE MED REC CONSULT PRN (14:14)
--- NOTE | 2021-05-13 15:23 | XRay Report ---
KUB HISTORY: Preprocedural KUB. Evaluate for foreign body. MRI clearance COMPARISON: None. FINDINGS: The bowel gas pattern is unremarkable. There are no dilated loops of small bowel to suggest an obstruction. No renal calculi. No ureteral calculi. No pneumoperitoneum or pneumatosis. Contrast within the urinary bladder. Postoperative changes noted within the right hip. Otherwise, no radiopaq ue foreign bodies identified within the abdomen or pelvis. IMPRESSION: No concerning radiopaque foreign bodies to inhibit an MRI study. ACT 112: Negative or not required by law. Electronically signed by: Dmitry Sue M.D. 05/13/2021 3:21 PM
--- NOTE | 2021-05-13 15:58 | Communication Note ---
Date of Service: May 13, 2021 I saw the patient with Dr. Cain, please see their note for details. Resident Activity Tracking Resident Involvement: Resident Care Provided Care Provided: Adult ED
--- NOTE | 2021-05-13 16:37 | XCELERA ---
[id number] \\[id number]
--- NOTE | 2021-05-13 16:55 | Magnetic Resonance Report ---
MRI OF THE BRAIN WITHOUT IV CONTRAST CLINICAL HISTORY: Strokelike symptoms. Generalized weakness. Right-sided facial droop. Aphasia. Heada aditi. COMPARISON STUDY: CT of the brain dated 05/13/2021. TECHNIQUE: MRI of the brain was performed utilizing various T1 and T2-weighted sequences in the axial , sagittal, and coronal planes. IV contrast was not administered for this examination. FINDINGS: Brain parenchyma: There is age-related involutional change noting moderate to advanced confluent subc ortical and periventricular microangiopathic disease. There is no hemorrhage or mass effect. There is no restricted diffusion to suggest acute ischemia. Carrillo-white matter differentiation is preserved. N o extra-axial fluid collection is seen. The cerebellar tonsils are normal in configuration. Ventricles, sulci, and cisterns: Prominent secondary to involutional change. Pituitary and sella: Unremarkable. Intracranial vasculature: Normal flow voids are maintained at the skull base. Orbits: The bony orbits are grossly intact. Orbital contents are normal in appearance noting bilatera l ocular lens implants. Sinuses and mastoids: Clear. Calvarium: Unremarkable. Cervical cord: Partially visualized cervical spinal cord is normal in morphology and signal intensity . IMPRESSION: No acute intracranial abnormality. ACT 112: Negative or not required by law. Electronically signed by: Troy Odonnell M.D. 05/13/2021 4:54 PM
--- NOTE | 2021-05-13 17:53 | Electrocardiogram Report ---
Test Reason : Blood Pressure : / mmHG Vent. Rate : 069 BPM Atrial Rate : 069 BPM P-R Int : 178 ms QRS Dur : 076 ms QT Int : 430 ms P-R-T Axes : 107 -37 212 degrees QTc Int : 460 ms Poor data quality, interpretation may be adversely affected Normal sinus rhythm Left axis deviation Low voltage QRS Inferior infarct , age undetermined Abnormal ECG Confirmed by Chente Tellez ([id number]) on 05/13/2021 5:53:03 PM Referred By: Confirmed By:Hollis Tellez
[2021-05-14 06:25] LABS: Basophils # (auto) 0.03 K/uL (0-0.2); Basophils % (auto) 0.6 %; Eosinophils # (auto) 0.23 K/uL (0-0.5); Eosinophils % (auto) 4.8 %; Hematocrit (blood only) 37.6 % (37-47); Hemoglobin 12.3 g/dL (12.0-16.0); Immature Granulocytes # (auto) 0.02 K/uL (0.00-0.02); Immature Granulocytes % (auto) 0.4 %; Lymphocytes # (auto) 1.58 K/uL (1.2-3.4); Lymphocytes % (auto) 32.8 %; Mean Corpuscular Hemoglobin 31.2 pg (25-34); Mean Corpuscular Hgb Conc 32.7 g/dL (32-36); Mean Corpuscular Volume 95.4 fL (80-100); Mean Platelet Volume 9.1 fL (7.4-10.4); Monocytes # (auto) 0.45 K/uL (0.11-0.59); Monocytes % (auto) 9.3 %; Neutrophils # (auto) 2.51 K/uL (1.4-6.5); Neutrophils % (auto) 52.1 %; Platelet Count 231 K/uL (130-400); RDW Coefficient of Variation 12.8 % (11.5-14.5); RDW Standard Deviation 44.6 fL (36.4-46.3); Red Blood Count 3.94 M/uL (4.2-5.4); White Blood Count 4.82 K/uL (4.8-10.8)
[2021-05-14 07:05] LABS: BUN Creatinine Ratio 14.7 (10-20); Calcium 8.4 mg/dl (8.5-10.1); Creatinine Clr Calc Pharmacy 70.2 ml/min; Est GFR (African American) 100.4 ml/min; Est GFR (Non-African American) 86.7 ml/min; Potassium 3.9 mmol/L (3.5-5.1)
[2021-05-14 07:26] LABS: Thyroid Stimulating Hormone 1.87 uIu/ml (0.300-4.500)
[2021-05-14 07:36] LABS: Estimated Average Glucose 117 mg/dl; Hemoglobin A1C 5.7 % (4.5-5.6)
--- NOTE | 2021-05-14 08:33 | Neurology Consultation ---
Date of Consultation May 14, 2021 Assessment & Plan (1) Stroke-like symptoms: (2) Dementia: Strokelike episode, probable TIA localizing to the left cerebral hemisphere, presenting with expressive aphasia and right facial droop. No evidence of acute or subacute process on brain MRI although patient does have fairly extensive chronic cerebrovascular disease and generalized atrophy. No significant vascular lesion on CT angiography of the head and neck. This patient does appear to have a baseline dementia, probably mixed type, moderate severity, patient currently exhibiting some disorientation, memory impairment, and slow processing speed. Speech is fluent, I do not appreciate an aphasia at this time. Would recommend aspirin 81 mg/day. Would also recommend obtaining 30-day mobile cardiac outpatient telemetry. Continue with rivastigmine. May resume metoprolol for hypertension. History of Present Illness Reason for Consultation: stroke alert Requesting Physician: aDrryl Holloway MD Attending Physician: Dedrick Crystal DO History of Present Illness The patient is an 86-year-old female who presented to the emergency department yesterday for further evaluation of strokelike symptoms characterized by expressive speech difficulty, right facial droop, and generalized weakness that began yesterday morning. Patient's symptoms significantly improved during her assessment in the emergency department. She has had an unremarkable imaging evaluation including CT of the head, CT angiography of the head and neck, and brain MRI. No evidence of acute or subacute stroke. There is evidence of chronic moderate to advanced microangiopathic disease and atrophy. No significant vascular lesion. I reviewed the images as well as the radiology reports. Patient did have a telestroke consultation. tPA was not recommended given significant improvement. She was given a single full dose aspirin during her initial evaluation. She does not take any blood thinners or a statin as an outpatient. She is a resident at the [place]. History notable for memory loss and a recent admission to [facility] for a closed pelvic fracture. Patient is poorly oriented and is an unreliable historian, very poor recollection of her presenting neurologic symptoms yesterday. Allergies Allergy/AdvReac Type Severity Reaction Status Date / Time bacitracin Allergy Rash Verified 05/13/21 11:46 [From Neosporin ([id number])] neomycin Allergy Rash Verified 05/13/21 11:46 [From Neosporin ([id number])] pollen extracts Allergy Unknown Verified 05/13/21 11:46 polymyxin B Allergy Rash Verified 05/13/21 11:46 [From Neosporin ([id number])] Home Medications Medication Instructions Recorded Confirmed Type acetaminophen 325 mg tablet 650 mg PO Q4 PRN 05/13/21 05/13/21 History (Tylenol) calcium carbonate 600 mg-vitamin 1 tab PO DAILY 05/13/21 05/13/21 History D3 10 mcg (400 unit) tablet (Calcium 600 + D(3)) cholecalciferol (vitamin D3) 25 0 mcg PO DAILY 05/13/21 05/13/21 History mcg (1,000 unit) tablet (Vitamin D3) docusate sodium 100 mg capsule 100 mg PO BID 05/13/21 05/13/21 History (Colace) ibandronate 150 mg tablet 150 mg PO MO 05/13/21 05/13/21 History levothyroxine 75 mcg tablet 75 mcg PO DAILY 05/13/21 05/13/21 History methyl salicylate-menthol topical 1 applic TOPICAL QID PRN 05/13/21 05/13/21 History cream metoprolol tartrate 25 mg tablet 25 mg PO BID 05/13/21 05/13/21 History omeprazole 20 mg capsule,delayed 20 mg PO DAILY 05/13/21 05/13/21 History release quetiapine 25 mg tablet 25 mg PO DAILY 05/13/21 05/13/21 History rivastigmine tartrate 3 mg capsule 3 mg PO BID 05/13/21 05/13/21 History sertraline 100 mg tablet 100 mg PO DAILY 05/13/21 05/13/21 History sertraline 25 mg tablet 25 mg PO DAILY 05/13/21 05/13/21 History tramadol 50 mg tablet 50 mg PO Q4 PRN 05/13/21 05/13/21 History vitamin E 400 unit tablet 400 mg PO DAILY 05/13/21 05/13/21 History Patient History Medical History Acute upper respiratory infection hx Anxiety Candidiasis of skin and nail Cardiac arrhythmia unspecified per records received from [facility] [place] [place] Dysphagia Fall on same level from slipping Femur fracture Gait abnormality Gastroenteritis GERD (gastroesophageal reflux disease) Hip pain, left Hyperlipemia Hypertension Hypothyroidism Knee pain, left Orthostatic hypotension Osteoporosis Paroxysmal tachycardia Restless leg syndrome Vertigo Visual disturbance Visual hallucinations Surgical History Hx of right cataract extraction Family History Other Family history non-contributory Social History Smoking Status: Never smoker Hx Alcohol Use: No Hx Substance Use: No Preferred Language: Armenian Communication Ability: Effective Paper Sorter Required: No Beliefs That Will Affect Care: None marital status: / Current Living Situation: Detention Current Living Situation Comment: [facility] current occupational status: retired Other Information That Helps Us Care for You: No Feels Safe at Home: Yes Assistive Devices: None Review of Systems Constitutional: no fever and no chills Eyes: no blind spots and no diplopia Ear, Nose, Mouth, Throat: no ear pain and no hearing loss Respiratory: no cough and no dyspnea Cardiovascular: no chest pain and no palpitations Gastrointestinal: no constipation and no diarrhea/loose stools Genitourinary: no urinary urgency and no urinary incontinence Musculoskeletal: no muscle weakness and no muscle atrophy Integumentary: no rash and no lesions Neurologic: as per Subjective / HPI Psychiatric: no behavioral changes, no depression, no abnormal sleep pattern and no anxiety Hematologic / Lymphatic: no easy bruising and no lymphadenopathy Exam (Neuro) Constitutional: well developed and well nourished; no acute distress Eyes: normal visual randall by confrontation, PERRL, normal accommodation and EOM intact bilaterally; no fundoscopic abnormality, no nystagmus and no papilledema Cardiovascular: Vessels: normal carotid upstroke; no carotid bruit Neurologic: Oriented to:: Person; negative Place or Time Memory: Short Term Intact and Remote Intact Attention: Span Intact; negative Concentration Intact Language: Naming Objects and Repeating Phrases Speech Fluency: negative Dysarthria or Dysfluency Speech Aphasia: negative Aphasia Fund of Knowledge: Vocabulary; negative Current Events or Past History Cranial Nerves: Normal II (Visual randall full to confrontation, visual acuity normal), III, IV, (Pupils equal round reactive to light and accommodation, eye movements normal), V (Facial sensation intact), VII (There is no facial droop or weakness), VIII (Hearing intact), IX, X (Palate elevates to midline), XI (Shoulder shrug intact) and XII (Tongue protrudes to midline) Motor Strength: Normal Lower Extremities and Normal Upper Extremities; negative Pronator Drift Motor Tone: Normal Lower Extremities and Normal Upper Extremities Muscle Bulk/Involuntary Movements: No Involuntary Movements; negative Muscle Atrophy Sensation: Light Touch Intact, Pain/Temperature Intact, Vibration Intact and Proprioception Intact Coordination: Normal; negative Limited Balance, Dysdiadochokinesia, Finger-Nose Abnormal or Heel-Chacon Abnormal Deep Tendon Reflexes: Rt Triceps: 2+, Lt Triceps: 2+, Rt Biceps: 2+, Lt Biceps: 2+, Rt Brachioradialis: 2+, Lt Brachioradialis: 2+, Rt Patellar: 2+, Lt Patellar: 2+, Rt Ankle: 2+ and Lt Ankle: 2+ Special Tests: negative Babinski Present Details: Gait not tested in context of patient's current neurological/medical status. Results & Data ([facility]) Vital Signs (Past 12 Hours) Vital Signs Temp Pulse Pulse Resp BP Pulse Ox 05/14/21 07:51 37.1 C 62 18 156/72 H 94 05/14/21 03:17 36.8 C 63 19 163/71 H 95 05/14/21 00:36 58 L 05/13/21 22:43 62 05/13/21 22:42 36.6 C 58 L 22 156/81 H 95 Laboratory Results WBC 4.82, hemoglobin 12.3, hematocrit 37.6, platelet count 231, sodium 138, potassium 3.9, BUN 8, creatinine 0.54, glucose 88, hemoglobin A1c 5.7, calcium 8.4, magnesium 2.6, AST 11, ALT 20, troponin less than 0.015, triglycerides 126, cholesterol 182, LDL 114, VLDL 25, HDL 43, TSH 1.870, SARS-CoV-[address] Findings [address] of the head negative for hemorrhage or acute process, there is atrophy and chronic small vessel ischemic disease. CT angiography of the head and neck unremarkable. No significant vascular lesions identified. MRI of the brain negative for acute or subacute stroke. There is evidence of generalized atrophy and fairly extensive chronic small vessel ischemic disease. I did review the images as well as the radiologist's interpretation of these tests and agree. An echocardiogram reveals normal left ventricular systolic function, mild aortic regurgitation, no obvious source of embolism, limited image quality noted. Atrial size is normal. Electrocardiogram reveals a normal sinus rhythm, 69 bpm. Coding Level of Care Code 51441 Initial In Care Lvl 3 Diagnoses Stroke-like symptoms R29.90 Dementia F03.90
[2021-05-14] MEDS ORDERED: PANTOprazole 40 MG TAB PO SCH (09:00)
--- NOTE | 2021-05-14 16:47 | Discharge Summary ---
Date of Service May 14, 2021 Admission HPI Per Admitting Provider Martha is an 86-year-old female with a past medical history of osteoporosis, UTI, hypothyroidism, anxiety, GERD, hypertension, and closed pelvic fracture recently discharged from [facility] 04/08/2021 following a closed pelvic fracture. She is an [place] resident. She presents as a stroke alert to [facility] ED 9:15am last known well EMS called just before 10am, staff found her with aphasia, R sided facial droop, and listing gait BSG normal, aphasic at EMS assessment and globally weak with facial droo CTA/CT-H naf, EKG nsr, vitals wnl. NIHSS score 12 on ER provider assessment, with sudden spontaneous improvement to 4 --> 3 following IV [facility] Telestroke Dr. Harris.. No lysis, metabolic workup for genearlized component, ASA. Cath urine. Last remembers breakfast. Patient reports she remembers eating breakfast and feeling well, and does not remember what happened between that time and arriving in the ER. She reports she is never had a stroke before, does not think she has had family problems with a stroke. She reports she feels globally weak, thinks a little bit better than when she first arrived. She notes she has more difficulty moving her right hip due to a past femur fracture. Overall feels continued global weakness"I feel weak like a wet puppy dog." Denies difficulty speaking at time of assessment. Denies vision change/hearing change at time of assessment a lthough notes that she is dependent on her hearing aids which she has with her. Endorses a mild headache. Denies lightheadedness, dizziness, chest pain, chest pressure, nausea, vomiting, diarrhea. She reports she knows she has to pee, but does not feel like she has to pee yet and does not want to be cath at this time. Denies history of lipid medications Medical History: Reviewed Medications: Reviewed Surgical History: Reviewed Allergies: Reviewed Social History: [place] resident. Denies alcohol, tobacco, recreational drug use. Code Status: DNR/DNI, confirmed with pt. Surrogate: Granddaughter Rhoda Roman. Principal Diagnosis TIA Discharge Data Allergies Allergy/AdvReac Type Severity Reaction Status Date / Time bacitracin Allergy Rash Verified 05/13/21 11:46 [From Neosporin ([id number])] neomycin Allergy Rash Verified 05/13/21 11:46 [From Neosporin ([id number])] pollen extracts Allergy Unknown Verified 05/13/21 11:46 polymyxin B Allergy Rash Verified 05/13/21 11:46 [From Neosporin ([id number])] Consultations 05/13/21 12:57 ED Decision to Admit Stat 05/13/21 14:14 Consult Neurology Routine Ordered Studies 05/13/21 10:14 CT angio head w con Stat CT angio neck with con Stat CT head/brain wo con Stat 05/13/21 14:14 MR brain wo con Routine Hospital Course (1) Stroke-like symptoms: probable TIA neurology consult a/p: (1) Stroke-like symptoms: (2) Dementia: Strokelike episode, probable TIA localizing to the left cerebral hemisphere, presenting with expressive aphasia and right facial droop. No evidence of acute or subacute process on brain MRI although patient does have fairly extensive chronic cerebrovascular disease and generalized atrophy. No significant vascular lesion on CT angiography of the head and neck. This patient does appear to have a baseline dementia, probably mixed type, moderate severity, patient currently exhibiting some disorientation, memory impairment, and slow processing speed. Speech is fluent, I do not appreciate an aphasia at this time. Would recommend aspirin 81 mg/day. Would also recommend obtaining 30-day mobile cardiac outpatient telemetry. Continue with rivastigmine. May resume metoprolol for hypertension MRI brain showed no stroke CT angiogram of brain and neck showed no significant stenoses Echocardiogram technically limited due to image quality, but EF of 55 to 60%, and no embolic source identified Total cholesterol 182, HDL 43, LDL 114, triglycerides 126could therefore consider high intensity statin, but with age/dementia I am not sure if the risk would outweigh the benefitwould defer to PCP in this regard A1c 5.7% (2) Alkaline phosphatase elevation: Alk phos Intermittent elevation in past 202 on admission. No transaminitis. No history of cholecystectomy - ?elevation in setting of recent closed fxr Follow-up as an outpatient Recent admission for mechanical fall with closed pelvic fracture No indication for surgery 03/1311/23 admission PT/OT consulted (3) Hypertension: Hypertension Home metoprolol tartrate 25 mg p.o. twice (4) Anxiety: Anxiety Continue home sertraline (5) Hypothyroidism: Hypothyroidism Continue home Synthroid 75 mcg p.o. daily TSH 1.870 (6) GERD (gastroesophageal reflux disease): Home on home meds (7) Vitamin D deficiency: Vitamin D deficiency Continue vitamin D 1000 units p.o. daily (8) Cognitive changes: Continue rivastigmine tartrate 3 mg p.o. twice daily Stable for return to personal care, event monitor being set up. Otherwise as above. tried to contact family to update - left voicemail Total Time Total Time Spent Total Time Spent (In Minutes): Less than 30 Discharge Plan Discharge Items Patient Disposition: Personal Group Home Reason For Visit: STROKE/CVA Discharge Diagnosis: TIA Activity: Resume your previous activity Non-emergency contact: Primary Care Provider Call non-emergency contact if: you have any medication questions and your symptoms worsen Follow-up/Referrals: COTY [Primary Care Provider] - Diet: Regular Addtl Attending Provider Instructions: Possible TIA -Fortunately no stroke, with symptoms, most probably had a small vessel TIA -Adding aspirin 81 mg daily for secondary risk reduction -Neurology recommends a cardiac event monitor as an outpatient to better evaluate for potential paroxysmal atrial fibrillation (unlikely, but certainly the right thing to do) Questionable urinary tract infection -Very difficult to gauge symptoms, but she did have a positive UA and some lower abdominal tendernesswill treat with a course of Keflex Pending Studies at Discharge: No Stand-Alone Forms: 3 Four 5 Group, Smoking Cessation Skilled Items Patient informed of condition?: Yes DNR: Yes Discharge Level of Care: Other Communicable Disease: No Discharge Prognosis: Stable Lines: None Urinary Catheter: No Medications and DC Order Prescriptions: New aspirin 81 mg capsule 81 mg PO DAILY Qty: 30 RF: 0 cephalexin 500 mg capsule 500 mg PO TID Qty: 15 RF: 0 Continued quetiapine 25 mg Tablet 25 mg PO DAILY RF: 0 acetaminophen [Tylenol] 325 mg Tablet 650 mg PO Q4 PRN (Reason: Fever Or Pain) RF: 0 sertraline 100 mg tablet 100 mg PO DAILY RF: 0 tramadol 50 mg Tablet 50 mg PO Q4 PRN (Reason: Pain) RF: 0 levothyroxine 75 mcg tablet 75 mcg PO DAILY RF: 0 vitamin E 400 unit Tablet 400 mg PO DAILY RF: 0 docusate sodium [Colace] 100 mg Capsule 100 mg PO BID RF: 0 sertraline 25 mg tablet 25 mg PO DAILY RF: 0 omeprazole 20 mg capsule,delayed release(DR/EC) 20 mg PO DAILY RF: 0 rivastigmine tartrate 3 mg capsule 3 mg PO BID RF: 0 methyl salicylate-menthol Cream 1 applic TOPICAL QID PRN (Reason: Pain) RF: 0 metoprolol tartrate 25 mg tablet 25 mg PO BID RF: 0 ibandronate 150 mg tablet 150 mg PO MO RF: 0 cholecalciferol (vitamin D3) [Vitamin D3] 25 mcg (1,000 unit) Tablet 0 mcg PO DAILY RF: 0 calcium carbonate-vitamin D3 [Calcium 600 + D(3)] 600 mg-10 mcg (400 unit) Tablet 1 tab PO DAILY RF: 0 Discharge Orders: Discharge Order (Routine); Ordered 05/14/21 Ordered By: Dedrick Crystal Admission Data Admit Date/Time: 05/13/21 11:54 Attending Provider: Dedrick Crystal Admit Provider: Darryl Holloway Primary Care Provider: Jessica ANSARI Providers: Darryl Holloway ; Markel Branch Other Interventions: Discharge Summary Assessment (RN) Last Done: 05/14/21 14:36 Coding Level of Care Code D/C DAY MANAGEMENT <30 MINS Diagnoses Stroke-like symptoms R29.90 Alkaline phosphatase elevation R74.8 Hypertension I10 Anxiety F41.9 Hypothyroidism E03.9 GERD (gastroesophageal reflux disease) K21.9 Vitamin D deficiency E55.9 Cognitive changes R41.89
--- NOTE | 2021-05-30 07:24 | Coding Query ---
CODING QUERY To promote full compliance with coding requirements relating to patient care, provider participation is requested in all cases of pin drafter operator uncertainty. Please assist us with the question(s) below: Coding Question(s): Clarification is needed as to whether the patient had a TIA. Discharge Diagnosis stated TIA then in the report states "possible TIA". Since this is an outpatient account, we cannot code "possible, Likely, suspected" etc. Please clarify if possible. Thank you. Physician's Response(s): sorry - but with her baseline, as well as dementia, etc - i think possible TIA is about as clarified as i can make it. thanks Thank you Cherelle Manrique [facility] Principal Diagnosis: "that condition established after study, to be chiefly responsible for occasioning the admission of the patient to the hospital for care." Co-Existing Principal Diagnosis: "when two or more diagnoses equally meet the criteria for principal diagnosis as determined by the circumstances of admission, diagnostic work up, and/or therapy provided, and the Alphabetic Index, Tabular List, or another coding guideline does not provide sequencing direction, any one of the diagnoses may be sequenced first." "When the physician has documented what appears to be a current diagnosis in the body of the record, but has not included the diagnosis in the final diagnostic statement, the physician should be asked whether the diagnosis should be added." (Source Coding Clinic 2 QTR90. p3-4) YOEL
== END 2021-05-14 15:04 | disposition home or self-care (01) ==
LOC: ED 10:14 → INTOOBSV 11:54 → SUATTDRO 11:54 → EDINP 11:54 → 2S 19:34

== ENCOUNTER 2021-08-24 07:44 | Observation (INO) ==
[2021-08-24 08:35] LABS: Basophils # (auto) 0.02 K/uL (0-0.2); Basophils % (auto) 0.4 %; Eosinophils # (auto) 0.31 K/uL (0-0.5); Eosinophils % (auto) 5.7 %; Hemoglobin 12.6 g/dL (12.0-16.0); Immature Granulocytes # (auto) 0.02 K/uL (0.00-0.02); Immature Granulocytes % (auto) 0.4 %; Lymphocytes # (auto) 1.82 K/uL (1.2-3.4); Lymphocytes % (auto) 33.7 %; Mean Corpuscular Hemoglobin 32.1 pg (25-34); Mean Corpuscular Volume 91.8 fL (80-100); Mean Platelet Volume 8.8 fL (7.4-10.4); Monocytes # (auto) 0.44 K/uL (0.11-0.59); Monocytes % (auto) 8.1 %; Neutrophils # (auto) 2.79 K/uL (1.4-6.5); Neutrophils % (auto) 51.7 %; Platelet Count 281 K/uL (130-400); RDW Coefficient of Variation 13.2 % (11.5-14.5); RDW Standard Deviation 44.3 fL (36.4-46.3); Red Blood Count 3.92 M/uL (4.2-5.4)
--- NOTE | 2021-08-24 09:00 | Emergency Department Note ---
Impression & Plan SDH (subdural hematoma), Weakness ED Provider Note NAME: LEONID PURI AGE: 86 SEX: F : 1935 ARRIVES VIA: Ambulance INFORMANT: Patient ED PROVIDER(S): Dedrick Romero DO CHIEF COMPLAINT: falling asleep HPI: Patient is an 86-year-old female who was brought in last night to the ER as she kept falling asleep and was much more tired than usual. She does not have a diagnosis of dementia but her baseline is oriented to person and place but not year month or day. She will intermittently get confused which is typical for her. Family notes that she has been falling asleep and difficult to keep awake. Patient admits to a little bit of a headache. She denies any chest pain or belly pain. No urinary symptoms. Patient was actually brought in from the following a fall. ROS: See above HPI for pertinent positives & negatives. A total of 10 systems reviewed and were otherwise negative. PAST MEDICAL HISTORY:See Below PAST SURGICAL HISTORY:See Below FAMILY HISTORY:See Below SOCIAL HISTORY:See Below HOME MEDICATIONS:See Below ALLERGIES:See Below VITALS:See Below PHYSICAL EXAMINATION: GENERAL: Sitting up in bed, sleeping but awakens to loud voice EYE EXAM: normal conjunctiva. PERRL and EOM's grossly intact. OROPHARYNX: no exudate, no erythema, lips, buccal mucosa, and tongue normal and mucous membranes are moist NECK: supple, no nuchal rigidity, no adenopathy, non-tender LUNGS: Clear to auscultation. Normal chest wall mechanics HEART: no murmurs, S1 normal and S2 normal ABDOMEN: abdomen soft, non-tender, normo-active bowel sounds, no masses, no rebound or guarding. BACK: Back is symmetrical on inspection and there is no deformity, no midline tenderness, no CVA tenderness. UPPER EXTREMITIES: upper extremities are grossly normal. LOWER EXTREMITIES: No pitting edema. NEURO EXAM: Awake alert oriented to person and place but not year cranial nerves II-XII grossly intact, normal speech, no gross weakness of arms, no gross weakness of legs. No drift MEDICAL DECISION MAKING: Patient is a 86-year-old female who was seen here last night and called back in following an over read on CT head which showed a small trace subdural along the falx. IV was established and obtained. Labs showed no significant leukocytosis or anemia. BMP with elevated chloride. LFTs bilirubin and TSH was unremarkable. Covid was negative. CT head was repeated after discussion with Dr. Vázquez from [facility] who reviewed the images that were forwarded to him via [facility] image. Recommended a repeat nail which was obtained and showed no significant change. Discussed with daughter and they would not want any surgical intervention and doing a stay here. Discussed with Antonia Keene for further observation. Patient does not take any blood thinners other than the aspirin in the morning. We will hold on aspirin. CXR last night was negative and will not be repeated. Triage Nursing notes reviewed. Limited review of prior medical records performed Vital Signs: reviewed and remarkable for HTN Differential diagnosis: Differential Diagnosis includes but is not limited to headache, tension headache, cluster headache, migraine, subarachnoid hemorrhage, meningitis, mass, central venous thrombus, concussion, trauma and epidural/subdural hemorrhage. ER treatment provided: See below Diagnostics interpreted by me: ECG: Bradycardia rate of 53 Left axis Low voltage QTC 418 Cardiac Monitoring: An order was placed for continuous cardiac monitoring. The m onitor shows a rate of 60 with sinus rhythm. Laboratory studies: As stated above and show below. Imaging studies: Previous CT head was reviewed and repeat was obtained and showed no significant change Consultation(s): Discussed with Dr. Vázquez from [facility] who notes that repeating CT now and if no significant change patient can stay at [facility] but if there is significant change should be transferred. He also recommended holding all blood thinners. D/w Dr. Antonia Keene for evaluation and admission Procedures: none Critical Care: None Past Med/Surg History Medical History Acute upper respiratory infection hx Anxiety Candidiasis of skin and nail Cardiac arrhythmia unspecified per records received from [facility] Fall on same level from slipping Femur fracture Gait abnormality Gastroenteritis GERD (gastroesophageal reflux disease) Hip pain, left Hyperlipemia Hypertension Hypothyroidism Knee pain, left Orthostatic hypotension Osteoporosis Paroxysmal tachycardia Restless leg syndrome Vertigo Visual disturbance Visual hallucinations Surgical History Hx of right cataract extraction Family History Other Family history non-contributory Social History Smoking Status: Unknown if ever smoked Hx Alcohol Use: No Hx Substance Use: No Preferred Language: Malawian Communication Ability: Effective Leadership Program Internship Required: No Beliefs That Will Affect Care: None marital status: Current Living Situation: [facility] Current Living Situation Comment: [facility] current occupational status: retired Feels Safe at Home: Yes Assistive Devices: Walker Allergies Allergies Allergy/AdvReac Type Severity Reaction Status Date / Time bacitracin Allergy Rash Verified 08/23/21 22:41 [From Neosporin ([id number])] neomycin Allergy Rash Verified 08/23/21 22:41 [From Neosporin ([id number])] pollen extracts Allergy Unknown Verified 08/23/21 22:41 polymyxin B Allergy Rash Verified 08/23/21 22:41 [From Neosporin ([id number])] Home Meds Home Medications Medication Instructions Recorded Confirmed acetaminophen 325 mg capsule 650 mg PO Q4 PRN MDD 3G 08/13/21 08/24/21 (Tylenol) aspirin 81 mg chewable tablet 81 mg PO QAM 08/13/21 08/24/21 cholecalciferol (vitamin D3) 25 0 mcg PO QAM 08/13/21 08/24/21 mcg (1,000 unit) tablet (Vitamin D3) docusate sodium 100 mg capsule 100 mg PO BID 08/13/21 08/24/21 (Colace) duloxetine 30 mg capsule,delayed 30 mg PO QAM 08/13/21 08/24/21 release ibandronate 150 mg tablet (Boniva) 150 mg PO MONTHLY 08/13/21 08/24/21 levothyroxine 75 mcg tablet 75 mcg PO DAILYBB 08/13/21 08/24/21 magnesium hydroxide 400 mg/5 mL 0 ml PO DIRECTED PRN 08/13/21 08/24/21 oral suspension (Milk of Magnesia) metoprolol tartrate 25 mg tablet 12.5 mg PO BID 08/13/21 08/24/21 omeprazole 20 mg capsule,delayed 20 mg PO QAM 08/13/21 08/24/21 release polyethylene glycol 3350 17 gram 17 g PO QAM 08/13/21 08/24/21 oral powder packet (Miralax) quetiapine 25 mg tablet 25 mg PO DAILY@1700 03/30/22 04/10/22 rivastigmine tartrate 3 mg capsule 3 mg PO BID 08/13/21 08/24/21 tramadol 50 mg tablet 50 mg PO Q4 PRN 08/13/21 08/24/21 vitamin E (dl, acetate) 180 mg 400 unit PO QAM 08/23/21 08/24/21 (400 unit) capsule diphenhydramine 25 2 tab PO HS 08/24/21 08/24/21 mg-acetaminophen 500 mg tablet (Tylenol PM Extra Strength) lidocaine HCl 4 %-menthol 1 % 1 applic TOPICAL QID PRN 08/24/21 08/24/21 topical cream (Icy Hot Max (lidocaine HCl-menthol)) Results & Data (ED) Vital Signs Vital Signs - 24 hr 08/24/21 08:02 08/24/21 11:00 Temperature 36.4 C L Temperature Source Oral Pulse Rate 58 L Pulse Rate [Left] 56 L Pulse Rhythm Regular Pulse Rhythm [Left] Regular Pulse Strength Normal Pulse Strength [Left] Normal Respiratory Rate 18 18 Respiratory Effort / Characteristics Spontaneous Spontaneous Respiratory Depth Normal Normal Respiratory Pattern Regular Regular Blood Pressure 177/86 H Blood Pressure [Right Arm] 162/80 H Blood Pressure Mean 116 Blood Pressure Mean [Right Arm] 107 Blood Pressure Position Lying Blood Pressure Position [Right Arm] Lying Pulse Oximetry 94 95 Oxygen Delivery Method Room Air Room Air Sepsis Recent Fever Within 48 Hours No Sepsis New/Unexplained Change in Mental Status N/A Sepsis Action Taken by Nursing No Action Required Laboratory Data Result diagrams: 08/24/21 08:27 08/24/21 08:27 Lab Results 08/24/21 08/24/21 08/24/21 Range/Units 08:27 08:27 08:27 WBC 5.40 (4.8-10.8) K/uL RBC 3.92 L (4.2-5.4) M/uL Hgb 12.6 (12.0-16.0) g/dL Hct 36.0 L (37-47) % MCV 91.8 (80-100) fL MCH 32.1 (25-34) pg MCHC 35.0 (32-36) g/dL RDW Std Deviation 44.3 (36.4-46.3) fL RDW Coeff of Molly 13.2 (11.5-14.5) % Plt Count 281 (130-400) K/uL MPV 8.8 (7.4-10.4) fL Immature Gran % (Auto) 0.4 % Neut % (Auto) 51.7 % Lymph % (Auto) 33.7 % [place] % (Auto) 8.1 % Eos % (Auto) 5.7 % Baso % (Auto) 0.4 % Neut # (Auto) 2.79 (1.4-6.5) K/uL Lymph # (Auto) 1.82 (1.2-3.4) K/uL [place] # (Auto) 0.44 (0.11-0.59) K/uL Eos # (Auto) 0.31 (0-0.5) K/uL Baso # (Auto) 0.02 (0-0.2) K/uL Immature Gran # (Auto) 0.02 (0.00-0.02) K/uL Sodium 139 (136-145) mmol/L Potassium 3.8 (3.5-5.1) mmol/L Chloride 109 H (98-107) mmol/L Carbon Dioxide 24 (21-32) mmol/L Anion Gap 6 (3-11) BUN 8 (6-23) mg/dl Creatinine 0.57 L (0.6-1.2) mg/dl Est Cr Clr Drug Dosing 66.9 ml/min Est GFR ( Amer) 98.7 ml/min Est GFR (Non-Af Amer) 85.1 ml/min BUN/Creatinine Ratio 14.0 (10-20) Glucose 87 (70-99(Fasting)) mg/dl Calcium 8.3 L (8.5-10.1) mg/dl Total Bilirubin 0.7 (0.2-1.0) mg/dl AST 16 (13-39) U/L ALT 15 (7-52) U/L Alkaline Phosphatase 72 (34-104) U/L Troponin I < 0.03 (0-0.04) ng/ml Total Protein 5.9 L (6.0-8.3) gm/dl Albumin 3.6 (3.4-5.0) gm/dl Globulin 2.3 L (2.5-4.0) gm/dl Albumin/Globulin Ratio 1.6 (0.9-2) TSH 0.641 (0.300-4.500) uIu/ml SARS-CoV-2, RNA, NAAT (NEGATIVE) 08/24/21 Range/Units 11:10 WBC (4.8-10.8) K/uL RBC (4.2-5.4) M/uL Hgb (12.0-16.0) g/dL Hct (37-47) % MCV (80-100) fL MCH (25-34) pg MCHC (32-36) g/dL RDW Std Deviation (36.4-46.3) fL RDW Coeff of Molly (11.5-14.5) % Plt Count (130-400) K/uL MPV (7.4-10.4) fL Immature Gran % (Auto) % Neut % (Auto) % Lymph % (Auto) % [place] % (Auto) % Eos % (Auto) % Baso % (Auto) % Neut # (Auto) (1.4-6.5) K/uL Lymph # (Auto) (1.2-3.4) K/uL [place] # (Auto) (0.11-0.59) K/uL Eos # (Auto) (0-0.5) K/uL Baso # (Auto) (0-0.2) K/uL Immature Gran # (Auto) (0.00-0.02) K/uL Sodium (136-145) mmol/L Potassium (3.5-5.1) mmol/L Chloride (98-107) mmol/L Carbon Dioxide (21-32) mmol/L Anion Gap (3-11) BUN (6-23) mg/dl Creatinine (0.6-1.2) mg/dl Est Cr Clr Drug Dosing ml/min Est GFR ( Amer) ml/min Est GFR (Non-Af Amer) ml/min BUN/Creatinine Ratio (10-20) Glucose (70-99(Fasting)) mg/dl Calcium (8.5-10.1) mg/dl Total Bilirubin (0.2-1.0) mg/dl AST (13-39) U/L ALT (7-52) U/L Alkaline Phosphatase (34-104) U/L Troponin I (0-0.04) ng/ml Total Protein (6.0-8.3) gm/dl Albumin (3.4-5.0) gm/dl Globulin (2.5-4.0) gm/dl Albumin/Globulin Ratio (0.9-2) TSH (0.300-4.500) uIu/ml SARS-CoV-2, RNA, NAAT NEGATIVE (NEGATIVE) Imaging Data Radiologist's Impression: Head CT 08/24/21 09:23 CT SCAN OF THE BRAIN WITHOUT IV CONTRAST CLINICAL HISTORY: Follow-up subdural hemorrhage. COMPARISON STUDY: CT scan of the brain dated 08/24/2021 and 05/13/2021. TECHNIQUE: Unenhanced axial CT scan of the brain is performed from the vertex to the skull base. A dose lowering technique was utilized adhering to the principles of ALARA. CT DOSE: 537.48 mGy.cm FINDINGS: Brain parenchyma: Again seen is trace subdural hemorrhage along the right aspect of the midline falx. This is best seen on image #24. No associated mass effect is identified. There are age-related involutional changes noting moderate to advanced subcortical and periventricular microangiopathic change. There is no parenchymal hematoma, midline shift, or evidence of acute territorial ischemia by CT criteria. Carrillo-white matter differentiation is preserved. Ventricles, sulci, cisterns: Prominent secondary to involutional change. Intracranial vasculature: There is atherosclerotic calcification of the cavernous carotid arteries. Calvarium: Unremarkable. Sinuses and mastoids: The visualized paranasal sinuses are clear. The mastoid air cells are well pneumatized. Orbits: The bony orbits are grossly intact. There are bilateral ocular lens implants. IMPRESSION: 1. Again seen is trace subdural hemorrhage along the right aspect of the midline falx. There is no associated mass effect. 2. There is no parenchymal hemorrhage, midline shift, or evidence of acute territorial ischemia by CT criteria. ACT 112: Negative or not required by law. Electronically signed by: Troy Odonnell M.D. 08/24/2021 9:56 AM Discharge Plan Visit Data Chief Complaint: Weakness ED Provider: Dedrick Romero Discharge Problem: SDH (subdural hematoma), Weakness Forms Stand Alone Forms: My [facility] Prescriptions Prescriptions: No Action quetiapine 25 mg tablet 25 mg PO DAILY@1700 RF: 0 polyethylene glycol 3350 [Miralax] 17 gram Powder In Packet 17 g PO QAM RF: 0 tramadol 50 mg tablet 50 mg PO Q4 PRN (Reason: Pain) RF: 0 levothyroxine 75 mcg tablet 75 mcg PO DAILYBB RF: 0 magnesium hydroxide [Milk of Magnesia] 400 mg/5 mL Suspension 0 ml PO DIRECTED PRN (Reason: Constipation) RF: 0 docusate sodium [Colace] 100 mg Capsule 100 mg PO BID RF: 0 omeprazole 20 mg capsule,delayed release(DR/EC) 20 mg PO QAM RF: 0 aspirin 81 mg Tablet,Chewable 81 mg PO QAM RF: 0 rivastigmine tartrate 3 mg capsule 3 mg PO BID RF: 0 metoprolol tartrate 25 mg tablet 12.5 mg PO BID RF: 0 duloxetine 30 mg capsule,delayed release(DR/EC) 30 mg PO QAM RF: 0 ibandronate [Boniva] 150 mg Tablet 150 mg PO MONTHLY RF: 0 acetaminophen [Tylenol] 325 mg Capsule 650 mg PO Q4 MDD 3G PRN (Reason: Fever Or Pain) RF: 0 cholecalciferol (vitamin D3) [Vitamin D3] 25 mcg (1,000 unit) Tablet 0 mcg PO QAM RF: 0 vitamin E (dl, acetate) 180 mg (400 unit) capsule 400 unit PO QAM RF: 0 Icy Hot Max (lido HCl-menthol) 4-1 % Cream 1 applic TOPICAL QID PRN (Reason: Pain) RF: 0 diphenhydramine-acetaminophen [Tylenol PM Extra Strength] 25-500 mg Tablet 2 tab PO HS RF: 0 [facility] [Primary Care Provider] -
[2021-08-24 09:01] LABS: Alanine Aminotransferase 15 U/L (7-52); Albumin Globulin Ratio 1.6 (0.9-2); Albumin Level 3.6 gm/dl (3.4-5.0); Alkaline Phosphatase 72 U/L (34-104); Anion Gap 6 (3-11); Aspartate Aminotransferase 16 U/L (13-39); Bilirubin,Total 0.7 mg/dl (0.2-1.0); Blood Urea Nitrogen 8 mg/dl (6-23); Calcium 8.3 mg/dl (8.5-10.1); Carbon Dioxide 24 mmol/L (21-32); Chloride 109 mmol/L (98-107); Creatinine Clr Calc Pharmacy 66.9 ml/min; Est GFR (African American) 98.7 ml/min; Est GFR (Non-African American) 85.1 ml/min; Globulin 2.3 gm/dl (2.5-4.0); Glucose 87 mg/dl (70-99(Fasting)); Potassium 3.8 mmol/L (3.5-5.1); Sodium 139 mmol/L (136-145); Total Protein 5.9 gm/dl (6.0-8.3)
[2021-08-24 09:03] LABS: Troponin I < 0.03 ng/ml (0-0.04)
--- NOTE | 2021-08-24 09:58 | CT Scan Report ---
CT SCAN OF THE BRAIN WITHOUT IV CONTRAST CLINICAL HISTORY: Follow-up subdural hemorrhage. COMPARISON STUDY: CT scan of the brain dated 08/24/2021 and 05/13/2021. TECHNIQUE: Unenhanced axial CT scan of the brain is performed from the vertex to the skull base. A do se lowering technique was utilized adhering to the principles of ALARA. CT DOSE: 537.48 mGy.cm FINDINGS: Brain parenchyma: Again seen is trace subdural hemorrhage along the right aspect of the midline falx. This is best seen on image #24. No associated mass effect is identified. There are age-related invol utional changes noting moderate to advanced subcortical and periventricular microangiopathic change. There is no parenchymal hematoma, midline shift, or evidence of acute territorial ischemia by CT cri teria. Carrillo-white matter differentiation is preserved. Ventricles, sulci, cisterns: Prominent secondary to involutional change. Intracranial vasculature: There is atherosclerotic calcification of the cavernous carotid arteries. Calvarium: Unremarkable. Sinuses and mastoids: The visualized paranasal sinuses are clear. The mastoid air cells are well pneu matized. Orbits: The bony orbits are grossly intact. There are bilateral ocular lens implants. IMPRESSION: 1. Again seen is trace subdural hemorrhage along the right aspect of the midline falx. There is no as sociated mass effect. 2. There is no parenchymal hemorrhage, midline shift, or evidence of acute territorial ischemia by CT criteria. ACT 112: Negative or not required by law. Electronically signed by: Troy Odonnell M.D. 08/24/2021 9:56 AM
--- NOTE | 2021-08-24 11:29 | Electrocardiogram Report ---
Test Reason : Blood Pressure : / mmHG Vent. Rate : 053 BPM Atrial Rate : 053 BPM P-R Int : 176 ms QRS Dur : 074 ms QT Int : 446 ms P-R-T Axes : 000 -29 012 degrees QTc Int : 418 ms Poor data quality, interpretation may be adversely affected Sinus bradycardia Low voltage QRS Inferior infarct , age undetermined Cannot rule out Anterior infarct (cited on or before 13-MAY-2021) Abnormal ECG When compared with ECG of 23-AUG-2021 23:08, (unconfirmed) No significant change was found Confirmed by Thom Ordoñez ([id number]) on 08/24/2021 11:29:24 AM Referred By: REFERRED SELF Confirmed By:Thom Ordoñez
--- NOTE | 2021-08-24 13:34 | History & Physical Report ---
Date of Service August 24, 2021 Assessment & Plan (1) SDH (subdural hematoma): Plan: As per HPI- case was discussed with EMD and Kyree TAYLOR for completeness- no surgical intervention indicated at this time- patient would also not want any surgical intervention or aggressive therapy - Follow up imaging with NON CON CT scan of the head in the morning - Neurological assessment q4 for 24 hours - IF acute worsening repeat NON CON head CT (2) Fatigue due to old head injury: Plan: Has been ongoing since April, however increase in daytime sleepiness noted in over the past 2-3 weeks - DDX: Postconcussive syndrome vs. polypharmacy vs. dementia worsening vs. SDH - As above for SDH small and likely not providing the above symptoms - Will hold Tramadol, Hold Seroquel - Continue cymbalta - Cymbalta and Seroquel appear to have been started May-Jul 08 (3) Fall: Plan: Patietn with multiple falls over the past year, daughter states she normally is trying to reach things while she is in her wheel chair and falls out - Had closed pelvic fracture in place 04/06- hold Tramadol- Continue with Tylenol and Lidcoaine patches (4) Dementia: Plan: Continue rivastigmine - Could follow up with Neurology while in house if desired (5) Vitamin D deficiency: Plan: Continue with Vitamin D (6) Hypothyroidism: Plan: TSH normal - Continue with synthroid (7) Closed pelvic fracture: Plan: Stable- pain appears controlled - will hold Tramadol - Tylenol l with lidocaine patches (8) Hypertension: Plan: She is on Metoprolol 12.5 mg PO BID- Her HR is 50s and has been this way since 2019 History of Present Illness Primary Care Provider: [employer], [facility] 86 YOF with past medical history of: Dementia, wheel chair bound, osteoporosis, HTN,, HLD, chronic pain, RLS, Anxiety. Patient is brought in today with his daughter for findings on CT scan on 08/23/21 for trace subdural hemorrhage. Patient had a fall approx 2 weeks ago where she hit the back of her head, had laceration that was derma-bonded, was not on any blood thinners other than her ASA. She came in yesterday evening for concerns of increase sleepiness and confusion experienced by her mom. The patient has underlying dementia and is following with neurology, she feels that this has been getting worse since Dece mber, but the over sleepiness has gotten worse over the past 2-3 weeks. The patient would not want any surgical intervention or aggressive therapy if this SDH would get worse enough for intervention. The patient is awake and oriented with no neurological deficits, but does go off on some tangents of the past as well as she did fall asleep while we were talking. Her vitals are without hypoxia, HR 50-65, labs without concern. Overall the patient remains on multiple sedating medications as well as post head strike that may have some component of post concussive. The patient and the daughter were OK with being admitted for removing some of her sedating medications and re-imaging in the morning for clarity. The patient is normally wheel chair bound, and is able to push herself around the half-way with her feet and get from one place to another. her daughter noticed since April that she will have good days and bad days and her bad days consist with her mumbling and grabbing for things that are not there. She was previously started on rivastigmine by neurology and is to follow up with them in October. Allergies Allergy/AdvReac Type Severity Reaction Status Date / Time bacitracin Allergy Rash Verified 08/23/21 22:41 [From Neosporin ([id number])] neomycin Allergy Rash Verified 08/23/21 22:41 [From Neosporin ([id number])] pollen extracts Allergy Unknown Verified 08/23/21 22:41 polymyxin B Allergy Rash Verified 08/23/21 22:41 [From Neosporin ([id number])] Home Medications Medication Instructions Recorded Confirmed Type acetaminophen 325 mg capsule 650 mg PO Q4 PRN MDD 3G 08/13/21 08/24/21 History (Tylenol) aspirin 81 mg chewable tablet 81 mg PO QAM 08/13/21 08/24/21 History cholecalciferol (vitamin D3) 25 0 mcg PO QAM 08/13/21 08/24/21 History mcg (1,000 unit) tablet (Vitamin D3) docusate sodium 100 mg capsule 100 mg PO BID 08/13/21 08/24/21 History (Colace) duloxetine 30 mg capsule,delayed 30 mg PO QAM 08/13/21 08/24/21 History release ibandronate 150 mg tablet (Boniva) 150 mg PO MONTHLY 08/13/21 08/24/21 History levothyroxine 75 mcg tablet 75 mcg PO DAILYBB 08/13/21 08/24/21 History magnesium hydroxide 400 mg/5 mL 0 ml PO DIRECTED PRN 08/13/21 08/24/21 History oral suspension (Milk of Magnesia) metoprolol tartrate 25 mg tablet 12.5 mg PO BID 08/13/21 08/24/21 History omeprazole 20 mg capsule,delayed 20 mg PO QAM 08/13/21 08/24/21 History release polyethylene glycol 3350 17 gram 17 g PO QAM 08/13/21 08/24/21 History oral powder packet (Miralax) quetiapine 25 mg tablet 25 mg PO DAILY@1700 08/13/21 08/24/21 History rivastigmine tartrate 3 mg capsule 3 mg PO BID 08/13/21 08/24/21 History tramadol 50 mg tablet 50 mg PO Q4 PRN 08/13/21 08/24/21 History vitamin E (dl, acetate) 180 mg 400 unit PO QAM 08/23/21 08/24/21 History (400 unit) capsule diphenhydramine 25 2 tab PO HS 08/24/21 08/24/21 History mg-acetaminophen 500 mg tablet (Tylenol PM Extra Strength) lidocaine HCl 4 %-menthol 1 % 1 applic TOPICAL QID PRN 08/24/21 08/24/21 History topical cream (Icy Hot Max (lidocaine HCl-menthol)) Past Med/Surg History Medical History Acute upper respiratory infection hx Anxiety Candidiasis of skin and nail Cardiac arrhythmia unspecified per records received from [facility] Dysphagia Fall on same level from slipping Femur fracture Gait abnormality Gastroenteritis GERD (gastroesophageal reflux disease) Hip pain, left Hyperlipemia Hypertension Hypothyroidism Knee pain, left Orthostatic hypotension Osteoporosis Paroxysmal tachycardia Restless leg syndrome Vertigo Visual disturbance Visual hallucinations Surgical History Hx of right cataract extraction Family History Other Family history non-contributory Social History (Reviewed 08/24/21 @ 13:19 by [facility] [place] Smoking Status: Unknown if ever smoked Hx Alcohol Use: No Hx Substance Use: No Preferred Language: Indonesian Communication Ability: Effective Human Services Worker Required: No Beliefs That Will Affect Care: None marital status: Current Living Situation: Personal Care Facility Current Living Situation Comment: [facility] current occupational status: retired Feels Safe at Home: Yes Assistive Devices: Wheelchair Review of Systems Review of Systems: REVIEW OF SYSTEMS: Constitutional: No fever, sweats or chills Eyes: No diplopia, no worsening or blurred vision ENT: (+) difficulty hearing does not have her hearing aids in, no trouble swallowing- soft bite sized pieces Respiratory: No cough, sputum, dyspnea at rest or on exertion Cardiovascular: (+) reproducible chest pain, NO tightness or palpitations Abdomen: No pain, nausea, vomiting, diarrhea or constipation Musculoskeletal: (+) back and hip joint pain, NO calf pain, swelling Neurologic: (+) dementia, wheel chair bound Psychiatric: No anxiety or depression Skin: No rash or itch Physical Exam Physical Exam: PHYSICAL EXAM: General: awake, alert, no apparent distress Head: Normocephalic, atraumatic ENT: PERRL, EOMI, no pharyngeal exudate, mucous membranes moist Neuro: AAO x 3, speech clear and appropriate, strength intact bilaterally 5/5, sensation intact and equal all extremities and dermatomes, no pronator drift Chest: equal rise and fall of the chest, no accessory muscle use, no heaves or thrills, Clear to auscultation, on room air, Cardiac: Regular rate and rhythm, telemetry reviewed, skin warm dry, cap refill <3 seconds, peripheral pulses +2 no JVD, no murmur, trace edema GI: NABS x 4 quadrants, soft, nontender to palpation, no rebound, guarding or tenderness : Spontaneously voiding, no pain, no CVA tenderness, Extremities: Normal inspection, no peripheral edema or erythema, calfs nontender to palpation Skin: no rash or erythema Results & Data Results & Data ([facility]) Vital Signs (Past 12 Hours) Vital Signs Temp Pulse Pulse Resp BP BP Pulse Ox 08/24/21 11:00 56 L 18 162/80 H 95 08/24/21 08:02 36.4 C L 58 L 18 177/86 H 94 Laboratory Results Abnormal lab results 08/24/21 08/24/21 Range/Units 08:27 08:27 RBC 3.92 L (4.2-5.4) M/uL Hct 36.0 L (37-47) % Chloride 109 H (98-107) mmol/L Creatinine 0.57 L (0.6-1.2) mg/dl Calcium 8.3 L (8.5-10.1) mg/dl Total Protein 5.9 L (6.0-8.3) gm/dl Globulin 2.3 L (2.5-4.0) gm/dl Diagnostic Findings Head CT 08/24/21 09:23 CT SCAN OF THE BRAIN WITHOUT IV CONTRAST CLINICAL HISTORY: Follow-up subdural hemorrhage. COMPARISON STUDY: CT scan of the brain dated 08/24/2021 and 05/13/2021. TECHNIQUE: Unenhanced axial CT scan of the brain is performed from the vertex to the skull base. A dose lowering technique was utilized adhering to the principles of ALARA. CT DOSE: 537.48 mGy.cm FINDINGS: Brain parenchyma: Again seen is trace subdural hemorrhage along the right aspect of the midline falx. This is best seen on image #24. No associated mass effect is identified. There are age-related involutional changes noting moderate to advanced subcortical and periventricular microangiopathic change. There is no parenchymal hematoma, midline shift, or evidence of acute territorial ischemia by CT criteria. Carrillo-white matter differentiation is preserved. Ventricles, sulci, cisterns: Prominent secondary to involutional change. Intracranial vasculature: There is atherosclerotic calcification of the cavernous carotid arteries. Calvarium: Unremarkable. Sinuses and mastoids: The visualized paranasal sinuses are clear. The mastoid air cells are well pneumatized. Orbits: The bony orbits are grossly intact. There are bilateral ocular lens implants. IMPRESSION: 1. Again seen is trace subdural hemorrhage along the right aspect of the midline falx. There is no associated mass effect. 2. There is no parenchymal hemorrhage, midline shift, or evidence of acute territorial ischemia by CT criteria. ACT 112: Negative or not required by law. Electronically signed by: Troy Odonnell M.D. 08/24/2021 9:56 AM Medications Administered Home Medications acetaminophen 325 mg capsule (Tylenol) 650 mg PO Q4 PRN MDD 3G 08/13/21 [History Confirmed 08/24/21] aspirin 81 mg chewable tablet 81 mg PO QAM 08/13/21 [History Confirmed 08/24/21] cholecalciferol (vitamin D3) 25 mcg (1,000 unit) tablet (Vitamin D3) 0 mcg PO QAM 08/13/21 [History Confirmed 08/24/21] docusate sodium 100 mg capsule (Colace) 100 mg PO BID 08/13/21 [History Confirmed 08/24/21] duloxetine 30 mg capsule,delayed release 30 mg PO QAM 08/13/21 [History Confirmed 08/24/21] ibandronate 150 mg tablet (Boniva) 150 mg PO MONTHLY 08/13/21 [History Confirmed 08/24/21] levothyroxine 75 mcg tablet 75 mcg PO DAILYBB 08/13/21 [History Confirmed 08/24/21] magnesium hydroxide 400 mg/5 mL oral suspension (Milk of Magnesia) 0 ml PO DIRECTED PRN 08/13/21 [History Confirmed 08/24/21] metoprolol tartrate 25 mg tablet 12.5 mg PO BID 08/13/21 [History Confirmed 08/24/21] omeprazole 20 mg capsule,delayed release 20 mg PO QAM 08/13/21 [History Confirmed 08/24/21] polyethylene glycol 3350 17 gram oral powder packet (Miralax) 17 g PO QAM 08/13/21 [History Confirmed 08/24/21] quetiapine 25 mg tablet 25 mg PO DAILY@1700 08/13/21 [History Confirmed 08/24/21] rivastigmine tartrate 3 mg capsule 3 mg PO BID 08/13/21 [History Confirmed 08/24/21] tramadol 50 mg tablet 50 mg PO Q4 PRN 08/13/21 [History Confirmed 08/24/21] vitamin E (dl, acetate) 180 mg (400 unit) capsule 400 unit PO QAM 08/23/21 [History Confirmed 08/24/21] diphenhydramine 25 mg-acetaminophen 500 mg tablet (Tylenol PM Extra Strength) 2 tab PO HS 08/24/21 [History Confirmed 08/24/21] lidocaine HCl 4 %-menthol 1 % topical cream (Icy Hot Max (lidocaine HCl-menth ol)) 1 applic TOPICAL QID PRN 08/24/21 [History Confirmed 08/24/21] ECG Additional Comments: Sinus bradycardia Low voltage QRS Inferior infarct , age undetermined Cannot rule out Anterior infarct (cited on or before 13-MAY-2021) Abnormal ECG When compared with ECG of 23-AUG-2021 23:08, (unconfirmed) No significant change was found Code Status & VTE Plan Code Status CODE: DNR/DNI VTE: SCDs, TEDS, ASA VTE Prophylaxis Plan VTE Prophylaxis will be ordered: Yes Supervising Physician Co-Signing Physician Notes ORTHOPEDICS PEDIATRIC PHYSICIAN Supervision Note: I personally saw and examined the patient. I verified all carmona points and agree with TY Sadler with the following exceptions and/or additions: Patient here with increased lethargy is return to the ER after reread by the radiologist in the morning, trace subdural hemorrhage on CT head from last night. She denies headache but reports pain and points to the back of her head right where a small laceration was approximated during her fall from 2 weeks ago. Otherwise denies vision changes, no nausea or vomiting. She asked when supper is going to be. History and ROS reviewed as above O- Vitals reviewed Gen: AAOx2, NAD HEENT: Anicteric sclerae, EOMI, PERRL, small healed scab on the left posterior occiput CV: RRR no mgr nl S1S2 Pulm: CTAB no wcr Abd: +BS soft NT ND no masses or hernias Ext: No edema, 2+ DP pulses Skin: No rashes, warm/dry Neuro: Full strength throughout Labs and rads reviewed A/Y-7-eoxy-old female with history of dementia, hypothyroidism, hypertension, here with very small subdural hemorrhage after fall 2 weeks ago as well as excessive fatigue last couple of days It appears her fatigue has been ongoing for several months but perhaps slightly worse in the last day. Hold Seroquel and tramadol Hold aspirin Repeat CT head in the morning PT/OT consults Can likely be discharged back to personal halfway tomorrow if CT had stable PG Care Time/CCT Total # of Minutes Spent Total Time Spent with Patient: Total time spent is greater than 50% in coordination of care (as documented) at patient's floor/unit and/or counseling patient: Coding Level of Care Code 27627 Initial Inpt Care Lvl 3 Diagnoses Fall W19.XXXA SDH (subdural hematoma) S06.5X9A Dementia F03.90 Vitamin D deficiency E55.9 Hypothyroidism E03.9 Closed pelvic fracture S32.9XXA Encounter type: initial encounter Fracture alignment: nondisplaced Pelvic bone location: unspecified part of pelvis Hypertension I10 Fatigue due to old head injury R53.83; S09.90XS (1) Closed pelvic fracture Encounter type: initial encounter Fracture alignment: nondisplaced Pelvic bone location: unspecified part of pelvis Qualified Code(s): S32.9XXA - Fracture of unspecified parts of lumbosacral spine and pelvis, initial encounter for closed fracture
[2021-08-24] MEDS ORDERED: ACETAMINOPHEN 325 MG TAB PO PRN (14:00)
[2021-08-24] MEDS ORDERED: MAGNESIUM HYDROXIDE SUSP 30 ML UDC PO PRN (14:00)
[2021-08-24] MEDS: LIDOCAINE 5% 1 PATCH TD SCH (16:26)
[2021-08-24] MEDS: METOPROLOL TARTRATE 25 MG TAB PO SCH (20:45)
[2021-08-24] MEDS: DOCUSATE SODIUM 100 MG CAP PO SCH (20:45)
[2021-08-24] MEDS: RIVASTIGMINE TARTRATE 1.5 MG CAP PO SCH (20:45)
[2021-08-25] MEDS: LEVOTHYROXINE SODIUM 75 MCG TABLET PO SCH (05:39)
--- NOTE | 2021-08-25 07:54 | CT Scan Report ---
CT head/brain wo con CLINICAL HISTORY: evaluate status of SDH Technique: Contiguous axial CT images of the head were acquired from the base of the skull to the gianluca marek without intravenous contrast administration. Images were viewed in brain, subdural and bone [facility]. Automated dose lowering techniques and/or adjustment according to patient size were utilized for this exam. Comparison: Comparison is made to CT head 08/24/2021 Findings: Areas of decreased attenuation are present in the periventricular and subcortical white matter bilate rally consistent with small vessel ischemic disease. Generalized cerebral volume loss with commensura te enlargement of the ventricles, sulci, and cisterns is also present. There is a 3 mm subdural hemor rhage in the falx, unchanged from prior exam. Imaged portions of the paranasal sinuses and mastoid air cells are clear. The orbits appear normal. There are no acute fractures of the calvaria or scalp swelling. Impression: Trace subdural hemorrhage is again seen in the right aspect of the falx, unchanged. ACT 112: Negative or not required by law. Electronically signed by: Ramon Del Toro M.D. 08/25/2021 7:53 AM
--- NOTE | 2021-08-25 08:06 | Hospitalist Progress Note ---
Date of Service August 25, 2021 Assessment & Plan (1) SDH (subdural hematoma): Plan: As per HPI- case was discussed with EMD and Kyree TAYLOR for completeness- no surgical intervention indicated at this time- patient would also not want any surgical intervention or aggressive therapy - Follow up imaging with NON CON CT scan of the head 08/25/2021 shows no change Trace size subdural likely not direct impact on the patient's initial somatic complaints (2) Fatigue due to old head injury: Plan: Has been ongoing since April, however increase in daytime sleepiness noted in over the past 2-3 weeks - DDX: Postconcussive syndrome vs. polypharmacy vs. dementia worsening vs. SDH - As above for SDH small and likely not providing the above symptoms -Discontinue Benadryl, tramadol, Seroquel - Continue cymbalta - Cymbalta and Seroquel appear to have been started May-Jul 08 his sleep becomes an issue may consider a trial of melatonin (3) Fall: Plan: Patient with multiple falls over the past year, daughter states she normally is trying to reach things while she is in her wheel chair and falls out - Had closed pelvic fracture in place 04/06- hold Tramadol- Continue with Tylenol and Lidocaine patches (4) Dementia: Plan: Continue rivastigmine - Could follow up with Neurology patient follows with [facility] neurologist Dr. Sarah Singletary (5) Vitamin D deficiency: Plan: Continue with Vitamin D (6) Hypothyroidism: Plan: TSH normal - Continue with synthroid (7) Closed pelvic fracture: Plan: Stable- pain appears controlled - will hold Tramadol no significant complaints of pain - Tylenol l with lidocaine patches (8) Hypertension: Plan: She is on Metoprolol 12.5 mg PO BID- Her HR is 50s and has been this way since 2019 Plan: Chemoprophylaxis is contraindicated with subdural hematoma Admission and Anticipated Discharge Date Admission Date: August 24, 2021 Subjective pt is easily awakened, pleasantly confused and in no apparent distress, CT of the brain is without much change, stopping Benadryl and toradol, Review of Systems Review of Systems: Unobtainable due to cognitive status Physical Exam Physical Exam: The patient appeared well Vital signs as documented. Lungs are clear to auscultation and appear unlabored Cardiac exam, Rhythm is regular.. No murmurs, rubs or gallops. Abdominal exam reveals normal bowel sounds, soft non tender, no masses Extremities are nonedematous and both pedal pulses are normal. Neurologic exam is alert and oriented x2 she has a resting tremor worse with the left arm, no focal loss of strength or sensation Skin is without bruises or rashes Psychologically is with transferred progressive memory impairment Results & Data Results & Data ([facility]) Vital Signs (Past 12 Hours) Vital Signs Temp Pulse Pulse Resp BP Pulse Ox 08/25/21 08:03 97.5 F L 56 L 16 175/77 H 96 08/24/21 22:23 98.1 F 65 18 174/76 H 95 08/24/21 20:41 63 174/79 H PG Care Time/CCT Total # of Minutes Spent Total Time Spent with Patient: Total time spent is greater than 50% in coordination of care (as documented) at patient's floor/unit and/or counseling patient: Coding Level of Care Code 98324 Subseq Hosp Care Lvl 2 Diagnoses SDH (subdural hematoma) S06.5X9A Fatigue due to old head injury R53.83; S09.90XS Fall W19.XXXA Dementia F03.90 Vitamin D deficiency E55.9 Hypothyroidism E03.9 Closed pelvic fracture S32.9XXA Encounter type: initial encounter Fracture alignment: nondisplaced Pelvic bone location: unspecified part of pelvis Hypertension I10 (1) Closed pelvic fracture Encounter type: initial encounter Fracture alignment: nondisplaced Pelvic bone location: unspecified part of pelvis Qualified Code(s): S32.9XXA - Fracture of unspecified parts of lumbosacral spine and pelvis, initial encounter for closed fracture
[2021-08-25 08:13] LABS: Basophils # (auto) 0.02 K/uL (0-0.2); Basophils % (auto) 0.3 %; Eosinophils # (auto) 0.32 K/uL (0-0.5); Eosinophils % (auto) 5.6 %; Hematocrit (blood only) 39.1 % (37-47); Hemoglobin 13.4 g/dL (12.0-16.0); Immature Granulocytes # (auto) 0.01 K/uL (0.00-0.02); Immature Granulocytes % (auto) 0.2 %; Lymphocytes # (auto) 1.86 K/uL (1.2-3.4); Lymphocytes % (auto) 32.3 %; Mean Corpuscular Hemoglobin 31.7 pg (25-34); Mean Corpuscular Hgb Conc 34.3 g/dL (32-36); Mean Corpuscular Volume 92.4 fL (80-100); Mean Platelet Volume 9.1 fL (7.4-10.4); Monocytes # (auto) 0.45 K/uL (0.11-0.59); Monocytes % (auto) 7.8 %; Neutrophils # (auto) 3.09 K/uL (1.4-6.5); Neutrophils % (auto) 53.8 %; Platelet Count 331 K/uL (130-400); RDW Coefficient of Variation 13.2 % (11.5-14.5); RDW Standard Deviation 44.3 fL (36.4-46.3); Red Blood Count 4.23 M/uL (4.2-5.4); White Blood Count 5.75 K/uL (4.8-10.8)
[2021-08-25] MEDS: POLYETHYLENE (MIRALAX) 17 GM PACK PO SCH (08:19)
[2021-08-25] MEDS: PANTOprazole 40 MG TAB PO SCH (08:19)
[2021-08-25] MEDS: DOCUSATE SODIUM 100 MG CAP PO SCH ×2 (08:19→20:00)
[2021-08-25] MEDS: METOPROLOL TARTRATE 25 MG TAB PO SCH ×2 (08:19→19:59)
[2021-08-25] MEDS: CHOLECALCIFEROL 1,000 UNITS 25 MCG TAB PO SCH (08:19)
[2021-08-25] MEDS: RIVASTIGMINE TARTRATE 1.5 MG CAP PO SCH ×2 (08:19→20:00)
[2021-08-25] MEDS: LIDOCAINE 5% 1 PATCH TD SCH (08:20)
[2021-08-25 08:43] LABS: BUN Creatinine Ratio 17.5 (10-20); Calcium 8.6 mg/dl (8.5-10.1); Creatinine Clr Calc Pharmacy 60.5 ml/min; Est GFR (African American) 95.5 ml/min; Est GFR (Non-African American) 82.4 ml/min; Magnesium 2.2 mg/dl (1.7-2.4); Potassium 3.8 mmol/L (3.5-5.1)
[2021-08-25] MEDS ORDERED: ASPIRIN 81 MG ECTAB PO SCH (09:00)
[2021-08-26] MEDS: LEVOTHYROXINE SODIUM 75 MCG TABLET PO SCH (05:30)
[2021-08-26 06:29] LABS: Basophils # (auto) 0.02 K/uL (0-0.2); Basophils % (auto) 0.3 %; Eosinophils # (auto) 0.02 K/uL (0-0.5); Eosinophils % (auto) 0.3 %; Hematocrit (blood only) 41.6 % (37-47); Hemoglobin 14.2 g/dL (12.0-16.0); Immature Granulocytes # (auto) 0.01 K/uL (0.00-0.02); Immature Granulocytes % (auto) 0.2 %; Lymphocytes # (auto) 2.38 K/uL (1.2-3.4); Lymphocytes % (auto) 36.1 %; Mean Corpuscular Hemoglobin 31.6 pg (25-34); Mean Corpuscular Hgb Conc 34.1 g/dL (32-36); Mean Corpuscular Volume 92.4 fL (80-100); Mean Platelet Volume 9.1 fL (7.4-10.4); Monocytes # (auto) 0.47 K/uL (0.11-0.59); Monocytes % (auto) 7.1 %; Neutrophils # (auto) 3.69 K/uL (1.4-6.5); Platelet Count 357 K/uL (130-400); RDW Coefficient of Variation 13.3 % (11.5-14.5); RDW Standard Deviation 44.9 fL (36.4-46.3); White Blood Count 6.59 K/uL (4.8-10.8)
[2021-08-26 07:03] LABS: BUN Creatinine Ratio 16.7 (10-20); Calcium 9.1 mg/dl (8.5-10.1); Creatinine Clr Calc Pharmacy 52.9 ml/min; Est GFR (African American) 89.1 ml/min; Est GFR (Non-African American) 76.9 ml/min; Magnesium 2.4 mg/dl (1.7-2.4); Potassium 4.2 mmol/L (3.5-5.1)
[2021-08-26] MEDS: RIVASTIGMINE TARTRATE 1.5 MG CAP PO SCH (08:23)
--- NOTE | 2021-08-26 08:23 | CT Scan Report ---
CT head/brain wo con CLINICAL HISTORY: 86 years-old Female with evaluate status of SDH. Follow-up study in a patient with a tiny subdural hematoma TECHNIQUE: Multiple axial CT images of the head were obtained without contrast. A dose lowering tech nique was utilized adhering to the principles of ALARA. CT DOSE: 537.48 mGy.cm COMPARISON: Head CT 08/25/2021 FINDINGS: Trace acute subdural hematoma layers along the right aspect of the falx cerebri measuring up to 2 mm in thickness. No additional acute intracranial hemorrhage, midline shift or intra-axial hemorrhage. T here is no midline shift, intracranial mass, hydrocephalus, territorial ischemia or abnormal extra-ax ial collection. Age-related involutional changes with ex vacuo ventriculomegaly. White matter hypoden sities suggest chronic microvascular ischemic disease. Cerebral vascular calcifications. The calvarium is intact. Metopic suture. Prior bilateral lens repair. The paranasal sinuses, mastoid air cells, and middle ear cavities are clear. IMPRESSION: 1. Trace acute subdural hematoma layering along the falx cerebri is unchanged. No midline shift. 2. Age-related involutional changes with chronic microvascular ischemic disease. ACT 112: Negative or not required by law. The above report was generated using voice recognition software. It may contain grammatical, syntax o r spelling errors. Electronically signed by: Bo Montesinos M.D. 08/26/2021 8:20 AM
[2021-08-26] MEDS: METOPROLOL TARTRATE 25 MG TAB PO SCH (08:24)
[2021-08-26] MEDS: CHOLECALCIFEROL 1,000 UNITS 25 MCG TAB PO SCH (08:24)
[2021-08-26] MEDS: DOCUSATE SODIUM 100 MG CAP PO SCH (08:24)
[2021-08-26] MEDS: PANTOprazole 40 MG TAB PO SCH (08:25)
[2021-08-26] MEDS: POLYETHYLENE (MIRALAX) 17 GM PACK PO SCH (08:25)
[2021-08-26] MEDS: LIDOCAINE 5% 1 PATCH TD SCH (08:26)
--- NOTE | 2021-08-26 16:43 | Discharge Summary ---
Date of Service August 26, 2021 Admission HPI Per Admitting Provider 86 YOF with past medical history of: Dementia, wheel chair bound, osteoporosis, HTN,, HLD, chronic pain, RLS, Anxiety. Patient is brought in today with his daughter for findings on CT scan on 08/23/21 for trace subdural hemorrhage. Patient had a fall approx 2 weeks ago where she hit the back of her head, had laceration that was derma-bonded, was not on any blood thinners other than her ASA. She came in yesterday evening for concerns of increase sleepiness and confusion experienced by her mom. The patient has underlying dementia and is following with neurology, she feels that this has been getting worse since April, but the over sleepiness has gotten worse over the past 2-3 weeks. The patient would not want any surgical intervention or aggressive therapy if this SDH would get worse enough for intervention. The patient is awake and oriented with no neurological deficits, but does go off on some tangents of the past as well as she did fall asleep while we were talking. Her vitals are without hypoxia, HR 50-65, labs without concern. Overall the patient remains on multiple sedating medications as well as post head strike that may have some component of post concussive. The patient and the daughter were OK with being admitted for removing some of her sedating medications and re-imaging in the morning for clarity. The patient is normally wheel chair bound, and is able to push herself around the senior living with her feet and get from one place to another. her daughter noticed since April that she will have good days and bad days and her bad days consist with her mumbling and grabbing for things that are not there. She was previously started on rivastigmine by neurology and is to follow up with them in October. Principal Diagnosis subdural hematoma medication induced(toxic) encepahalopathy Discharge Exam The patient appeared well Vital signs as documented. Lungs are clear to auscultation and appear unlabored Cardiac exam, Rhythm is regular.. No murmurs, rubs or gallops. Abdominal exam reveals normal bowel sounds, soft non tender, no masses Extremities are nonedematous and both pedal pulses are normal. Neurologic exam is alert and oriented, no focal loss of strength or sensation Skin is without bruises or rashes Psychologically is without concerns for anxiety or depression. Discharge Data Allergies Allergy/AdvReac Type Severity Reaction Status Date / Time bacitracin Allergy Rash Verified 08/23/21 22:41 [From Neosporin ([id number])] neomycin Allergy Rash Verified 08/23/21 22:41 [From Neosporin ([id number])] pollen extracts Allergy Unknown Verified 08/23/21 22:41 polymyxin B Allergy Rash Verified 08/23/21 22:41 [From Neosporin ([id number])] Consultations 08/24/21 11:11 ED Decision to Admit Stat Ordered Studies 08/24/21 09:23 CT head/brain wo con Stat 08/25/21 08:00 CT head/brain wo con DAILY 08/26/21 08:00 CT head/brain wo con DAILY Hospital Course (1) SDH (subdural hematoma): As per HPI- case was discussed with EMD and Kyree TAYLOR for completeness- no surgical intervention indicated at this time- patient would also not want any surgical intervention or aggressive therapy - Follow up imaging with NON CON CT scan of the head 08/25/2021 shows no change Trace size subdural likely not direct impact on the patient's initial somatic complaints (2) Fatigue due to old head injury: Has been ongoing since April, however increase in daytime sleepiness noted in over the past 2-3 weeks - DDX: Postconcussive syndrome vs. polypharmacy vs. dementia worsening vs. SDH - As above for SDH small and likely not providing the above symptoms -Discontinue Benadryl, tramadol, Seroquel - Continue cymbalta - Cymbalta and Seroquel appear to have been started May-Jul 08 his sleep becomes an issue may consider a trial of melatonin (3) Fall: Patient with multiple falls over the past year, daughter states she normally is trying to reach things while she is in her wheel chair and falls out - Had closed pelvic fracture in place 04/06- hold Tramadol- Continue with Tylenol and Lidocaine patches (4) Dementia: Continue rivastigmine - Could follow up with Neurology patient follows with [facility] neurologist Dr. Sarah Singletary (5) Vitamin D deficiency: Continue with Vitamin D (6) Hypothyroidism: TSH normal - Continue with synthroid (7) Closed pelvic fracture: Stable- pain appears controlled - will hold Tramadol no significant complaints of pain - Tylenol with lidocaine patches (8) Hypertension: She is on Metoprolol 12.5 mg PO BID- Her HR is 50s and has been this way since 2019 Total Time Total Time Spent Total Time Spent (In Minutes): It required greater than 30 minutes to prepare this patient for discharge Discharge Plan Discharge Items Patient Disposition: Personal Long Term Reason For Visit: SLEEPINESS,DEMENTIA,SUB DURAL HEMATOMA Discharge Diagnosis: medication induced sleepiness subdural hematoma stable Activity: Resume your previous activity Non-emergency contact: Primary Care Provider Call non-emergency contact if: your symptoms worsen Follow-up/Referrals: [facility] [Primary Care Provider] - Diet: Regular Addtl Attending Provider Instructions: please avoid sedating medications. please try melatonin for insomnia please safeguard from falls as much as able Pending Studies at Discharge: No Stand-Alone Forms: My j-Grab, Smoking Cessation Skilled Items Patient informed of condition?: Yes DNR: Yes Discharge Level of Care: Skilled Communicable Disease: No Discharge Prognosis: Stable Lines: None Urinary Catheter: No Medications and DC Order Prescriptions: Continued polyethylene glycol 3350 [Miralax] 17 gram Powder In Packet 17 g PO QAM RF: 0 levothyroxine 75 mcg tablet 75 mcg PO DAILYBB RF: 0 magnesium hydroxide [Milk of Magnesia] 400 mg/5 mL Suspension 0 ml PO DIRECTED PRN (Reason: Constipation) RF: 0 docusate sodium [Colace] 100 mg Capsule 100 mg PO BID RF: 0 omeprazole 20 mg capsule,delayed release(DR/EC) 20 mg PO QAM RF: 0 rivastigmine tartrate 3 mg capsule 3 mg PO BID RF: 0 metoprolol tartrate 25 mg tablet 12.5 mg PO BID RF: 0 ibandronate [Boniva] 150 mg Tablet 150 mg PO MONTHLY RF: 0 acetaminophen [Tylenol] 325 mg Capsule 650 mg PO Q4 MDD 3G PRN (Reason: Fever Or Pain) RF: 0 cholecalciferol (vitamin D3) [Vitamin D3] 25 mcg (1,000 unit) Tablet 0 mcg PO QAM RF: 0 vitamin E (dl, acetate) 180 mg (400 unit) capsule 400 unit PO QAM RF: 0 Icy Hot Max (lido HCl-menthol) 4-1 % Cream 1 applic TOPICAL QID PRN (Reason: Pain) RF: 0 Discontinued quetiapine 25 mg tablet 25 mg PO DAILY@1700 RF: 0 tramadol 50 mg tablet 50 mg PO Q4 PRN (Reason: Pain) RF: 0 aspirin 81 mg Tablet,Chewable 81 mg PO QAM RF: 0 duloxetine 30 mg capsule,delayed release(DR/EC) 30 mg PO QAM RF: 0 diphenhydramine-acetaminophen [Tylenol PM Extra Strength] 25-500 mg Tablet 2 tab PO HS RF: 0 Discharge Orders: Discharge Order (Routine); Ordered 08/26/21 Ordered By: Colin Espinoza Admission Data Admit Date/Time: 08/24/21 12:47 Attending Provider: Colin Espinoza Admit Provider: Osbaldo Sadler Primary Care Provider: [facility] Other Providers: Antonia Keene Other Interventions: Discharge Summary Assessment (RN) Last Done: 08/26/21 14:52 Coding Level of Care Code D/C DAY MANAGEMENT >30 MINS Diagnoses SDH (subdural hematoma) S06.5X9A Fatigue due to old head injury R53.83; S09.90XS Fall W19.XXXA Dementia F03.90 Vitamin D deficiency E55.9 Hypothyroidism E03.9 Closed pelvic fracture S32.9XXA Encounter type: initial encounter Fracture alignment: nondisplaced Pelvic bone location: unspecified part of pelvis Hypertension I10
== END 2021-08-26 15:05 | disposition home or self-care (01) ==
LOC: ED 07:44 → SUATTDRO 12:47 → 3W 12:47 → INTOOBSV 12:47 → 3W 13:25